=== PATIENT | female | born 1980 | race Caucasian/White ===

== ENCOUNTER 2023-06-21 18:00 | Emergency (ER) | payer MEDICAID, SELFPAY ==
[2023-06-21] VITALS (11 sets, daily range): BP systolic 174; BP diastolic 95; PULSE 71–91; RESP 14–28; TEMP 36.6; O2SAT 100; BMI 37.2
--- NOTE | 2023-06-21 18:14 | ECG_ITS ---
The [facility] Test Date: 2023-06-21 Pat Name: ALON BENITEZ Department: Room: - Gender: Female [employer]: : 1980 Requested By: MIGUEL JENA Order Number: [id number] Reading MD: WAYNE DENNY Measurements Intervals [place] Rate: 81 P: 60 DE: 172 QRS: 64 QRSD: 68 T: 50 QT: 368 QTc: 405 Interpretive Statements 1100 Sinus rhythm 3234 Anteroseptal myocardial infarction, age undetermined 9150 abnormal ECG No previous ECG available for comparison Electronically Signed On 06-22-2023 7:04:16 EST by WAYNE DENNY
--- NOTE | 2023-06-21 18:26 | ED.SOB1 ---
HPI - SOB/Dyspnea General Chief Complaint: Shortness of Breath/Dyspnea Stated Complaint: SHORTNESS OF BREATH Time Seen by Provider: 06/21/23 18:14 Source: patient Mode of arrival: walk-in History of Present Illness HPI Narrative: patient is a 42-year-old female who presents to the emergency department with concern of shortness of breath over the last two weeks. Patient states she believes that the symptoms are due to her anxiety but became concerned because they have not improved. She has had no fevers, cough or congestion. She denies chest pain or peripheral edema. She has no history of coronary artery disease or pulmonary abnormalities. She is regular smoker. She is not concerned for . She states she feels short of breath but also when she is talking she feels pressure in her neck and head that she states feels as though she can't get enough air . Related Data Home Medications Medication Instructions Recorded Confirmed omeprazole 20 mg capsule,delayed 20 mg PO DAILY 06/21/23 06/21/23 release Previous Rx's Medication Instructions Recorded hydroxyzine pamoate 25 mg capsule 25 mg PO Q6H PRN anxiety #20 caps 06/21/23 (Vistaril) Allergies Allergy/AdvReac Type Severity Reaction Status Date / Time cephalexin [From Keflex] Allergy Severe Swelling Verified 06/21/23 18:10 of Lip/Tongue/Throat Review of Systems ROS Constitutional Denies: fever or chills Ears, nose, mouth, and throat Denies: throat pain Cardiovascular Denies: chest pain or palpitations Respiratory Reports: shortness of breath; Denies: cough Gastrointestinal Denies: nausea or vomiting Musculoskeletal Denies: back pain, neck pain, extremity pain or extremity swelling Integumentary/Breast Denies: rash Neurological Denies: headache Allergic/Immunologic Denies: hives PFSH [facility] Social History Smoking status: Current every day smoker Exam Narrative Exam Narrative: Gen.: Awake, alert, in no distress Head: Normocephalic, atraumatic ENT: Moist mucous membranes Respiratory: No respiratory distress, lungs clear bilaterally Cardio: Regular rate and rhythm Extremities: Moves extremities equally, no pedal edema Psych: Normal mood and affect Neuro: No focal neuro deficit Skin: Warm, dry, intact Constitutional Vital Signs, click to edit/add: Last Vital Signs Temp 98 F 06/21/23 18:07 Pulse 82 06/21/23 19:30 Resp 14 06/21/23 19:30 BP 174/95 H 06/21/23 18:07 Pulse Ox 100 06/21/23 18:07 Course Vital Signs Vital signs: Vital Signs Temperature 98 F 06/21/23 18:07 Pulse Rate 91 H 06/21/23 18:07 Respiratory Rate 18 06/21/23 18:07 Blood Pressure 174/95 H 06/21/23 18:07 Pulse Oximetry 100 06/21/23 18:07 Temperature 98 F 06/21/23 18:07 Pulse Rate 82 06/21/23 19:30 Respiratory Rate 14 06/21/23 19:30 Blood Pressure 174/95 H 06/21/23 18:07 Pulse Oximetry 100 06/21/23 18:07 MDM - SOB/Dyspnea MDM Narrative Medical decision making narrative: lab studies found to show the patient has anemia but no evidence of cardiopulmonary abnormalities including troponin and d-dimer. The remainder of her labs are unremarkable and chest x-ray shows no evidence of acute cardiopulmonary changes. Patient was educated that her anemia may be possibly contributing to her shortness of breath and she should follow-up closely with her PCP, return to the Emergency Room if symptoms change or worsen she was offered hydroxyzine as needed for anxiety which may also be contributing to symptoms. Medical Records Attestation: I reviewed the patient's medical records. Lab Data Attestation: I reviewed the patient's lab results. Labs: Lab Results 06/21/23 Range/Units 18:27 WBC 5.4 (4.0-11.0) 10^3/uL RBC 4.26 (4.20-5.40) 10^6/uL Hgb 8.9 L (12.0-16.0) g/dL Hct 30.2 L (36.0-48.0) % MCV 70.9 L (81.0-99.0) fL MCH 20.9 L (26.7-34.0) pg MCHC 29.5 L (29.9-35.2) g/dL RDW 18.6 H (11.0-15.0) % Plt Count 345 (150-450) 10^3/uL MPV 10.4 (9.5-13.5) fL Neut % (Auto) 57.7 (43.0-75.0) % Lymph % (Auto) 32.5 (20.5-60.0) % [place] % (Auto) 6.6 (1.7-12.0) % Eos % (Auto) 1.7 (0.9-7.0) % Baso % (Auto) 1.3 (0.2-2.0) % Neut # (Auto) 3.1 (1.4-6.5) 10^3/uL Lymph # (Auto) 1.8 (1.2-3.8) 10^3/uL [place] # (Auto) 0.4 (0.3-0.8) 10^3/uL Eos # (Auto) 0.1 (0.0-0.7) 10^3/uL Baso # (Auto) 0.1 (0.0-0.1) 10^3/uL Abs Immat Gran (auto) 0.01 (0.00-0.03) 10^3/uL Imm/Tot Granulo (auto) 0.2 (0.0-0.5) % PT 9.9 (9.0-11.6) sec INR 0.93 APTT 28.5 (22.3-36.2) sec D-Dimer 0.30 (<=0.59) mg/L FEU VBG pH 7.430 (7.330-7.430) VBG pCO2 36.7 L (40.0-52.0) mmHg Sodium 136 (136-145) mmol/L Potassium 3.7 (3.5-5.1) mmol/L Chloride 101 (98-107) mmol/L Carbon Dioxide 23.8 (21.0-32.0) mmol/L Anion Gap 14.9 BUN 11.0 (7.0-18.0) mg/dL Creatinine 0.71 (0.55-1.02) mg/dL Est GFR ( Amer) >60 (>=60) Est GFR (Non-Af Amer) >60 (>=60) BUN/Creatinine Ratio 15.5 Glucose 87 (74-106) mg/dL Calcium 8.7 (8.5-10.1) mg/dL Total Bilirubin 0.2 (0.2-1.0) mg/dL AST 17 (15-37) U/L ALT 20 (14-59) U/L Alkaline Phosphatase 63 (46-116) U/L Troponin I High Sens 4.2 (4.0-51.3) pg/mL NT-Pro-B Natriuret Pep 57.0 (<=450.0) pg/mL Total Protein 7.9 (6.4-8.2) g/dL Albumin 3.8 (3.4-5.0) g/dL Globulin 4.1 g/dL Albumin/Globulin Ratio 0.9 Imaging Data Chest x-ray: Attestation: I have reviewed the pertinent imaging results. Radiologist's impression: Procedure: XR chest 1V EXAM: XR chest 1V at 1907 hours HISTORY: Shortness of breath COMPARISON: 09/30/2015 TECHNIQUE: AP upright portable chest x-ray FINDINGS: The heart is not enlarged and the vasculature is not distended. No acute infiltrate, effusion or pneumothorax is identified. The osseous structures are grossly intact. IMPRESSION: No acute infiltrate or evidence of cardiac decompensation. The overall appearance of the chest is essentially unchanged. Electronically authenticated by: JULIET CLEMENS Date: 06/21/2023 19:20 ECG Data Attestation: I personally reviewed and interpreted this ECG as follows: (normal sinus rhythm at a rate of eighty-one, no acute ST elevation or ectopy. EKG reviewed by attending physician) Discharge Plan Discharge Chief Complaint: Shortness of Breath/Dyspnea Clinical Impression: Shortness of breath, Anemia Patient Disposition: Home, Self-Care Time of Disposition Decision: 19:24 Condition: Good Prescriptions / Home Meds: New hydroxyzine pamoate [Vistaril] 25 mg capsule 25 mg PO Q6H PRN (Reason: anxiety) Qty: 20 0RF No Action omeprazole 20 mg capsule,delayed release(DR/EC) 20 mg PO DAILY Instructions: Anemia (ED), Shortness of Breath (ED) Stand Alone Forms: Portal Instructions Referrals: MIGUEL JEAN APRN [Primary Care Provider] - 1 week Discharge Date/Time: 06/21/23 19:34
[2023-06-21] MEDS: METHYLPREDNISOLONE SOD SUCC PF 125 MG/2 ML VIAL IVP (18:35)
[2023-06-21] MEDS: 0.9 % SODIUM CHLORIDE 1,000 ML 1000 ML IV (18:36)
[2023-06-21 18:37] LABS: PCO2 VBG 36.7 mmHg (40.0-52.0)
[2023-06-21 18:42] LABS: Basophils Absolute Auto 0.1 10^3/uL (0.0-0.1); Basophils Percent Auto 1.3 % (0.2-2.0); Eosinophils Absolute Auto 0.1 10^3/uL (0.0-0.7); Eosinophils Percent Auto 1.7 % (0.9-7.0); Hematocrit 30.2 % (36.0-48.0); Hemoglobin 8.9 g/dL (12.0-16.0); Immature Granulocytes Abs Auto 0.01 10^3/uL (0.00-0.03); Immature Granulocytes Pct Auto 0.2 % (0.0-0.5); Lymphocytes Absolute Auto 1.8 10^3/uL (1.2-3.8); Lymphocytes Percent Auto 32.5 % (20.5-60.0); Mean Corpuscular HGB Conc 29.5 g/dL (29.9-35.2); Mean Corpuscular Hemoglobin 20.9 pg (26.7-34.0); Mean Corpuscular Volume 70.9 fL (81.0-99.0); Mean Platelet Volume 10.4 fL (9.5-13.5); Monocytes Absolute Auto 0.4 10^3/uL (0.3-0.8); Monocytes Percent Auto 6.6 % (1.7-12.0); Neutrophils Absolute Auto 3.1 10^3/uL (1.4-6.5); Neutrophils Percent Auto 57.7 % (43.0-75.0); Platelet Count 345 10^3/uL (150-450); Red Blood Count 4.26 10^6/uL (4.20-5.40); Red Cell Distribution Width 18.6 % (11.0-15.0); White Blood Count 5.4 10^3/uL (4.0-11.0)
[2023-06-21 18:50] LABS: INR 0.93; Partial Thromboplastin Time 28.5 sec (22.3-36.2); Prothrombin Time 9.9 sec (9.0-11.6)
[2023-06-21 19:02] LABS: Alanine Aminotransferase 20 U/L (14-59); Albumin Globulin Ratio 0.9; Albumin Level 3.8 g/dL (3.4-5.0); Alkaline Phosphatase 63 U/L (46-116); Anion Gap 14.9; Aspartate Amino Transferase 17 U/L (15-37); BUN Creatinine Ratio 15.5; Bilirubin Total 0.2 mg/dL (0.2-1.0); Calcium 8.7 mg/dL (8.5-10.1); Carbon Dioxide 23.8 mmol/L (21.0-32.0); Chloride 101 mmol/L (98-107); Estimated GFR (African America >60 (>=60); Estimated GFR (Non-African Ame >60 (>=60); Globulin 4.1 g/dL; Glucose 87 mg/dL (74-106); Potassium 3.7 mmol/L (3.5-5.1); Sodium 136 mmol/L (136-145); Total Protein 7.9 g/dL (6.4-8.2); Troponin I High Sensitivity 4.2 pg/mL (4.0-51.3)
--- NOTE | 2023-06-21 19:03 | XR_ITS ---
The [address] [address] Patient Name: ALON BENITEZ MRN: [id number] date: 1980 Sex: F Assigned Patient Location: ER Current Patient Location: ER Accession/Order Number: [id number] Exam Date: 06/21/2023 19:10 Report Date: 06/21/2023 19:20 At the request of: BORA BARTHOLOMEW Procedure: XR chest 1V EXAM: XR chest 1V at 1907 hours HISTORY: Shortness of breath COMPARISON: 09/30/2015 TECHNIQUE: AP upright portable chest x-ray FINDINGS: The heart is not enlarged and the vasculature is not distended. No acute infiltrate, effusion or pneumothorax is identified. The osseous structures are grossly intact. XR/XR chest 1V IMPRESSION: No acute infiltrate or evidence of cardiac decompensation. The overall appearance of the chest is essentially unchanged. Electronically authenticated by: JULIET CLEMENS Date: 06/21/2023 19:20
== END 2023-06-21 19:34 | disposition home or self-care (01) ==
PROVIDERS: Physician Assistant; Emergency Provider Emergency Medicine; PCP Nurse Practitioner Primary Care
DX: R06.02 Shortness of breath (principal); D64.9 Anemia, unspecified; F17.210 Nicotine dependence, cigarettes, uncomplicated; F41.9 Anxiety disorder, unspecified
CPT/HCPCS: 36415; 71045; 80053; 82800; 83880; 84484; 85025; 85378; 85610; 85730; 93005; 96374; 99285; J2930

== ENCOUNTER 2023-08-21 | Outpatient (REF) | payer MEDICAID, SELFPAY ==
--- OUTSIDE RECORDS SUMMARY | 2023-08-31 08:14 | XMS_ITS | CCD ---
Author Name Unknown Address [address] [place] [address] Organization [facility] Care Team Providers Care Sap Technical Architect Name Role Phone CHRISTOPHER ARAGON Unavailable Unavailable PAVLOCK, MAX L Unavailable Unavailable HEDGES, CHRISTOPHER Cancino Unavailable Unavailable PAVLOCK, MAX L Unavailable Unavailable [...] Admitting Unavailable SHAMMO, MIGUEL Primary Care Unavailable YULIYAEBDR ABBY MEAD Consulting Unavailable SHAMMO, MIGUEL Attending Unavailable SHAMMO, MIGUEL Admitting Unavailable SHAMMO, MIGUEL Consulting Unavailable SHAMMO, MIGUEL Primary Care Unavailable SHAMMO, MIGUEL Consulting Unavailable SHAMMO, MIGUEL Attending Unavailable SHAMMO, MIGUEL Admitting Unavailable Pavlock, DO Max L Primary Care Provider Berna Hernandez Attending Provider [phone] MACRINA HERNANDEZY Attending Unavailable MARY, BERNA Attending Unavailable MARY, BERNA Attending Unavailable Pavlock, Max L Primary Care Unavailable Mary, Berna Attending Unavailable Mary, Berna Admitting Unavailable Allergies Allergy Classification Reported Allergen(s) Allergy Type Date of Onset Reaction(s) Facility (1 source) Cephalexin Drug Allergy tongue [facility] [employer] Other (1 source) Cephalexin Drug Allergy 2 [facility] Repository (1 source) Cephalexin Drug Allergy 8 [facility] Repository Medications Current Medications Medication Drug [...] in 3 days Apr, Not-Taking polymyxin b 76361 unt/ml / trimethoprim 1 mg/ml ophthalmic solution (1 source) Dihydrofolate Reductase Inhibitor Antibacterial, Polymyxin-class Antibacterial Start: 08-03-2018 take 1 drop(s) into the eye(s) four times daily Polymyxin B-Trimethoprim 81734-8.1 UNIT/ML 1 drop into left eye Ophthalmic [...] Test Name Value Interpretation Reference Range Facility [facility] 08-21-2023 L Specimen: [id number] Received: 08/22/231528 Status: CLINTON Escobedo Num: [id number] Spec Type: Surgical Subm Dr: Berna Hernandez Tissues: A Endometrium - Biopsy (EMBX) Procedures: HE/2, Gross/Micro L4 Age/ Patient Sex Location Account Attending Physician AnanyaAlon champagne Smita 42/F LABELL [id number] Berna Hernandez SPEC NUM: [id number] RECD: 08/22/23 STATUS: CLINTON ESCOBEDO NUM: [id number] PETE: 08/21/23- SUBM DR: Berna Hernandez ENTERED: 08/22/[address] [facility] [address]: [place],Lab SPEC TYPE: Surgical DEPT: OLVIN IZQUIERDO ORDERED: HE/2, Gross/Micro L4 ORDERED: HE/2, Gross/Micro L4 Pathological Diagnosis Endometrial biopsy: - Mucus with few small admixed strips of endocervical or lower uterine segment glandular elements of the probably inactive type, in addition to the occasional degenerated cellular debris, and the rare benign squamous epithelial cells without any hyperplasia, atypia, or dysplasia identified, otherwise is also slightly limited for overall assessment of the endometrial processes, at least partly due to only scant tissue portion obtained Clinical Information Menorrhagia with regular cycle Gross Description Received in formalin labeled with the patient's name, date of and EM BX (per requisition) is a 2.5 x 1.8 x 0.2 cm aggregate of boston soft tissue and mucoid material. Entirely submitted in one cassette labeled A1. CPT Codes 60037 Specimen: [id number] Received: 08/22/23 Status: CLINTON Gregg Num: [id number] Spec Type: Surgical Subm Dr: Berna Hernandez Tissues: A Endometrium - Biopsy (EMBX) Procedures: HE/2, Gross/Micro L4 Patient: Alon Gee Smita [id number] (Continued) Signed (signature on file) Jacob Alegria MD 08/24/23 1000 Normal [facility] FERRITINon 10-16-2022 Ferritin [Mass/Vol] 3.0 ng/mL Critically low 6.2-137.0 [facility] Comment on above: Performed By: #### F ETIBC, FERR #### [facility] [address] [address] [address] Reji Alegria IRON AND TIBCon 10-16-2022 % SATURATION 2.9 % Normal [facility] Comment on above: Performed By: #### F ETIBC, FERR #### [facility] [address] [address] [address] Reji Alegria Iron [Mass/Vol] 13.0 ug/dL Critically low 50.0-170.0 [facility] Comment on above: Performed By: #### F ETIBC, FERR #### [facility] [address] [address] [address] Reji Alegria TIBC DIRECT 442.0 ug/dL Normal 250.0-450.0 [facility] Comment on above: Performed By: #### F ETIBC, FERR #### [facility] [address] [place] [address] Dr. Reji Alegria HEPATITIS C AB CASCADE TO QU ANT PCR GENOon 08-29-2022 HCV AB <0.1 Normal 0.0-0.9 [facility] Comment on above: Performed By: #### H EPCASC #### [facility] [address] [place] [address] Dr. Reji Alegria Interpretation: Comment Normal [facility] Comment on above: Result Comment: Nega tive Not infected with HCV, unless recent infection is suspected or other evidence exists to indicate HCV infection. Performed By: #### H EPCASC #### [facility] [address] [place] [address] Dr. Reji Alegria CBC AUTO DIFFon 08-28-2022 BASO # 0.1 103/ul Normal 0.0-0.1 [facility] Comment on above: Performed By: #### C BC #### [facility] [address] [place] [address] Dr. Reji Alegria Basophils/100 WBC (Bld) 1.1 % Normal 0.2-2.0 [facility] Comment on above: Performed By: #### C BC #### [facility] [address] [place] [address] Dr. Reji Alegria EO # 0.1 103/ul Normal 0.0-0.7 [facility] Comment on above: Performed By: #### C BC #### [facility] [address] [place] [address] Dr. Reji Alegria Eosinophils/100 WBC (Bld) 1.6 % Normal 0.9-7.0 [facility] Comment on above: Performed By: #### C BC #### [facility] [address] [place] [address] Dr. Reji Alegria Erythrocyte distribution width (RBC) [Ratio] 15.0 % Normal 11.0-15.0 [facility] Comment on above: Performed By: #### C BC #### [facility] [address] [place] [address] Dr. Reji Alegria Hematocrit (Bld) [Volume fraction] 30.9 % Critically low 36.0-48.0 [facility] Comment on above: Performed By: #### C BC #### [facility] [address] [place] [address] Dr. Reji Alegria Hemoglobin (Bld) [Mass/Vol] 10.0 g/dL Critically low 12.0-16.0 [facility] Comment on above: Performed By: #### C BC #### [facility] [address] [place] [address] Dr. Reji Alegria IG # 0.02 10e3/ul Normal 0.00-0.03 [facility] Comment on above: Performed By: #### C BC #### [facility] [address] [place] [address] Dr. Reji Alegria IG % 0.3 % Normal 0.0-0.5 [facility] Comment on above: Performed By: #### C BC #### [facility] [address] [place] [address] Dr. Reji Alegria LYMPH # 2.2 103/ul Normal 1.2-3.8 [facility] Comment on above: Performed By: #### C BC #### [facility] [address] [place] [address] Dr. Reji Alegria Lymphocytes/100 WBC (Bld) 34.3 % Normal 20.5-60.0 [facility] Comment on above: Performed By: #### C BC #### [facility] [address] [place] [address] Dr. Reji Alegria MANUAL DIFF REQ NO Normal [facility] Comment on above: Performed By: #### C BC #### [facility] [address] [place] [address] Dr. Reji Alegria MCH (RBC) [Entitic mass] 22.5 pg Critically low 26.7-34.0 [facility] Comment on above: Performed By: #### C BC #### [facility] [address] [place] [address] Dr. Reji Alegria MCHC (RBC) [Mass/Vol] 32.4 g/dL Normal 29.9-35.2 [facility] Comment on above: Performed By: #### C BC #### [facility] [address] [place] [address] Dr. Reji Alegria MCV (RBC) [Entitic vol] 69.6 fL Critically low 81.0-99.0 [facility] Comment on above: Performed By: #### C BC #### [facility] [address] [address] [address] Reji Alegria MONO # 0.4 103/ul Normal 0.3-0.8 [facility] Comment on above: Performed By: #### C BC #### [facility] [address] [place] [address] Dr. Reji Alegria Monocytes/100 WBC (Bld) 6.2 % Normal 1.7-12.0 [facility] Comment on above: Performed By: #### C BC #### [facility] [address] [place] [address] Dr. Reji Alegria NEUT # 3.6 103/ul Normal 1.4-6.5 [facility] Comment on above: Performed By: #### C BC #### [facility] [address] [place] [address] Dr. Reji Alegria Neutrophils/100 WBC (Bld) 56.5 % Normal 43.0-75.0 [facility] Comment on above: Performed By: #### C BC #### [facility] [address] [place] [address] Dr. Reji Alegria Platelet mean volume (Bld) [Entitic vol] 9.8 fL Normal 9.5-13.5 [facility] Comment on above: Performed By: #### C BC #### [facility] [address] [place] [address] Dr. Reji Alegria PLT 371 103/ul Normal 150-450 [facility] Comment on above: Performed By: #### C BC #### [facility] [address] [place] [address] Dr. Reji Alegria RBC 4.44 106/ul Normal 4.20-5.40 [facility] Comment on above: Performed By: #### C BC #### [facility] [address] [place] [address] Dr. Reji Alegria WBC 6.3 103/ul Normal 4.0-11.0 [facility] Comment on above: Performed By: #### C BC #### [facility] [address] [place] [address] Dr. Reji Alegria GLYCOHEMOGLOBIN A1Con 2022 ADA RECOMMENDATION SEE BELOW Normal [facility] Comment on above: Result Comment: ADA RECOMMENDED LIMIT 4.0 - 6.0 ADA THERAPEUTIC TARGET < 7.0 ACTION SUGGESTED > 7.0 Performed By: #### A 1C #### [facility] [address] [place] [address] Dr. Reji Alegria Glucose [Mass/Vol] 117 mg/dL Normal [facility] Comment on above: Performed By: #### A 1C #### [facility] [address] [place] [address] Dr. Reji Alegria HbA1c (Bld) [Mass fraction] 5.7 % Normal 4.5-6.2 [facility] Comment on above: Performed By: #### A 1C #### [facility] [address] [place] [address] Dr. Reji Alegria LIPID PROFILEon 08-28-2022 CHOL-HDL RATIO NORM SEE BELOW Normal [facility] Comment on above: Result Comment: 3.3 - 4.4 LOW RISK 4.4 - 7.1 AVERAGE RISK 7.1 - 11.0 MODERATE RISK >11.0 HIGH RISK Performed By: #### C MP, LIPID, TSH #### [facility] [address] [place] [address] Dr. Reji Alegria Cholesterol [Mass/Vol] 146 mg/dL Normal <=200 [facility] Comment on above: Performed By: #### C MP, LIPID, TSH #### [facility] [address] [place] [address] Dr. Reji Alegria Cholesterol in HDL [Mass/Vol] 48 mg/dL Normal 40-60 [facility] Comment on above: Performed By: #### C MP, LIPID, TSH #### [facility] [address] [address] [address] Reji Alegria Cholesterol in LDL [Mass/Vol] 77.2 mg/dL Normal [facility] Comment on above: Performed By: #### C MP, LIPID, TSH #### [facility] [address] [address] [address] Reji Alegria Cholesterol.total/ Cholesterol in HDL [Mass ratio] 3.0 {ratio} Normal [facility] Comment on above: Performed By: #### C MP, LIPID, TSH #### [facility] [address] [address] [address] Reji Alegria HDL NORMAL > or = 60 mg/dl - LO W CARDIOVASCULAR RISK <40 mg/dl - HIGH CARDIOVASCULAR RISK Normal [facility] Comment on above: Performed By: #### C MP, LIPID, TSH #### [facility] [address] [address] [address] Reji Alegria LDL CALC NORMAL SEE BELOW Normal [facility] Comment on above: Result Comment: <100 mg/dl OPTIMAL 100 - 129 mg/dl NEAR OR ABOVE OPTIMAL 130 - 159 mg/dl BORDERLINE HIGH 160 - 189 mg/dl HIGH >190 mg/dl VERY HIGH Performed By: #### C MP, LIPID, TSH #### [facility] [address] [address] [address] Reji Alegria Triglyceride [Mass/Vol] 104 mg/dL Normal <=150 [facility] Comment on above: Performed By: #### C MP, LIPID, TSH #### [facility] [address] [address] [address] Reji Alegria VLDL CALC 20.8 mg/dL Normal [facility] Comment on above: Performed By: #### C MP, LIPID, TSH #### [facility] [address] [address] [address] Reji Alegria PROF 14(COMP METB)on 023 Albumin [Mass/Vol] 3.8 g/dL Normal 3.4-5.0 [facility] Comment on above: Performed By: #### C MP, LIPID, TSH #### [facility] [address] [address] [address] Reji Alegria Albumin/Globulin [Mass ratio] 1.0 {ratio} Normal [facility] Comment on above: Performed By: #### C MP, LIPID, TSH #### [facility] [address] [address] [address] Reji Alegria ALP [Catalytic activity/Vol] 68 U/L Normal 46-116 [facility] Comment on above: Performed By: #### C MP, LIPID, TSH #### [facility] [address] [address] [address] Reji Alegria ALT [Catalytic activity/Vol] 21 U/L Normal 14-59 [facility] Comment on above: Performed By: #### C MP, LIPID, TSH #### [facility] [address] [place] [address] Dr. Reji Alegria Anion gap [Moles/Vol] 12.3 mmol/L Normal [facility] Comment on above: Performed By: #### C MP, LIPID, TSH #### [facility] [address] [address] [address] Reji Alegria AST [Catalytic activity/Vol] 16 U/L Normal 15-37 [facility] Comment on above: Performed By: #### C MP, LIPID, TSH #### [facility] [address] [address] [address] Reji Alegria Bilirubin [Mass/Vol] 0.2 mg/dL Normal 0.2-1.0 [facility] Comment on above: Performed By: #### C MP, LIPID, TSH #### [facility] [address] [address] [address] Reji Alegria Calcium [Mass/Vol] 9.1 mg/dL Normal 8.5-10.1 [facility] Comment on above: Performed By: #### C MP, LIPID, TSH #### [facility] [address] [address] [address] Reji Alegria Chloride [Moles/Vol] 102 mmol/L Normal 98-107 [facility] Comment on above: Performed By: #### C MP, LIPID, TSH #### [facility] [address] [address] [address] Reji Alegria CO2 [Moles/Vol] 27.9 mmol/L Normal 21.0-32.0 [facility] Comment on above: Performed By: #### C MP, LIPID, TSH #### [facility] [address] [address] [address] Reji Alegria Creatinine [Mass/Vol] 0.52 mg/dL Critically low 0.55-1.02 [facility] Comment on above: Performed By: #### C MP, LIPID, TSH #### [facility] [address] [address] [address] Reji Alegria EGFR-AF COOK ISLANDER >60 Normal >=60 [facility] Comment on above: Performed By: #### C MP, LIPID, TSH #### [facility] [address] [address] [address] Reji Alegria EGFR-NON AF [place] ISLANDER >60 Normal >=60 [facility] Comment on above: Performed By: #### C MP, LIPID, TSH #### [facility] [address] [address] [address] Reji Alegria Globulin (S) [Mass/Vol] 3.7 g/dL Normal [facility] Comment on above: Performed By: #### C MP, LIPID, TSH #### [facility] [address] [address] [address] Reji Alegria Glucose [Mass/Vol] 90 mg/dL Normal 74-106 [facility] Comment on above: Performed By: #### C MP, LIPID, TSH #### [facility] [address] [address] [address] Reji Alegria Potassium [Moles/Vol] 4.2 mmol/L Normal 3.5-5.1 [facility] Comment on above: Performed By: #### C MP, LIPID, TSH #### [facility] [address] [address] [address] Reji Alegria Protein [Mass/Vol] 7.5 g/dL Normal 6.4-8.2 [facility] Comment on above: Performed By: #### C MP, LIPID, TSH #### [facility] [address] [address] [address] Reji Alegria Sodium [Moles/Vol] 138 mmol/L Normal 136-145 [facility] Comment on above: Performed By: #### C MP, LIPID, TSH #### [facility] [address] [address] [address] Reji Alegria Urea nitrogen [Mass/Vol] 10.0 mg/dL Normal 7.0-18.0 [facility] Comment on above: Performed By: #### C MP, LIPID, TSH #### [facility] [address] [place] [address] Dr. Reji Alegria Urea nitrogen/Creatinin e [Mass ratio] 19.2 mg/mg Normal [facility] Comment on above: Performed By: #### C MP, LIPID, TSH #### [facility] [address] [place] [address] Dr. Reji Alegria TSHon 08-28-2022 TSH 1.268 uIU/mL Normal 0.358-3.740 [facility] Comment on above: Performed By: #### C MP, LIPID, TSH #### [facility] [address] [place] [address] Dr. Reji Alegria XR LSPINE MIN 4 [...] by: ABBY LEWIS Date: 2022-06-14 15:56 Normal [facility] XR shoulder RT min 2V*on XR shoulder RT min 2V* [facility] GC[facility] Other XR shoulder RT min 2V* [facility] [place] [employer] Other XR shoulder RT min 2V* [address] [employer] Other XR shoulder RT min 2V* PRANAV Starks [address] [employer] Other XR shoulder RT min 2V* XRay Report [employer] Other XR shoulder RT min 2V* Signed [employer] Other XR shoulder RT min 2V* Patient: Alon Gee MR#: [id number] [employer] Other XR shoulder RT min 2V* 50 [employer] Other XR shoulder RT min 2V* : 1980 Acct:[id number] [employer] Other XR shoulder RT min 2V* Age/Sex: 40 / F ADM Date: 05/24/21 [employer] Other XR shoulder RT min 2V* Loc: XDUCLY Room: Type: [facility] [employer] Other XR shoulder RT min 2V* Attending Dr: Emilie Castillo ASSOCIATE PROFESSOR COMPUTER SCIENCESuleiman [employer] Other XR shoulder RT min 2V* Ordering Provider: EMILIE CASTILLO [employer] Other XR shoulder RT min 2V* Date of Service: 05/24/21 [employer] Other XR shoulder RT min 2V* XR/XR shoulder RT min 2V*: Acute pain of right shoulder [employer] Other XR shoulder RT min 2V* Copies to: EMILIE CASTILLO [facility] [employer] Other XR shoulder RT min 2V* CLINICAL HISTORY: Patient woke up with right shoulder pain 2 days ago, no known injury. Pain at the [employer] Other XR shoulder RT min 2V* upper portion of the shoulder. Limited range of motion. [employer] Other XR shoulder RT min 2V* [RIGHT] SHOULDER: [employer] Other XR shoulder RT min 2V* COMPARISON: None [employer] Other XR shoulder RT min 2V* FINDINGS: [AP, Grashey, transscapular] views of the right shoulder were obtained. There is no [employer] Other XR shoulder RT min 2V* evidence of fracture, dislocation or bony destruction. Moderate soft tissue calcification is noted [employer] Other XR shoulder RT min 2V* adjacent to the greater tuberosity of the humerus from calcific bursitis or tendinitis. Mild [employer] Other XR shoulder RT min 2V* degenerative arthritic changes are shown at the acromioclavicular joint. [employer] Other XR shoulder RT min 2V* XR/XR shoulder RT min 2V* [employer] Other XR shoulder RT min 2V* IMPRESSION: [employer] Other XR shoulder RT min 2V* NO FRACTURE OR SUBLUXATION. [employer] Other XR shoulder RT min 2V* CALCIFIC BURSITIS OR TENDINITIS ADJACENT TO THE GREATER TUBEROSITY OF THE HUMERUS. [employer] Other XR shoulder RT min 2V* MILD DEGENERATIVE ARTHRITIC CHANGES TO THE ACROMIOCLAVICULAR JOINT. [employer] Other XR shoulder RT min 2V* Impression dictated by: Mamadou Cobb M.D.05/24/2021 11:11 AM [employer] Other XR shoulder RT min 2V* Dictation Location: RADIO-PC-13 [employer] Other XR shoulder RT min 2V* Transcribed By: PWS 05/24/21 1111 [employer] Other XR shoulder RT min 2V* Dictated By: Mamadou Cobb MD 05/24/21 1108 [employer] Other XR shoulder RT min 2V* Signed By: [employer] Other XR shoulder RT min 2V* 05/24/21 1111 [employer] Other Surgical Pathologyon 017 Surgical Pathology (NOTE)[id number] Y LABORATORIESCONSULTING PATHOLOGISTS [facility] [id number] [place], [place] [id number] Fax: SURGICAL PATHOLOGY CONSULTATIONPatient Name: Nata GEE Rec: [id number] Number: [id number]: 06/01/2017Received: 06/04/2017Reported: 06/05/2017 12:38-- Diagnosis --SKIN, RIGHT [...] cyst wallor neoplasm in these sections. Normal [facility] US NON OB TRANSVAGINALon US NON OB [...] PMInterpreted by:EMANUEL Jonesigned by:Barbara Ledezma MD05/21/17Final result [facility] Cytologyon 05-11-2017 Cytology (NOTE)[id number] Y LABORATORIESCONSULTING PATHOLOGISTS [facility] [id number] [place], [place] [id number] Fax: GYNECOLOGIC CYTOLOGY REPORTPatient Name: DEBRA GEE#: [id number] #[id number]:1: Cervical material, (ThinPrep vial, Imaging-assisted review)Clinical SqrjreaN24.419 Routine casing crew pusher exam without abnormal findingsHigh Risk HPV DNA testing is requested if the diagnosis is ASC-USLMP: 05/03/17INTERPRETATIONCerv ical material, (ThinPrep vial, Imaging-assisted review):Specimen Adequacy: Satisfactory for evaluation. -Endocervical/transformat ion zone component is absent.Descriptive Diagnosis: Negative for intraepithelial lesion or malignancy. Register Of Deeds: ELÍAS Chavez(ASCP)Electronically Signed Outmk/05/17/2017 [facility] Vital Signs Date Time Vital Sign Value Performing Clinician Facility 05-24-2021 11:05-0400 Body height 162.56 cm Emilie Penningtonault Other [employer] Other 05-24-2021 11:05-0400 Body mass index (BMI) [Ratio] 37.38 kg/m2 Emilie Castillo Other [employer] Other 05-24-2021 11:05-0400 Body temperature 97.8 [degF] Emilie Castillo Other [employer] Other 05-24-2021 11:05-0400 Body weight 98.79 kg Emilie Castillo Other [employer] Other 05-24-2021 11:05-0400 Diastolic blood pressure 82 mm[Hg] Emilie Castillo Other [employer] Other 05-24-2021 11:05-0400 Respiratory rate 18 /min Emilie Castillo Other [employer] Other 05-24-2021 11:05-0400 SaO2% (BldA) [Mass fraction] 100 % Emilie Castillo Other [employer] Other 05-24-2021 11:05-0400 Systolic blood pressure 129 mm[Hg] Emilie Castillo Other [employer] Other Encounters Encounter Date Encounter Type Care Provider Facility Start: 08-23-2023 End: 08-23-2023 ambulatory BERNA MARY Not Available Start: 08-21-2023 End: 08-21-2023 ambulatory Max L Pavlock Facility:[facility] Start: 08-21-2023 End: 08-21-2023 Departed Referred DO Max Pavlock Work Phone: [facility] [place] [facility] Start: 08-21-2023 End: 08-21-2023 ambulatory DO Max L Pavlock Work Phone: [facility] Work Phone: Start: 07-31-2023 End: 07-31-2023 ambulatory BERNA HERNANDEZ Not Available Start: 11-14-2022 ambulatory MIGUEL SHAMMO Facility:H 1 Start: 10-16-2022 End: 10-17-2022 ambulatory MIGUEL SHAMMO Facility:[facility] Start: 08-30-2022 Encounter for genera l adult medical examination without abnormal findings MIGUEL SHAMMO [facility] Start: 08-28-2022 End: 08-29-2022 ambulatory MIGUEL SHAMMO Facility:[facility] Start: 08-28-2022 End: 08-29-2022 Encounter for general adult medical examination without abnormal findings MIGUEL SHAMMO Facility:[facility] Start: 06-27-2022 ambulatory MIGUEL SHAMMO Facility:[facility] 1 Start: 06-14-2022 End: 06-15-2022 ambulatory MIGUEL SHAMMO Facility:[facility] Start: 05-24-2021 Office outpatient vi sit 15 minutes Emilie Castillo [facility] [place] Start: 06-01-2017 End: 06-02-2017 Ambulatory [facility]hill[facility] Start: 05-21-2017 End: 05-22-2017 Ambulatory [facility]STOP[facility] Dhillon [facility] Start: 05-11-2017 End: 05-12-2017 Ambulatory [facility]STOP[facility] Dhillon [facility] Procedures Date Procedure Procedure Detail Performing Clinician Start: 05-21-2017 transvaginal CHRISTOPHER ARAGON Start: 05-11-2017 Cytopathology proced ure, preparation of smear, genital source CHRISTOPHER ARAGON Immunizations Immunization Date Immunization Notes Care Provider Fa cility 12-10-2018 Kenalog -40 mg Emilie carrasco Other [employer] Other Payers Date Payer Category Payer Medicaid [id number] 2022 Medicaid [id number] 2016 Unknown [id number] 1980 Unknown [id number] 2.16.84 [id number] 1980 Unknown [id number] 2.16.84 [id number] 1980 Unknown [id number] 2.16.84 [id number] 1980 Unknown [id number] 2.16.84 [id number] 1980 Unknown [id number] 2.16.84 0.1.534870.3.579.2.593 1980 Unknown [id number] 2.16.84 0.1.945523.3.579.2.1259 1980 Unknown [id number] 2.16.84 0.1.683451.3.579.2.1259 1980 Unknown [id number] 2.16.840 .1.155318.3.579.2.1259 1959 Self-pay 1959 Unknown [id number] Unknown [place] [id number] Unknown [id number] 2.16.8 [id number] Social History Date Type Detail Facility Unknown if ever smoked [employer] Other Sex Assigned At Sex Assigned At Bir th [employer] Other Start: 1980 Sex Assigned At Female F [facility] Clinical Note 06-14-2022 Note Date & Type [...] authenticated by: ABBY LEWIS Date: 2022-06-14 15:52 [facility] Evaluation note 05-24-2021 Note Date & Type [...] and tendontitis seen on xray as discussed. [facility] [employer] [facility] [employer] Other Evaluation note Note Date & Type Note Facility Evaluation note No assessment information availa [facility] Work Phone: History general Narrative - Reported Note Date & Type Note Facility History general Narrative - Reported Type Medical History Hypertension Medical History Depression Medical History Intercranial HTN Surgical History C section x 2 Hospitalization History see above surg hx [facility] [employer] [facility] [employer] Other Summary Purpose Family History No Family History Records FoundNo Family History Records FoundNo Family History Records FoundNo Family History Records Found Advance Directives No Advanced Directives Records Found Advance Directive Response Recorded Date/ Time Advance Directives No February 18 3:24pm Additional Source Comments INFORMATION SOURCE (unrecogn ized section and content) DATE CREATED AUTHOR 01/29/2018 [facility] DATE CREATED AUTHOR AUTHOR'S ORGANIZ ATION 12/07/2022 [facility] DATE CREATED AUTHOR AUTHOR'S ORGANIZ ATION 08/24/2023 [facility] EPIC DATE CREATED AUTHOR AUTHOR'S ORGANIZ ATION 08/25/2023 [facility] REASON FOR VISIT (unrecogniz ed section and [...] BE BASED ON THE PRIMARY CLINICAL RECORDS. [facility] provides no warranty or guarantee of the accuracy or completeness of information in this document.
== END 2023-08-21 00:01 | disposition home or self-care (01) ==
LOC: LAB
PROVIDERS: PCP Nurse Practitioner Primary Care; Visit Provider Obstetrics & Gynecology
DX: N92.0 Excessive and frequent menstruation with regular cycle (principal)
CPT/HCPCS: 88305

== ENCOUNTER 2023-08-23 19:57 | Outpatient (REF) | payer MEDICAID, SELFPAY ==
--- OUTSIDE RECORDS SUMMARY | 2023-08-23 20:01 | XMS_ITS | CCD ---
Author Name Unknown Address [address] [place] [address] Organization [facility] Care Team Providers Care Branch Maker Name Role Phone CHRISTOPHER ARAGON Unavailable Unavailable PAVLOCK, MAX L Unavailable Unavailable HEDGES, CHRISTOPHER W Unavailable Unavailable PAVLOCK, MAX L Unavailable Unavailable HEDGES, CHRISTOPHER W Unavailable Unavailable PAVLOCK, MAX L Unavailable Unavailable Emilie Castillo Unavailable SHAMMO, MIGUEL Consulting Unavailable SHAMMO, MIGUEL Primary Care Unavailable SHAMMO, MIGUEL Attending Unavailable SHAMMO, MIGUEL Admitting Unavailable SHAMMO, MIGUEL Primary Care Unavailable SHAMMO, MIGUEL Attending Unavailable SHAMMO, MIGUEL Admitting Unavailable SHAMMO, MIGUEL Primary Care Unavailable SHAMMO, MIGUEL Attending Unavailable SHAMMO, MIGUEL Admitting Unavailable SHAMMO, MIGUEL Primary Care Unavailable ZIEBERDR ABBY Consulting Unavailable SHAMMO, MIGUEL Attending Unavailable SHAMMO, IMGUEL Admitting Unavailable SHAMMO, MIGUEL Consulting Unavailable SHAMMO, MIGUEL Primary Care Unavailable SHAMMO, MIGUEL Consulting Unavailable SHAMMO, MIGUEL Attending Unavailable SHAMMO, MIGUEL Admitting Unavailable BERNA HERNANDEZ Attending Unavailable BERNA HERNANDEZ Attending Unavailable Pavwilliam, DO Max Yuliet Primary Care Provider Berna Hernandez Attending Provider Pavwilliam, Romulo Horvath Primary Care Unavailable Berna Hernandez Attending Unavailable Gerda Hernandezy Admitting Unavailable Allergies Allergy Classification Reported Allergen(s) Allergy Type Date of Onset Reaction(s) Facility (1 source) Cephalexin Drug Allergy tongue [facility] Other (1 source) Cephalexin Drug Allergy 2 [facility] Repository (1 source) Cephalexin Drug Allergy 8 [facility] Repository Medications Current Medications Medication Drug Class(es) Dates Sig (Normalized) Sig (Original) cyclobenzaprine hydrochloride 10 mg oral tablet (1 source) Muscle Relaxant Start: 1 take 1 tablet by mouth every eight hours Cyclobenzaprine HCl 10 MG 1 tablet as needed Orally Three times a day for 10 days May, Active methylPREDNISolone 4 mg oral tablet (1 source) Corticosteroid Start: 1 methylPREDNISolone 4 MG as directed Orally Once a day for 6 days May, Active Completed/Discontinued Medications Medication Drug Class(es) Dates Sig (Normalized) Sig (Original) fluconazole 150 mg oral tablet (1 source) Azole Antifungal Start: 04-24-2021 Diflucan 150 MG 1 tablet Orally once for 1 days Take 1 tab today p.o., repeat in 3 days Apr, Not-Taking polymyxin b 05957 unt/ml / trimethoprim 1 mg/ml ophthalmic solution (1 source) Dihydrofolate Reductase Inhibitor Antibacterial, Polymyxin-class Antibacterial Start: 08-03-2018 take 1 drop(s) into the eye(s) four times daily Polymyxin B-Trimethoprim 43942-8.1 UNIT/ML 1 drop into left eye Ophthalmic Four times a day for 7 days Jul, Not-Taking terbinafine (1 source) Allylamine Antifungal Start: 04-24-2021 Terbinafine HCl 1 % 1 application Externally Once a day for 14 days apply to rash Apr, Not-Taking Problems Active Problems Problem Classification Problem Date Documented Da te Episodic/Chronic Deficiency and other anemia (4 sources) Iron deficiency anemia, unspecified; Translations: [IRON DEFICIENCY ANEMIA UNSPECIFIED] Onset: 10-16-2022 Episodic Menstrual disorders (1 source) Excessive and frequent menstruation with irregular cycle; Translations: [Excessive and frequent menstruation with irregular cycle] Onset: 05-21-2017 Chronic Other nervous system disorders (1 source) Carpal tunnel syndrome of right wrist; Translations: [Carpal tunnel syndrome, right upper limb] Chronic Other nervous system disorders (1 source) Carpal tunnel syndrome of left wrist; Translations: [Carpal tunnel syndrome, left upper limb] Chronic Other nutritional; endocrine; and metabolic disorders (1 source) Morbid (severe) obesity due to excess calories; Translations: [MORBID SEVERE OBES D/T EXCESS JD] Onset: 08-30-2022 Chronic Other nutritional; endocrine; and metabolic disorders (1 source) Body mass index (BMI) 40.0-44.9, adult; Translations: [BODY MASS INDEX BMI 40.0-44.9 ADULT] Onset: 08-30-2022 Chronic Unclassified (1 source) n64.9 / n64.9() Onset: 06-01-2017 Unclassified (3 sources) LOW BACK PAIN, UNSPECIFIED; Translations: [LOW BACK PAIN, UNSPECIFIED] Onset: 06-19-2022 Past or Other Problems Problem Classification Problem Date Documented Date Episodic/Chronic Immunizations and screening for infectious disease (1 source) Encounter for screening for other viral diseases; Translations: [ENC SCREENING FOR OTH VIRAL DZ] Onset: 08-30-2022 Episodic Medical examination/evaluatio n (1 source) Encounter for gynecological examination (general) (routine) without abnormal findings; Translations: [Encounter for gynecological examination (general) (routine) without abnormal findings] Onset: 05-11-2017 Episodic Other non-traumatic joint disorders (1 source) Pain in right shoulder; Translations: [Acute pain of right shoulder M25.511] Onset: 05-24-2021 Resolved: 05-24-2021 Episodic Other non-traumatic joint disorders (1 source) Pain in left hip; Translations: [PAIN IN LEFT HIP] Onset: 06-19-2022 Episodic Other screening for suspected conditions (not mental disorders or infectious disease) (2 sources) Encounter for screening for cardiovascular disorders; Translations: [Encounter for screening for other suspected endocrine disorder] Onset: 08-30-2022 Episodic Unclassified (1 source) n64.9; Translations: [n64.9] Onset: 06-01-2017 Unclassified (1 source) LOW BACK PAIN, UNSPECIFIED; Translations: [LOW BACK PAIN, UNSPECIFIED] Onset: 06-14-2022 Results Test Name Value Interpretation Reference Range Facility FERRITINon 10-16-2022 Ferritin [Mass/Vol] 3.0 ng/mL Critically low 6.2-137.0 [facility] Comment on above: Performed By: #### F ETIBC, FERR #### [facility] [address] [place] [address] Dr. Reji Alegria IRON AND TIBCon 10-16-2022 % SATURATION 2.9 % Normal [facility] Comment on above: Performed By: #### F ETIBC, FERR #### [facility] [address] [place] [address] Dr. Reji Alegria Iron [Mass/Vol] 13.0 ug/dL Critically low 50.0-170.0 [facility] Comment on above: Performed By: #### F ETIBC, FERR #### [facility] [address] [place] [address] Dr. Reji Alegria TIBC DIRECT 442.0 ug/dL Normal 250.0-450.0 [facility] Comment on above: Performed By: #### F ETIBC, FERR #### [facility] [address] [place] [address] Dr. Reji Alegria HEPATITIS C AB CASCADE TO QU ANT PCR GENOon 08-29-2022 HCV AB <0.1 Normal 0.0-0.9 [facility] Comment on above: Performed By: #### H EPCASC #### [facility] [address] [place] [address] Dr. Reji Alegria Interpretation: Comment Normal [facility] Comment on above: Result Comment: Nega tive Not infected with HCV, unless recent infection is suspected or other evidence exists to indicate HCV infection. Performed By: #### H EPCASC #### [facility] [address] [place] [address] Dr. Reji Alegria CBC AUTO DIFFon 08-28-2022 BASO # 0.1 103/ul Normal 0.0-0.1 [facility] Comment on above: Performed By: #### C BC #### [facility] [address] [place] [address] Dr. Reji Alegria Basophils/100 WBC (Bld) 1.1 % Normal 0.2-2.0 [facility] Comment on above: Performed By: #### C BC #### [facility] [address] [place] [address] Dr. Reji Alegria EO # 0.1 103/ul Normal 0.0-0.7 [facility] Comment on above: Performed By: #### C BC #### [facility] [address] [place] [address] Dr. Reji Alegria Eosinophils/100 WBC (Bld) 1.6 % Normal 0.9-7.0 [facility] Comment on above: Performed By: #### C BC #### [facility] [address] [place] [address] Dr. Reij Alegria Erythrocyte distribution width (RBC) [Ratio] 15.0 % Normal 11.0-15.0 [facility] Comment on above: Performed By: #### C BC #### [facility] [address] [place] [address] Dr. Reji Alegria Hematocrit (Bld) [Volume fraction] 30.9 % Critically low 36.0-48.0 [facility] Comment on above: Performed By: #### C BC #### [facility] [address] [place] [address] Dr. Reji Alegria Hemoglobin (Bld) [Mass/Vol] 10.0 g/dL Critically low 12.0-16.0 [facility] Comment on above: Performed By: #### C BC #### [facility] [address] [place] [address] Dr. Reji Alegria IG # 0.02 10e3/ul Normal 0.00-0.03 [facility] Comment on above: Performed By: #### C BC #### [facility] [address] [place] [address] Dr. Reji Alegria IG % 0.3 % Normal 0.0-0.5 [facility] Comment on above: Performed By: #### C BC #### [facility] [address] [place] [address] Dr. Reji Alegria LYMPH # 2.2 103/ul Normal 1.2-3.8 [facility] Comment on above: Performed By: #### C BC #### [facility] [address] [place] [address] Dr. Reij Alegria Lymphocytes/100 WBC (Bld) 34.3 % Normal 20.5-60.0 [facility] Comment on above: Performed By: #### C BC #### [facility] [address] [address] [address] Reji Alegria MANUAL DIFF REQ NO Normal [facility] Comment on above: Performed By: #### C BC #### [facility] [address] [place] [address] Dr. Reji Alegria MCH (RBC) [Entitic mass] 22.5 pg Critically low 26.7-34.0 [facility] Comment on above: Performed By: #### C BC #### [facility] [address] [place] [address] Dr. Reji Alegria MCHC (RBC) [Mass/Vol] 32.4 g/dL Normal 29.9-35.2 [facility] Comment on above: Performed By: #### C BC #### [facility] [address] [place] [address] Dr. Reji Alegria MCV (RBC) [Entitic vol] 69.6 fL Critically low 81.0-99.0 [facility] Comment on above: Performed By: #### C BC #### [facility] [address] [place] [address] Dr. Reji Alegria MONO # 0.4 103/ul Normal 0.3-0.8 [facility] Comment on above: Performed By: #### C BC #### [facility] [address] [place] [address] Dr. Reji Alegria Monocytes/100 WBC (Bld) 6.2 % Normal 1.7-12.0 [facility] Comment on above: Performed By: #### C BC #### [facility] [address] [place] [address] Dr. Reji Alegria NEUT # 3.6 103/ul Normal 1.4-6.5 [facility] Comment on above: Performed By: #### C BC #### [facility] [address] [place] [address] Dr. Reji Alegria Neutrophils/100 WBC (Bld) 56.5 % Normal 43.0-75.0 [facility] Comment on above: Performed By: #### C BC #### [facility] [address] [address] [address] Reji Alegria Platelet mean volume (Bld) [Entitic vol] 9.8 fL Normal 9.5-13.5 [facility] Comment on above: Performed By: #### C BC #### [facility] [address] [address] [address] Reji Alegria PLT 371 103/ul Normal 150-450 [facility] Comment on above: Performed By: #### C BC #### [facility] [address] [address] [address] Reji Alegria RBC 4.44 106/ul Normal 4.20-5.40 [facility] Comment on above: Performed By: #### C BC #### [facility] [address] [place] [address] Dr. Reji Alegria WBC 6.3 103/ul Normal 4.0-11.0 [facility] Comment on above: Performed By: #### C BC #### [facility] [address] [address] [address] Reji Alegria GLYCOHEMOGLOBIN A1Con 2022 ADA RECOMMENDATION SEE BELOW Normal [facility] Comment on above: Result Comment: ADA RECOMMENDED LIMIT 4.0 - 6.0 ADA THERAPEUTIC TARGET < 7.0 ACTION SUGGESTED > 7.0 Performed By: #### A 1C #### [facility] [address] [place] [address] Dr. Reji Alegria Glucose [Mass/Vol] 117 mg/dL Normal [facility] Comment on above: Performed By: #### A 1C #### [facility] [address] [place] [address] Dr. Reji Alegria HbA1c (Bld) [Mass fraction] 5.7 % Normal 4.5-6.2 [facility] Comment on above: Performed By: #### A 1C #### [facility] [address] [place] [address] Dr. Reji Alegria LIPID PROFILEon 08-28-2022 CHOL-HDL RATIO NORM SEE BELOW Normal [facility] Comment on above: Result Comment: 3.3 - 4.4 LOW RISK 4.4 - 7.1 AVERAGE RISK 7.1 - 11.0 MODERATE RISK >11.0 HIGH RISK Performed By: #### C MP, LIPID, TSH #### [facility] [address] [address] [address] Reji Alegria Cholesterol [Mass/Vol] 146 mg/dL Normal <=200 [facility] Comment on above: Performed By: #### C MP, LIPID, TSH #### [facility] [address] [address] [address] Reji Alegria Cholesterol in HDL [Mass/Vol] 48 mg/dL Normal 40-60 [facility] Comment on above: Performed By: #### C MP, LIPID, TSH #### [facility] [address] [place] [address] Dr. Reji Alegria Cholesterol in LDL [Mass/Vol] 77.2 mg/dL Normal [facility] Comment on above: Performed By: #### C MP, LIPID, TSH #### [facility] [address] [place] [address] Dr. Reji Alegria Cholesterol.total/ Cholesterol in HDL [Mass ratio] 3.0 {ratio} Normal [facility] Comment on above: Performed By: #### C MP, LIPID, TSH #### [facility] [address] [place] [address] Dr. Reji Alegria HDL NORMAL > or = 60 mg/dl - LO W CARDIOVASCULAR RISK <40 mg/dl - HIGH CARDIOVASCULAR RISK Normal [facility] Comment on above: Performed By: #### C MP, LIPID, TSH #### [facility] [address] [place] [address] Dr. Reji Alegria LDL CALC NORMAL SEE BELOW Normal [facility] Comment on above: Result Comment: <100 mg/dl OPTIMAL 100 - 129 mg/dl NEAR OR ABOVE OPTIMAL 130 - 159 mg/dl BORDERLINE HIGH 160 - 189 mg/dl HIGH >190 mg/dl VERY HIGH Performed By: #### C MP, LIPID, TSH #### [facility] [address] [place] [address] Dr. Reji Alegria Triglyceride [Mass/Vol] 104 mg/dL Normal <=150 [facility] Comment on above: Performed By: #### C MP, LIPID, TSH #### [facility] [address] [address] [address] Reji Alegria VLDL CALC 20.8 mg/dL Normal [facility] Comment on above: Performed By: #### C MP, LIPID, TSH #### [facility] [address] [address] [address] Reji Alegria PROF 14(COMP METB)on 023 Albumin [Mass/Vol] 3.8 g/dL Normal 3.4-5.0 [facility] Comment on above: Performed By: #### C MP, LIPID, TSH #### [facility] [address] [address] [address] Reji Alegria Albumin/Globulin [Mass ratio] 1.0 {ratio} Normal [facility] Comment on above: Performed By: #### C MP, LIPID, TSH #### [facility] [address] [place] [address] Dr. Reji Alegria ALP [Catalytic activity/Vol] 68 U/L Normal 46-116 [facility] Comment on above: Performed By: #### C MP, LIPID, TSH #### [facility] [address] [place] [address] Dr. Reji Alegria ALT [Catalytic activity/Vol] 21 U/L Normal 14-59 [facility] Comment on above: Performed By: #### C MP, LIPID, TSH #### [facility] [address] [place] [address] Dr. Reji Alegria Anion gap [Moles/Vol] 12.3 mmol/L Normal [facility] Comment on above: Performed By: #### C MP, LIPID, TSH #### [facility] [address] [place] [address] Dr. Reji Alegria AST [Catalytic activity/Vol] 16 U/L Normal 15-37 [facility] Comment on above: Performed By: #### C MP, LIPID, TSH #### [facility] [address] [place] [address] Dr. Reji Alegria Bilirubin [Mass/Vol] 0.2 mg/dL Normal 0.2-1.0 [facility] Comment on above: Performed By: #### C MP, LIPID, TSH #### [facility] [address] [address] [address] Reji Alegria Calcium [Mass/Vol] 9.1 mg/dL Normal 8.5-10.1 [facility] Comment on above: Performed By: #### C MP, LIPID, TSH #### [facility] [address] [place] [address] Dr. Reji Alegria Chloride [Moles/Vol] 102 mmol/L Normal 98-107 [facility] Comment on above: Performed By: #### C MP, LIPID, TSH #### [facility] [address] [place] [address] Dr. Reji Alegria CO2 [Moles/Vol] 27.9 mmol/L Normal 21.0-32.0 [facility] Comment on above: Performed By: #### C MP, LIPID, TSH #### [facility] [address] [place] [address] Dr. Reji Alegria Creatinine [Mass/Vol] 0.52 mg/dL Critically low 0.55-1.02 [facility] Comment on above: Performed By: #### C MP, LIPID, TSH #### [facility] [address] [place] [address] Dr. Reji Alegria EGFR-AF AFGHAN >60 Normal >=60 [facility] Comment on above: Performed By: #### C MP, LIPID, TSH #### [facility] [address] [place] [address] Dr. Reji Alegria EGFR-NON AF AFGHAN >60 Normal >=60 [facility] Comment on above: Performed By: #### C MP, LIPID, TSH #### [facility] [address] [place] [address] Dr. Reji Alegria Globulin (S) [Mass/Vol] 3.7 g/dL Normal [facility] Comment on above: Performed By: #### C MP, LIPID, TSH #### [facility] [address] [place] [address] Dr. Reji Alegria Glucose [Mass/Vol] 90 mg/dL Normal 74-[address] [facility] Comment on above: Performed By: #### C MP, LIPID, TSH #### [facility] [address] [place] [address] Dr. Reji Alegria Potassium [Moles/Vol] 4.2 mmol/L Normal 3.5-5.1 [facility] Comment on above: Performed By: #### C MP, LIPID, TSH #### [facility] [address] [place] [address] Dr. Reji Alegria Protein [Mass/Vol] 7.5 g/dL Normal 6.4-8.[address] [facility] Comment on above: Performed By: #### C MP, LIPID, TSH #### [facility] [address] [place] [address] Dr. Reji Alegria Sodium [Moles/Vol] 138 mmol/L Normal 136-145 [facility] Comment on above: Performed By: #### C MP, LIPID, TSH #### [facility] [address] [place] [address] Dr. Reji Alegria Urea nitrogen [Mass/Vol] 10.0 mg/dL Normal 7.0-18.0 [facility] Comment on above: Performed By: #### C MP, LIPID, TSH #### [facility] [address] [place] [address] Dr. Reji Alegria Urea nitrogen/Creatinin e [Mass ratio] 19.2 mg/mg Normal [facility] Comment on above: Performed By: #### C MP, LIPID, TSH #### [facility] [address] [place] [address] Dr. Reji Alegria TSHon 08-28-2022 TSH 1.268 uIU/mL Normal 0.358-3.740 [facility] Comment on above: Performed By: #### C MP, LIPID, TSH #### [facility] [address] [place] [address] Dr. Reji Alegria XR LSPINE MIN 4 VIEWSon 11-0 XR LSPINE MIN 4 VIEWS EXAMINATION: XR LSPINE MIN 4 VIEWS HISTORY: Low back pain COMPARISON: XR L-spine 08/29/2017 FINDINGS: BONES: No significant spondylosis, scoliosis, fracture, or visible bony lesion. DISC SPACES: No significant disc height narrowing, subluxation, or endplate abnormality. PARASPINOUS: Negative. No paraspinous abnormality is seen. OTHER: Negative. IMPRESSION: 1. No acute bone abnormality or significant degenerative changes. Electronically authenticated by: ABBY LEWIS Date: 2022-06-14 15:56 Normal [facility] XR shoulder RT min 2V*on XR shoulder RT min 2V* [facility] Other XR shoulder RT min 2V* [facility] Other XR shoulder RT min 2V* [address] [place] [address] [facility] Other XR shoulder RT min 2V* [place] [address] [facility] Other XR shoulder RT min 2V* XRay Report [facility] Other XR shoulder RT min 2V* Signed [facility] Other XR shoulder RT min 2V* Patient: Alon Gee MR#: [id number] [facility] Other XR shoulder RT min 2V* 50 [facility] Other XR shoulder RT min 2V* : 1980 Acct:[id number] [facility] Other XR shoulder RT min 2V* Age/Sex: 40 / F ADM Date: 05/24/21 [facility] Other XR shoulder RT min 2V* Loc: [facility] Other XR shoulder RT min 2V* Attending Dr: Emilie RUEDA [facility] Other XR shoulder RT min 2V* Ordering Provider: EMILIE CASTILLO [facility] Other XR shoulder RT min 2V* Date of Service: 05/24/21 [facility] Other XR shoulder RT min 2V* XR/XR shoulder RT min 2V*: Acute pain of right shoulder [facility] Other XR shoulder RT min 2V* Copies to: EMILIE CASTILLO [facility] Other XR shoulder RT min 2V* CLINICAL HISTORY: Patient woke up with right shoulder pain 2 days ago, no known injury. Pain at the [facility] Other XR shoulder RT min 2V* upper portion of the shoulder. Limited range of motion. [facility] Other XR shoulder RT min 2V* [RIGHT] SHOULDER: [facility] Other XR shoulder RT min 2V* COMPARISON: None [facility] Other XR shoulder RT min 2V* FINDINGS: [AP, Grashey, transscapular] views of the right shoulder were obtained. There is no [facility] Other XR shoulder RT min 2V* evidence of fracture, dislocation or bony destruction. Moderate soft tissue calcification is noted [facility] Other XR shoulder RT min 2V* adjacent to the greater tuberosity of the humerus from calcific bursitis or tendinitis. Mild [facility] Other XR shoulder RT min 2V* degenerative arthritic changes are shown at the acromioclavicular joint. [facility] Other XR shoulder RT min 2V* XR/XR shoulder RT min 2V* [facility] Other XR shoulder RT min 2V* IMPRESSION: [facility] Other XR shoulder RT min 2V* NO FRACTURE OR SUBLUXATION. [facility] Other XR shoulder RT min 2V* CALCIFIC BURSITIS OR TENDINITIS ADJACENT TO THE GREATER TUBEROSITY OF THE HUMERUS. [facility] Other XR shoulder RT min 2V* MILD DEGENERATIVE ARTHRITIC CHANGES TO THE ACROMIOCLAVICULAR JOINT. [facility] Other XR shoulder RT min 2V* Impression dictated by: Mamadou Cobb M.D.05/24/2021 11:11 AM [facility] Other XR shoulder RT min 2V* Dictation Location: RADIO-PC-13 [facility] Other XR shoulder RT min 2V* Transcribed By: LISS 05/24/21 1111 [facility] Other XR shoulder RT min 2V* Dictated By: Mamadou Cobb MD 05/24/21 1108 [facility] Other XR shoulder RT min 2V* Signed By: [facility] Other XR shoulder RT min 2V* 05/24/21 1111 [facility] Other Surgical Pathologyon 017 Surgical Pathology (NOTE)[id number] Y LABORATORIESCONSULTING PATHOLOGISTS [facility] [id number] [place], [place] [id number] Fax: SURGICAL PATHOLOGY CONSULTATIONPatient Name: Nata GEE Rec: [id number] Number: [id number]: 06/01/2017Received: 06/04/2017Reported: 06/05/2017 12:38-- Diagnosis --SKIN, RIGHT BREAST, SHAVE BIOPSY: - SLIGHT EPIDERMAL ACANTHOSIS, COMPATIBLE WITH AN EARLYFLAT SEBORRHEIC KERATOSIS, IF THIS FITS THE CLINICAL PICTURE.Everett Lawson M.D.Electronically Signed Out06/05/2017Clinic al InformationPre-op Diagnosis: BREAST LESION Operative Findings: R BREAST (PER CONTAINER)Operation Performed: BIOPSY OF SKIN LESION Source of Specimen1: SKIN LESION RIGHT BREAST (PER CONTAINER)Gross Description ALON GEE, SKIN LESION R BREAST 0.3 x 0.2 x 0.1 cm [place] shave. Inked intact 1cs. tmMicroscopic DescriptionSkin to the superficial dermis shows orthokeratotic stratum corneumand slight epidermal acanthosis. The superficial dermis includedcontains a sparse perivascular lymphocytic infiltrate with someslightly increased dermal fibrosis. There is no evidence of cyst wallor neoplasm in these sections. Normal [facility] US NON OB TRANSVAGINALon US NON OB TRANSVAGINAL REPORT: Ultrasound pelvisTECHNIQUE: High-resolution sonographic evaluation of the female pelvis performed endovaginally. INDICATION: MenometrorrhagiaFINDINGS: Benign nabothian cysts. Normal anteverted uterus measuring 10.4 x 7.2 x 6.0 cm. Single 2.5 cm probable uterine fibroid. The endometrium measures 8 mm in double thickness which is normal for the patient's age. The right ovary measures 2.7 x 2.6 x 2.4 cm. The left ovary is not definitively seen. The right ovary contains a dominant follicle. No adnexal mass lesions or free pelvic fluid.1. Probable small uterine fibroid2. Left ovary is not definitively seenFinal report electronically signed by Barbara Ledezma on 05/21/2017 12:17 PMInterpreted by:EMANUEL Jonesigned by:Barbara Ledezma MD05/21/17Final result Normal [facility] Cytologyon 05-11-2017 Cytology (NOTE)[id number] Y LABORATORIESCONSULTING PATHOLOGISTS [facility] [id number] [place] [phone] Fax: GYNECOLOGIC CYTOLOGY REPORTPatient Name: DEBRA GEE#: [id number] #[id number]:1: Cervical material, (ThinPrep vial, Imaging-assisted review)Clinical ZrorwanY25.419 Routine offal baler exam without abnormal findingsHigh Risk HPV DNA testing is requested if the diagnosis is ASC-USLMP: 05/03/17INTERPRETATIONCerv ical material, (ThinPrep vial, Imaging-assisted review):Specimen Adequacy: Satisfactory for evaluation. -Endocervical/transformat ion zone component is absent.Descriptive Diagnosis: Negative for intraepithelial lesion or malignancy. Final Finisher: ELÍAS Chavez(ASCP)Electronically Signed Outmk/05/17/2017 [facility] Vital Signs Date Time Vital Sign Value Performing Clinician Facility 05-24-2021 11:05-0400 Body height 162.56 cm Emilie Castillo Other [facility] 05-24-2021 11:05-0400 Body mass index (BMI) [Ratio] 37.38 kg/m2 Emilie Castillo Other [facility] 05-24-2021 11:05-0400 Body temperature 97.8 [degF] Emilie Castillo Other [facility] Other 05-24-2021 11:05-0400 Body weight 98.79 kg Emilie Castillo Other [facility] Other 05-24-2021 11:05-0400 Diastolic blood pressure 82 mm[Hg] Emilie Castillo Other [facility] Other 05-24-2021 11:05-0400 Respiratory rate 18 /min Emilie Penningtonault Other [facility] Other 05-24-2021 11:05-0400 SaO2% (BldA) [Mass fraction] 100 % Emilie Penningtonault Other [facility] Other 05-24-2021 11:05-0400 Systolic blood pressure 129 mm[Hg] Emilie Penningtonault Other [facility] Other Encounters Encounter Date Encounter Type Care Provider Facility Start: 08-21-2023 End: 08-21-2023 ambulatory Max Yuliet Pavlock Facility:[facility] Start: 08-21-2023 End: 08-21-2023 Departed Referred DO Romulo Whaley Work Phone: [facility] Start: 08-21-2023 End: 08-21-2023 ambulatory BERNA PEACE Not Available Start: 07-31-2023 End: 07-31-2023 ambulatory BERNA PEACE Not Available Start: 11-14-2022 ambulatory MIGUEL SHAMMO Facility:[facility] Start: 10-16-2022 End: 10-17-2022 ambulatory MIGUEL SHAMMO Facility:[facility] Start: 08-30-2022 Encounter for genera l adult medical examination without abnormal findings MIGUEL SHAMMO [facility] Start: 08-28-2022 End: 08-29-2022 ambulatory MIGUEL SHAMMO Facility:[facility] Start: 08-28-2022 End: 08-29-2022 Encounter for general adult medical examination without abnormal findings MIGUEL SHAMMO Facility:[facility] Start: 06-27-2022 ambulatory MIGUEL SHAMMO Facility:[facility] Start: 06-14-2022 End: 06-15-2022 ambulatory MIGUEL SHAMMO Facility:[facility] Start: 05-24-2021 Office outpatient vi sit 15 minutes Emilie Castillo [facility] Start: 06-01-2017 End: 06-02-2017 Ambulatory CHRISTOPHER Barak [facility] Start: 05-21-2017 End: 05-22-2017 Ambulatory [facility]RISTOP[facility] Start: 05-11-2017 End: 05-12-2017 Ambulatory CHRISTOPHERJOHNY [facility] Procedures Date Procedure Procedure Detail Performing Clinician Start: 05-21-2017 Us transvaginal CHRISTOPHER ARAGON Start: 05-11-2017 Cytopathology proced ure, preparation of smear, genital source CHRISTOPHER ARAGON Immunizations Immunization Date Immunization Notes Care Provider Fa cility 12-10-2018 Kenalog -40 mg Emilie carrasco Other [facility] Other Payers Date Payer Category Payer Medicaid [id number] 2022 Medicaid [id number] 2016 Unknown [id number] 1980 Unknown [id number] 2.16.84 [id number] 1980 Unknown [id number] 2.16.84 [id number] 1980 Unknown [id number] 2.16.84 [id number] 1980 Unknown [id number] 2.16.84 [id number] 1980 Unknown [id number] 2.16.84 [id number] 1980 Unknown [id number] 2.16.84 [id number] 1980 Unknown [id number] 2.16.840 .[id number] 1959 Self-pay 1959 Unknown [id number] Unknown [place] [id number] Unknown [id number] 2.16.8 [id number] Social History Date Type Detail Facility Unknown if ever smoked [facility] Other Sex Assigned At Sex Assigned At Bir th [facility] Other Start: 1980 Sex Assigned At Female F [facility] Clinical Note 06-14-2022 Note Date & Type Note Facility 06-14-2022 Note PROCEDURE: XR HIP LT 2 3V WO PELVIS HISTORY: Pain of left hip joint for 4 months COMPARISON: None. FINDINGS: BONES:Slight narrowing of the superior joint space. No fracture, dislocation, bone lesion. SOFT TISSUES:No visible soft tissue swelling. EFFUSION:None visible. OTHER: Negative. IMPRESSION: 1. Mild narrowing of the superior aspect of the joint space suggesting cartilage thinning. 2. No acute bone abnormality. Electronically authenticated by: ABBY LEWIS Date: 2022-06-14 15:52 [facility] Evaluation note 05-24-2021 Note Date & Type Note Facility 05-24-2021 Evaluation note Encounter Date Diagnosis Assessment Notes May, Acute pain of right shoulder (ICD-10 - M25.511) Use RICE therapy as discussed: Rest, Ice Compression, Elevate. Apply ice to affected area 3-4 times daily (Do not place ice source directly on skin, must cover with towel-like material). Take medication as directed. Rest and elevate sore extremity as much as possible. Do not take OTC medication pain relievers if prescription of medication given in office today. Contact office of ortho is needed due to extent of arthritis and tendontitis seen on xray as discussed. [facility] Other Evaluation note Note Date & Type Note Facility Evaluation note No assessment information availa [facility] Work Phone: History general Narrative - Reported Note Date & Type Note Facility History general Narrative - Reported Type Medical History Hypertension Medical History Depression Medical History Intercranial HTN Surgical History C section x 2 Hospitalization History see above surg hx [facility] Other Summary Purpose Family History No Family History Records FoundNo Family History Records FoundNo Family History Records FoundNo Family History Records Found Advance Directives No Advanced Directives Records Found Advance Directive Response Recorded Date/ Time Advance Directives No February 18 3:24pm Additional Source Comments INFORMATION SOURCE (unrecogn ized section and content) DATE [facility]ATED [facility] DATE CREATED AUTHOR AUTHOR'S ORGANIZ ATION 12/07/2022 [facility] DATE CREATED AUTHOR AUTHOR'S ORGANIZ ATION 08/22/2023 [facility] EPIC DATE CREATED AUTHOR AUTHOR'S ORGANIZ ATION 08/23/2023 [facility] REASON FOR VISIT (unrecogniz ed section and content) RIGHT SHOULDER PAIN Care Teams (unrecognized sec tion and content) Team Status: Active Member Role Status Dates Romulo Whaley DO Primary Care Provider Active Team Status: Inactive Member Role Status Dates Romulo Whaley DO Primary Care Provider Active Start: August 21, 2023 End: August 21, 2023 Berna Hernandez Attending Provider Active Start: Lázaro lujan 2023 End: August 21, 2023 Goals (unrecognized section and content) Goals may be documented in a n alternate section FOR RECORDS PERTAINING TO PATIENTS WHO ARE OR HAVE BEEN ENROLLED IN A CHEMICAL DEPENDENCY/SUBSTANCEABUSE PROGRAM, SOME INFORMATION MAY BE OMITTED. This clinical summary was aggregated from multiple sources. Caution should be exercised in using it in the provision of clinical care. This summary normalizes information from multiple sources, and as a consequence, information in this document may materially change the coding, format and clinical context of patient data. In addition, data may be omitted in some cases. CLINICAL DECISIONS SHOULD BE BASED ON THE PRIMARY CLINICAL RECORDS. [facility] [employer] provides no warranty or guarantee of the accuracy or completeness of information in this document.
[2023-08-28 08:11] LABS: Age Gdln ACOG Testing Note (.); HPV Aptima Negative (Negative); IGP, Aptima HPV, rfx 16/18,45 Note (.)
== END 2023-08-23 19:58 | disposition home or self-care (01) ==
LOC: LAB 19:57
PROVIDERS: PCP Nurse Practitioner Primary Care; Visit Provider Obstetrics & Gynecology
DX: Z01.419 Encounter for gynecological examination (general) (routine) without abnormal findings (principal)
CPT/HCPCS: 87624; G0145

== ENCOUNTER 2023-09-04 11:03 | Outpatient (OUT) | payer MEDICAID, SELFPAY ==
--- OUTSIDE RECORDS SUMMARY | 2023-09-04 11:06 | XMS_ITS | CCD ---
Author Name Unknown Address [address] [place] [address] Organization [facility] Care Team Providers Care Saw Straightener Name Role Phone CHRISTOPHER ARAGON Unavailable Unavailable PAVLOCK, MAX L Unavailable Unavailable HEDGESCHRISTOPHER Unavailable Unavailable PAVLOCK, MAX L Unavailable Unavailable [...] Primary Care Provider Berna Hernandez Attending Provider MACRINA HERNANEDZY Attending Unavailable MARY, BERNA Attending Unavailable MARY, BERNA Attending Unavailable Pavlock, Max L Primary Care Unavailable Mary, Berna Attending Unavailable Mary, Berna Admitting Unavailable Allergies Allergy Classification Reported Allergen(s) Allergy Type Date of Onset Reaction(s) Facility (1 source) [facility] [employer] Other (1 source) Cephalexin Drug Allergy 2 [facility] Repository (1 source) Cephalexin Drug Allergy 8 [facility] Medications Current Medications Medication Drug Class(es) [...] in 3 days Apr, Not-Taking polymyxin b 06726 unt/ml / trimethoprim 1 mg/ml ophthalmic solution (1 source) Dihydrofolate Reductase Inhibitor Antibacterial, Polymyxin-class Antibacterial Start: 08-03-2018 take 1 drop(s) into the eye(s) four times daily Polymyxin B-Trimethoprim 03573-1.1 UNIT/ML 1 drop into left eye Ophthalmic [...] Test Name Value Interpretation Reference Range Facility [facility] 08-21-2023 L Specimen: [id number] Received: 08/22/231528 Status: [place] Escobedo Num: [id number] Spec Type: Surgical Subm Dr: Berna Hernandez Tissues: A Endometrium - Biopsy (EMBX) Procedures: HE/2, Gross/Micro L4 Age/ Patient Sex Location Account Attending Physician AnanyaAlon champagne Smita 42/F LABELL [id number] Berna Hernandez SPEC NUM: [id number] RECD: 08/22/23 STATUS: [place] ESCOBEDO NUM: [id number] PETE: 08/21/23- SUBM DR: Berna Hernandez ENTERED: 08/22/[address] [facility] [address]: Shelby,Lab SPEC TYPE: Surgical DEPT: OLVIN [...] in one cassette labeled A1. CPT Codes 85197 Specimen: [id number] Received: 08/22/23 Status: [place] Gregg Num: [id number] Spec Type: Surgical Subm Dr: Berna Hernandez Tissues: A Endometrium - Biopsy (EMBX) Procedures: HE/2, Gross/Micro L4 Patient: Alon Gee Smita [id number] (Continued) Signed (signature on file) Jacob Alegria MD 08/24/23 1000 Normal [facility] FERRITINon 10-16-2022 Ferritin [Mass/Vol] 3.0 ng/mL Critically low 6.2-137.0 [facility] Comment on above: Performed By: #### F ETIBC, FERR #### [facility] [address] [address] [address] Reji Alegria IRON AND TIBCon 10-16-2022 % SATURATION 2.9 % Normal [facility] Comment on above: Performed By: #### F ETIBC, FERR #### [facility] [address] [address] [address] Reji Alegria Iron [Mass/Vol] 13.0 ug/dL Critically low 50.0-170.0 [place] Comment on above: Performed By: #### F ETIBC, FERR #### [facility] [address] [address] [address] Reji Alegria TIBC DIRECT 442.0 ug/dL Normal 250.0-450.0 [facility] Comment on above: Performed By: #### F ETIBC, FERR #### [facility] [address] [place] [address] Dr. Reji Alegria HEPATITIS C AB CASCADE TO QU ANT PCR GENOon 08-29-2022 HCV AB <0.1 Normal 0.0-0.9 [facility] Comment on above: Performed By: #### H EPCASC #### [facility] [address] [place] [address] Dr. Reji Alegria Interpretation: Comment Normal [facility] Comment on above: Result Comment: Nega tive Not infected with HCV, unless recent infection is suspected or other evidence exists to indicate HCV infection. Performed By: #### H EPCASC #### [facility] [address] [place] [address] Dr. Reji Alegria CBC AUTO DIFFon 08-28-2022 BASO # 0.1 103/ul Normal 0.0-0.1 [facility] Comment on above: Performed By: #### C BC #### [facility] [address] [place] [address] Dr. Reji Alegria Basophils/100 WBC (Bld) 1.1 % Normal 0.2-2.0 [facility] Comment on above: Performed By: #### C BC #### [facility] [address] [place] [address] Dr. Reji Alegria EO # 0.1 103/ul Normal 0.0-0.7 [facility] Comment on above: Performed By: #### C BC #### [facility] [address] [place] [address] Dr. Reji Alegria Eosinophils/100 WBC (Bld) 1.6 % Normal 0.9-7.0 [facility] Comment on above: Performed By: #### C BC #### [facility] [address] [place] [address] Dr. Reji Alegria Erythrocyte distribution width (RBC) [Ratio] 15.0 % Normal 11.0-15.0 [facility] Comment on above: Performed By: #### C BC #### [facility] [address] [place] [address] Dr. Reji Alegria Hematocrit (Bld) [Volume fraction] 30.9 % Critically low 36.0-48.0 [facility] Comment on above: Performed By: #### C BC #### [facility] [address] [place] [address] Dr. Reji Alegria Hemoglobin (Bld) [Mass/Vol] 10.0 g/dL Critically low 12.0-16.0 [facility] Comment on above: Performed By: #### C BC #### [facility] [address] [place] [address] Dr. Reji Alegria IG # 0.02 10e3/ul Normal 0.00-0.03 [facility] Comment on above: Performed By: #### C BC #### [facility] [address] [place] [address] Dr. Reji Alegria IG % 0.3 % Normal 0.0-0.5 [facility] Comment on above: Performed By: #### C BC #### [facility] [address] [place] [address] Dr. Reji Alegria LYMPH # 2.2 103/ul Normal 1.2-3.8 [facility] Comment on above: Performed By: #### C BC #### [facility] [address] [place] [address] Dr. Reji Alegria Lymphocytes/100 WBC (Bld) 34.3 % Normal 20.5-60.0 [facility] Comment on above: Performed By: #### C BC #### [facility] [address] [place] [address] Dr. Reji Alegria MANUAL DIFF REQ NO Normal [facility] Comment on above: Performed By: #### C BC #### [facility] [address] [place] [address] Dr. Reji Alegria MCH (RBC) [Entitic mass] 22.5 pg Critically low 26.7-34.0 [facility] Comment on above: Performed By: #### C BC #### [facility] [address] [place] [address] Dr. Reji Alegria MCHC (RBC) [Mass/Vol] 32.4 g/dL Normal 29.9-35.2 [facility] Comment on above: Performed By: #### C BC #### [facility] [address] [place] [address] Dr. Reji Alegria MCV (RBC) [Entitic vol] 69.6 fL Critically low 81.0-99.0 [facility] Comment on above: Performed By: #### C BC #### [facility] [address] [address] [address] Reji Alegria MONO # 0.4 103/ul Normal 0.3-0.8 [facility] Comment on above: Performed By: #### C BC #### [facility] [address] [place] [address] Dr. Reji Alegria Monocytes/100 WBC (Bld) 6.2 % Normal 1.7-12.0 [facility] Comment on above: Performed By: #### C BC #### [facility] [address] [place] [address] Dr. Reji Alegria NEUT # 3.6 103/ul Normal 1.4-6.5 [facility] Comment on above: Performed By: #### C BC #### [facility] [address] [place] [address] Dr. Reji Alegria Neutrophils/100 WBC (Bld) 56.5 % Normal 43.0-75.0 [facility] Comment on above: Performed By: #### C BC #### [facility] [address] [place] [address] Dr. Reji Alegria Platelet mean volume (Bld) [Entitic vol] 9.8 fL Normal 9.5-13.5 [facility] Comment on above: Performed By: #### C BC #### [facility] [address] [place] [address] Dr. Reji Alegria PLT 371 103/ul Normal 150-450 [facility] Comment on above: Performed By: #### C BC #### [facility] [address] [place] [address] Dr. Reji Alegria RBC 4.44 106/ul Normal 4.20-5.40 [facility] Comment on above: Performed By: #### C BC #### [facility] [address] [place] [address] Dr. Reji Alegria WBC 6.3 103/ul Normal 4.0-11.0 [facility] Comment on above: Performed By: #### C BC #### [facility] [address] [place] [address] Dr. Reji Alegria GLYCOHEMOGLOBIN A1Con 2022 ADA RECOMMENDATION SEE BELOW Normal [facility] Comment on above: Result Comment: ADA RECOMMENDED LIMIT 4.0 - 6.0 ADA THERAPEUTIC TARGET < 7.0 ACTION SUGGESTED > 7.0 Performed By: #### A 1C #### [facility] [address] [place] [address] Dr. Reji Alegria Glucose [Mass/Vol] 117 mg/dL Normal [facility] Comment on above: Performed By: #### A 1C #### [facility] [address] [place] [address] Dr. Reji Alegria HbA1c (Bld) [Mass fraction] 5.7 % Normal 4.5-6.2 [facility] Comment on above: Performed By: #### A 1C #### [facility] [address] [place] [address] Dr. Reji Alegria LIPID PROFILEon 08-28-2022 CHOL-HDL RATIO NORM SEE BELOW Normal [facility] Comment on above: Result Comment: 3.3 - 4.4 LOW RISK 4.4 - 7.1 AVERAGE RISK 7.1 - 11.0 MODERATE RISK >11.0 HIGH RISK Performed By: #### C MP, LIPID, TSH #### [facility] [address] [place] [address] Dr. Reji Alegria Cholesterol [Mass/Vol] 146 mg/dL Normal <=200 [facility] Comment on above: Performed By: #### C MP, LIPID, TSH #### [facility] [address] [place] [address] Dr. Reji Alegria Cholesterol in HDL [Mass/Vol] 48 mg/dL Normal 40-60 [facility] Comment on above: Performed By: #### C MP, LIPID, TSH #### [facility] [address] [address] [address] Reji Alegria Cholesterol in LDL [Mass/Vol] 77.2 mg/dL Normal [facility] Comment on above: Performed By: #### C MP, LIPID, TSH #### [facility] [address] [address] [address] Reji Alegria Cholesterol.total/ Cholesterol in HDL [Mass ratio] 3.0 {ratio} Normal [facility] Comment on above: Performed By: #### C MP, LIPID, TSH #### [facility] [address] [address] [address] Reji Alegria HDL NORMAL > or = 60 mg/dl - LO W CARDIOVASCULAR RISK <40 mg/dl - HIGH CARDIOVASCULAR RISK Normal [facility] Comment on above: Performed By: #### C MP, LIPID, TSH #### [facility] [address] [address] [address] Reji Alegria LDL CALC NORMAL SEE BELOW Normal [facility] Comment on above: Result Comment: <100 mg/dl OPTIMAL 100 - 129 mg/dl NEAR OR ABOVE OPTIMAL 130 - 159 mg/dl BORDERLINE HIGH 160 - 189 mg/dl HIGH >190 mg/dl VERY HIGH Performed By: #### C MP, LIPID, TSH #### [facility] [address] [address] [address] Reji Alegria Triglyceride [Mass/Vol] 104 mg/dL Normal <=150 [facility] Comment on above: Performed By: #### C MP, LIPID, TSH #### [facility] [address] [address] [address] Reji Alegria VLDL CALC 20.8 mg/dL Normal [facility] Comment on above: Performed By: #### C MP, LIPID, TSH #### [facility] [address] [address] [address] Reji Alegria PROF 14(COMP METB)on 023 Albumin [Mass/Vol] 3.8 g/dL Normal 3.4-5.0 [facility] Comment on above: Performed By: #### C MP, LIPID, TSH #### [facility] [address] [address] [address] Reji Alegria Albumin/Globulin [Mass ratio] 1.0 {ratio} Normal [facility] Comment on above: Performed By: #### C MP, LIPID, TSH #### [facility] [address] [address] [address] Reji Alegria ALP [Catalytic activity/Vol] 68 U/L Normal 46-116 [facility] Comment on above: Performed By: #### C MP, LIPID, TSH #### [facility] [address] [address] [address] Reji Alegria ALT [Catalytic activity/Vol] 21 U/L Normal 14-59 [facility] Comment on above: Performed By: #### C MP, LIPID, TSH #### [facility] [address] [place] [address] Dr. Reji Alegria Anion gap [Moles/Vol] 12.3 mmol/L Normal [facility] Comment on above: Performed By: #### C MP, LIPID, TSH #### [facility] [address] [address] [address] Reji Alegria AST [Catalytic activity/Vol] 16 U/L Normal 15-37 [facility] Comment on above: Performed By: #### C MP, LIPID, TSH #### [facility] [address] [address] [address] Reji Alegria Bilirubin [Mass/Vol] 0.2 mg/dL Normal 0.2-1.0 [facility] Comment on above: Performed By: #### C MP, LIPID, TSH #### [facility] [address] [address] [address] Reji Alegria Calcium [Mass/Vol] 9.1 mg/dL Normal 8.5-10.1 [facility] Comment on above: Performed By: #### C MP, LIPID, TSH #### [facility] [address] [address] [address] Reji Alegria Chloride [Moles/Vol] 102 mmol/L Normal 98-107 [facility] Comment on above: Performed By: #### C MP, LIPID, TSH #### [facility] [address] [address] [address] Reji Alegria CO2 [Moles/Vol] 27.9 mmol/L Normal 21.0-32.0 [facility] Comment on above: Performed By: #### C MP, LIPID, TSH #### [facility] [address] [address] [address] Reji Alegria Creatinine [Mass/Vol] 0.52 mg/dL Critically low 0.55-1.02 [facility] Comment on above: Performed By: #### C MP, LIPID, TSH #### [facility] [address] [address] [address] Reji Alegria EGFR-AF [place] >60 Normal >=60 [facility] Comment on above: Performed By: #### C MP, LIPID, TSH #### [facility] [address] [address] [address] Reji Alegria EGFR-NON AF [place] >60 Normal >=60 [facility] Comment on above: Performed By: #### C MP, LIPID, TSH #### [facility] [address] [address] [address] Reji Alegria Globulin (S) [Mass/Vol] 3.7 g/dL Normal [facility] Comment on above: Performed By: #### C MP, LIPID, TSH #### [facility] [address] [address] [address] Reji Alegria Glucose [Mass/Vol] 90 mg/dL Normal 74-106 [facility] Comment on above: Performed By: #### C MP, LIPID, TSH #### [facility] [address] [address] [address] Reji Alegria Potassium [Moles/Vol] 4.2 mmol/L Normal 3.5-5.1 [facility] Comment on above: Performed By: #### C MP, LIPID, TSH #### [facility] [address] [address] [address] Reji Alegria Protein [Mass/Vol] 7.5 g/dL Normal 6.4-8.2 [facility] Comment on above: Performed By: #### C MP, LIPID, TSH #### [facility] [address] [address] [address] Reji Alegria Sodium [Moles/Vol] 138 mmol/L Normal 136-145 [facility] Comment on above: Performed By: #### C MP, LIPID, TSH #### [facility] [address] [address] [address] Reji Alegria Urea nitrogen [Mass/Vol] 10.0 mg/dL Normal 7.0-18.0 [facility] Comment on above: Performed By: #### C MP, LIPID, TSH #### [facility] [address] [place] [address] Dr. Reji Alegria Urea nitrogen/Creatinin e [Mass ratio] 19.2 mg/mg Normal [facility] Comment on above: Performed By: #### C MP, LIPID, TSH #### [facility] [address] [place] [address] Dr. Reji Alegria TSHon 08-28-2022 TSH 1.268 uIU/mL Normal 0.358-3.740 [facility] Comment on above: Performed By: #### C MP, LIPID, TSH #### [facility] [address] [place] [address] Dr. Reji Alegria XR LSPINE MIN 4 [...] ABBY LEWIS Date: 2022-06-14 15:56 Normal [facility] XR shoulder RT min 2V*on XR shoulder RT min 2V* [facility] [employer] Other XR shoulder RT min 2V* [facility] [place] [employer] Other XR shoulder RT min 2V* [address] [facility] [employer] Other XR shoulder RT min 2V* PRANAV Starks [address] [employer] Other XR shoulder RT min 2V* XRay Report [employer] Other XR shoulder RT min 2V* Signed [employer] Other XR shoulder RT min 2V* Patient: Alon Gee MR#: [id number] [employer] Other XR shoulder RT min 2V* 50 [employer] Other XR shoulder RT min 2V* : 1980 Acct:[id number] [employer] Other XR shoulder RT min 2V* Age/Sex: 40 / F ADM Date: 05/24/21 [employer] Other XR shoulder RT min 2V* Loc: XDUCLY Room: Type: [facility] [employer] Other XR shoulder RT min 2V* Attending Dr: Emilie Castillo [facility] [employer] Other XR shoulder RT min 2V* Ordering Provider: EMILIE CASTILLO [employer] Other XR shoulder RT min 2V* Date of Service: 05/24/21 [employer] Other XR shoulder RT min 2V* XR/XR shoulder RT min 2V*: Acute pain of right shoulder [employer] Other XR shoulder RT min 2V* Copies to: EMILIE CASTILLO [facility] [employer] Other XR shoulder RT min 2V* CLINICAL HISTORY: Patient woke up with right shoulder pain 2 days ago, no known injury. Pain at the [employer] Other XR shoulder RT min 2V* upper portion of the shoulder. Limited range of motion. [employer] Other XR shoulder RT min 2V* [RIGHT] SHOULDER: [employer] Other XR shoulder RT min 2V* COMPARISON: None [employer] Other XR shoulder RT min 2V* FINDINGS: [AP, Grashey, transscapular] views of the right shoulder were obtained. There is no [employer] Other XR shoulder RT min 2V* evidence of fracture, dislocation or bony destruction. Moderate soft tissue calcification is noted [employer] Other XR shoulder RT min 2V* adjacent to the greater tuberosity of the humerus from calcific bursitis or tendinitis. Mild [employer] Other XR shoulder RT min 2V* degenerative arthritic changes are shown at the acromioclavicular joint. [employer] Other XR shoulder RT min 2V* XR/XR shoulder RT min 2V* [employer] Other XR shoulder RT min 2V* IMPRESSION: [employer] Other XR shoulder RT min 2V* NO FRACTURE OR SUBLUXATION. [employer] Other XR shoulder RT min 2V* CALCIFIC BURSITIS OR TENDINITIS ADJACENT TO THE GREATER TUBEROSITY OF THE HUMERUS. [employer] Other XR shoulder RT min 2V* MILD DEGENERATIVE ARTHRITIC CHANGES TO THE ACROMIOCLAVICULAR JOINT. [employer] Other XR shoulder RT min 2V* Impression dictated by: Mamadou Cobb M.D.05/24/2021 11:11 AM [employer] Other XR shoulder RT min 2V* Dictation Location: RADIO-PC-13 [employer] Other XR shoulder RT min 2V* Transcribed By: PWS 05/24/21 1111 [employer] Other XR shoulder RT min 2V* Dictated By: Mamadou Cobb MD 05/24/21 1108 [employer] Other XR shoulder RT min 2V* Signed By: [employer] Other XR shoulder RT min 2V* 05/24/21 1111 [employer] Other Surgical Pathologyon 017 Surgical Pathology (NOTE)[id number] Y LABORATORIESCONSULTING PATHOLOGISTS [facility] [id number] [place], [place] [address] Fax: SURGICAL PATHOLOGY CONSULTATIONPatient Name: Nata GEE Rec: [id number] Number: [id number]: 06/01/2017Received: 06/04/2017Reported: 06/05/2017 12:38-- Diagnosis --SKIN, RIGHT [...] cyst wallor neoplasm in these sections. Normal [facility] US NON OB TRANSVAGINALon US NON [...] PMInterpreted by:EMANUEL Jonesigned by:Barbara Ledezma MD05/21/17Final result [facility] Cytologyon 05-11-2017 Cytology (NOTE)[id number] Y LABORATORIESCONSULTING PATHOLOGISTS [facility] [id number] [place], [place] [address] Fax: GYNECOLOGIC CYTOLOGY REPORTPatient Name: DEBRA GEE#: [id number] #[id number]: Cervical material, (ThinPrep vial, Imaging-assisted review)Clinical QtndpelA58.419 Routine physician gynecologist exam without abnormal findingsHigh Risk HPV DNA testing is requested if the diagnosis is ASC-USLMP: 05/03/17INTERPRETATIONCerv ical material, (ThinPrep vial, Imaging-assisted review):Specimen Adequacy: Satisfactory for evaluation. -Endocervical/transformat ion zone component is absent.Descriptive Diagnosis: Negative for intraepithelial lesion or malignancy. Firer [employer]ost Kiln: ELÍAS Chavez(ASCP)Electronically Signed Outmk/05/17/[address] [facility] Vital Signs Date Time Vital Sign Value Performing Clinician Facility 05-24-2021 11:05-0400 Body height 162.56 cm Emilie Penningtonault Other [employer] Other 05-24-2021 11:05-0400 Body mass index (BMI) [Ratio] 37.38 kg/m2 Emilie Castillo Other [employer] Other 05-24-2021 11:05-0400 Body temperature 97.8 [degF] Emilie Castillo Other [employer] Other 05-24-2021 11:05-0400 Body weight 98.79 kg Emilie Castillo Other [employer] Other 05-24-2021 11:05-0400 Diastolic blood pressure 82 mm[Hg] Emilie Castillo Other [employer] Other 05-24-2021 11:05-0400 Respiratory rate 18 /min Emilie Castillo Other [employer] Other 05-24-2021 11:05-0400 SaO2% (BldA) [Mass fraction] 100 % Emilie Castillo Other [employer] Other 05-24-2021 11:05-0400 Systolic blood pressure 129 mm[Hg] Emilie Castillo Other [employer] Other Encounters Encounter Date Encounter Type Care Provider Facility Start: 08-23-2023 End: 08-23-2023 ambulatory BERNA MARY Not Available Start: 08-21-2023 End: 08-21-2023 ambulatory Max L Pavlock Facility:[facility] Start: 08-21-2023 End: 08-21-2023 Departed Referred DO Max Pavlock Work Phone: [facility] Start: 08-21-2023 End: 08-21-2023 ambulatory DO Max L Pavlock Work Phone: [facility] Work Phone: Start: 07-31-2023 End: 07-31-2023 ambulatory BERNA HERNANDEZ Not Available Start: 11-14-2022 ambulatory MIGUEL SHAMMO Facility:[facility] Start: 10-16-2022 End: 10-17-2022 ambulatory MIGUEL SHAMMO Facility:[facility] Start: 08-30-2022 Encounter for genera l adult medical examination without abnormal findings MIGUEL SHAMMO [facility] Start: 08-28-2022 End: 08-29-2022 ambulatory MIGUEL SHAMMO Facility:[facility] Start: 08-28-2022 End: 08-29-2022 Encounter for general adult medical examination without abnormal findings MIGUEL SHAMMO Facility:[facility] Start: 06-27-2022 ambulatory MIGUEL SHAMMO Facility:[facility] Start: 06-14-2022 End: 06-15-2022 ambulatory MIGUEL SHAMMO Facility:[facility] Start: 05-24-2021 Office outpatient vi sit 15 minutes Emilie Castillo [facility] [place] Start: 06-01-2017 End: 06-02-2017 Ambulatory [facility]hill[facility] Start: 05-21-2017 End: 05-22-2017 Ambulatory [facility]RISTOPHER Dhillon [facility] Start: 05-11-2017 End: 05-12-2017 Ambulatory [facility]STOPHER [facility]hillon [facility] Procedures Date Procedure Procedure Detail Performing Clinician Start: 05-21-2017 transvaginal CHRISTOPHER ARAGON Start: 05-11-2017 Cytopathology proced ure, preparation of smear, genital source CHRISTOPHER ARAGON Immunizations Immunization Date Immunization Notes Care Provider Fa cility 12-10-2018 Kenalog -40 mg Emilie carrasco Other [employer] Other Payers Date Payer Category Payer Medicaid [id number] 2022 Medicaid [id number] 2016 Unknown [id number] 1980 Unknown [id number] [id number] [id number] 1980 Unknown [id number] 1980 Unknown [id number] 2.16.84 [id number] 1980 Unknown [id number] 2.16.84 [id number] 1980 Unknown [id number] 2.16.84 [id number] 1980 Unknown [id number] 2.16.84 0.1.122239.3.579.2.1259 1980 Unknown [id number] 2.16.84 0.1.896978.3.579.2.1259 1980 Unknown [id number] 2.16.840 .[id number] 1959 Self-pay 1959 Unknown [id number] Unknown [place] [id number] Unknown [id number] 2.16.8 [id number] Social History Date Type Detail Facility Unknown if ever smoked [facility] Other Sex Assigned At Sex Assigned At Bir th [facility] Other Start: 1980 Sex Assigned At Female [facility] Clinical Note 06-14-2022 Note Date [...] authenticated by: ABBY LEWIS Date: 2022-06-14 15:52 [facility] Evaluation note 05-24-2021 Note Date & [...] and tendontitis seen on xray as discussed. [facility] Other Evaluation note Note Date & Type Note Facility Evaluation note No assessment information availa [facility] Work Phone: History general Narrative - Reported Note Date & Type Note Facility History general Narrative - Reported Type Medical History Hypertension Medical History Depression Medical History Intercranial HTN Surgical History C section x 2 Hospitalization History see above surg hx [facility] Other Summary Purpose Family History No Family [...] DATE CREATED AUTHOR AUTHOR'S ORGANIZ ATION 08/24/2023 [facility] EPIC DATE CREATED AUTHOR AUTHOR'S ORGANIZ ATION 08/25/2023 [facility] REASON FOR VISIT (unrecogniz ed section [...] BE BASED ON THE PRIMARY CLINICAL RECORDS. [email or web address]. provides no warranty or guarantee of the accuracy or completeness of information in this document.
--- NOTE | 2023-09-04 11:07 | US_ITS ---
[address] [address] Patient Name: ALON BENITEZ MRN: [id number] date: 1980 Sex: F Assigned Patient Location: [facility] Current Patient Location: [facility] Accession/Order Number: [id number] Exam Date: 09/04/2023 11:08 Report Date: 09/04/2023 15:03 At the request of: BERNA HAND Procedure: US pelvis w/ transvaginal PROCEDURE: US pelvis w/ transvaginal, 09/04/2023 11:08 AM EST CLINICAL INDICATIONS: Pelvic pain, menorrhagia LMP 08/22/2023 2 para 2 COMPARISON: None TECHNIQUE: Transabdominal, transvaginal pelvic sonogram, grayscale, color and spectral assessment. FINDINGS: Uterus: 15.7 x 7.3 x 9.6 cm. There is thickening of the endometrial echo complex up to 1.7 cm. Heterogeneous uterine enlargement is identified. A 5.0 x 5.0 x 4.7 cm intramural/subserosal uterine fibroid favored dorsal right body. Nabothian paracervical cysts are noted. section scarring ventral lower uterine segment noted. Right ovary: 3.1 x 2.0 x 2.4 cm, volume 8 mL. Normal sonographic morphology. Left ovary: Surgically absent. No free fluid. US/US pelvis w/ transvaginal IMPRESSION: 1. Heterogeneous lobular enlargement of the uterus with 5.0 cm. intramural/subserosal uterine fibroid 2. section scarring ventral lower uterine segment. 3. Nabothian paracervical cyst. 4. Normal right ovarian sonographic morphology. 5. Surgical absence of the left ovary. Electronically authenticated by: MANUEL GARLAND Date: 09/04/2023 15:03
== END 2023-09-04 11:04 | disposition home or self-care (01) ==
LOC: NOMS 11:03
PROVIDERS: PCP Nurse Practitioner Primary Care; Visit Provider Obstetrics & Gynecology
DX: N92.0 Excessive and frequent menstruation with regular cycle (principal)
CPT/HCPCS: 76830; 76856

== ENCOUNTER 2023-09-05 10:51 | Outpatient (OUT) | payer MEDICAID, SELFPAY ==
--- NOTE | 2023-09-05 10:54 | MM_ITS ---
Patient Name: ALON BENITEZ MR#: [id number] : 1980 Exam Date: 09/05/2023 Ordering Doctor: DR Yrn Hernandez . RADIOLOGY REPORT PROCEDURE: MM TOMOSYNTHESIS SCREENING BI COMPARISON: MG MAMM PAULA DIAG W CAD, 09/16/2019. INDICATIONS: screening Calculator Name NCI Breast Cancer Risk Assessment Tool 5 Year Breast Cancer Risk Not Reported. Lifetime Breast Cancer Risk Not Reported. Personal Breast Cancer No Personal Ovarian Cancer No Treatments None Family Cancers None LOCATION: [facility] BREAST COMPOSITION: Scattered areas fibroglandular density. FINDINGS: DIAGNOSTIC CATEGORY 2--BENIGN FINDING. NO CHANGE FROM COMPARISON. Scattered benign-appearing calcifications are present. Scattered benign-appearing lymph nodes are present. RIGHT BREAST: No significant suspicious finding. Stable focal asymmetry upper outer quadrant, mid breast LEFT BREAST: No significant suspicious finding. Square marker indicates a dermal cyst, no mammographic abnormality RECOMMENDATIONS: ROUTINE MAMMOGRAM AND CLINICAL EVALUATION IN 12 MONTHS. PLEASE NOTE: A NORMAL MAMMOGRAM DOES NOT EXCLUDE THE POSSIBILITY OF BREAST CANCER. A CLINICALLY SUSPICIOUS PALPABLE LUMP SHOULD BE BIOPSIED. Dictated by: Steve Whelan MD on 09/05/2023 at 12:47 Approved by: Steve Whelan MD on 09/05/2023 at 12:49
--- OUTSIDE RECORDS SUMMARY | 2023-09-05 10:56 | XMS_ITS | CCD ---
Author Name Unknown Address [address] [place] [address] Organization [facility] Care Team Providers Care Master Planner Name Role Phone CHRISTOPHER ARAGON Unavailable Unavailable [...] Admitting Unavailable SHAMMO, MIGUEL Primary Care Unavailable ZIEBDR ABBY MEAD Consulting Unavailable SHAMMO, MIGUEL Attending Unavailable SHAMMO, MIGUEL Admitting Unavailable SHAMMO, MIGUEL Consulting Unavailable SHAMMO, MIGUEL Primary Care Unavailable SHAMMO, MIGUEL Consulting Unavailable SHAMMO, MIGUEL Attending Unavailable SHAMMO, MIGUEL Admitting Unavailable Pavlock, DO Max L Primary Care Provider Berna Hernandez Attending Provider MACRINA HERNANDEZY Attending Unavailable MARY, BERNA Attending Unavailable MARY, BERNA Attending Unavailable Pavlock, Max L Primary Care Unavailable Mary, Berna Attending Unavailable Mary, Berna Admitting Unavailable Allergies Allergy Classification Reported Allergen(s) Allergy Type Date of Onset Reaction(s) Facility (1 source) [facility]in Drug [facility] Other (1 source) Cephalexin Drug Allergy 2 [facility] Repository (1 source) Cephalexin Drug Allergy 8 [facility] Medications Current Medications Medication Drug Class(es) [...] in 3 days Apr, Not-Taking polymyxin b 99261 unt/ml / trimethoprim 1 mg/ml ophthalmic solution (1 source) Dihydrofolate Reductase Inhibitor Antibacterial, Polymyxin-class Antibacterial Start: 08-03-2018 take 1 drop(s) into the eye(s) four times daily Polymyxin B-Trimethoprim 13928-6.1 UNIT/ML 1 drop into left eye Ophthalmic [...] Test Name Value Interpretation Reference Range Facility [facility] 08-21-2023 L Specimen: [id number] Received: 08/22/231528 Status: [place] Escobedo Num: [id number] Spec Type: Surgical Subm Dr: Berna Hernandez Tissues: A Endometrium - Biopsy (EMBX) Procedures: HE/2, Gross/Micro L4 Age/ Patient Sex Location Account Attending Physician AnanyaAlon champagne Smita 42/F [place] [id number] Berna Hernandez SPEC NUM: [id number] RECD: 08/22/23 STATUS: [place] ESCOBEDO NUM: [id number] PETE: 08/21/23- SUBM DR: Berna Hernandez ENTERED: 08/22/[address] [facility] [address]: [place],Lab SPEC TYPE: Surgical DEPT: [...] in one cassette labeled A1. CPT Codes 36270 Specimen: [id number] Received: 08/22/23 Status: [place] Gregg Num: [id number] Spec Type: Surgical Subm Dr: Berna Hernandez Tissues: A Endometrium - Biopsy (EMBX) Procedures: HE/2, Gross/Micro L4 Patient: Alon Gee Smita [id number] (Continued) Signed (signature on file) Jacob Alegria MD 08/24/23 1000 Normal [facility] FERRITINon 10-16-2022 Ferritin [Mass/Vol] 3.0 ng/mL Critically low 6.2-137.0 [facility] Comment on above: Performed By: #### F ETIBC, FERR #### [facility] [address] [address] [address] Reji Alegria IRON AND TIBCon 10-16-2022 % SATURATION 2.9 % Normal [facility] Comment on above: Performed By: #### F ETIBC, FERR #### [facility] [address] [address] [address] Reji Alegria Iron [Mass/Vol] 13.0 ug/dL Critically low 50.0-170.0 [facility] Comment on above: Performed By: #### F ETIBC, FERR #### [facility] [address] [address] [address] Reji Alegria TIBC DIRECT 442.0 ug/dL Normal 250.0-450.0 [facility] Comment on above: Performed By: #### F ETIBC, FERR #### [facility] [address] [place] [address] Dr. Reji Alegria HEPATITIS C AB CASCADE TO QU ANT PCR GENOon 08-29-2022 HCV AB <0.1 Normal 0.0-0.9 [facility] Comment on above: Performed By: #### H EPCASC #### [facility] [address] [place] [address] Dr. Reji Alegria Interpretation: Comment Normal [facility] Comment on above: Result Comment: Nega tive Not infected with HCV, unless recent infection is suspected or other evidence exists to indicate HCV infection. Performed By: #### H EPCASC #### [facility] [address] [place] [address] Dr. Reji Alegria CBC AUTO DIFFon 08-28-2022 BASO # 0.1 103/ul Normal 0.0-0.1 [facility] Comment on above: Performed By: #### C BC #### [facility] [address] [place] [address] Dr. Reji Alegria Basophils/100 WBC (Bld) 1.1 % Normal 0.2-2.0 [facility] Comment on above: Performed By: #### C BC #### [facility] [address] [place] [address] Dr. Reji Alegria EO # 0.1 103/ul Normal 0.0-0.7 [facility] Comment on above: Performed By: #### C BC #### [facility] [address] [place] [address] Dr. Reji Alegria Eosinophils/100 WBC (Bld) 1.6 % Normal 0.9-7.0 [facility] Comment on above: Performed By: #### C BC #### [facility] [address] [place] [address] Dr. Reji Alegria Erythrocyte distribution width (RBC) [Ratio] 15.0 % Normal 11.0-15.0 [facility] Comment on above: Performed By: #### C BC #### [facility] [address] [place] [address] Dr. Reji Alegria Hematocrit (Bld) [Volume fraction] 30.9 % Critically low 36.0-48.0 [facility] Comment on above: Performed By: #### C BC #### [facility] [address] [place] [address] Dr. Reji Alegria Hemoglobin (Bld) [Mass/Vol] 10.0 g/dL Critically low 12.0-16.0 [facility] Comment on above: Performed By: #### C BC #### [facility] [address] [place] [address] Dr. Reji Alegria IG # 0.02 10e3/ul Normal 0.00-0.03 [facility] Comment on above: Performed By: #### C BC #### [facility] [address] [place] [address] Dr. Reji Alegria IG % 0.3 % Normal 0.0-0.5 [facility] Comment on above: Performed By: #### C BC #### [facility] [address] [place] [address] Dr. Reji Alegria LYMPH # 2.2 103/ul Normal 1.2-3.8 [facility] Comment on above: Performed By: #### C BC #### [facility] [address] [place] [address] Dr. Reji Alegria Lymphocytes/100 WBC (Bld) 34.3 % Normal 20.5-60.0 [facility] Comment on above: Performed By: #### C BC #### [facility] [address] [place] [address] Dr. Reji Alegria MANUAL DIFF REQ NO Normal [facility] Comment on above: Performed By: #### C BC #### [facility] [address] [place] [address] Dr. Reji Alegria MCH (RBC) [Entitic mass] 22.5 pg Critically low 26.7-34.0 [facility] Comment on above: Performed By: #### C BC #### [facility] [address] [place] [address] Dr. Reji Alegria MCHC (RBC) [Mass/Vol] 32.4 g/dL Normal 29.9-35.2 [facility] Comment on above: Performed By: #### C BC #### [facility] [address] [place] [address] Dr. Reji Alegria MCV (RBC) [Entitic vol] 69.6 fL Critically low 81.0-99.0 [facility] Comment on above: Performed By: #### C BC #### [facility] [address] [address] [address] Reji Alegria MONO # 0.4 103/ul Normal 0.3-0.8 [facility] Comment on above: Performed By: #### C BC #### [facility] [address] [place] [address] Dr. Reji Alegria Monocytes/100 WBC (Bld) 6.2 % Normal 1.7-12.0 [facility] Comment on above: Performed By: #### C BC #### [facility] [address] [place] [address] Dr. Reji Alegria NEUT # 3.6 103/ul Normal 1.4-6.5 [facility] Comment on above: Performed By: #### C BC #### [facility] [address] [place] [address] Dr. Reji Alegria Neutrophils/100 WBC (Bld) 56.5 % Normal 43.0-75.0 [facility] Comment on above: Performed By: #### C BC #### [facility] [address] [place] [address] Dr. Reji Alegria Platelet mean volume (Bld) [Entitic vol] 9.8 fL Normal 9.5-13.5 [facility] Comment on above: Performed By: #### C BC #### [facility] [address] [place] [address] Dr. Reji Alegria PLT 371 103/ul Normal 150-450 [facility] Comment on above: Performed By: #### C BC #### [facility] [address] [place] [address] Dr. Reji Alegria RBC 4.44 106/ul Normal 4.20-5.40 [facility] Comment on above: Performed By: #### C BC #### [facility] [address] [place] [address] Dr. Reji Alegria WBC 6.3 103/ul Normal 4.0-11.0 [facility] Comment on above: Performed By: #### C BC #### [facility] [address] [place] [address] Dr. Reji Alegria GLYCOHEMOGLOBIN A1Con 2022 ADA RECOMMENDATION SEE BELOW Normal [facility] Comment on above: Result Comment: ADA RECOMMENDED LIMIT 4.0 - 6.0 ADA THERAPEUTIC TARGET < 7.0 ACTION SUGGESTED > 7.0 Performed By: #### A 1C #### [facility] [address] [place] [address] Dr. Reji Alegria Glucose [Mass/Vol] 117 mg/dL Normal [facility] Comment on above: Performed By: #### A 1C #### [facility] [address] [place] [address] Dr. Reji Alegria HbA1c (Bld) [Mass fraction] 5.7 % Normal 4.5-6.2 [facility] Comment on above: Performed By: #### A 1C #### [facility] [address] [place] [address] Dr. Reji Alegria LIPID PROFILEon 08-28-2022 CHOL-HDL RATIO NORM SEE BELOW Normal [facility] Comment on above: Result Comment: 3.3 - 4.4 LOW RISK 4.4 - 7.1 AVERAGE RISK 7.1 - 11.0 MODERATE RISK >11.0 HIGH RISK Performed By: #### C MP, LIPID, TSH #### [facility] [address] [place] [address] Dr. Reji Alegria Cholesterol [Mass/Vol] 146 mg/dL Normal <=200 [facility] Comment on above: Performed By: #### C MP, LIPID, TSH #### [facility] [address] [place] [address] Dr. Reji Alegria Cholesterol in HDL [Mass/Vol] 48 mg/dL Normal 40-60 [facility] Comment on above: Performed By: #### C MP, LIPID, TSH #### [facility] [address] [address] [address] Reji Alegria Cholesterol in LDL [Mass/Vol] 77.2 mg/dL Normal [facility] Comment on above: Performed By: #### C MP, LIPID, TSH #### [facility] [address] [address] [address] Reji Alegria Cholesterol.total/ Cholesterol in HDL [Mass ratio] 3.0 {ratio} Normal [facility] Comment on above: Performed By: #### C MP, LIPID, TSH #### [facility] [address] [address] [address] Reji Alegria HDL NORMAL > or = 60 mg/dl - LO W CARDIOVASCULAR RISK <40 mg/dl - HIGH CARDIOVASCULAR RISK Normal [facility] Comment on above: Performed By: #### C MP, LIPID, TSH #### [facility] [address] [address] [address] Reji Alegria LDL CALC NORMAL SEE BELOW Normal [facility] Comment on above: Result Comment: <100 mg/dl OPTIMAL 100 - 129 mg/dl NEAR OR ABOVE OPTIMAL 130 - 159 mg/dl BORDERLINE HIGH 160 - 189 mg/dl HIGH >190 mg/dl VERY HIGH Performed By: #### C MP, LIPID, TSH #### [facility] [address] [address] [address] Reji Alegria Triglyceride [Mass/Vol] 104 mg/dL Normal <=150 [facility] Comment on above: Performed By: #### C MP, LIPID, TSH #### [facility] [address] [address] [address] Reji Alegria VLDL CALC 20.8 mg/dL Normal [facility] Comment on above: Performed By: #### C MP, LIPID, TSH #### [facility] [address] [address] [address] Reji Alegria PROF 14(COMP METB)on 023 Albumin [Mass/Vol] 3.8 g/dL Normal 3.4-5.0 [facility] Comment on above: Performed By: #### C MP, LIPID, TSH #### [facility] [address] [address] [address] Reji Alegria Albumin/Globulin [Mass ratio] 1.0 {ratio} Normal [facility] Comment on above: Performed By: #### C MP, LIPID, TSH #### [facility] [address] [address] [address] Reji Alegria ALP [Catalytic activity/Vol] 68 U/L Normal 46-116 [facility] Comment on above: Performed By: #### C MP, LIPID, TSH #### [facility] [address] [address] [address] Reji Alegria ALT [Catalytic activity/Vol] 21 U/L Normal 14-59 [facility] Comment on above: Performed By: #### C MP, LIPID, TSH #### [facility] [address] [place] [address] Dr. Reji Alegria Anion gap [Moles/Vol] 12.3 mmol/L Normal [facility] Comment on above: Performed By: #### C MP, LIPID, TSH #### [facility] [address] [address] [address] Reji Alegria AST [Catalytic activity/Vol] 16 U/L Normal 15-37 [facility] Comment on above: Performed By: #### C MP, LIPID, TSH #### [facility] [address] [address] [address] Reji Alegria Bilirubin [Mass/Vol] 0.2 mg/dL Normal 0.2-1.0 [facility] Comment on above: Performed By: #### C MP, LIPID, TSH #### [facility] [address] [address] [address] Reji Alegria Calcium [Mass/Vol] 9.1 mg/dL Normal 8.5-10.1 [facility] Comment on above: Performed By: #### C MP, LIPID, TSH #### [facility] [address] [address] [address] Reji Alegria Chloride [Moles/Vol] 102 mmol/L Normal 98-107 [facility] Comment on above: Performed By: #### C MP, LIPID, TSH #### [facility] [address] [address] [address] Reji Alegria CO2 [Moles/Vol] 27.9 mmol/L Normal 21.0-32.0 [facility] Comment on above: Performed By: #### C MP, LIPID, TSH #### [facility] [address] [address] [address] Reji Alegria Creatinine [Mass/Vol] 0.52 mg/dL Critically low 0.55-1.02 [facility] Comment on above: Performed By: #### C MP, LIPID, TSH #### [facility] [address] [address] [address] Reji Alegria EGFR-AF MEXICAN >60 Normal >=60 [facility] Comment on above: Performed By: #### C MP, LIPID, TSH #### [facility] [address] [address] [address] Reji Alegria EGFR-NON AF MEXICAN >60 Normal >=60 [facility] Comment on above: Performed By: #### C MP, LIPID, TSH #### [facility] [address] [address] [address] Reji Alegria Globulin (S) [Mass/Vol] 3.7 g/dL Normal [facility] Comment on above: Performed By: #### C MP, LIPID, TSH #### [facility] [address] [address] [address] Reji Alegria Glucose [Mass/Vol] 90 mg/dL Normal 74-106 [facility] Comment on above: Performed By: #### C MP, LIPID, TSH #### [facility] [address] [address] [address] Reji Alegria Potassium [Moles/Vol] 4.2 mmol/L Normal 3.5-5.1 [facility] Comment on above: Performed By: #### C MP, LIPID, TSH #### [facility] [address] [address] [address] Reji Alegria Protein [Mass/Vol] 7.5 g/dL Normal 6.4-8.2 [facility] Comment on above: Performed By: #### C MP, LIPID, TSH #### [facility] [address] [address] [address] Reji Alegria Sodium [Moles/Vol] 138 mmol/L Normal 136-145 [facility] Comment on above: Performed By: #### C MP, LIPID, TSH #### [facility] [address] [address] [address] Reji Alegria Urea nitrogen [Mass/Vol] 10.0 mg/dL Normal 7.0-18.0 [facility] Comment on above: Performed By: #### C MP, LIPID, TSH #### [facility] [address] [place] [address] Dr. Reji Alegria Urea nitrogen/Creatinin e [Mass ratio] 19.2 mg/mg Normal [facility] Comment on above: Performed By: #### C MP, LIPID, TSH #### [facility] [address] [place] [address] Dr. Reji Alegria TSHon 08-28-2022 TSH 1.268 uIU/mL Normal 0.358-3.740 [facility] Comment on above: Performed By: #### C MP, LIPID, TSH #### [facility] [address] [place] [address] Dr. Reji Alegria XR LSPINE MIN 4 [...] ABBY LEWIS Date: 2022-06-14 15:56 Normal [facility] XR shoulder RT min 2V*on XR shoulder RT min 2V* [facility] [employer] Other XR shoulder RT min 2V* [facility] [place] [facility] Other XR shoulder RT min 2V* [address] [facility] Other XR shoulder RT min 2V* PRANAV Starks [address] [facility] Other XR shoulder RT min 2V* XRay Report [facility] Other XR shoulder RT min 2V* Signed [facility] Other XR shoulder RT min 2V* Patient: Alon Gee MR#: [id number] [facility] Other XR shoulder RT min 2V* 50 [facility] Other XR shoulder RT min 2V* : 1980 Acct:[id number] [facility] Other XR shoulder RT min 2V* Age/Sex: 40 / F ADM Date: 05/24/21 [facility] Other XR shoulder RT min 2V* Loc: XDUCLY Room: Type: [facility] Other XR shoulder RT min 2V* Attending Dr: Emilie Castillo [employer] [facility] Other XR shoulder RT min 2V* Ordering Provider: EMILIE CASTILLO [facility] Other XR shoulder RT min 2V* Date of Service: 05/24/21 [facility] Other XR shoulder RT min 2V* XR/XR shoulder RT min 2V*: Acute pain of right shoulder [facility] Other XR shoulder RT min 2V* Copies to: EMILIE CASTILLO [facility] Other XR shoulder RT min 2V* CLINICAL HISTORY: Patient woke up with right shoulder pain 2 days ago, no known injury. Pain at the [facility] Other XR shoulder RT min 2V* upper portion of the shoulder. Limited range of motion. [facility] Other XR shoulder RT min 2V* [RIGHT] SHOULDER: [facility] Other XR shoulder RT min 2V* COMPARISON: None [facility] Other XR shoulder RT min 2V* FINDINGS: [AP, Grashey, transscapular] views of the right shoulder were obtained. There is no [facility] Other XR shoulder RT min 2V* evidence of fracture, dislocation or bony destruction. Moderate soft tissue calcification is noted [facility] Other XR shoulder RT min 2V* adjacent to the greater tuberosity of the humerus from calcific bursitis or tendinitis. Mild [facility] Other XR shoulder RT min 2V* degenerative arthritic changes are shown at the acromioclavicular joint. [facility] Other XR shoulder RT min 2V* XR/XR shoulder RT min 2V* [facility] Other XR shoulder RT min 2V* IMPRESSION: [facility] Other XR shoulder RT min 2V* NO FRACTURE OR SUBLUXATION. [facility] Other XR shoulder RT min 2V* CALCIFIC BURSITIS OR TENDINITIS ADJACENT TO THE GREATER TUBEROSITY OF THE HUMERUS. [facility] Other XR shoulder RT min 2V* MILD DEGENERATIVE ARTHRITIC CHANGES TO THE ACROMIOCLAVICULAR JOINT. [facility] Other XR shoulder RT min 2V* Impression dictated by: Mamadou Cobb M.D.05/24/2021 11:11 AM [facility] Other XR shoulder RT min 2V* Dictation Location: RADIO-PC-13 [facility] Other XR shoulder RT min 2V* Transcribed By: PWS 05/24/21 1111 [facility] Other XR shoulder RT min 2V* Dictated By: Mamadou Cobb MD 05/24/21 1108 [facility] Other XR shoulder RT min 2V* Signed By: [facility] Other XR shoulder RT min 2V* 05/24/21 1111 [facility] Other Surgical Pathologyon 017 Surgical Pathology (NOTE)[id number] Y LABORATORIESCONSULTING PATHOLOGISTS [place] [facility] [id number] [place], [place] [id number] Fax: SURGICAL PATHOLOGY CONSULTATIONPatient Name: Nata GEE Rec: [id number] Number: [id number]: 06/01/2017Received: 06/04/2017Reported: 06/05/2017 12:38-- Diagnosis --SKIN, RIGHT [...] cyst wallor neoplasm in these sections. Normal [facility] US NON OB TRANSVAGINALon US NON [...] PMInterpreted by:EMANUEL Jonesigned by:Barbara Ledezma MD05/21/17Final result [facility] Cytologyon 05-11-2017 Cytology (NOTE)[id number] Y LABORATORIESCONSULTING PATHOLOGISTS [place] [facility] [id number] [place], [place] [id number] Fax: GYNECOLOGIC CYTOLOGY REPORTPatient Name: DEBRA GEE#: [id number] #[id number]: Cervical material, (ThinPrep vial, Imaging-assisted review)Clinical [id number] Routine medical photographer exam without abnormal findingsHigh Risk HPV DNA testing is requested if the diagnosis is ASC-USLMP: 05/03/17INTERPRETATIONCerv ical material, (ThinPrep vial, Imaging-assisted review):Specimen Adequacy: Satisfactory for evaluation. -Endocervical/transformat ion zone component is absent.Descriptive Diagnosis: Negative for intraepithelial lesion or malignancy. Sr. Logistics Analyst: ELÍAS Chavez(ASCP)Electronically Signed Outmk/05/17/2017 [facility] Vital Signs Date Time Vital Sign Value Performing Clinician Facility 05-24-2021 11:05-0400 Body height 162.56 cm Emilie Penningtonault Other [facility] Other 05-24-2021 11:05-0400 Body mass index (BMI) [Ratio] 37.38 kg/m2 Emilie Castillo Other [facility] Other 05-24-2021 11:05-0400 Body temperature 97.8 [degF] Emilie Castillo Other [facility] Other 05-24-2021 11:05-0400 Body weight 98.79 kg Emilie Castillo Other [facility] Other 05-24-2021 11:05-0400 Diastolic blood pressure 82 mm[Hg] Emilie Castillo Other [facility] Other 05-24-2021 11:05-0400 Respiratory rate 18 /min Emilie Castillo Other [facility] Other 05-24-2021 11:05-0400 SaO2% (BldA) [Mass fraction] 100 % Emilie Castillo Other [facility] Other 05-24-2021 11:05-0400 Systolic blood pressure 129 mm[Hg] Emilie Castillo Other [facility] Other Encounters Encounter Date Encounter Type Care Provider Facility Start: 08-23-2023 End: 08-23-2023 ambulatory BERNA MARY Not Available Start: 08-21-2023 End: 08-21-2023 ambulatory Max L Pavlock Facility:[facility] Start: 08-21-2023 End: 08-21-2023 Departed Referred DO Max Pavlock Work Phone: [facility] Start: 08-21-2023 End: 08-21-2023 ambulatory DO Max L [place] Work Phone: [facility] Work Phone: Start: 07-31-2023 End: 07-31-2023 ambulatory BERNA HERNANDEZ Not Available Start: 11-14-2022 ambulatory MIGUEL SHAMMO Facility:H 1 Start: 10-16-2022 End: 10-17-2022 ambulatory MIGUEL SHAMMO Facility:[facility]1 Start: 08-30-2022 Encounter for genera l adult medical examination without abnormal findings MIGUEL SHAMMO [facility] Start: 08-28-2022 End: 08-29-2022 ambulatory MIGUEL SHAMMO Facility:[facility]1 Start: 08-28-2022 End: 08-29-2022 Encounter for general adult medical examination without abnormal findings MIGUEL SHAMMO Facility:[facility] Start: 06-27-2022 ambulatory MIGUEL SHAMMO Facility:H 1 Start: 06-14-2022 End: 06-15-2022 ambulatory MIGUEL SHAMMO Facility:[facility] Start: 05-24-2021 Office outpatient vi sit 15 minutes Emilie Castillo [facility] Start: 06-01-2017 End: 06-02-2017 Ambulatory [facility]hill[facility] Start: 05-21-2017 End: 05-22-2017 Ambulatory [facility]hill[facility] Start: 05-11-2017 End: 05-12-2017 Ambulatory [facility]STOP[facility] Dhillon [facility] Procedures Date Procedure Procedure Detail Performing Clinician Start: 05-21-2017 transvaginal CHRISTOPHER ARAGON Start: 05-11-2017 Cytopathology proced ure, preparation of smear, genital source CHRISTOPHER ARAGON Immunizations Immunization Date Immunization Notes Care Provider Fa cility 12-10-2018 Kenalog -40 mg Emilie carrasco Other [employer] Other Payers Date Payer Category Payer Medicaid [id number] 2022 Medicaid [id number] 2016 Unknown [id number] 1980 Unknown [id number] 2.16.84 [id number] 1980 Unknown [id number] 2.16.84 [id number] 1980 Unknown [id number] 2.16.84 0.1.115081.3.579.2.593 1980 Unknown [id number] 2.16.84 [id number] 1980 Unknown [id number] 2.16.84 [id number] 1980 Unknown [id number] 2.16.84 0.1.285563.3.579.2.1259 1980 Unknown [id number] 2.16.84 0.1.554774.3.579.2.1259 1980 Unknown [id number] 2.16.840 .1.637559.3.579.2.1259 1959 Self-pay 1959 Unknown [id number] Unknown [place] [id number] Unknown [id number] 2.16.8 [id number] Social History Date Type Detail Facility Unknown if ever smoked [employer] Other Sex Assigned At Sex Assigned At Bir th [employer] Other Start: 1980 Sex Assigned At Female F [facility] Clinical Note 06-14-2022 Note Date & [...] authenticated by: ABBY LEWIS Date: 2022-06-14 15:52 [facility] Evaluation note 05-24-2021 Note Date & Type [...] and tendontitis seen on xray as discussed. [facility] [employer] Other Evaluation note Note Date & Type Note Facility Evaluation note No assessment information availa [facility] Work Phone: History general Narrative - Reported Note Date & Type Note Facility History general Narrative - Reported Type Medical History Hypertension Medical History Depression Medical History Intercranial HTN Surgical History C section x 2 Hospitalization History see above surg hx [facility] [employer] Other Summary Purpose Family History No Family [...] DATE CREATED AUTHOR AUTHOR'S ORGANIZ ATION 08/24/2023 [facility] EPIC DATE CREATED AUTHOR AUTHOR'S ORGANIZ ATION 08/25/2023 [facility] REASON FOR VISIT (unrecogniz ed section [...] BE BASED ON THE PRIMARY CLINICAL RECORDS. [facility] provides no warranty or guarantee of the accuracy or completeness of information in this document.
[2023-09-05 12:28] LABS: Free T4 0.83 ng/dL (0.76-1.46)
[2023-09-05 12:37] LABS: HCG Quantitative <1 mIU/mL; Thyroid Stimulating Hormone 1.471 uIU/mL (0.358-3.740)
[2023-09-05 12:56] LABS: INR 0.94; Partial Thromboplastin Time 31.6 sec (22.3-36.2)
[2023-09-05 14:15] LABS: Basophils Absolute Auto 0.1 10^3/uL (0.0-0.1); Basophils Percent Auto 1.1 % (0.2-2.0); Eosinophils Absolute Auto 0.1 10^3/uL (0.0-0.7); Eosinophils Percent Auto 2.1 % (0.9-7.0); Hemoglobin 11.3 g/dL (12.0-16.0); Immature Granulocytes Abs Auto 0.01 10^3/uL (0.00-0.03); Immature Granulocytes Pct Auto 0.2 % (0.0-0.5); Lymphocytes Absolute Auto 2.3 10^3/uL (1.2-3.8); Lymphocytes Percent Auto 35.8 % (20.5-60.0); Mean Corpuscular HGB Conc 30.5 g/dL (29.9-35.2); Mean Corpuscular Hemoglobin 24.3 pg (26.7-34.0); Mean Corpuscular Volume 79.6 fL (81.0-99.0); Mean Platelet Volume 11.2 fL (9.5-13.5); Monocytes Absolute Auto 0.5 10^3/uL (0.3-0.8); Monocytes Percent Auto 8.1 % (1.7-12.0); Neutrophils Absolute Auto 3.3 10^3/uL (1.4-6.5); Neutrophils Percent Auto 52.7 % (43.0-75.0); Platelet Count 316 10^3/uL (150-450); Red Blood Count 4.65 10^6/uL (4.20-5.40); Red Cell Distribution Width 21.9 % (11.0-15.0); White Blood Count 6.3 10^3/uL (4.0-11.0)
== END 2023-09-05 10:52 | disposition home or self-care (01) ==
LOC: MAMMO 10:51
PROVIDERS: PCP Nurse Practitioner Primary Care; Visit Provider Obstetrics & Gynecology
DX: N92.0 Excessive and frequent menstruation with regular cycle (principal); Z12.31 Encounter for screening mammogram for malignant neoplasm of breast
CPT/HCPCS: 36415; 77063; 77067; 84439; 84443; 84702; 85025; 85610; 85730

== ENCOUNTER 2023-09-06 12:26 | Outpatient (OUT) | payer MEDICAID, SELFPAY ==
--- OUTSIDE RECORDS SUMMARY | 2023-09-06 12:48 | XMS_ITS | CCD ---
Author Name Unknown Address [address] [place] [address] Organization [facility] Care Team Providers Care Hi Ranger Operator Name Role Phone CHRISTOPHER ARAGON Unavailable Unavailable [...] Primary Care Provider Berna Hernandez Attending Provider MARYMACRINA RODRIGUEZY Attending Unavailable MARY, BERNA Attending Unavailable MARY, BERNA Attending Unavailable Pavlock, Max L Primary Care Unavailable Mary, Berna Attending Unavailable Mary, Berna Admitting Unavailable Allergies Allergy Classification Reported Allergen(s) Allergy Type Date of Onset Reaction(s) Facility (1 source) Cephalexin Drug Allergy tongue [facility] Other (1 source) Cephalexin Drug Allergy 2 [facility] Repository (1 source) Cephalexin Drug Allergy 8 [facility] Repository Medications Current Medications Medication [...] in 3 days Apr, Not-Taking polymyxin b 53269 unt/ml / trimethoprim 1 mg/ml ophthalmic solution (1 source) Dihydrofolate Reductase Inhibitor Antibacterial, Polymyxin-class Antibacterial Start: 08-03-2018 take 1 drop(s) into the eye(s) four times daily Polymyxin B-Trimethoprim 04455-0.1 UNIT/ML 1 drop into left eye Ophthalmic [...] Test Name Value Interpretation Reference Range Facility [facility] 08-21-2023 L Specimen: [id number] Received: 08/22/231528 Status: CLINTON Escobedo Num: [id number] Spec Type: Surgical Subm Dr: Berna Hernandez Tissues: A Endometrium - Biopsy (EMBX) Procedures: HE/2, Gross/Micro L4 Age/ Patient Sex Location Account Attending Physician MeaghanAlon champagne Smita 42/F LABELL [id number] Berna Hernandez SPEC NUM: [id number] RECD: 08/22/23 STATUS: [place] ESCOBEDO NUM: [id number] PETE: 08/21/23- SUBM DR: Berna Hernandez ENTERED: 08/22/23 [facility] DR: Shelby,Lab SPEC TYPE: Surgical DEPT: OLVIN [...] in one cassette labeled A1. CPT Codes 55789 Specimen: [id number] Received: 08/22/23 Status: CLINTON Gregg Num: [id number] Spec Type: Surgical Subm Dr: Berna Hernandez Tissues: A Endometrium - Biopsy (EMBX) Procedures: HE/2, Gross/Micro L4 Patient: Alon Gee Smita [id number] (Continued) Signed (signature on file) Jacob Alegria MD 08/24/23 1000 Normal [facility] FERRITINon 10-16-2022 Ferritin [Mass/Vol] 3.0 ng/mL Critically low 6.2-137.0 [facility] Comment on above: Performed By: #### F ETIBC, FERR #### [facility] [address] [address] [address] Reji Alegria IRON AND TIBCon 10-16-2022 % SATURATION 2.9 % Normal [facility] Comment on above: Performed By: #### F ETIBC, FERR #### [facility] [address] [address] [address] Reji Alegria Iron [Mass/Vol] 13.0 ug/dL Critically low 50.0-170.0 [facility] Comment on above: Performed By: #### F ETIBC, FERR #### [facility] [address] [address] [address] Reji Alegria TIBC DIRECT 442.0 ug/dL Normal 250.0-450.0 [facility] Comment on above: Performed By: #### F ETIBC, FERR #### [facility] [address] [place] [address] Dr. Reji Alegria HEPATITIS C AB CASCADE TO QU ANT PCR GENOon 08-29-2022 HCV AB <0.1 Normal 0.0-0.9 [facility] Comment on above: Performed By: #### H EPCASC #### [facility] [address] [place] [address] Dr. Reji Alegria Interpretation: Comment Normal [facility] Comment on above: Result Comment: Nega tive Not infected with HCV, unless recent infection is suspected or other evidence exists to indicate HCV infection. Performed By: #### H EPCASC #### [facility] [address] [place] [address] Dr. Reji Alegria CBC AUTO DIFFon 08-28-2022 BASO # 0.1 103/ul Normal 0.0-0.1 [facility] Comment on above: Performed By: #### C BC #### [facility] [address] [place] [address] Dr. Reji Alegria Basophils/100 WBC (Bld) 1.1 % Normal 0.2-2.0 [facility] Comment on above: Performed By: #### C BC #### [facility] [address] [place] [address] Dr. Reji Alegria EO # 0.1 103/ul Normal 0.0-0.7 [facility] Comment on above: Performed By: #### C BC #### [facility] [address] [place] [address] Dr. Reji Alegria Eosinophils/100 WBC (Bld) 1.6 % Normal 0.9-7.0 [facility] Comment on above: Performed By: #### C BC #### [facility] [address] [place] [address] Dr. Reji Alegria Erythrocyte distribution width (RBC) [Ratio] 15.0 % Normal 11.0-15.0 [facility] Comment on above: Performed By: #### C BC #### [facility] [address] [place] [address] Dr. Reji Alegria Hematocrit (Bld) [Volume fraction] 30.9 % Critically low 36.0-48.0 [facility] Comment on above: Performed By: #### C BC #### [facility] [address] [place] [address] Dr. Reji Alegria Hemoglobin (Bld) [Mass/Vol] 10.0 g/dL Critically low 12.0-16.0 [facility] Comment on above: Performed By: #### C BC #### [facility] [address] [place] [address] Dr. Reji Alegria IG # 0.02 10e3/ul Normal 0.00-0.03 [facility] Comment on above: Performed By: #### C BC #### [facility] [address] [place] [address] Dr. Reji Alegria IG % 0.3 % Normal 0.0-0.5 [facility] Comment on above: Performed By: #### C BC #### [facility] [address] [place] [address] Dr. Reji Alegria LYMPH # 2.2 103/ul Normal 1.2-3.8 [facility] Comment on above: Performed By: #### C BC #### [facility] [address] [place] [address] Dr. Reji Alegria Lymphocytes/100 WBC (Bld) 34.3 % Normal 20.5-60.0 [facility] Comment on above: Performed By: #### C BC #### [facility] [address] [place] [address] Dr. Reji Alegria MANUAL DIFF REQ NO Normal [facility] Comment on above: Performed By: #### C BC #### [facility] [address] [place] [address] Dr. Reji Alegria MCH (RBC) [Entitic mass] 22.5 pg Critically low 26.7-34.0 [facility] Comment on above: Performed By: #### C BC #### [facility] [address] [place] [address] Dr. Reji Alegria MCHC (RBC) [Mass/Vol] 32.4 g/dL Normal 29.9-35.2 [facility] Comment on above: Performed By: #### C BC #### [facility] [address] [place] [address] Dr. Reji Alegria MCV (RBC) [Entitic vol] 69.6 fL Critically low 81.0-99.0 [facility] Comment on above: Performed By: #### C BC #### [facility] [address] [address] [address] Reji Alegria MONO # 0.4 103/ul Normal 0.3-0.8 [facility] Comment on above: Performed By: #### C BC #### [facility] [address] [place] [address] Dr. Reji Alegria Monocytes/100 WBC (Bld) 6.2 % Normal 1.7-12.0 [facility] Comment on above: Performed By: #### C BC #### [facility] [address] [place] [address] Dr. Reji Alegria NEUT # 3.6 103/ul Normal 1.4-6.5 [facility] Comment on above: Performed By: #### C BC #### [facility] [address] [place] [address] Dr. Reji Alegria Neutrophils/100 WBC (Bld) 56.5 % Normal 43.0-75.0 [facility] Comment on above: Performed By: #### C BC #### [facility] [address] [place] [address] Dr. Reji Alegria Platelet mean volume (Bld) [Entitic vol] 9.8 fL Normal 9.5-13.5 [facility] Comment on above: Performed By: #### C BC #### [facility] [address] [place] [address] Dr. Reji Alegria PLT 371 103/ul Normal 150-450 [facility] Comment on above: Performed By: #### C BC #### [facility] [address] [place] [address] Dr. Reji Alegria RBC 4.44 106/ul Normal 4.20-5.40 [facility] Comment on above: Performed By: #### C BC #### [facility] [address] [place] [address] Dr. Reji Alegria WBC 6.3 103/ul Normal 4.0-11.0 [facility] Comment on above: Performed By: #### C BC #### [facility] [address] [place] [address] Dr. Reji Alegria GLYCOHEMOGLOBIN A1Con 2022 ADA RECOMMENDATION SEE BELOW Normal [facility] Comment on above: Result Comment: ADA RECOMMENDED LIMIT 4.0 - 6.0 ADA THERAPEUTIC TARGET < 7.0 ACTION SUGGESTED > 7.0 Performed By: #### A 1C #### [facility] [address] [place] [address] Dr. Reji Alegria Glucose [Mass/Vol] 117 mg/dL Normal [facility] Comment on above: Performed By: #### A 1C #### [facility] [address] [place] [address] Dr. Reji Alegria HbA1c (Bld) [Mass fraction] 5.7 % Normal 4.5-6.2 [facility] Comment on above: Performed By: #### A 1C #### [facility] [address] [place] [address] Dr. Reji Alegria LIPID PROFILEon 08-28-2022 CHOL-HDL RATIO NORM SEE BELOW Normal [facility] Comment on above: Result Comment: 3.3 - 4.4 LOW RISK 4.4 - 7.1 AVERAGE RISK 7.1 - 11.0 MODERATE RISK >11.0 HIGH RISK Performed By: #### C MP, LIPID, TSH #### [facility] [address] [place] [address] Dr. Reji Alegria Cholesterol [Mass/Vol] 146 mg/dL Normal <=200 [facility] Comment on above: Performed By: #### C MP, LIPID, TSH #### [facility] [address] [place] [address] Dr. Reji Alegria Cholesterol in HDL [Mass/Vol] 48 mg/dL Normal 40-60 [facility] Comment on above: Performed By: #### C MP, LIPID, TSH #### [facility] [address] [address] [address] Reji Alegria Cholesterol in LDL [Mass/Vol] 77.2 mg/dL Normal [facility] Comment on above: Performed By: #### C MP, LIPID, TSH #### [facility] [address] [address] [address] Reji Alegria Cholesterol.total/ Cholesterol in HDL [Mass ratio] 3.0 {ratio} Normal [facility] Comment on above: Performed By: #### C MP, LIPID, TSH #### [facility] [address] [address] [address] Reji Alegria HDL NORMAL > or = 60 mg/dl - LO W CARDIOVASCULAR RISK <40 mg/dl - HIGH CARDIOVASCULAR RISK Normal [facility] Comment on above: Performed By: #### C MP, LIPID, TSH #### [facility] [address] [address] [address] Reji Alegria LDL CALC NORMAL SEE BELOW Normal [facility] Comment on above: Result Comment: <100 mg/dl OPTIMAL 100 - 129 mg/dl NEAR OR ABOVE OPTIMAL 130 - 159 mg/dl BORDERLINE HIGH 160 - 189 mg/dl HIGH >190 mg/dl VERY HIGH Performed By: #### C MP, LIPID, TSH #### [facility] [address] [address] [address] Reji Alegria Triglyceride [Mass/Vol] 104 mg/dL Normal <=150 [facility] Comment on above: Performed By: #### C MP, LIPID, TSH #### [facility] [address] [address] [address] Reji Alegria VLDL CALC 20.8 mg/dL Normal [facility] Comment on above: Performed By: #### C MP, LIPID, TSH #### [facility] [address] [address] [address] Reji Alegria PROF 14(COMP METB)on 023 Albumin [Mass/Vol] 3.8 g/dL Normal 3.4-5.0 [facility] Comment on above: Performed By: #### C MP, LIPID, TSH #### [facility] [address] [address] [address] Reji Alegria Albumin/Globulin [Mass ratio] 1.0 {ratio} Normal [facility] Comment on above: Performed By: #### C MP, LIPID, TSH #### [facility] [address] [address] [address] Reji Alegria ALP [Catalytic activity/Vol] 68 U/L Normal 46-116 [facility] Comment on above: Performed By: #### C MP, LIPID, TSH #### [facility] [address] [address] [address] Reji Alegria ALT [Catalytic activity/Vol] 21 U/L Normal 14-59 [facility] Comment on above: Performed By: #### C MP, LIPID, TSH #### [facility] [address] [place] [address] Dr. Reji Alegria Anion gap [Moles/Vol] 12.3 mmol/L Normal [facility] Comment on above: Performed By: #### C MP, LIPID, TSH #### [facility] [address] [address] [address] Reji Alegria AST [Catalytic activity/Vol] 16 U/L Normal 15-37 [facility] Comment on above: Performed By: #### C MP, LIPID, TSH #### [facility] [address] [address] [address] Reji Alegria Bilirubin [Mass/Vol] 0.2 mg/dL Normal 0.2-1.0 [facility] Comment on above: Performed By: #### C MP, LIPID, TSH #### [facility] [address] [address] [address] Reji Alegria Calcium [Mass/Vol] 9.1 mg/dL Normal 8.5-10.1 [facility] Comment on above: Performed By: #### C MP, LIPID, TSH #### [facility] [address] [address] [address] Reji Alegria Chloride [Moles/Vol] 102 mmol/L Normal 98-107 [facility] Comment on above: Performed By: #### C MP, LIPID, TSH #### [facility] [address] [address] [address] Reji Alegria CO2 [Moles/Vol] 27.9 mmol/L Normal 21.0-32.0 [facility] Comment on above: Performed By: #### C MP, LIPID, TSH #### [facility] [address] [address] [address] Reji Alegria Creatinine [Mass/Vol] 0.52 mg/dL Critically low 0.55-1.02 [facility] Comment on above: Performed By: #### C MP, LIPID, TSH #### [facility] [address] [address] [address] Reji Alegria EGFR-AF NORWEGIAN >60 Normal >=60 [facility] Comment on above: Performed By: #### C MP, LIPID, TSH #### [facility] [address] [address] [address] Reji Alegria EGFR-NON AF NORWEGIAN >60 Normal >=60 [facility] Comment on above: Performed By: #### C MP, LIPID, TSH #### [facility] [address] [address] [address] Reji Alegria Globulin (S) [Mass/Vol] 3.7 g/dL Normal [facility] Comment on above: Performed By: #### C MP, LIPID, TSH #### [facility] [address] [address] [address] Reji Alegria Glucose [Mass/Vol] 90 mg/dL Normal 74-106 [facility] Comment on above: Performed By: #### C MP, LIPID, TSH #### [facility] [address] [address] [address] Reji Alegria Potassium [Moles/Vol] 4.2 mmol/L Normal 3.5-5.1 [facility] Comment on above: Performed By: #### C MP, LIPID, TSH #### [facility] [address] [address] [address] Reji Alegria Protein [Mass/Vol] 7.5 g/dL Normal 6.4-8.2 [facility] Comment on above: Performed By: #### C MP, LIPID, TSH #### [facility] [address] [address] [address] Reji Alegria Sodium [Moles/Vol] 138 mmol/L Normal 136-145 [facility] Comment on above: Performed By: #### C MP, LIPID, TSH #### [facility] [address] [address] [address] Reji Alegria Urea nitrogen [Mass/Vol] 10.0 mg/dL Normal 7.0-18.0 [facility] Comment on above: Performed By: #### C MP, LIPID, TSH #### [facility] [address] [place] [address] Dr. Reji Alegria Urea nitrogen/Creatinin e [Mass ratio] 19.2 mg/mg Normal [facility] Comment on above: Performed By: #### C MP, LIPID, TSH #### [facility] [address] [place] [address] Dr. Reji Alegria TSHon 08-28-2022 TSH 1.268 uIU/mL Normal 0.358-3.740 [facility] Comment on above: Performed By: #### C MP, LIPID, TSH #### [facility] [address] [place] [address] Dr. Reji Alegria XR LSPINE MIN 4 [...] Date: 2022-06-14 15:56 Normal [facility] XR shoulder RT min 2V*on XR shoulder RT min 2V* [facility] Other XR shoulder RT min 2V* [facility] [place] [facility] Other XR shoulder RT min 2V* [address] [facility] Other XR shoulder RT min 2V* PRANAV [place] [address] [facility] Other XR shoulder RT min 2V* XRay Report [facility] Other XR shoulder RT min 2V* Signed [facility] Other XR shoulder RT min 2V* Patient: Alon Gee MR#: [id number] [facility] Other XR shoulder RT min 2V* 50 [facility] Other XR shoulder RT min 2V* : 1980 Acct:[id number] [facility] Other XR shoulder RT min 2V* Age/Sex: 40 / F ADM Date: 05/24/21 [facility] Other XR shoulder RT min 2V* Loc: XDUCLY Room: Type: [facility] Other XR shoulder RT min 2V* Attending Dr: Emilie Castillo SECURITY SMESuleiman [facility] Other XR shoulder RT min 2V* Ordering Provider: EMILIE CASTILLO [facility] Other XR shoulder RT min 2V* Date of Service: 05/24/21 [facility] Other XR shoulder RT min 2V* XR/XR shoulder RT min 2V*: Acute pain of right shoulder [facility] Other XR shoulder RT min 2V* Copies to: MEILIE CASTILLO [facility] Other XR shoulder RT min 2V* CLINICAL HISTORY: Patient woke up with right shoulder pain 2 days ago, no known injury. Pain at the [facility] Other XR shoulder RT min 2V* upper portion of the shoulder. Limited range of motion. [facility] Other XR shoulder RT min 2V* [RIGHT] SHOULDER: [facility] Other XR shoulder RT min 2V* COMPARISON: None [facility] Other XR shoulder RT min 2V* FINDINGS: [AP, Grashey, transscapular] views of the right shoulder were obtained. There is no [facility] Other XR shoulder RT min 2V* evidence of fracture, dislocation or bony destruction. Moderate soft tissue calcification is noted [facility] Other XR shoulder RT min 2V* adjacent to the greater tuberosity of the humerus from calcific bursitis or tendinitis. Mild [facility] Other XR shoulder RT min 2V* degenerative arthritic changes are shown at the acromioclavicular joint. [facility] Other XR shoulder RT min 2V* XR/XR shoulder RT min 2V* [facility] Other XR shoulder RT min 2V* IMPRESSION: [facility] Other XR shoulder RT min 2V* NO FRACTURE OR SUBLUXATION. [facility] Other XR shoulder RT min 2V* CALCIFIC BURSITIS OR TENDINITIS ADJACENT TO THE GREATER TUBEROSITY OF THE HUMERUS. [facility] Other XR shoulder RT min 2V* MILD DEGENERATIVE ARTHRITIC CHANGES TO THE ACROMIOCLAVICULAR JOINT. [facility] Other XR shoulder RT min 2V* Impression dictated by: Mamadou Cobb M.D.05/24/2021 11:11 AM [facility] Other XR shoulder RT min 2V* Dictation Location: RADIO-PC-13 [facility] Other XR shoulder RT min 2V* Transcribed By: PWS 05/24/21 1111 [facility] Other XR shoulder RT min 2V* Dictated By: Mamadou Cobb MD 05/24/21 1108 [facility] Other XR shoulder RT min 2V* Signed By: [facility] Other XR shoulder RT min 2V* 05/24/21 1111 [facility] Other Surgical Pathologyon 017 Surgical Pathology (NOTE)[id number] [facility] LABORATORIESCONSULTING PATHOLOGISTS [facility] [id number] [place], [place] [address] Fax: SURGICAL PATHOLOGY CONSULTATIONPatient Name: Nata GEE Rec: [id number] Number: [id number]: 06/01/2017Received: 06/04/2017Reported: 06/05/2017 12:38-- Diagnosis --SKIN, RIGHT [...] cyst wallor neoplasm in these sections. Normal [facility] US NON OB TRANSVAGINALon US NON [...] PMInterpreted by:EMANUEL Jonesigned by:Barbara Ledezma MD05/21/17Final result [facility] Cytologyon 05-11-2017 Cytology (NOTE)[id number] Y LABORATORIESCONSULTING PATHOLOGISTS [facility] [id number] [place], [place] [address] Fax: GYNECOLOGIC CYTOLOGY REPORTPatient Name: DEBRA GEE#: [id number] #[id number]:1: Cervical material, (ThinPrep vial, Imaging-assisted review)Clinical [id number] Routine water meter reader exam without abnormal findingsHigh Risk HPV DNA testing is requested if the diagnosis is ASC-USLMP: 05/03/17INTERPRETATIONCerv ical material, (ThinPrep vial, Imaging-assisted review):Specimen Adequacy: Satisfactory for evaluation. -Endocervical/transformat ion zone component is absent.Descriptive Diagnosis: Negative for intraepithelial lesion or malignancy. Military Technology Manager: ELÍAS Chavez(ASCP)Electronically Signed Outmk/05/17/2017 [facility] Vital Signs Date Time Vital Sign Value Performing Clinician Facility 05-24-2021 11:05-0400 Body height 162.56 cm Emilie Penningtonault Other [facility] Other 05-24-2021 11:05-0400 Body mass index (BMI) [Ratio] 37.38 kg/m2 Emilie Castillo Other [facility] Other 05-24-2021 11:05-0400 Body temperature 97.8 [degF] Emilie Castillo Other [facility] Other 05-24-2021 11:05-0400 Body weight 98.79 kg Emilie Castillo Other [facility] Other 05-24-2021 11:05-0400 Diastolic blood pressure 82 mm[Hg] Emilie Castillo Other [facility] Other 05-24-2021 11:05-0400 Respiratory rate 18 /min Emilie Castillo Other [facility] Other 05-24-2021 11:05-0400 SaO2% (BldA) [Mass fraction] 100 % Emilie Castillo Other [facility] Other 05-24-2021 11:05-0400 Systolic blood pressure 129 mm[Hg] Emilie Castillo Other [facility] Other Encounters Encounter Date Encounter Type Care Provider Facility Start: 08-23-2023 End: 08-23-2023 ambulatory BERNA MARY Not Available Start: 08-21-2023 End: 08-21-2023 ambulatory Max L Pavlock Facility:[facility] Start: 08-21-2023 End: 08-21-2023 Departed Referred DO Max Pavlock Work Phone: [facility] Start: 08-21-2023 End: 08-21-2023 ambulatory DO Max L Pavlock Work Phone: [facility] Work Phone: Start: 07-31-2023 End: 07-31-2023 ambulatory BERNA HERNANDEZ Not Available Start: 11-14-2022 ambulatory MIGUEL SHAMMO Facility:[facility] Start: 10-16-2022 End: 10-17-2022 ambulatory MIGUEL SHAMMO Facility:[facility] Start: 08-30-2022 Encounter for genera l adult medical examination without abnormal findings MIGUEL SHAMMO [facility] Start: 08-28-2022 End: 08-29-2022 ambulatory MIGUEL SHAMMO Facility:[facility] Start: 08-28-2022 End: 08-29-2022 Encounter for general adult medical examination without abnormal findings MIGUEL SHAMMO Facility:[facility] Start: 06-27-2022 ambulatory MIGUEL SHAMMO Facility:[facility] Start: 06-14-2022 End: 06-15-2022 ambulatory MIGUEL SHAMMO Facility:[facility] Start: 05-24-2021 Office outpatient vi sit 15 minutes Emilie Castillo [facility] Start: 06-01-2017 End: 06-02-2017 Ambulatory [facility] Start: 05-21-2017 End: 05-22-2017 Ambulatory [facility]STOP[facility]hillon [facility] Start: 05-11-2017 End: 05-12-2017 Ambulatory [facility]hillon [facility] Procedures Date Procedure Procedure Detail Performing Clinician Start: 05-21-2017 transvaginal CHRISTOPHER ARAGON Start: 05-11-2017 Cytopathology proced ure, preparation of smear, genital source CHRISTOPHER ARAGON Immunizations Immunization Date Immunization Notes Care Provider Fa cility 12-10-2018 Kenalog -40 mg Emilie carrasco Other [facility] Other Payers Date Payer Category Payer Medicaid [id number] 2022 Medicaid [id number] 2016 Unknown [id number] 1980 Unknown [id number] 2.16.84 [id number] 1980 Unknown [id number] [id number] [id number] 1980 Unknown [id number] 2.16.84 [id number] 1980 Unknown [id number] 2.16.84 0.1.026935.3.579.2.593 1980 Unknown [id number] 2.16.84 0.1.593734.3.579.2.593 1980 Unknown [id number] 2.16.84 0.1.436239.3.579.2.1259 1980 Unknown [id number] 2.16.84 0.1.890803.3.579.2.1259 1980 Unknown [id number] 2.16.840 .1.414877.3.579.2.1259 1959 Self-pay 1959 Unknown [id number] Unknown [place] [id number] Unknown [id number] 2.16.8 [id number] Social History Date Type Detail Facility Unknown if ever smoked [facility] Other Sex Assigned At Sex Assigned At [facility] Other Start: 1980 Sex Assigned At Female F [facility] Clinical Note 06-14-2022 Note Date & [...] authenticated by: ABBY LEWIS Date: 2022-06-14 15:52 [facility] Evaluation note 05-24-2021 Note Date [...] and tendontitis seen on xray as discussed. [facility] Other Evaluation note Note Date & Type Note Facility Evaluation note No assessment information availa [facility] Work Phone: History general Narrative - Reported Note Date & Type Note Facility History general Narrative - Reported Type Medical History Hypertension Medical History Depression Medical History Intercranial HTN Surgical History C section x 2 Hospitalization History see above surg hx [facility] Other Summary Purpose Family History No Family [...] DATE CREATED AUTHOR AUTHOR'S ORGANIZ ATION 08/24/2023 [facility] EPIC DATE CREATED AUTHOR AUTHOR'S ORGANIZ ATION 08/25/2023 [facility] REASON FOR VISIT (unrecogniz ed section [...] BE BASED ON THE PRIMARY CLINICAL RECORDS. [facility] provides no warranty or guarantee of the accuracy or completeness of information in this document.
== END 2023-09-06 12:27 | disposition home or self-care (01) ==
PROVIDERS: PCP Nurse Practitioner Primary Care; Visit Provider Obstetrics & Gynecology
DX: Z01.818 Encounter for other preprocedural examination (principal); N92.0 Excessive and frequent menstruation with regular cycle; R10.2 Pelvic and perineal pain

== ENCOUNTER 2023-09-21 07:32 | Day surgery (SDC) | payer MEDICAID, SELFPAY ==
[2023-09-06 12:52] VITALS: BP 135/86; PULSE 89; RESP 20; TEMP 36.3; O2SAT 99; BMI 38.5
[2023-09-21] VITALS (8 sets, daily range): BP systolic 127–144; BP diastolic 84–99; PULSE 66–78; RESP 14–18; TEMP 36–36.2; O2SAT 93–99; BMI 38.8
--- OUTSIDE RECORDS SUMMARY | 2023-09-21 07:34 | XMS_ITS | CCD ---
Author Name Unknown Address [address] [place] [address] Organization [facility] Care Team Providers Care Rat Culturist Name Role Phone CHRISTOPHER ARAGON Unavailable Unavailable [...] Primary Care Provider Berna Hernandez Attending Provider [phone] MACRINA HERNANDEZY Attending Unavailable MARY, BERNA Attending Unavailable MARY, BERNA Attending Unavailable Pavlock, Max L Primary Care Unavailable Mary, Berna Attending Unavailable Mary, Berna Admitting Unavailable Allergies Allergy Classification Reported Allergen(s) Allergy Type Date of Onset Reaction(s) Facility (1 source) [facility] Other (1 source) Cephalexin Drug Allergy 2 [facility] (1 source) Cephalexin Drug Allergy 3 [facility] (1 source) Cephalosporins (Antibiotic) Drug allergy (disorder) 3 [facility] Medications Current Medications Medication Drug [...] in 3 days Apr, Not-Taking polymyxin b 21901 unt/ml / trimethoprim 1 mg/ml ophthalmic solution (1 source) Dihydrofolate Reductase Inhibitor Antibacterial, Polymyxin-class Antibacterial Start: 08-03-2018 take 1 drop(s) into the eye(s) four times daily Polymyxin B-Trimethoprim 13514-0.1 UNIT/ML 1 drop into left eye Ophthalmic [...] Test Name Value Interpretation Reference Range Facility [facility] 08-21-2023 L Specimen: [id number] Received: 08/22/239 Status: CLINTON Escobedo Num: [id number] Spec Type: Surgical Subm Dr: Berna Hernandez Tissues: A Endometrium - Biopsy (EMBX) Procedures: HE/2, Gross/Micro L4 Age/ Patient Sex Location Account Attending Physician Alon Gee 42/F LABELL [id number] Berna Hernandez SPEC NUM: [id number] RECD: 08/22/23 STATUS: CLINTON ESCOBEDO NUM: [id number] PETE: 08/21/23- SUBM DR: Berna Hernandez ENTERED: 08/22/23-1528 [facility] DR: [place],Lab SPEC TYPE: Surgical DEPT: OLVIN [...] in one cassette labeled A1. CPT Codes 35965 Specimen: [id number] Received: 08/22/23 Status: CLINTON Escobedo Num: [id number] Spec Type: Surgical Subm Dr: Berna Hernandez Tissues: A Endometrium - Biopsy (EMBX) Procedures: HE/2, Gross/Micro L4 Patient: Alon Gee [id number] (Continued) Signed (signature on file) Jacob Alegria MD 08/24/23 1000 Normal [facility] FERRITINon 10-16-2022 Ferritin [Mass/Vol] 3.0 ng/mL Critically low 6.2-137.0 [facility] Comment on above: Performed By: #### F ETIBC, FERR #### [facility] [address] [place] [address] Dr. Reji Alegria IRON AND TIBCon 10-16-2022 % SATURATION 2.9 % Normal [facility] Comment on above: Performed By: #### F ETIBC, FERR #### [facility] [address] [address] [address] Reji Alegria Iron [Mass/Vol] 13.0 ug/dL Critically low 50.0-170.0 [facility] Comment on above: Performed By: #### F ETIBC, FERR #### [facility] [address] [place] [address] Dr. Reji Alegria TIBC DIRECT 442.0 ug/dL Normal 250.0-450.0 [facility] Comment on above: Performed By: #### F ETIBC, FERR #### [facility] [address] [place] [address] Dr. Reji Alegria HEPATITIS C AB CASCADE TO QU ANT PCR GENOon 08-29-2022 HCV AB <0.1 Normal 0.0-0.9 [facility] Comment on above: Performed By: #### H EPCASC #### [facility] [address] [place] [address] Dr. Reij Alegria Interpretation: Comment Normal [facility] Comment on above: Result Comment: Nega tive Not infected with HCV, unless recent infection is suspected or other evidence exists to indicate HCV infection. Performed By: #### H EPCASC #### [facility] [address] [place] [address] Dr. Reji Alegria CBC AUTO DIFFon 08-28-2022 BASO # 0.1 103/ul Normal 0.0-0.1 [facility] Comment on above: Performed By: #### C BC #### [facility] [address] [place] [address] Dr. Reji Alegria Basophils/100 WBC (Bld) 1.1 % Normal 0.2-2.0 [facility] Comment on above: Performed By: #### C BC #### [facility] [address] [place] [address] Dr. Reji Alegria EO # 0.1 103/ul Normal 0.0-0.7 [facility] Comment on above: Performed By: #### C BC #### [facility] [address] [place] [address] Dr. Reji Alegria Eosinophils/100 WBC (Bld) 1.6 % Normal 0.9-7.0 [facility] Comment on above: Performed By: #### C BC #### [facility] [address] [place] [address] Dr. Reji Alegrai Erythrocyte distribution width (RBC) [Ratio] 15.0 % Normal 11.0-15.0 [facility] Comment on above: Performed By: #### C BC #### [facility] [address] [place] [address] Dr. Reji Alegria Hematocrit (Bld) [Volume fraction] 30.9 % Critically low 36.0-48.0 [facility] Comment on above: Performed By: #### C BC #### [facility] [address] [place] [address] Dr. Reji Alegria Hemoglobin (Bld) [Mass/Vol] 10.0 g/dL Critically low 12.0-16.0 [facility] Comment on above: Performed By: #### C BC #### [facility] [address] [place] [address] Dr. Reji Alegria IG # 0.02 10e3/ul Normal 0.00-0.03 [facility] Comment on above: Performed By: #### C BC #### [facility] [address] [place] [address] Dr. Reji Alegria IG % 0.3 % Normal 0.0-0.5 [facility] Comment on above: Performed By: #### C BC #### [facility] [address] [place] [address] Dr. Reji Alegria LYMPH # 2.2 103/ul Normal 1.2-3.8 [facility] Comment on above: Performed By: #### C BC #### [facility] [address] [place] [address] Dr. Reji Alegria Lymphocytes/100 WBC (Bld) 34.3 % Normal 20.5-60.0 [facility] Comment on above: Performed By: #### C BC #### [facility] [address] [place] [address] Dr. Reji Alegria MANUAL DIFF REQ NO Normal [facility] Comment on above: Performed By: #### C BC #### [facility] [address] [place] [address] Dr. Reji Alegria MCH (RBC) [Entitic mass] 22.5 pg Critically low 26.7-34.0 [facility] Comment on above: Performed By: #### C BC #### [facility] [address] [address] [address] Reji Alegria MCHC (RBC) [Mass/Vol] 32.4 g/dL Normal 29.9-35.2 [facility] Comment on above: Performed By: #### C BC #### [facility] [address] [address] [address] Reji Alegria MCV (RBC) [Entitic vol] 69.6 fL Critically low 81.0-99.0 [facility] Comment on above: Performed By: #### C BC #### [facility] [address] [place] [address] Dr. Reji Alegria MONO # 0.4 103/ul Normal 0.3-0.8 [facility] Comment on above: Performed By: #### C BC #### [facility] [address] [place] [address] Dr. Reji Alegria Monocytes/100 WBC (Bld) 6.2 % Normal 1.7-12.0 [facility] Comment on above: Performed By: #### C BC #### [facility] [address] [place] [address] Dr. Reji Alegria NEUT # 3.6 103/ul Normal 1.4-6.5 [facility] Comment on above: Performed By: #### C BC #### [facility] [address] [place] [address] Dr. Reji Alegria Neutrophils/100 WBC (Bld) 56.5 % Normal 43.0-75.0 [facility] Comment on above: Performed By: #### C BC #### [facility] [address] [place] [address] Dr. Reji Alegria Platelet mean volume (Bld) [Entitic vol] 9.8 fL Normal 9.5-13.5 [facility] Comment on above: Performed By: #### C BC #### [facility] [address] [place] [address] Dr. Reji Alegria PLT 371 103/ul Normal 150-450 [facility] Comment on above: Performed By: #### C BC #### [facility] [address] [place] [address] Dr. Reji Alegria RBC 4.44 106/ul Normal 4.20-5.40 [facility] Comment on above: Performed By: #### C BC #### [facility] [address] [place] [address] Dr. Reji Alegria WBC 6.3 103/ul Normal 4.0-11.0 [facility] Comment on above: Performed By: #### C BC #### [facility] [address] [place] [address] Dr. Reji Alegria GLYCOHEMOGLOBIN A1Con 2022 ADA RECOMMENDATION SEE BELOW Normal [facility] Comment on above: Result Comment: ADA RECOMMENDED LIMIT 4.0 - 6.0 ADA THERAPEUTIC TARGET < 7.0 ACTION SUGGESTED > 7.0 Performed By: #### A 1C #### [facility] [address] [place] [address] Dr. Reji Alegria Glucose [Mass/Vol] 117 mg/dL Normal [facility] Comment on above: Performed By: #### A 1C #### [facility] [address] [place] [address] Dr. Reji Alegria HbA1c (Bld) [Mass fraction] 5.7 % Normal 4.5-6.2 [facility] Comment on above: Performed By: #### A 1C #### [facility] [address] [place] [address] Dr. Reji Alegria LIPID PROFILEon 08-28-2022 CHOL-HDL RATIO NORM SEE BELOW Normal [facility] Comment on above: Result Comment: 3.3 - 4.4 LOW RISK 4.4 - 7.1 AVERAGE RISK 7.1 - 11.0 MODERATE RISK >11.0 HIGH RISK Performed By: #### C MP, LIPID, TSH #### [facility] [address] [place] [address] Dr. Reji Alegria Cholesterol [Mass/Vol] 146 mg/dL Normal <=200 [facility] Comment on above: Performed By: #### C MP, LIPID, TSH #### [facility] [address] [place] [address] Dr. Reji Alegria Cholesterol in HDL [Mass/Vol] 48 mg/dL Normal 40-60 [facility] Comment on above: Performed By: #### C MP, LIPID, TSH #### [facility] [address] [address] [address] Reji Alegria Cholesterol in LDL [Mass/Vol] 77.2 mg/dL Normal [facility] Comment on above: Performed By: #### C MP, LIPID, TSH #### [facility] [address] [address] [address] Reji Alegria Cholesterol.total/ Cholesterol in HDL [Mass ratio] 3.0 {ratio} Normal [facility] Comment on above: Performed By: #### C MP, LIPID, TSH #### [facility] [address] [address] [address] Reji Alegria HDL NORMAL > or = 60 mg/dl - LO W CARDIOVASCULAR RISK <40 mg/dl - HIGH CARDIOVASCULAR RISK Normal [facility] Comment on above: Performed By: #### C MP, LIPID, TSH #### [facility] [address] [place] [address] Dr. Reji Alegria LDL CALC NORMAL SEE BELOW Normal [facility] Comment on above: Result Comment: <100 mg/dl OPTIMAL 100 - 129 mg/dl NEAR OR ABOVE OPTIMAL 130 - 159 mg/dl BORDERLINE HIGH 160 - 189 mg/dl HIGH >190 mg/dl VERY HIGH Performed By: #### C MP, LIPID, TSH #### [facility] [address] [place] [address] Dr. Reji Alegria Triglyceride [Mass/Vol] 104 mg/dL Normal <=150 [facility] Comment on above: Performed By: #### C MP, LIPID, TSH #### [facility] [address] [address] [address] Reji Alegria VLDL CALC 20.8 mg/dL Normal [facility] Comment on above: Performed By: #### C MP, LIPID, TSH #### [facility] [address] [place] [address] Dr. Reji Alegria PROF 14(COMP METB)on 023 Albumin [Mass/Vol] 3.8 g/dL Normal 3.4-5.0 [facility] Comment on above: Performed By: #### C MP, LIPID, TSH #### [facility] [address] [address] [address] Reji Alegria Albumin/Globulin [Mass ratio] 1.0 {ratio} Normal [facility] Comment on above: Performed By: #### C MP, LIPID, TSH #### [facility] [address] [address] [address] Reji Alegria ALP [Catalytic activity/Vol] 68 U/L Normal 46-116 [facility] Comment on above: Performed By: #### C MP, LIPID, TSH #### [facility] [address] [address] [address] Reji Alegria ALT [Catalytic activity/Vol] 21 U/L Normal 14-59 [facility] Comment on above: Performed By: #### C MP, LIPID, TSH #### [facility] [address] [address] [address] Reij Alegria Anion gap [Moles/Vol] 12.3 mmol/L Normal [facility] Comment on above: Performed By: #### C MP, LIPID, TSH #### [facility] [address] [place] [address] Dr. Reji Alegria AST [Catalytic activity/Vol] 16 U/L Normal 15-37 [facility] Comment on above: Performed By: #### C MP, LIPID, TSH #### [facility] [address] [address] [address] Reji Alegria Bilirubin [Mass/Vol] 0.2 mg/dL Normal 0.2-1.0 [facility] Comment on above: Performed By: #### C MP, LIPID, TSH #### [facility] [address] [place] [address] Dr. Reji Alegria Calcium [Mass/Vol] 9.1 mg/dL Normal 8.5-10.1 [facility] Comment on above: Performed By: #### C MP, LIPID, TSH #### [facility] [address] [place] [address] Dr. Reji Alegria Chloride [Moles/Vol] 102 mmol/L Normal 98-107 [facility] Comment on above: Performed By: #### C MP, LIPID, TSH #### [facility] [address] [address] [address] Reji Alegria CO2 [Moles/Vol] 27.9 mmol/L Normal 21.0-32.0 [facility] Comment on above: Performed By: #### C MP, LIPID, TSH #### [facility] [address] [address] [address] Reji Alegria Creatinine [Mass/Vol] 0.52 mg/dL Critically low 0.55-1.02 [facility] Comment on above: Performed By: #### C MP, LIPID, TSH #### [facility] [address] [place] [address] Dr. Reji Alegria EGFR-AF URUGUAYAN >60 Normal >=60 [facility] Comment on above: Performed By: #### C MP, LIPID, TSH #### [facility] [address] [place] [address] Dr. Reji Alegria EGFR-NON AF URUGUAYAN >60 Normal >=60 [facility] Comment on above: Performed By: #### C MP, LIPID, TSH #### [facility] [address] [place] [address] Dr. Reji Alegria Globulin (S) [Mass/Vol] 3.7 g/dL Normal [facility] Comment on above: Performed By: #### C MP, LIPID, TSH #### [facility] [address] [address] [address] Reji Alegria Glucose [Mass/Vol] 90 mg/dL Normal 74-106 [facility] Comment on above: Performed By: #### C MP, LIPID, TSH #### [facility] [address] [place] [address] Dr. Reji Alegria Potassium [Moles/Vol] 4.2 mmol/L Normal 3.5-5.1 [facility] Comment on above: Performed By: #### C MP, LIPID, TSH #### [facility] [address] [place] [address] Dr. Reji Alegria Protein [Mass/Vol] 7.5 g/dL Normal 6.4-8.2 [facility] Comment on above: Performed By: #### C MP, LIPID, TSH #### [facility] [address] [address] [address] Reji Alegria Sodium [Moles/Vol] 138 mmol/L Normal 136-145 [facility] Comment on above: Performed By: #### C MP, LIPID, TSH #### [facility] [address] [address] [address] Reji Alegria Urea nitrogen [Mass/Vol] 10.0 mg/dL Normal 7.0-18.0 [facility] Comment on above: Performed By: #### C MP, LIPID, TSH #### [facility] [address] [place] [address] Dr. eRji Alegria Urea nitrogen/Creatinin e [Mass ratio] 19.2 mg/mg Normal [facility] Comment on above: Performed By: #### C MP, LIPID, TSH #### [facility] [address] [place] [address] Dr. Reji Alegria TSHon 08-28-2022 TSH 1.268 uIU/mL Normal 0.358-3.740 [facility] Comment on above: Performed By: #### C MP, LIPID, TSH #### [facility] [address] [place] [address] Dr. Reji Alegria XR LSPINE MIN 4 VIEWSon XR LSPINE MIN 4 VIEWS EXAMINATION: XR [...] ABBY LEWIS Date: 2022-06-14 15:56 Normal [facility] XR shoulder RT min 2V*on XR shoulder RT min 2V* [facility] Other XR shoulder RT min 2V* [facility] Other XR shoulder RT min 2V* [address] [facility] Other XR shoulder RT min 2V* PRANAV Starks [address] [facility] Other XR shoulder RT min 2V* XRay Report [facility] Other XR shoulder RT min 2V* Signed [facility] Other XR shoulder RT min 2V* Patient: Alon Gee MR#: [id number] [facility] Other XR shoulder RT min 2V* 50 [facility] Other XR shoulder RT min 2V* : 1980 Acct:[id number] [facility] Other XR shoulder RT min 2V* Age/Sex: 40 / F ADM Date: 05/24/21 [facility] Other XR shoulder RT min 2V* Loc: XDUCLY Room: Type: [facility] Other XR shoulder RT min 2V* Attending Dr: Emilie RUEDA [facility] Other XR shoulder RT min 2V* Ordering Provider: EMILIE CASTILLO [facility] Other XR shoulder RT min 2V* Date of Service: 05/24/21 [facility] Other XR shoulder RT min 2V* XR/XR shoulder RT min 2V*: Acute pain of right shoulder [facility] Other XR shoulder RT min 2V* Copies to: EMILIE CASTILLO [facility] Other XR shoulder RT min 2V* CLINICAL HISTORY: Patient woke up with right shoulder pain 2 days ago, no known injury. Pain at the [facility] Other XR shoulder RT min 2V* upper portion of the shoulder. Limited range of motion. [facility] Other XR shoulder RT min 2V* [RIGHT] SHOULDER: [facility] Other XR shoulder RT min 2V* COMPARISON: None [facility] Other XR shoulder RT min 2V* FINDINGS: [AP, Grashey, transscapular] views of the right shoulder were obtained. There is no [facility] Other XR shoulder RT min 2V* evidence of fracture, dislocation or bony destruction. Moderate soft tissue calcification is noted [facility] Other XR shoulder RT min 2V* adjacent to the greater tuberosity of the humerus from calcific bursitis or tendinitis. Mild [facility] Other XR shoulder RT min 2V* degenerative arthritic changes are shown at the acromioclavicular joint. [facility] Other XR shoulder RT min 2V* XR/XR shoulder RT min 2V* [facility] Other XR shoulder RT min 2V* IMPRESSION: [facility] Other XR shoulder RT min 2V* NO FRACTURE OR SUBLUXATION. [facility] Other XR shoulder RT min 2V* CALCIFIC BURSITIS OR TENDINITIS ADJACENT TO THE GREATER TUBEROSITY OF THE HUMERUS. [facility] Other XR shoulder RT min 2V* MILD DEGENERATIVE ARTHRITIC CHANGES TO THE ACROMIOCLAVICULAR JOINT. [facility] Other XR shoulder RT min 2V* Impression dictated by: Mamadou Cobb M.D.05/24/2021 11:11 AM [facility] Other XR shoulder RT min 2V* Dictation Location: RADIO-PC-13 [facility] Other XR shoulder RT min 2V* Transcribed By: LISS 05/24/21 1111 [facility] Other XR shoulder RT min 2V* Dictated By: Mamadou Cobb MD 05/24/21 1108 [facility] Other XR shoulder RT min 2V* Signed By: [facility] Other XR shoulder RT min 2V* 05/24/21 1111 [facility] Other Surgical Pathologyon 017 Surgical Pathology (NOTE)[id number] Y LABORATORIESCONSULTING PATHOLOGISTS [facility] EMER[facility]ENC[facility] DEPARTMENTANATOMIC [id number] [place], [place] [id number] Fax: SURGICAL PATHOLOGY CONSULTATIONPatient Name: Nata GEE Rec: [id number] Number: [id number]: 06/01/2017Received: 06/04/2017Reported: 06/05/2017 12:38-- Diagnosis --SKIN, RIGHT BREAST, SHAVE BIOPSY: - SLIGHT EPIDERMAL ACANTHOSIS, COMPATIBLE WITH AN EARLYFLAT SEBORRHEIC KERATOSIS, IF THIS FITS THE CLINICAL PICTURE.Everett Lawson M.D.Electronically Signed Out06/05/2017Clinic al InformationPre-op Diagnosis: BREAST LESION Operative Findings: R BREAST (PER CONTAINER)Operation Performed: BIOPSY OF SKIN LESION Source of Specimen1: SKIN LESION RIGHT BREAST (PER CONTAINER)Gross Description ALON GEE SKIN LESION R BREAST 0.3 x 0.2 x 0.1 cm [place] shave. Inked intact 1cs. tmMicroscopic DescriptionSkin to the superficial dermis shows orthokeratotic stratum corneumand slight epidermal acanthosis. The superficial dermis includedcontains a sparse perivascular lymphocytic infiltrate with someslightly increased dermal fibrosis. There is no evidence of cyst wallor neoplasm in these sections. Normal [facility] US NON OB TRANSVAGINALon US [...] PMInterpreted by:EMANUEL Jonesigned by:Barbara Ledezma MD05/21/17Final result [facility] Cytologyon 05-11-2017 Cytology (NOTE)[id number] Y LABORATORIESCONSULTING PATHOLOGISTS CORPORATIONANATOMIC [id number] [place], [place] [id number] Fax: GYNECOLOGIC CYTOLOGY REPORTPatient Name: DEBRA GEE#: [id number] #[id number]:1: Cervical material, (ThinPrep vial, Imaging-assisted review)Clinical [id number] Routine it support engineer exam without abnormal findingsHigh Risk HPV DNA testing is requested if the diagnosis is ASC-USLMP: 05/03/17INTERPRETATIONCerv ical material, (ThinPrep vial, Imaging-assisted review):Specimen Adequacy: Satisfactory for evaluation. -Endocervical/transformat ion zone component is absent.Descriptive Diagnosis: Negative for intraepithelial lesion or malignancy. Horse Stud Manager: ELÍAS Chavez(ASCP)Electronically Signed Outbibiana/05/17/2017 [facility] Vital Signs Date Time Vital Sign Value Performing Clinician Facility 05-24-2021 11:05-0400 Body height 162.56 cm Emilie Castillo Other [facility] Other 05-24-2021 11:05-0400 Body mass index (BMI) [Ratio] 37.38 kg/m2 Emilie Castillo Other [facility] Other 05-24-2021 11:05-0400 Body temperature 97.8 [degF] Emilie Castillo Other [facility] Other 05-24-2021 11:05-0400 Body weight 98.79 kg Emilie Castillo Other [facility] Other 05-24-2021 11:05-0400 Diastolic blood pressure 82 mm[Hg] Emilie Castillo Other [facility] Other 05-24-2021 11:05-0400 Respiratory rate 18 /min Emilie Castillo Other [facility] Other 05-24-2021 11:05-0400 SaO2% (BldA) [Mass fraction] 100 % Emilie Castillo Other [facility] Other 05-24-2021 11:05-0400 Systolic blood pressure 129 mm[Hg] Emilie Castillo Other [facility] Other Encounters Encounter Date Encounter Type Care Provider Facility Start: 08-23-2023 End: 08-23-2023 ambulatory BERNA MARY Not Available Start: 08-21-2023 End: 08-21-2023 ambulatory Max L Pavlock Facility:[facility] Start: 08-21-2023 End: 08-21-2023 Departed Referred DO Max Pavlock Work Phone: [facility] Path [facility] Start: 08-21-2023 End: 08-21-2023 ambulatory DO Max L Pavlock Work Phone: [facility] Work Phone: Start: 07-31-2023 End: 07-31-2023 ambulatory BERNA HERNANDEZ Not Available Start: 11-14-2022 ambulatory MIGUEL SHAMMO Facility:[facility] Start: 10-16-2022 End: 10-17-2022 ambulatory MIGUEL SHAMMO Facility:[facility] Start: 08-30-2022 Encounter for genera l adult medical examination without abnormal findings MIGUEL SHAMMO [facility] Start: 08-28-2022 End: 08-29-2022 ambulatory MIGUEL SHAMMO Facility:[facility] Start: 08-28-2022 End: 08-29-2022 Encounter for general adult medical examination without abnormal findings MIGUEL SHAMMO Facility:[facility] Start: 06-27-2022 ambulatory MIGUEL SHAMMO Facility:[facility] Start: 06-14-2022 End: 06-15-2022 ambulatory MIGUEL SHAMMO Facility:[facility] Start: 05-24-2021 Office outpatient vi sit 15 minutes Emilie Castillo [facility] [place] Start: 06-01-2017 End: 06-02-2017 Ambulatory [facility]STOP[facility]hill[facility] Start: 05-21-2017 End: 05-22-2017 Ambulatory [facility]RISTOPHER Dhillon [facility] Start: 05-11-2017 End: 05-12-2017 Ambulatory [facility]STOPHER Dhillon [facility] Procedures Date Procedure Procedure Detail Performing Clinician Start: 05-21-2017 Us transvaginal CHRISTOPHER ARAGON Start: 05-11-2017 Cytopathology proced ure, preparation of smear, genital source CHRISTOPHER ARAGON Immunizations Immunization Date Immunization Notes Care Provider Fa cility 12-10-2018 Kenalog -40 mg Emilie carrasco Other [facility] Other Payers Date Payer Category Payer Medicaid [id number] 2022 Medicaid [id number] 2016 Unknown [id number] 1980 Unknown [id number] 2.16.84 [id number] 1980 Unknown [id number] 2.16.84 [id number] 1980 Unknown [id number] 2.16.84 [id number] 1980 Unknown [id number] 2.16.84 [id number] 1980 Unknown [id number] 2.16.84 [id number] 1980 Unknown [id number] 2.16.84 0.1.925583.3.579.2.1259 1980 Unknown [id number] 2.16.84 0.1.041773.3.579.2.1259 1980 Unknown [id number] 2.16.840 .[id number] 1959 Self-pay 1959 Unknown [id number] Unknown [place] [id number] Unknown [id number] 2.16.8 [id number] Social History Date Type Detail Facility Unknown if ever smoked [facility] Other Sex Assigned At Sex Assigned At Bir th [facility] Other Start: 1980 Sex Assigned At Female F [facility] Clinical Note 06-14-2022 Note Date & Type [...] by: ABBY LEWIS Date: 2022-06-14 15:52 [facility] Evaluation note 05-24-2021 Note Date & [...] and tendontitis seen on xray as discussed. [facility] Other Evaluation note Note Date & Type Note Facility Evaluation note No assessment information availa [facility] Work Phone: History general Narrative - Reported Note Date & Type Note Facility History general Narrative - Reported Type Medical History Hypertension Medical History Depression Medical History Intercranial HTN Surgical History C section x 2 Hospitalization History see above surg hx [facility] Other Summary Purpose Family History No Family [...] DATE CREATED AUTHOR AUTHOR'S ORGANIZ ATION 08/24/2023 [facility] EPIC DATE CREATED AUTHOR AUTHOR'S ORGANIZ ATION 09/14/2023 [facility] REASON FOR VISIT (unrecogniz ed section [...] BE BASED ON THE PRIMARY CLINICAL RECORDS. [facility] [employer] [facility]. provides no warranty or guarantee of the accuracy or completeness of information in this document.
[2023-09-21 07:47] LABS: Basophils Absolute Auto 0.1 10^3/uL (0.0-0.1); Basophils Percent Auto 1.4 % (0.2-2.0); Eosinophils Absolute Auto 0.2 10^3/uL (0.0-0.7); Hematocrit 35.6 % (36.0-48.0); Hemoglobin 11.1 g/dL (12.0-16.0); Immature Granulocytes Abs Auto 0.01 10^3/uL (0.00-0.03); Immature Granulocytes Pct Auto 0.2 % (0.0-0.5); Lymphocytes Absolute Auto 1.7 10^3/uL (1.2-3.8); Lymphocytes Percent Auto 35.1 % (20.5-60.0); Mean Corpuscular HGB Conc 31.2 g/dL (29.9-35.2); Mean Corpuscular Hemoglobin 25.5 pg (26.7-34.0); Mean Corpuscular Volume 81.7 fL (81.0-99.0); Mean Platelet Volume 10.8 fL (9.5-13.5); Monocytes Absolute Auto 0.4 10^3/uL (0.3-0.8); Monocytes Percent Auto 8.3 % (1.7-12.0); Neutrophils Absolute Auto 2.6 10^3/uL (1.4-6.5); Platelet Count 262 10^3/uL (150-450); Red Blood Count 4.36 10^6/uL (4.20-5.40); Red Cell Distribution Width 20.3 % (11.0-15.0)
[2023-09-21] MEDS: LACTATED RINGER'S SOLUTION 1,000 ML 50 ML IV (08:04)
[2023-09-21 08:34] LABS: HCG Quantitative <1 mIU/mL
[2023-09-21] MEDS: LACTATED RINGER'S SOLUTION 1,000 ML 125 ML IV (10:48)
--- NOTE | 2023-09-21 11:16 | PM.ONB ---
Brief Operative Note Date of procedure: 09/21/23 Pre-op diagnosis: menorrhagia, dysmenorrhea, dyspareunia Post-op diagnosis: other (endometriosis rt ovary, multiple large uterine fibriods, significant endometriosis including adhesions of bowel to pelvic side wall) Procedure: NAME OF PROCEDURE: robotic assisted Laparoscopic bilateral salpingectomy, with Rody endometrial ablation with hysteroscopy finding, multiple large uterine fibroids, enlarged uterus, extensive endometriosis PROCEDURE: The patient was taken back to the OR where she was prepped and draped in the normal sterile fashion after being placed in the dorsal lithotomy position, after being placed under general anesthesia without difficulty. a weighted speculum was then placed into the vagina. Pap and endometrial bx were performed without difficultyThe anterior lip was grasped with a single tooth tenaculum. The patient was then sounded to approximatley 9cm. The patient was gently sounded using Hegar dilators and the hysteroscope was passed through the cervix into the uterus where both ostia were seen. No gross evidence of polyps, fibroids or malignancy. The cervical length was noted to be 4cm. The Rody ablation apparatus was set to approximately 5cm in length. This was placed in through the cervix and into the uterus. After the seal was tested, at that time the total ablation of 120 seconds was performed with the Rody without difficulty. All instruments were removed from the vagina. A wet sponge stick was placed into the patient's vagina. Attention was then turned to the patient's abdomen, where a scalpel was used to make a small infraumbilical incision. The S retractors were then used to dissect the underlying layers until the fascia could be seen. The fascia was then grasped with Shailesh clamps and tented up. A knife was then used to make a small incision to the fascia. The muscle was identified, at that time two sutures of #0 Vicryl on a GI needlewas then used and placed through the fascia. The peritoneum was then identified and entered bluntly. The 10-4 Nataliia was then placed into the patient's abdomen. This was confirmed with direct visualization of the bowel, using the laparoscope. The patient's abdomen was then insufflated using approximately 4 liters of CO2 gas. Survey of the patient's abdomen demonstrated normal appearing ovaries, uterus and tubes. A second and third lateral robotic ports, which was 8mm in size, was then placed laterally after incision was made in the skin under direct visualization. the robotic arms were engaged. The patient's tube on the patient's right side was identified. The tube was then tented up using a grasper. The ligasure was used to transect and coagulate the mesosalpingx from the fimbriated end to the insertion at the uterus, the tube was amputated and removed in its entirety.? Excellent hemostasis was noted. ?This was performed on the contralateral sideas well. The lateral ports were then moved under direct visualization with excellent hemostasis. The abdomen was deinsufflated. All instruments were removed from the patient's abdomen. The fascia was closed using the #0 Vicryl on GI needle. The skin was closed using 4-0 Vicryl subcuticularly. All instruments were removed from the patient's vagina as well. The patient was taken out of the dorsal lithotomy position and placed in the supine position and taken to recovery in stable condition. Sponge, lap and needle counts were correct x2. ??? Anesthesia: AMBAR Surgeon: Yrn Hernandez Chrome Plater Helper: Mariah Linda Estimated blood loss (mL): 5 Pathology: none sent Condition: stable Disposition: PACU Urinary Catheter Management Urinary Catheter Management Urethral: Cath placed during this visit: no
[2023-09-21] MEDS: HYDROCODONE/ACET 5-325 MG TABLET 1 TAB PO (12:46)
--- NOTE | 2023-09-21 12:53 | PC.NURSE ---
Medicated for pain as ordered
--- NOTE | 2023-09-21 13:06 | PC.NURSE ---
Up to bathroom and voids clear yellow without difficulty
== END 2023-09-21 13:07 | disposition home or self-care (01) ==
PROVIDERS: PCP Nurse Practitioner Primary Care; Visit Provider Obstetrics & Gynecology
PROC: (CPT 840; principal; 2023-09-21 08:55)
PROC: (CPT 840; 2023-09-21 08:55)
DX: Z30.2 Encounter for sterilization (principal); N92.0 Excessive and frequent menstruation with regular cycle; R10.2 Pelvic and perineal pain; N93.9 Abnormal uterine and vaginal bleeding, unspecified; N80.101 Endometriosis of right ovary, unspecified depth; N80.359 Endometriosis of pelvic sidewall, unspecified side, unspecified depth; D25.9 Leiomyoma of uterus, unspecified; F17.210 Nicotine dependence, cigarettes, uncomplicated
CPT/HCPCS: 58563; 58661; 36415; 84702; 85025; 88302; J1100; J1885; J2250; J2405; J2704; J2710; J3010

== ENCOUNTER 2023-11-17 09:56 | Outpatient (OUT) | payer MEDICAID, SELFPAY ==
--- NOTE | 2023-11-17 | US_ITS ---
The [address] [address] Patient Name: ALON BENITEZ MRN: [id number] date: 1980 Sex: F Assigned Patient Location: US Current Patient Location: US Accession/Order Number: [id number] Exam Date: 11/17/2023 10:00 Report Date: 11/17/2023 14:57 At the request of: MIGUEL JEAN Procedure: US chest EXAM: US chest HISTORY: . SOFT TISSUE MASS M79.89 COMPARISON: None. TECHNIQUE: Grayscale and color imaging was performed FINDINGS: Scanning of the soft tissues of the right flank region corresponding to the patient's area of concern demonstrates no discrete solid or cystic mass. No distortion of the soft tissues is noted. US/US chest IMPRESSION: No discrete mass noted ultrasonographically regional to the patient's area of concern in the right flank. If further imaging is clinically indicated MRI is suggested. Electronically authenticated by: CRYSTAL GARCIA Date: 11/17/2023 14:57
--- OUTSIDE RECORDS SUMMARY | 2023-11-17 09:58 | XMS_ITS | CCD ---
Author Organization [facility] Care Team Providers Care Pocket Machine Operator Name Role Phone HEDGES, CHRISTOPHER W Unavailable Unavailable PAVLOCK, MAX L Unavailable Unavailable HEDGES, CHRISTOPHER W Unavailable Unavailable PAVLOCK, MAX L Unavailable Unavailable HEDGES, CHRISTOPHER W Unavailable Unavailable PAVLOCK, MAX L Unavailable Unavailable Nanci, Emilie Unavailable SHAMMO, MIGUEL Consulting Unavailable SHAMMO, MIGUEL Primary Care Unavailable SHAMMO, MIGUEL Attending Unavailable SHAMMO, MIGUEL Admitting Unavailable SHAMMO, MIGUEL Primary Care Unavailable SHAMMO, MIGUEL Attending Unavailable SHAMMO, MIGUEL Admitting Unavailable SHAMMO, MIGUEL Primary Care Unavailable SHAMMO, MIGUEL Attending Unavailable SHAMMO, MIGUEL Admitting Unavailable SHAMMO, MIGUEL Primary Care Unavailable ZIEBER, DR ABBY Brown Consulting Unavailable SHAMMO, MIGUEL Attending Unavailable SHAMMO, MIGUEL Admitting Unavailable SHAMMO, MIGUEL Consulting Unavailable SHAMMO, MIGUEL Primary Care Unavailable SHAMMO, MIGUEL Consulting Unavailable SHAMMO, MIGUEL Attending Unavailable SHAMMO, MIGUEL Admitting Unavailable Pavlock, DO Max L Primary Care Provider [phone] Gerda Hernandezy Attending Provider Mary, Berna Admitting Unavailable Pavlock, Max L Primary Care Unavailable Mary, Berna Attending Unavailable Pavlock, Max L Primary Care Unavailable Mary, Berna Attending Unavailable Mary, Berna Admitting Unavailable MARY, BERNA Attending Unavailable MARY, BERNA Attending Unavailable MARY, BERNA Attending Unavailable KALI LAI Attending Unavailable Unavailable Primary Care Provider Unavailabl e Allergies Allergy Classification Reported Allergen(s) Allergy Type Date of Onset Reaction(s) Facility (2 sources) Cephalexin Drug Allergy 3 tongue swelled, Swelling of Lip/Tongue/Thr oat, tongue swelled [facility] (1 source) Cephalexin Drug Allergy 2 [facility] (2 sources) Cephalosporins (Antibiotic); Translations: [Cephalosporins] Allergy to substance 3 Comment:tongue swells in the [facility] (1 source) Cephalexin Drug Allergy 3 [facility] Medications Current Medications Medication Drug Class(es) [...] in 3 days Apr, Not-Taking polymyxin b 10158 unt/ml / trimethoprim 1 mg/ml ophthalmic solution (1 source) Dihydrofolate Reductase Inhibitor Antibacterial, Polymyxin-class Antibacterial Start: 08-03-2018 take 1 drop(s) into the eye(s) four times daily Polymyxin B-Trimethoprim 64814-4.1 UNIT/ML 1 drop into left eye Ophthalmic [...] Interpretation Reference Range Facility [facility] 09-21-2023 L Specimen: [id number] Received: 09/21/23 Status: SOUT Req Num: [id number] Spec Type: Surgical Subm Dr: Berna Hernandez Tissues: A Fallopian Tube - Sterilization (BILT FALL TUBES) Procedures: HE/4, Gross/Micro L2 Age/ Patient Sex Location Account Attending Physician AnanyabandarAlon Smita 43/F [facility] [id number] Berna Hernandez SPEC NUM: [id number] RECD: 09/21/23-1349 STATUS: SOUT REQ NUM: [id number] PETE: 09/21/23-[address]: Berna Hernandez ENTERED: 09/21/23-1350 [facility] DR: Joseph Ryan SPEC TYPE: Surgical DEPT: LOVIN IZQUIERDO ENTERED BY: [id number] RECV BY: [id number] ORDERED: HE/4, Gross/Micro L2 ORDERED: HE/4, Gross/Micro L2 Pathological Diagnosis Bilateral fallopian tubes, resection: No Significant Pathologic Abnormality. Clinical Information Multiple large uterine fibroids, extensive endometriosis Gross Description Received in formalin labeled with the patient's name, date of and bilateral fallopian tubes are 2 segments of fimbriated fallopian tube, with no laterality specified. The segments are 6.2 x 0.6 cm and 7 x 0.6 cm. Both segments demonstrate pink-boston glistening serosa with focal foamy adhesions. Sectioning demonstrates a central lumens bilaterally. The fimbria are soft and unremarkable. Online Content Developer sections are submitted in 4 cassettes as follows: A1-A2 - Cobb segment with fimbria entirely submitted A3-A4 - Longer segment with fimbria entirely submitted CPT Codes 12505 Specimen: [id number] Received: 09/21/23 Status: CLINTON Gregg Num: [id number] Spec Type: Surgical Subm Dr: Berna Hernandez Tissues: A Fallopian Tube - Sterilization (BILT FALL TUBES) Procedures: HE/4, Gross/Micro L2 Patient: Alon Gee [id number] (Continued) Signed (signature on file) Evelin Schulz MD 09/26/232156 [facility] Estiven 08-21-2023 L Specimen: [id number] Received: 08/22/23 Status: CLINTON Escobedo Num: [id number] Spec Type: Surgical Subm Dr: Berna Hernandez Tissues: A Endometrium - Biopsy (EMBX) Procedures: HE/2, Gross/Micro L4 Age/ Patient Sex Location Account Attending Physician Alon Gee 42/F [facility] [id number] Berna Hernandez SPEC NUM: [id number] RECD: 08/22/23 STATUS: CL[place] ESCOBEDO NUM: [id number] PETE: 08/21/23- SUBM DR: Berna Hernandez ENTERED: 08/22/23 [facility] DR: Shelby,Lab SPEC TYPE: Surgical [...] in one cassette labeled A1. CPT Codes 85833 Specimen: [id number] Received: 08/22/23 Status: CL[place] Escobedo Num: [id number] Spec Type: Surgical Subm Dr: Berna Hernandez Tissues: A Endometrium - Biopsy (EMBX) Procedures: HE/2, Gross/Micro L4 Patient: Alon Gee [id number] (Continued) Signed (signature on file) Diony-Jonas Alegria MD 08/24/23 1000 Normal [facility] FERRITINon 10-16-2022 Ferritin [Mass/Vol] 3.0 ng/mL Critically low 6.2-137.0 [facility] Comment on above: Performed By: #### F ETIBC, FERR #### [facility] [address] [place] [address] Dr. Reji Aelgria IRON AND TIBCon 10-16-2022 % SATURATION 2.9 % Normal [facility] Comment on above: Performed By: #### F ETIBC, FERR #### [facility] [address] [place] [address] Dr. Reji Alegria Iron [Mass/Vol] 13.0 ug/dL Critically low 50.0-170.0 [facility] Comment on above: Performed By: #### F ETIBC, FERR #### [facility] [address] [place] [address] Dr. Reji Alegria TIBC DIRECT 442.0 ug/dL Normal 250.0-450.0 [facility] Comment on above: Performed By: #### F ETIBC, FERR #### [facility] [address] [place] [address] Dr. Reji Alegria HEPATITIS C AB CASCADE TO QU ANT PCR GENOon 08-29-2022 HCV AB <0.1 Normal 0.0-0.9 [facility] Comment on above: Performed By: #### H EPCASC #### [facility] [address] [address] [address] Reji Alegria Interpretation: Comment Normal [facility] Comment on above: Result Comment: Negjames tive Not infected with HCV, unless recent infection is suspected or other evidence exists to indicate HCV infection. Performed By: #### H EPCASC #### [facility] [address] [address] [address] Reji Alegria CBC AUTO DIFFon 08-28-2022 BASO # 0.1 103/ul Normal 0.0-0.1 [facility] Comment on above: Performed By: #### C BC #### [facility] [address] [address] [address] Reji Alegria Basophils/100 WBC (Bld) 1.1 % Normal 0.2-2.0 [facility] Comment on above: Performed By: #### C BC #### [facility] [address] [place] [address] Dr. Reji Alegria EO # 0.1 103/ul Normal 0.0-0.7 [facility] Comment on above: Performed By: #### C BC #### [facility] [address] [address] [address] Reji Alegria Eosinophils/100 WBC (Bld) 1.6 % Normal 0.9-7.0 [facility] Comment on above: Performed By: #### C BC #### [facility] [address] [address] [address] Reji Alegria Erythrocyte distribution width (RBC) [Ratio] 15.0 % Normal 11.0-15.0 [facility] Comment on above: Performed By: #### C BC #### [facility] [address] [place] [address] Dr. Reji Alegria Hematocrit (Bld) [Volume fraction] 30.9 % Critically low 36.0-48.0 [facility] Comment on above: Performed By: #### C BC #### [facility] [address] [place] [address] Dr. Reji Alegria Hemoglobin (Bld) [Mass/Vol] 10.0 g/dL Critically low 12.0-16.0 [facility] Comment on above: Performed By: #### C BC #### [facility] [address] [place] [address] Dr. Reji Alegria IG # 0.02 10e3/ul Normal 0.00-0.03 [facility] Comment on above: Performed By: #### C BC #### [facility] [address] [place] [address] Dr. Reji Alegria IG % 0.3 % Normal 0.0-0.5 [facility] Comment on above: Performed By: #### C BC #### [facility] [address] [place] [address] Dr. Reji Alegria LYMPH # 2.2 103/ul Normal 1.2-3.8 [facility] Comment on above: Performed By: #### C BC #### [facility] [address] [place] [address] Dr. Reji Alegria Lymphocytes/100 WBC (Bld) 34.3 % Normal 20.5-60.0 [facility] Comment on above: Performed By: #### C BC #### [facility] [address] [place] [address] Dr. Reji Alegria MANUAL DIFF REQ NO Normal [facility] Comment on above: Performed By: #### C BC #### [facility] [address] [place] [address] Dr. Reji Alegria MCH (RBC) [Entitic mass] 22.5 pg Critically low 26.7-34.0 [facility] Comment on above: Performed By: #### C BC #### [facility] [address] [place] [address] Dr. Reji Alegria MCHC (RBC) [Mass/Vol] 32.4 g/dL Normal 29.9-35.2 [facility] Comment on above: Performed By: #### C BC #### [facility] [address] [place] [address] Dr. Reji Alegria MCV (RBC) [Entitic vol] 69.6 fL Critically low 81.0-99.0 [facility] Comment on above: Performed By: #### C BC #### [facility] [address] [place] [address] Dr. Reji Alegria MONO # 0.4 103/ul Normal 0.3-0.8 [facility] Comment on above: Performed By: #### C BC #### [facility] [address] [place] [address] Dr. Reji Alegria Monocytes/100 WBC (Bld) 6.2 % Normal 1.7-12.0 [facility] Comment on above: Performed By: #### C BC #### [facility] [address] [place] [address] Dr. Reji Alegria NEUT # 3.6 103/ul Normal 1.4-6.5 [facility] Comment on above: Performed By: #### C BC #### [facility] [address] [place] [address] Dr. Reji Alegria Neutrophils/100 WBC (Bld) 56.5 % Normal 43.0-75.0 [facility] Comment on above: Performed By: #### C BC #### [facility] [address] [place] [address] Dr. Reji Alegria Platelet mean volume (Bld) [Entitic vol] 9.8 fL Normal 9.5-13.5 [facility] Comment on above: Performed By: #### C BC #### [facility] [address] [place] [address] Dr. Reji Alegria PLT 371 103/ul Normal 150-450 [facility] Comment on above: Performed By: #### C BC #### [facility] [address] [place] [address] Dr. Reji Alegria RBC 4.44 106/ul Normal 4.20-5.40 [facility] Comment on above: Performed By: #### C BC #### [facility] [address] [place] [address] Dr. Reji Alegria WBC 6.3 103/ul Normal 4.0-11.0 [facility] Comment on above: Performed By: #### C BC #### [facility] [address] [place] [address] Dr. Reji Alegria GLYCOHEMOGLOBIN A1Con 2022 ADA RECOMMENDATION SEE BELOW Normal [facility] Comment on above: Result Comment: ADA RECOMMENDED LIMIT 4.0 - 6.0 ADA THERAPEUTIC TARGET < 7.0 ACTION SUGGESTED > 7.0 Performed By: #### A 1C #### [facility] [address] [place] [address] Dr. Reji Alegria Glucose [Mass/Vol] 117 mg/dL Normal [facility] Comment on above: Performed By: #### A 1C #### [facility] [address] [place] [address] Dr. Reji Alegria HbA1c (Bld) [Mass fraction] 5.7 % Normal 4.5-6.2 [facility] Comment on above: Performed By: #### A 1C #### [facility] [address] [place] [address] Dr. Reji Alegria LIPID PROFILEon 08-28-2022 CHOL-HDL RATIO NORM SEE BELOW Normal [facility] Comment on above: Result Comment: 3.3 - 4.4 LOW RISK 4.4 - 7.1 AVERAGE RISK 7.1 - 11.0 MODERATE RISK >11.0 HIGH RISK Performed By: #### C MP, LIPID, TSH #### [facility] [address] [place] [address] Dr. Reji Alegria Cholesterol [Mass/Vol] 146 mg/dL Normal <=200 [facility] Comment on above: Performed By: #### C MP, LIPID, TSH #### [facility] [address] [place] [address] Dr. Reji Alegria Cholesterol in HDL [Mass/Vol] 48 mg/dL Normal 40-60 [facility] Comment on above: Performed By: #### C MP, LIPID, TSH #### [facility] [address] [place] [address] Dr. Reji Alegria Cholesterol in LDL [Mass/Vol] 77.2 mg/dL Normal [facility] Comment on above: Performed By: #### C MP, LIPID, TSH #### [facility] [address] [place] [address] Dr. Reji Alegria Cholesterol.total/ Cholesterol in HDL [Mass ratio] 3.0 {ratio} Normal [facility] Comment on above: Performed By: #### C MP, LIPID, TSH #### [facility] [address] [address] [address] Reji Alegria HDL NORMAL > or = 60 mg/dl - LO W CARDIOVASCULAR RISK <40 mg/dl - HIGH CARDIOVASCULAR RISK Normal [facility] Comment on above: Performed By: #### C MP, LIPID, TSH #### [facility] [address] [address] [address] Reji Alegria LDL CALC NORMAL SEE BELOW Normal [facility] Comment on above: Result Comment: <100 mg/dl OPTIMAL 100 - 129 mg/dl NEAR OR ABOVE OPTIMAL 130 - 159 mg/dl BORDERLINE HIGH 160 - 189 mg/dl HIGH >190 mg/dl VERY HIGH Performed By: #### C MP, LIPID, TSH #### [facility] [address] [address] [address] Reji Alegria Triglyceride [Mass/Vol] 104 mg/dL Normal <=150 [facility] Comment on above: Performed By: #### C MP, LIPID, TSH #### [facility] [address] [address] [address] Reji Alegria VLDL CALC 20.8 mg/dL Normal [facility] Comment on above: Performed By: #### C MP, LIPID, TSH #### [facility] [address] [address] [address] Reji Alegria PROF 14(COMP METB)on 023 Albumin [Mass/Vol] 3.8 g/dL Normal 3.4-5.0 [facility] Comment on above: Performed By: #### C MP, LIPID, TSH #### [facility] [address] [address] [address] Reji Alegria Albumin/Globulin [Mass ratio] 1.0 {ratio} Normal [facility] Comment on above: Performed By: #### C MP, LIPID, TSH #### [facility] [address] [address] [address] Reji Alegria ALP [Catalytic activity/Vol] 68 U/L Normal 46-116 [facility] Comment on above: Performed By: #### C MP, LIPID, TSH #### [facility] [address] [place] [address] Dr. Reji Alegria ALT [Catalytic activity/Vol] 21 U/L Normal 14-59 [facility] Comment on above: Performed By: #### C MP, LIPID, TSH #### [facility] [address] [place] [address] Dr. Reji Alegria Anion gap [Moles/Vol] 12.3 mmol/L Normal [facility] Comment on above: Performed By: #### C MP, LIPID, TSH #### [facility] [address] [place] [address] Dr. Reji Alegria AST [Catalytic activity/Vol] 16 U/L Normal 15-37 [facility] Comment on above: Performed By: #### C MP, LIPID, TSH #### [facility] [address] [place] [address] Dr. Reji Alegria Bilirubin [Mass/Vol] 0.2 mg/dL Normal 0.2-1.0 [facility] Comment on above: Performed By: #### C MP, LIPID, TSH #### [facility] [address] [place] [address] Dr. Reji Alegria Calcium [Mass/Vol] 9.1 mg/dL Normal 8.5-10.1 [facility] Comment on above: Performed By: #### C MP, LIPID, TSH #### [facility] [address] [place] [address] Dr. Reji Alegria Chloride [Moles/Vol] 102 mmol/L Normal 98-107 [facility] Comment on above: Performed By: #### C MP, LIPID, TSH #### [facility] [address] [place] [address] Dr. Reji Alegria CO2 [Moles/Vol] 27.9 mmol/L Normal 21.0-32.0 [facility] Comment on above: Performed By: #### C MP, LIPID, TSH #### [facility] [address] [place] [address] Dr. Reji Alegria Creatinine [Mass/Vol] 0.52 mg/dL Critically low 0.55-1.02 [facility] Comment on above: Performed By: #### C MP, LIPID, TSH #### [facility] [address] [address] [address] Reji Alegria EGFR-AF BOLIVIAN >60 Normal >=60 [facility] Comment on above: Performed By: #### C MP, LIPID, TSH #### [facility] [address] [address] [address] Reji Alegria EGFR-NON AF BOLIVIAN >60 Normal >=60 [facility] Comment on above: Performed By: #### C MP, LIPID, TSH #### [facility] [address] [address] [address] Reji Alegria Globulin (S) [Mass/Vol] 3.7 g/dL Normal [facility] Comment on above: Performed By: #### C MP, LIPID, TSH #### [facility] [address] [address] [address] Reji Alegria Glucose [Mass/Vol] 90 mg/dL Normal 74-106 [facility] Comment on above: Performed By: #### C MP, LIPID, TSH #### [facility] [address] [address] [address] Reji Alegria Potassium [Moles/Vol] 4.2 mmol/L Normal 3.5-5.1 [facility] Comment on above: Performed By: #### C MP, LIPID, TSH #### [facility] [address] [place] [address] Dr. Reji Alegria Protein [Mass/Vol] 7.5 g/dL Normal 6.4-8.2 [facility] Comment on above: Performed By: #### C MP, LIPID, TSH #### [facility] [address] [address] [address] Reji Alegria Sodium [Moles/Vol] 138 mmol/L Normal 136-145 [facility] Comment on above: Performed By: #### C MP, LIPID, TSH #### [facility] [address] [address] [address] Reji Alegria Urea nitrogen [Mass/Vol] 10.0 mg/dL Normal 7.0-18.0 [facility] Comment on above: Performed By: #### C MP, LIPID, TSH #### [facility] [address] [address] [address] Reji Alegria Urea nitrogen/Creatinin e [Mass ratio] 19.2 mg/mg Normal [facility] Comment on above: Performed By: #### C MP, LIPID, TSH #### [facility] [address] [address] [address] Reji Alegria TSHon 08-28-2022 TSH 1.268 uIU/mL Normal 0.358-3.740 [facility] Comment on above: Performed By: #### C MP, LIPID, TSH #### [facility] [address] [address] [address] Reji Alegria XR LSPINE MIN 4 [...] ABBY LEWIS Date: 2022-06-14 15:56 Normal [facility] XR shoulder RT min 2V*on XR shoulder RT min 2V* [facility] [employer] Other XR shoulder RT min 2V* [facility] [employer] Other XR shoulder RT min 2V* [address] [place] [address] [employer] Other XR shoulder RT min 2V* [address] [employer] Other XR shoulder RT min 2V* XRay Report [facility] [employer] Other XR shoulder RT min 2V* Signed [email or web address] Other XR shoulder RT min 2V* Patient: Alon Gee MR#: [id number] [email or web address] Other XR shoulder RT min 2V* 50 [email or web address] Other XR shoulder RT min 2V* : 1980 Acct:[id number] [email or web address] Other XR shoulder RT min 2V* Age/Sex: 40 / F ADM Date: 05/24/21 [email or web address] Other XR shoulder RT min 2V* Loc: XDUCLY Room: Type: [facility] [email or web address] Other XR shoulder RT min 2V* Attending Dr: Emilie Castillo [email or web address] Other XR shoulder RT min 2V* Ordering Provider: EMILIE CASTILLO [email or web address] Other XR shoulder RT min 2V* Date of Service: 05/24/21 [email or web address] Other XR shoulder RT min 2V* XR/XR shoulder RT min 2V*: Acute pain of right shoulder [email or web address] Other XR shoulder RT min 2V* Copies to: EMILIE CASTILLO [facility] [email or web address] Other XR shoulder RT min 2V* CLINICAL HISTORY: Patient woke up with right shoulder pain 2 days ago, no known injury. Pain at the [email or web address] Other XR shoulder RT min 2V* upper portion of the shoulder. Limited range of motion. [email or web address] Other XR shoulder RT min 2V* [RIGHT] SHOULDER: [email or web address] Other XR shoulder RT min 2V* COMPARISON: None [email or web address] Other XR shoulder RT min 2V* FINDINGS: [AP, Grashey, transscapular] views of the right shoulder were obtained. There is no [email or web address] Other XR shoulder RT min 2V* evidence of fracture, dislocation or bony destruction. Moderate soft tissue calcification is noted [email or web address] Other XR shoulder RT min 2V* adjacent to the greater tuberosity of the humerus from calcific bursitis or tendinitis. Mild [email or web address] Other XR shoulder RT min 2V* degenerative arthritic changes are shown at the acromioclavicular joint. [email or web address] Other XR shoulder RT min 2V* XR/XR shoulder RT min 2V* [email or web address] Other XR shoulder RT min 2V* IMPRESSION: [email or web address] Other XR shoulder RT min 2V* NO FRACTURE OR SUBLUXATION. [email or web address] Other XR shoulder RT min 2V* CALCIFIC BURSITIS OR TENDINITIS ADJACENT TO THE GREATER TUBEROSITY OF THE HUMERUS. [email or web address] Other XR shoulder RT min 2V* MILD DEGENERATIVE ARTHRITIC CHANGES TO THE ACROMIOCLAVICULAR JOINT. [email or web address] Other XR shoulder RT min 2V* Impression dictated by: Mamadou Cobb M.D.05/24/2021 11:11 AM [email or web address] Other XR shoulder RT min 2V* Dictation Location: [facility]-- [email or web address] Other XR shoulder RT min 2V* Transcribed By: LISS 05/24/21 1111 [email or web address] Other XR shoulder RT min 2V* Dictated By: Mamadou Cobb MD 05/24/21 1108 [email or web address] Other XR shoulder RT min 2V* Signed By: [email or web address] Other XR shoulder RT min 2V* 05/24/21 1111 [email or web address] Other Surgical Pathologyon 017 Surgical Pathology (NOTE)[id number] LABORATORIESCONSULTING PATHOLOGISTS CORPORATIONANATOMIC [id number] [place] [address]. [place] [phone] Fax: SURGICAL PATHOLOGY CONSULTATIONPatient Name: Nata GEE Rec: [id number] Number: [id number]: 06/01/2017Received: 06/04/2017Reported: 06/05/2017 12:38-- Diagnosis --SKIN, RIGHT [...] cyst wallor neoplasm in these sections. Normal [facility] US NON OB TRANSVAGINALon US NON OB [...] PMInterpreted by:EMANUEL Jonesigned by:Barbara Ledezma MD05/21/17Final result [facility] Cytologyon 05-11-2017 Cytology (NOTE)[id number] [facility] LABORATORIESCONSULTING PATHOLOGISTS [facility]ENTER[facility]OM[facility] [id number] [place], [place] [phone] Fax: GYNECOLOGIC CYTOLOGY REPORTPatient Name: DEBRA GEE#: [id number] #[id number]:1: Cervical material, (ThinPrep vial, Imaging-assisted review)Clinical [id number] Routine academic affairs vice president exam without abnormal findingsHigh Risk HPV DNA testing is requested if the diagnosis is ASC-USLMP: 05/03/17INTERPRETATIONCerv ical material, (ThinPrep vial, Imaging-assisted review):Specimen Adequacy: Satisfactory for evaluation. -Endocervical/transformat ion zone component is absent.Descriptive Diagnosis: Negative for intraepithelial lesion or malignancy. Hvac Manager: ELÍAS Chavez(ASCP)Electronically Signed Outmk/05/17/2017 [facility] Vital Signs Date Time Vital Sign Value Performing Clinician Facility 05-24-2021 11:05-0400 Body height 162.56 cm Emilie Nanci Other [email or web address] Other 05-24-2021 11:05-0400 Body mass index (BMI) [Ratio] 37.38 kg/m2 Emilie Nanci Other [email or web address] Other 05-24-2021 11:05-0400 Body temperature 97.8 [degF] Emilie Castillo Other [email or web address] Other 05-24-2021 11:05-0400 Body weight 98.79 kg Emilie Castillo Other [email or web address] Other 05-24-2021 11:05-0400 Diastolic blood pressure 82 mm[Hg] Emliie Castillo Other [email or web address] Other 05-24-2021 11:05-0400 Respiratory rate 18 /min Emilie Castillo Other [email or web address] Other 05-24-2021 11:05-0400 SaO2% (BldA) [Mass fraction] 100 % Emilie Castillo Other [email or web address] Other 05-24-2021 11:05-0400 Systolic blood pressure 129 mm[Hg] Emilie Castillo Other [email or web address] Other Encounters Encounter Date Encounter Type Care Provider Facility Start: 10-24-2023 Telephone encounter Trisha Peacock RN [facility] Start: 10-23-2023 End: 10-23-2023 ambulatory KALI LAI Not Available Start: 09-21-2023 End: 09-21-2023 ambulatory Berna Mary Facility:[facility] Start: 09-21-2023 End: 09-21-2023 ambulatory DO Max L Pavlock Work Phone: [facility] Work Phone: Start: 09-21-2023 End: 09-21-2023 Departed Referred DO Max Pavlock Work Phone: [facility] Start: 08-23-2023 End: 08-23-2023 ambulatory BERNA MARY Not Available Start: 08-21-2023 End: 08-21-2023 ambulatory Max L Pavlock Facility:[facility] Start: 08-21-2023 End: 08-21-2023 Departed Referred DO Max Pavlock Work Phone: [facility] Start: 08-21-2023 End: 08-21-2023 ambulatory DO Romulo Whaley Work Phone: [facility] Work Phone: Start: 07-31-2023 End: 07-31-2023 ambulatory BERNA HERNANDEZ Not Available Start: 11-14-2022 ambulatory MIGUEL SHAMMO Facility:[facility] Start: 10-16-2022 End: 10-17-2022 ambulatory MIGUEL SHAMMO Facility:[facility] Start: 08-30-2022 Encounter for genera l adult medical examination [facility]: 08-28-2022 End: 08-29-2022 ambulatory MIGUEL SHAMMO Facility:[facility] Start: 08-28-2022 End: 08-29-2022 Encounter for general adult medical examination without abnormal findings MIGUEL SHAMMO Facility:[facility] Start: 06-27-2022 ambulatory MIGUEL SHAMMO Facility:[facility] Start: 06-14-2022 End: 06-15-2022 ambulatory MIGUEL SHAMMO Facility:[facility] Start: 05-24-2021 Office outpatient vi sit 15 minutes Emilie Castillo [facility] Start: 06-01-2017 End: 06-02-2017 Ambulatory CHRISTOPHER Dhillon [facility] Start: 05-21-2017 End: 05-22-2017 Ambulatory CHRISTOPHER Dhillon [facility] Start: 05-11-2017 End: 05-12-2017 Ambulatory CHRISTOPHER Dhillon [facility] Procedures Date Procedure Procedure Detail Performing Clinician Start: 05-21-2017 Us transvaginal CHRISTOPHER ARAGON Start: 05-11-2017 Cytopathology proced ure, preparation of smear, genital source CHRISTOPHER ARAGON Plan of Treatment Date Care Activity Detail Author Start: 04-06-2023 Influenza vaccination Influenza Vacc ine [facility] Start: 2001 Screening for malign ant neoplasm of cervix Pap Smear [facility] Start: 1999 DTaP,Tdap and Td Vaccines (1 - Tdap) DTaP,Tdap and Td Vaccines (1 - Tdap) [facility] Start: 1998 Adult BMI Screening Adult BMI Screen ing [facility] Start: 1992 Depression Screening Depression Scre ening [facility] Start: 1992 Tobacco Screening Tobacco Screening [facility] Immunizations Immunization Date Immunization Notes Care Provider Fa peyton 12-10-2018 Kenalog -40 mg Emilie carrasco Other [email or web address] Other Payers Date Payer Category Payer Medicaid [id number] 2022 Medicaid [id number] 2016 Unknown [id number] 1980 Unknown [id number] 2.16.84 [id number] 1980 Unknown [id number] 2.16.84 [id number] 1980 Unknown [id number] 2.16.84 [id number] 1980 Unknown [id number] 2.16.84 [id number] 1980 Unknown [id number] 2.16.84 [id number] 1980 Unknown [id number] 2.16.84 [id number] 1980 Unknown [id number] 2.16.84 [id number] 1980 Unknown [id number] 2.16.84 [id number] 1980 Unknown [id number] 2.16.840 .[id number] 1959 Self-pay 1959 Unknown [id number] Unknown [place] [id number] Unknown [id number] 2.16.8 [id number] Unknown [id number] 2.16.8 [id number] Social History Date Type Detail Facility Unknown if ever smoked [facility] Other Sex Assigned At [facility] Other Start: 1980 Sex Assigned At Female F [facility] Start: 08-03-2018 Tobacco smoking status [facility] Never smoked tobacco (finding) [facility] Tobacco smoking status [facility] Tobacco smoking consumption unknown [facility] Start: 1980 Sex Assigned At Not on file P [facility] Note 10-24-2023 Telephone Encounter - Trisha Peacock RN - 10/24/2023 2:07 PM EDT Note Date & Type Note Facility 10-24-2023 Miscellaneous Notes Formattin g of this note might be different from the original. SHADY left instructing pt to c/b for [employer] visit. documented in this encounter [facility] Telephone encounter Note 10-24-2023 Telephone Encounter - Trisha Peacock RN - 10/24/2023 2:07 PM EDT Note Date & Type Note Facility 10-24-2023 Telephone encount er Note SHADY left instructing pt to c/b for [employer]PER[employer] visit. [facility] [...] Date: 2022-06-14 15:52 [facility] Evaluation note [...] and tendontitis seen on xray as discussed. [email or web address] Other Evaluation note Note Date & Type Note Facility Evaluation note No assessment information availa [facility] Work Phone: History general Narrative - Reported Note Date & Type Note Facility History general Narrative - Reported Type Medical History Hypertension Medical History Depression Medical History Intercranial HTN Surgical History C section x 2 Hospitalization History see above surg hx [email or web address] Other Instructions Note Date & Type Note Facility Instructions Not on filedocumented in this en counter [facility] Summary Purpose Family History Relationship Condition Age at Onset Recorded Date/T nel father Diabetes mellitus Unknown Hypertension Unknown Advance Directives Advance Directive Response Recorded Date/ Time Advance Directives No February 18 3:24pm Additional Source Comments INFORMATION SOURCE (unrecogn ized section and content) DATE CREATED AUTHOR 01/29/2018 [facility] DATE CREATED AUTHOR AUTHOR'S ORGANIZ ATION 12/07/2022 [facility] DATE CREATED AUTHOR AUTHOR'S ORGANIZ ATION 10/04/[address] [facility] DATE CREATED AUTHOR AUTHOR'S ORGANIZ ATION 10/24/2023 [facility] EPIC REASON FOR VISIT (unrecogniz ed section and [...] Lázaro lujan 2023 End: August 21, 2023 Team Status: Inactive Member Role Status Dates Romulo Whaley DO Primary Care Provider Active Start: September 21, 2023 End: September 21, 2023 Berna Hernandez Attending Provider Active Start: Sunita yo 2023 End: September 21, 2023 Goals (unrecognized section and content) [...] BE BASED ON THE PRIMARY CLINICAL RECORDS. [facility]. provides no warranty or guarantee of the accuracy or completeness of information in this document.
== END 2023-11-17 09:57 | disposition home or self-care (01) ==
LOC: US 09:56
PROVIDERS: PCP Nurse Practitioner Primary Care; Visit Provider Nurse Practitioner Primary Care
DX: M79.89 Other specified soft tissue disorders (principal)
CPT/HCPCS: 76604

== ENCOUNTER 2023-11-27 07:32 | Outpatient (RCR) | payer MEDICAID, SELFPAY ==
[2023-11-06 15:52] LABS: Basophils Absolute Auto 0.1 10^3/uL (0.0-0.1); Eosinophils Absolute Auto 0.1 10^3/uL (0.0-0.7); Eosinophils Percent Auto 1.6 % (0.9-7.0); Hematocrit 37.8 % (36.0-48.0); Immature Granulocytes Abs Auto 0.01 10^3/uL (0.00-0.03); Immature Granulocytes Pct Auto 0.1 % (0.0-0.5); Lymphocytes Absolute Auto 2.2 10^3/uL (1.2-3.8); Lymphocytes Percent Auto 31.8 % (20.5-60.0); Mean Corpuscular HGB Conc 31.7 g/dL (29.9-35.2); Mean Corpuscular Hemoglobin 27.1 pg (26.7-34.0); Mean Corpuscular Volume 85.3 fL (81.0-99.0); Mean Platelet Volume 10.6 fL (9.5-13.5); Monocytes Absolute Auto 0.5 10^3/uL (0.3-0.8); Monocytes Percent Auto 6.5 % (1.7-12.0); Neutrophils Absolute Auto 4.1 10^3/uL (1.4-6.5); Platelet Count 295 10^3/uL (150-450); Red Blood Count 4.43 10^6/uL (4.20-5.40); Red Cell Distribution Width 15.8 % (11.0-15.0)
[2023-11-06 16:20] LABS: Percent Iron Saturation 7.2 %
[2023-11-21 10:25] VITALS: BP 145/86; PULSE 80; TEMP 36.5; O2SAT 95
--- NOTE | 2023-11-21 10:41 | PC.NURSE ---
1025: Pt. to [facility] amb. for iron infusion. Seated in recliner. Denies questions or c/o. VSS. IV inititated to right hand without difficulty. Pt. tolerated without c/o.
[2023-11-21] MEDS: FERUMOXYTOL 510 MG in 0.9 % SODIUM CHLORIDE 100 ML 234 MG IV (10:43)
--- NOTE | 2023-11-21 10:47 | PC.NURSE ---
1043: IV Hima initiated as ordered. Pt. declines snack. Drinking water.
--- NOTE | 2023-11-21 11:30 | PC.NURSE ---
1115: Feraheme infused without s&s of adverse reaction. IV d/c'd, pressure to site. Encouraged increasing fluid intake today. Pt. relays understanding. Pt. d/c'd amb. to home.
[2023-11-27 12:31] LABS: Percent Iron Saturation 26.1 %
[2023-11-27 12:33] LABS: Basophils Absolute Auto 0.1 10^3/uL (0.0-0.1); Basophils Percent Auto 1.2 % (0.2-2.0); Eosinophils Absolute Auto 0.2 10^3/uL (0.0-0.7); Eosinophils Percent Auto 2.7 % (0.9-7.0); Hematocrit 37.4 % (36.0-48.0); Hemoglobin 12.2 g/dL (12.0-16.0); Immature Granulocytes Abs Auto 0.01 10^3/uL (0.00-0.03); Immature Granulocytes Pct Auto 0.2 % (0.0-0.5); Lymphocytes Absolute Auto 1.8 10^3/uL (1.2-3.8); Lymphocytes Percent Auto 30.2 % (20.5-60.0); Mean Corpuscular HGB Conc 32.6 g/dL (29.9-35.2); Mean Corpuscular Hemoglobin 28.2 pg (26.7-34.0); Mean Corpuscular Volume 86.4 fL (81.0-99.0); Mean Platelet Volume 10.8 fL (9.5-13.5); Monocytes Absolute Auto 0.4 10^3/uL (0.3-0.8); Monocytes Percent Auto 7.4 % (1.7-12.0); Neutrophils Absolute Auto 3.4 10^3/uL (1.4-6.5); Neutrophils Percent Auto 58.3 % (43.0-75.0); Platelet Count 241 10^3/uL (150-450); Red Blood Count 4.33 10^6/uL (4.20-5.40); Red Cell Distribution Width 14.4 % (11.0-15.0); White Blood Count 5.8 10^3/uL (4.0-11.0)
== END 2023-12-04 23:59 | disposition home or self-care (01) ==
LOC: INF 07:32
PROVIDERS: PCP Nurse Practitioner Primary Care; Visit Provider Internal Medicine Hematology & Oncology
DX: D50.9 Iron deficiency anemia, unspecified (principal); D64.9 Anemia, unspecified; R71.8 Other abnormality of red blood cells; K90.9 Intestinal malabsorption, unspecified; G43.919 Migraine, unspecified, intractable, without status migrainosus
CPT/HCPCS: 36415; 82728; 83540; 83550; 85025; 96365; G0463; Q0138

== ENCOUNTER 2023-12-28 16:35 | Emergency (ER) | payer MEDICAID, SELFPAY ==
[2023-12-28 16:40] VITALS: BP 158/96; PULSE 85; TEMP 36.9; O2SAT 97
[2023-12-28 17:12] LABS: Hematocrit 37.9 % (36.0-48.0); Hemoglobin 12.9 g/dL (12.0-16.0); Mean Corpuscular Hemoglobin 29.4 pg (26.7-34.0); Mean Corpuscular Volume 86.3 fL (81.0-99.0); Mean Platelet Volume 10.3 fL (9.5-13.5); Platelet Count 282 10^3/uL (150-450); Red Blood Count 4.39 10^6/uL (4.20-5.40); Red Cell Distribution Width 13.8 % (11.0-15.0); White Blood Count 6.9 10^3/uL (4.0-11.0)
--- NOTE | 2023-12-28 17:21 | ECG_ITS ---
The [facility] Test Date: 2023-12-28 Pat Name: ALON BENITEZ Department: Room: - Gender: Female Group Underwriter: : 1980 Requested By: MIGUEL JEAN Order Number: [id number] Reading MD: WAYNE DENNY Measurements Intervals [place] Rate: 83 P: 32 NH: 158 QRS: -12 QRSD: 68 T: 28 QT: 348 QTc: 388 Interpretive Statements 1100 Sinus rhythm 3234 Anteroseptal myocardial infarction, age undetermined 9150 abnormal ECG Compared to ECG 06/21/2023 18:13:09 No significant changes Electronically Signed On 12-28-2023 17:56:51 EDT by WAYNE DENNY
--- NOTE | 2023-12-28 17:21 | XR_ITS ---
The [address] [address] Patient Name: ALON BENITEZ MRN: [id number] date: 1980 Sex: F Assigned Patient Location: ER Current Patient Location: ED.MAIN Accession/Order Number: [id number] Exam Date: 12/28/2023 17:35 Report Date: 12/28/2023 18:12 At the request of: KACEY DANIELS Procedure: XR chest 1V Exam: Radiographs: XR chest 1V Reason for exam: Dyspnea Comparison: Chest x-ray dated 06/21/2023 XR/XR chest 1V IMPRESSION: Unremarkable chest x-ray. Electronically authenticated by: YESSENIA HERNANDEZ Date: 12/28/2023 18:12
--- NOTE | 2023-12-28 17:22 | ED.GENADUL1 ---
HPI HPI - General Adult General Chief complaint: Arrhythmia/Palpitations Stated complaint: SOB, WEAKNESS Time Seen by Provider: 12/28/23 16:48 Source: patient Mode of arrival: walk-in Limitations: no limitations History of Present Illness HPI narrative: 43-year-old female presents to the emergency department for feeling short of breath. She has been feeling this way for few weeks. She has been under a great amount of stress recently. She has not had a fever or cough and has no chest or back pain. She quit smoking about a month ago. The symptom comes and goes. Related Data Home Medications ?Medication ?Instructions ?Recorded ?Confirmed omeprazole 20 mg capsule,delayed 20 mg PO DAILY 06/21/23 09/21/23 release ferrous sulfate 325 mg (65 mg 325 mg PO DAILY 09/06/23 09/21/23 iron) tablet Previous Rx's ?Medication ?Instructions ?Recorded hydrocodone 5 mg-acetaminophen 325 1 tab PO Q4H PRN pain 4 days #16 09/21/23 mg tablet tabs ibuprofen 800 mg tablet 800 mg PO Q8H PRN pain 14 days #40 09/21/23 tabs Allergies Allergy/AdvReac Type Severity Reaction Status Date / Time cephalexin [From Keflex] Allergy Severe Swelling Verified 09/06/23 12:39 of Lip/Tongue/Throat Opioid HPI Opioid Management Most Recent Opioid Data: Last Pain Scale 3 09/21/23 12:38 Review of Systems ROS Narrative A ten point review of systems is negative except as noted above. [facility] Medical History (Updated 12/28/23 @ 18:11 by Abad Ly MD) Pelvic pain ?R10.2 - Pelvic and perineal pain (ICD-10) Abnormal uterine bleeding ?N93.9 - Abnormal uterine and vaginal bleeding, unspecified (ICD-10) Menorrhagia ?N92.0 - Excessive and frequent menstruation with regular cycle (ICD-10) Anemia ?D64.9 - Anemia, unspecified (ICD-10) Panic attacks ?F41.0 - Panic disorder [episodic paroxysmal anxiety] (ICD-10) Depression ?F32.A - Depression, unspecified (ICD-10) Anxiety ?F41.9 - Anxiety disorder, unspecified (ICD-10) COVID-19 (07/31/23) ?U07.1 - COVID-19 (ICD-10) Asthma ?J45.909 - Unspecified asthma, uncomplicated (ICD-10) Sleep apnea ?G47.30 - Sleep apnea, unspecified (ICD-10) Migraine ?G43.909 - Migraine, unspecified, not intractable, without status migrainosus (ICD-10) Kidney stones ?N20.0 - Calculus of kidney (ICD-10) Peptic ulcer ?K27.9 - Peptic ulcer, site unspecified, unspecified as acute or chronic, without hemorrhage or perforation (ICD-10) GERD (gastroesophageal reflux disease) ?K21.9 - Gastro-esophageal reflux disease without esophagitis (ICD-10) Family History (Updated 09/06/23 @ 12:45 by Nelly Mariee NP) Other Family history of diabetes mellitus Family history of hypertension Social History (Updated 09/06/23 @ 12:41 by Nelly Mariee NP) Within the past year, how often did you have a drink containing alcohol: never Score interpretation: A score less than 3 is consistent with normal alcohol consumption. 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 General: The patient appears well and in no apparent distress. Patient is resting comfortably on cart. Skin: Warm, dry, no pallor noted. There is no rash noted. Head: Normocephalic, atraumatic Eye: Normal conjunctiva, no drainage Ears, Nose, Mouth, and Throat: oral mucosa is moist. Nares patent. Cardiovascular: Regular Rate and Rhythm, not tachycardic Respiratory: Patient is in no distress, no accessory muscle use, lungs are clear to auscultation, no wheezing, rales or rhonchi Back: non-tender GI: Soft and nontender Musculoskeletal: The patient has no evidence of calf tenderness, no pitting edema, symmetrical pulses noted bilaterally Neurological: A&O, normal speech Psychiatric: Cooperative Constitutional Vital Signs, click to edit/add: Last Vital Signs Temp 98.5 F 12/28/23 16:40 Pulse 85 12/28/23 16:40 Resp 17 12/28/23 16:40 BP 158/96 H 12/28/23 16:40 Pulse Ox 97 12/28/23 16:40 O2 Del Method Room Air 12/28/23 16:40 Course Vital Signs Vital signs: Vital Signs Temperature 98.5 F 12/28/23 16:40 Pulse Rate 85 12/28/23 16:40 Respiratory Rate 17 12/28/23 16:40 Blood Pressure 158/96 H 12/28/23 16:40 Pulse Oximetry 97 12/28/23 16:40 Oxygen Delivery Method Room Air 12/28/23 16:40 Temperature 98.5 F 12/28/23 16:40 Pulse Rate 85 12/28/23 16:40 Respiratory Rate 17 12/28/23 16:40 Blood Pressure 158/96 H 12/28/23 16:40 Pulse Oximetry 97 12/28/23 16:40 Oxygen Delivery Method Room Air 12/28/23 16:40 Medical Decision Making MDM Narrative Medical decision making narrative: Her workup here is negative. She has had no dysrhythmias here and she is able to be discharged home. The possibility that this is stress was discussed with the patient. She will follow-up with her doctor if symptoms persist. Differential Diagnosis Differential Diagnosis: Anxiety, cardiac dysrhythmia, electrolyte imbalance Lab Data Lab results reviewed: Yes I reviewed the patient's lab results Labs: Lab Results 12/28/23 Range/Units 17:04 WBC 6.9 (4.0-11.0) 10^3/uL RBC 4.39 (4.20-5.40) 10^6/uL Hgb 12.9 (12.0-16.0) g/dL Hct 37.9 (36.0-48.0) % MCV 86.3 (81.0-99.0) fL MCH 29.4 (26.7-34.0) pg MCHC 34.0 (29.9-35.2) g/dL RDW 13.8 (11.0-15.0) % Plt Count 282 (150-450) 10^3/uL MPV 10.3 (9.5-13.5) fL Seg Neuts % (Manual) 85.0 Lymphocytes % (Manual) 13.0 L (20.5-60.0) % Monocytes % (Manual) 2.0 (1.7-12.0) % Eosinophils % (Manual) 0.0 L (0.9-7.0) % Basophils % (Manual) 0.0 L (0.2-2.0) % Neutrophils # (Manual) 5.86 (1.4-6.5) 10^3/uL Lymphocytes # (Manual) 0.89 L (1.20-3.80) 10^3/uL Monocytes # (Manual) 0.13 L (0.30-0.80) 10^3/uL Eosinophils # (Manual) 0.00 (0.00-0.70) 10^3/uL Basophils # (Manual) 0.00 (0.00-0.10) 10^3/uL PT 10.6 (9.0-11.6) sec INR 1.00 D-Dimer 0.32 (<=0.59) mg/L FEU Sodium 137 (136-145) mmol/L Potassium 3.7 (3.5-5.1) mmol/L Chloride 102 (98-107) mmol/L Carbon Dioxide 24.6 (21.0-32.0) mmol/L Anion Gap 14.1 BUN 17.0 (7.0-18.0) mg/dL Creatinine 0.59 (0.55-1.02) mg/dL Est GFR ( Amer) >60 (>=60) Est GFR (Non-Af Amer) >60 (>=60) BUN/Creatinine Ratio 28.8 Glucose 97 (74-106) mg/dL Calcium 9.4 (8.5-10.1) mg/dL Total Bilirubin 0.7 (0.2-1.0) mg/dL AST 14 L (15-37) U/L ALT 20 (14-59) U/L Alkaline Phosphatase 68 (46-116) U/L Troponin I High Sens <4.0 L (4.0-51.3) pg/mL NT-Pro-B Natriuret Pep 60.0 (<=450.0) pg/mL Total Protein 8.0 (6.4-8.2) g/dL Albumin 4.0 (3.4-5.0) g/dL Globulin 4.0 g/dL Albumin/Globulin Ratio 1.0 TSH 1.046 (0.358-3.740) uIU/mL Serum HCG, Qual Negative (NEGATIVE) Imaging Data Chest x-ray: My impression: No acute findings Radiologist's impression: No acute findings ECG Data Attestation: I personally reviewed and interpreted this ECG as follows: (EKG on my interpretation shows sinus rhythm with a rate of 83 and no acute change.) Discharge Plan Discharge Stand Alone Forms: Portal Instructions Chief Complaint: Arrhythmia/Palpitations Clinical Impression: Palpitations Patient Disposition: Home, Self-Care Time of Disposition Decision: 18:10 Condition: Good Mode of Transportation: Private Vehicle Prescriptions / Home Meds: No Action ferrous sulfate 325 mg (65 mg iron) tablet 325 mg PO DAILY ibuprofen 800 mg tablet 800 mg PO Q8H PRN (Reason: pain) 14 Days Qty: 40 0RF hydrocodone-acetaminophen 5-325 mg tablet 1 tab PO Q4H PRN (Reason: pain) 4 Days Qty: 16 0RF omeprazole 20 mg capsule,delayed release(DR/EC) 20 mg PO DAILY Print Language: Luxembourgish Instructions: Heart Palpitations (ED) Referrals: Neo Bowden NP [Primary Care Provider] - 1 week
[2023-12-28 17:26] LABS: HCG Qualitative NEGATIVE (NEGATIVE)
[2023-12-28 17:35] LABS: Alanine Aminotransferase 20 U/L (14-59); Alkaline Phosphatase 68 U/L (46-116); Anion Gap 14.1; Aspartate Amino Transferase 14 U/L (15-37); BUN Creatinine Ratio 28.8; Bilirubin Total 0.7 mg/dL (0.2-1.0); Calcium 9.4 mg/dL (8.5-10.1); Carbon Dioxide 24.6 mmol/L (21.0-32.0); Chloride 102 mmol/L (98-107); Estimated GFR (African America >60 (>=60); Estimated GFR (Non-African Ame >60 (>=60); Glucose 97 mg/dL (74-106); Potassium 3.7 mmol/L (3.5-5.1); Sodium 137 mmol/L (136-145); Thyroid Stimulating Hormone 1.046 uIU/mL (0.358-3.740); Troponin I High Sensitivity <4.0 pg/mL (4.0-51.3)
[2023-12-28 17:37] LABS: D Dimer 0.32 mg/L FEU (<=0.59); Prothrombin Time 10.6 sec (9.0-11.6)
[2023-12-28 18:02] LABS: Lymphocytes Absolute Manual 0.89 10^3/uL (1.20-3.80); Monocytes Absolute Manual 0.13 10^3/uL (0.30-0.80); Segmented Neut Absolute Manual 5.86 10^3/uL (1.4-6.5)
[2023-12-28 18:14] VITALS: BP 159/98; PULSE 74; O2SAT 100
--- OUTSIDE RECORDS SUMMARY | 2023-12-28 18:16 | XMS_ITS ---
Patient Summarization (C-CDA 2.1 CCD) Created on: December 28, 2023 Alon Gee : 1980 Sex: Female Author Organization Sample organization Care Team Providers Care Guyline Operator Name Role Phone HEDGES, CHRISTOPHER W [...] Primary Care Provider Berna Hernandez Attending Provider [phone] Mary, Berna Admitting Unavailable Pavlock, Max L [...] swelled, Swelling of Lip/Tongue/Thr oat, tongue swelled [facility] (1 source) Cephalexin Drug Allergy 2 [facility] (2 sources) Cephalosporins (Antibiotic); Translations: [Cephalosporins] Allergy to substance 3 Comment:tongue swells in the [facility] (1 source) Cephalexin Drug Allergy 3 [facility] Encounters Encounter Date Encounter Type Care Provider Facility Start: 10-24-2023 Telephone encounter Trisha Peacock RN [facility] Start: 10-23-2023 End: 10-23-2023 ambulatory KALI MONTENEGROEY Not Available Start: 09-21-2023 End: 09-21-2023 ambulatory Berna Mary Facility:[facility] Start: 09-21-2023 End: 09-21-2023 ambulatory DO Max L Pavlock Work Phone: [facility] Work Phone: Start: 09-21-2023 End: 09-21-2023 Departed Referred DO Max Pavlock Work Phone: [facility] Start: 08-23-2023 End: 08-23-2023 ambulatory BERNA MARY Not Available Start: 08-21-2023 End: 08-21-2023 ambulatory Max L Pavlock Facility:[facility] Start: 08-21-2023 End: 08-21-2023 Departed Referred DO Max Pavlock Work Phone: [facility] Start: 08-21-2023 End: 08-21-2023 ambulatory DO Max L Pavlock Work Phone: [facility] Work Phone: Start: 07-31-2023 End: 07-31-2023 ambulatory BERNA MARY Not Available Start: 11-14-2022 ambulatory MIGUEL SHAMMO Facility:H 1 Start: 10-16-2022 End: 10-17-2022 ambulatory MIGUEL SHAMMO Facility:H1 Start: 08-30-2022 Encounter for genera l adult medical examination without abnormal findings MIGUEL SHAMMO [facility] Start: 08-28-2022 End: 08-29-2022 ambulatory MIGUEL SHAMMO Facility:[facility]1 Start: 08-28-2022 End: 08-29-2022 Encounter for general adult medical examination without abnormal findings [facility] Facility:H1 Start: 06-27-2022 ambulatory [facility] Facility:H 1 Start: 06-14-2022 End: 06-15-2022 ambulatory [facility] Facility:H1 Start: 05-24-2021 Office outpatient vi sit 15 minutes Em[facility]ie [facility] Start: 06-01-2017 End: 06-02-2017 Ambulatory [facility]hill[facility] Start: 05-21-2017 End: 05-22-2017 Ambulatory CHRISTOPHER Dhillon [facility] Start: 05-11-2017 End: 05-12-2017 Ambulatory [facility] Immunizations Immunization Date Immunization Notes Care Provider Fortino todd 12-10-2018 Kenalog -40 mg Emilie carrasco Other [employer] Other Medications Current Medications Medication Drug Class(es) Dates [...] in 3 days Apr, [place]-Taking polymyxin b 18279 unt/ml / trimethoprim 1 mg/ml ophthalmic solution (1 source) Dihydrofolate Reductase Inhibitor Antibacterial, Polymyxin-class Antibacterial Start: 08-03-2018 take 1 drop(s) into the eye(s) four times daily Polymyxin B-Trimethoprim 15027-8.1 UNIT/ML 1 drop into left eye Ophthalmic Four times a day for 7 days Jul, Not-Taking terbinafine (1 source) Allylamine Antifungal Start: 04-24-2021 Terbinafine HCl 1 % 1 application Externally Once a day for 14 days apply to rash Apr, Not-Taking Payers Date Payer Category Payer Medicaid [id number] 2022 Medicaid [id number] 2016 Unknown [id number] 1980 Unknown [id number] 2.16.84 [id number] 1980 Unknown [id number] 2.16.84 [id number] 1980 Unknown [id number] 2.16.84 [id number] 1980 Unknown [id number] 2.16.84 [id number] 1980 Unknown [id number] 2.16.84 [id number] 1980 Unknown [id number] 2.16.84 0.1.319622.3.579.2.1259 1980 Unknown [id number] 2.16.84 0.1.787901.3.579.2.1259 1980 Unknown [id number] 2.16.84 0.1.907418.3.579.2.1259 1980 Unknown [id number] 2.16.840 .[id number] 1959 Self-pay 1959 Unknown [id number] Unknown [place] [id number] Unknown [id number] 2.16.8 [id number] Unknown [id number] 2.16.8 [id number] Plan of Treatment Date Care Activity Detail Author Start: 04-06-2023 Influenza vaccination Influenza Vacc ine [facility] Start: 2001 Screening for malign ant neoplasm of cervix Pap Smear [facility] Start: 1999 DTaP,Tdap and Td Vaccines (1 - Tdap) DTaP,Tdap and Td Vaccines (1 - Tdap) [facility] Start: 1998 Adult BMI Screening Adult BMI Screen ing [facility] Start: 1992 Depression Screening Depression Scre ening [facility] Start: 1992 Tobacco Screening Tobacco Screening [facility] Problems Active Problems Problem Classification Problem Date [...] Translations: [LOW BACK PAIN, UNSPECIFIED] Onset: 06-14-2022 Procedures Date Procedure Procedure Detail Performing Clinician Start: 05-21-2017 Us transvaginal CHRISTOPHER ARAGON Start: 05-11-2017 Cytopathology proced ure, preparation of smear, genital source CHRISTOPHER ARAGON Results Test Name Value Interpretation Reference Range Facility [facility] 09-21-2023 L Specimen: [id number] Received: 09/21/23 Status: CLINT[place] Escobedo Num: [id number] Spec Type: Surgical Subm Dr: Berna Hernandez Tissues: A Fallopian Tube - Sterilization (BILT FALL TUBES) Procedures: HE/4, Gross/Micro L2 Age/ Patient Sex Location Account Attending Physician Alon Gee 43/F [facility] [id number] Berna Hernandez SPEC NUM: [id number] RECD: 09/21/23 STATUS: [place] ESCOBEDO NUM: [id number] PETE: 09/21/[address]: Berna Hernandez ENTERED: 09/21/[address] [facility] [address]: [facility],Lab SPEC TYPE: Surgical DEPT: OLVIN IZQUIERDO ENTERED BY: [id number] RECV BY: [id number] ORDERED: HE/4, Gross/Micro L2 ORDERED: HE/4, Gross/Micro [...] bilaterally. The fimbria are soft and unremarkable. Pump Machine Operator sections are submitted in 4 cassettes as follows: A1-A2 - Liberty segment with fimbria entirely submitted A3-A4 - Longer segment with fimbria entirely submitted CPT Codes 99169 Specimen: [id number] Received: 09/21/23 Status: [place] Escobedo Num: [id number] Spec Type: Surgical Subm Dr: Berna Hernandez Tissues: A Fallopian Tube - Sterilization (BILT FALL TUBES) Procedures: RICARDO, Jesse/Remy L2 Patient: Alon Gee [id number] (Continued) Signed (signature on file) Evelin Schulz MD 09/26/232156 [facility] 08-21-2023 L Specimen: [id number] Received: 08/22/23 Status: [place] Escobedo Num: [id number] Spec Type: Surgical Subm Dr: Berna Hernandez Tissues: A Endometrium - Biopsy (EMBX) Procedures: HE/2, Gross/Micro L4 Age/ Patient Sex Location Account Attending Physician Alon Gee 42/F [facility] [id number] Berna Hernandez SPEC NUM: [id number] RECD: 08/22/23 STATUS: [place] ESCOBEDO NUM: [id number] PETE: 08/21/23- DR: Berna Hernandez ENTERED: 08/22/[address] [facility] [address]: [place],Joseph SPEC TYPE: Surgical DEPT: OLVIN IZQUIERDO ORDERED: [...] in one cassette labeled A1. CPT Codes 71313 Specimen: [id number] Received: 08/22/23 Status: CL[place] Escobedo Num: [id number] Spec Type: Surgical Subm Dr: Berna Hernandez Tissues: A Endometrium - Biopsy (EMBX) Procedures: HE/Tian, Gross/Remy L4 Patient: Alon Gee [id number] (Continued) Signed (signature on file) Jacob Alegria MD 08/24/23 1000 [facility] FERRITINon 10-16-2022 Ferritin [Mass/Vol] 3.0 ng/mL Critically low 6.2-137.0 [facility] Comment on above: Performed By: #### F ETIBC, FERR #### [facility] [address] [place] [address] Dr. Reji Alegria IRON AND TIBCon 10-16-2022 % SATURATION 2.9 % Normal [facility] Comment on above: Performed By: #### F ETIBC, FERR #### [facility] [address] [place] [address] Dr. Reji Alegria Iron [Mass/Vol] 13.0 ug/dL Critically low 50.0-170.0 [facility] Comment on above: Performed By: #### F ETIBC, FERR #### [facility] [address] [place] [address] Dr. Reji Alegria TIBC DIRECT 442.0 ug/dL Normal 250.0-450.0 [facility] Comment on above: Performed By: #### F ETIBC, FERR #### [facility] [address] [place] [address] Dr. Reji Alegria HEPATITIS C AB CASCADE TO QU ANT PCR GENOon 08-29-2022 HCV AB <0.1 Normal 0.0-0.9 [facility] Comment on above: Performed By: #### H EPCASC #### [facility] [address] [place] [address] Dr. Reji Alegria Interpretation: Comment Normal [facility] Comment on above: Result Comment: Nega tive Not infected with HCV, unless recent infection is suspected or other evidence exists to indicate HCV infection. Performed By: #### H EPCASC #### [facility] [address] [place] [address] Dr. Reji Alegria CBC AUTO DIFFon 08-28-2022 BASO # 0.1 103/ul Normal 0.0-0.1 [facility] Comment on above: Performed By: #### C BC #### [facility] [address] [place] [address] Dr. Reji Alegria Basophils/100 WBC (Bld) 1.1 % Normal 0.2-2.0 [facility] Comment on above: Performed By: #### C BC #### [facility] [address] [place] [address] Dr. Reji Alegria EO # 0.1 103/ul Normal 0.0-0.7 [facility] Comment on above: Performed By: #### C BC #### [facility] [address] [place] [address] Dr. Reji Alegria Eosinophils/100 WBC (Bld) 1.6 % Normal 0.9-7.0 [facility] Comment on above: Performed By: #### C BC #### [facility] [address] [place] [address] Dr. Reji Alegria Erythrocyte distribution width (RBC) [Ratio] 15.0 % Normal 11.0-15.0 [facility] Comment on above: Performed By: #### C BC #### [facility] [address] [place] [address] Dr. Reji Alegria Hematocrit (Bld) [Volume fraction] 30.9 % Critically low 36.0-48.0 [facility] Comment on above: Performed By: #### C BC #### [facility] [address] [place] [address] Dr. Reji Alegria Hemoglobin (Bld) [Mass/Vol] 10.0 g/dL Critically low 12.0-16.0 [facility] Comment on above: Performed By: #### C BC #### [facility] [address] [place] [address] Dr. eRji Alegria IG # 0.02 10e3/ul Normal 0.00-0.03 [facility] Comment on above: Performed By: #### C BC #### [facility] [address] [place] [address] Dr. Reji Alegria IG % 0.3 % Normal 0.0-0.5 [facility] Comment on above: Performed By: #### C BC #### [facility] [address] [place] [address] Dr. Reji Alegria LYMPH # 2.2 103/ul Normal 1.2-3.8 [facility] Comment on above: Performed By: #### C BC #### [facility] [address] [place] [address] Dr. Reji Alegria Lymphocytes/100 WBC (Bld) 34.3 % Normal 20.5-60.0 [facility] Comment on above: Performed By: #### C BC #### [facility] [address] [place] [address] Dr. Reji Alegria MANUAL DIFF REQ NO Normal [facility] Comment on above: Performed By: #### C BC #### [facility] [address] [place] [address] Dr. Reji Alegria MCH (RBC) [Entitic mass] 22.5 pg Critically low 26.7-34.0 [facility] Comment on above: Performed By: #### C BC #### [facility] [address] [place] [address] Dr. Reji Alegria MCHC (RBC) [Mass/Vol] 32.4 g/dL Normal 29.9-35.2 [facility] Comment on above: Performed By: #### C BC #### [facility] [address] [place] [address] Dr. Reji Alegria MCV (RBC) [Entitic vol] 69.6 fL Critically low 81.0-99.0 [facility] Comment on above: Performed By: #### C BC #### [facility] [address] [place] [address] Dr. Reji Alegria MONO # 0.4 103/ul Normal 0.3-0.8 [facility] Comment on above: Performed By: #### C BC #### [facility] [address] [place] [address] Dr. Reji Alegria Monocytes/100 WBC (Bld) 6.2 % Normal 1.7-12.0 [facility] Comment on above: Performed By: #### C BC #### [facility] [address] [place] [address] Dr. Reji Alegria NEUT # 3.6 103/ul Normal 1.4-6.5 [facility] Comment on above: Performed By: #### C BC #### [facility] [address] [place] [address] Dr. Reji Alegria Neutrophils/100 WBC (Bld) 56.5 % Normal 43.0-75.0 [facility] Comment on above: Performed By: #### C BC #### [facility] [address] [place] [address] Dr. Reji Alegria Platelet mean volume (Bld) [Entitic vol] 9.8 fL Normal 9.5-13.5 [facility] Comment on above: Performed By: #### C BC #### [facility] [address] [place] [address] Dr. Reji Alegria PLT 371 103/ul Normal 150-450 [facility] Comment on above: Performed By: #### C BC #### [facility] [address] [place] [address] Dr. Reji Alegria RBC 4.44 106/ul Normal 4.20-5.40 [facility] Comment on above: Performed By: #### C BC #### [facility] [address] [place] [address] Dr. Reji Alegria WBC 6.3 103/ul Normal 4.0-11.0 [facility] Comment on above: Performed By: #### C BC #### [facility] [address] [place] [address] Dr. Reji Alegria GLYCOHEMOGLOBIN A1Con 2022 ADA RECOMMENDATION SEE BELOW Normal [facility] Comment on above: Result Comment: ADA RECOMMENDED LIMIT 4.0 - 6.0 ADA THERAPEUTIC TARGET < 7.0 ACTION SUGGESTED > 7.0 Performed By: #### A 1C #### [facility] [address] [place] [address] Dr. Reji Alegria Glucose [Mass/Vol] 117 mg/dL Normal [facility] Comment on above: Performed By: #### A 1C #### [facility] [address] [place] [address] Dr. Reji Alegria HbA1c (Bld) [Mass fraction] 5.7 % Normal 4.5-6.2 [facility] Comment on above: Performed By: #### A 1C #### [facility] [address] [place] [address] Dr. Reji Alegria LIPID PROFILEon 08-28-2022 CHOL-HDL RATIO NORM SEE BELOW Normal [facility] Comment on above: Result Comment: 3.3 - 4.4 LOW RISK 4.4 - 7.1 AVERAGE RISK 7.1 - 11.0 MODERATE RISK >11.0 HIGH RISK Performed By: #### C MP, LIPID, TSH #### [facility] [address] [address] [address] Reji Alegria Cholesterol [Mass/Vol] 146 mg/dL Normal <=200 [facility] Comment on above: Performed By: #### C MP, LIPID, TSH #### [facility] [address] [address] [address] Reji Alegria Cholesterol in HDL [Mass/Vol] 48 mg/dL Normal 40-60 [facility] Comment on above: Performed By: #### C MP, LIPID, TSH #### [facility] [address] [address] [address] Reji Alegria Cholesterol in LDL [Mass/Vol] 77.2 mg/dL Normal [facility] Comment on above: Performed By: #### C MP, LIPID, TSH #### [facility] [address] [address] [address] Reji Alegria Cholesterol.total/ Cholesterol in HDL [Mass ratio] 3.0 {ratio} Normal [facility] Comment on above: Performed By: #### C MP, LIPID, TSH #### [facility] [address] [address] [address] Reji Alegria HDL NORMAL > or = 60 mg/dl - LO W CARDIOVASCULAR RISK <40 mg/dl - HIGH CARDIOVASCULAR RISK Normal [facility] Comment on above: Performed By: #### C MP, LIPID, TSH #### [facility] [address] [address] [address] Reji Alegria LDL CALC NORMAL SEE BELOW Normal [facility] Comment on above: Result Comment: <100 mg/dl OPTIMAL 100 - 129 mg/dl NEAR OR ABOVE OPTIMAL 130 - 159 mg/dl BORDERLINE HIGH 160 - 189 mg/dl HIGH >190 mg/dl VERY HIGH Performed By: #### C MP, LIPID, TSH #### [facility] [address] [address] [address] Reji Alegria Triglyceride [Mass/Vol] 104 mg/dL Normal <=150 [facility] Comment on above: Performed By: #### C MP, LIPID, TSH #### [facility] [address] [address] [address] Reji Alegria VLDL CALC 20.8 mg/dL Normal [facility] Comment on above: Performed By: #### C MP, LIPID, TSH #### [facility] [address] [address] [address] Reji Alegria PROF 14(COMP METB)on 023 Albumin [Mass/Vol] 3.8 g/dL Normal 3.4-5.0 [facility] Comment on above: Performed By: #### C MP, LIPID, TSH #### [facility] [address] [place] [address] Dr. Reji Alegria Albumin/Globulin [Mass ratio] 1.0 {ratio} Normal [facility] Comment on above: Performed By: #### C MP, LIPID, TSH #### [facility] [address] [place] [address] Dr. Reji Alegria ALP [Catalytic activity/Vol] 68 U/L Normal 46-116 [facility] Comment on above: Performed By: #### C MP, LIPID, TSH #### [facility] [address] [place] [address] Dr. Reji Alegria ALT [Catalytic activity/Vol] 21 U/L Normal 14-59 [facility] Comment on above: Performed By: #### C MP, LIPID, TSH #### [facility] [address] [address] [address] Reji Alegria Anion gap [Moles/Vol] 12.3 mmol/L Normal [facility] Comment on above: Performed By: #### C MP, LIPID, TSH #### [facility] [address] [place] [address] Dr. Reji Alegria AST [Catalytic activity/Vol] 16 U/L Normal 15-37 [facility] Comment on above: Performed By: #### C MP, LIPID, TSH #### [facility] [address] [address] [address] Reji Alegria Bilirubin [Mass/Vol] 0.2 mg/dL Normal 0.2-1.0 [facility] Comment on above: Performed By: #### C MP, LIPID, TSH #### [facility] [address] [address] [address] Reji Alegria Calcium [Mass/Vol] 9.1 mg/dL Normal 8.5-10.1 [facility] Comment on above: Performed By: #### C MP, LIPID, TSH #### [facility] [address] [address] [address] Reji Alegria Chloride [Moles/Vol] 102 mmol/L Normal 98-107 [facility] Comment on above: Performed By: #### C MP, LIPID, TSH #### [facility] [address] [address] [address] Reji Alegria CO2 [Moles/Vol] 27.9 mmol/L Normal 21.0-32.0 [facility] Comment on above: Performed By: #### C MP, LIPID, TSH #### [facility] [address] [address] [address] Reji Alegria Creatinine [Mass/Vol] 0.52 mg/dL Critically low 0.55-1.02 [facility] Comment on above: Performed By: #### C MP, LIPID, TSH #### [facility] [address] [place] [address] Dr. Reji Alegria EGFR-AF MONGOLIAN >60 Normal >=60 [facility] Comment on above: Performed By: #### C MP, LIPID, TSH #### [facility] [address] [address] [address] Reji Alegria EGFR-NON AF MONGOLIAN >60 Normal >=60 [facility] Comment on above: Performed By: #### C MP, LIPID, TSH #### [facility] [address] [place] [address] Dr. Reji Alegria Globulin (S) [Mass/Vol] 3.7 g/dL Normal [facility] Comment on above: Performed By: #### C MP, LIPID, TSH #### [facility] [address] [place] [address] Dr. Reji Alegria Glucose [Mass/Vol] 90 mg/dL Normal 74-106 [facility] Comment on above: Performed By: #### C MP, LIPID, TSH #### [facility] [address] [place] [address] Dr. Reji Alegria Potassium [Moles/Vol] 4.2 mmol/L Normal 3.5-5.1 [facility] Comment on above: Performed By: #### C MP, LIPID, TSH #### [facility] [address] [place] [address] Dr. Reji Alegria Protein [Mass/Vol] 7.5 g/dL Normal 6.4-8.2 [facility] Comment on above: Performed By: #### C MP, LIPID, TSH #### [facility] [address] [place] [address] Dr. Reji Alegria Sodium [Moles/Vol] 138 mmol/L Normal 136-145 [facility] Comment on above: Performed By: #### C MP, LIPID, TSH #### [facility] [address] [place] [address] Dr. Reji Alegria Urea nitrogen [Mass/Vol] 10.0 mg/dL Normal 7.0-18.0 [facility] Comment on above: Performed By: #### C MP, LIPID, TSH #### [facility] [address] [place] [address] Dr. Reji Alegria Urea nitrogen/Creatinin e [Mass ratio] 19.2 mg/mg Normal [facility] Comment on above: Performed By: #### C MP, LIPID, TSH #### [facility] [address] [place] [address] Dr. Reji Alegria TSHon 08-28-2022 TSH 1.268 uIU/mL Normal 0.358-3.740 [facility] Comment on above: Performed By: #### C MP, LIPID, TSH #### [facility] [address] [place] [address] Dr. Reji Alegria XR LSPINE MIN 4 [...] by: ABBY LEWIS Date: 2022-06-14 15:56 Normal [facility] XR shoulder RT min 2V*on XR shoulder RT min 2V* [facility] [employer] Other XR shoulder RT min 2V* [facility] [place] [employer] Other XR shoulder RT min 2V* [address] [place] [address] [employer] Other XR shoulder RT min 2V* [place] [address] [employer] Other XR shoulder RT min 2V* XRay Report [employer] Other XR shoulder RT min 2V* Signed [employer] Other XR shoulder RT min 2V* Patient: Alon Gee MR#: [id number] [employer] Other XR shoulder RT min 2V* 50 [employer] Other XR shoulder RT min 2V* : 1980 Acct:[id number] [employer] Other XR shoulder RT min 2V* Age/Sex: 40 / F ADM Date: 05/24/21 [employer] Other XR shoulder RT min 2V* Loc: XDUCLY Room: Type: [facility] [employer] Other XR shoulder RT min 2V* Attending Dr: Emilie Castillo CULTURE MEDIA LABORATORY ASSISTANT-C [employer] Other XR shoulder RT min 2V* Ordering Provider: [facility]ILLO [facility] [employer] Other XR shoulder RT min 2V* Date of Service: 05/24/21 [employer] Other XR shoulder RT min 2V* XR/XR shoulder RT min 2V*: Acute pain of right shoulder [employer] Other XR shoulder RT min 2V* Copies to: EMILIE CASTILLO [employer] Other XR shoulder RT min 2V* CLINICAL HISTORY: Patient woke up with right shoulder pain 2 days ago, no known injury. Pain at the [employer] Other XR shoulder RT min 2V* upper portion of the shoulder. Limited range of motion. [employer] Other XR shoulder RT min 2V* [RIGHT] SHOULDER: [employer] Consulting Other XR shoulder RT min 2V* COMPARISON: None [employer] Other XR shoulder RT min 2V* FINDINGS: [AP, Grashey, transscapular] views of the right shoulder were obtained. There is no [employer] Other XR shoulder RT min 2V* evidence of fracture, dislocation or bony destruction. Moderate soft tissue calcification is noted [employer] Other XR shoulder RT min 2V* adjacent to the greater tuberosity of the humerus from calcific bursitis or tendinitis. Mild [employer] Other XR shoulder RT min 2V* degenerative arthritic changes are shown at the acromioclavicular joint. [employer] Other XR shoulder RT min 2V* XR/XR shoulder RT min 2V* [employer] Other XR shoulder RT min 2V* IMPRESSION: [employer] Other XR shoulder RT min 2V* NO FRACTURE OR SUBLUXATION. [employer] Other XR shoulder RT min 2V* CALCIFIC BURSITIS OR TENDINITIS ADJACENT TO THE GREATER TUBEROSITY OF THE HUMERUS. [employer] Other XR shoulder RT min 2V* MILD DEGENERATIVE ARTHRITIC CHANGES TO THE ACROMIOCLAVICULAR JOINT. [employer] Other XR shoulder RT min 2V* Impression dictated by: Mamadou Cobb M.D.05/24/2021 11:11 AM [employer] Other XR shoulder RT min 2V* Dictation Location: [place] [address] [employer] Other XR shoulder RT min 2V* Transcribed By: [facility] 05/24/21 1111 [employer] Other XR shoulder RT min 2V* Dictated By: Mamadou Cobb MD 05/24/21 1108 [employer] Other XR shoulder RT min 2V* Signed By: [employer] Other XR shoulder RT min 2V* 05/24/21 1111 [employer] Other Surgical Pathologyon 017 Surgical Pathology (NOTE)[id number] Y LABORATORIESCONSULTING PATHOLOGISTS [facility] EMERGENCY DEPARTMENTANATOMIC [id number] [place] [id number] Fax: SURGICAL PATHOLOGY CONSULTATIONPatient Name: Nata GEE Rec: [id number] Number: [id number]: 06/01/2017Received: 06/04/2017Reported: 06/05/2017 12:38-- Diagnosis --SKIN, RIGHT BREAST, SHAVE BIOPSY: - SLIGHT EPIDERMAL ACANTHOSIS, COMPATIBLE WITH AN EARLYFLAT SEBORRHEIC KERATOSIS, IF THIS FITS THE CLINICAL PICTURE.Everett E. Renny, M.D.Electronically Signed Outjet06/05/2017Clinic al InformationPre-op Diagnosis: BREAST LESION Operative Findings: R BREAST (PER CONTAINER)Operation Performed: BIOPSY OF SKIN LESION Source of Specimen1: SKIN LESION RIGHT BREAST (PER CONTAINER)Gross Description ALON GEE, SKIN LESION R BREAST 0.3 x 0.2 x 0.1 cm botson shave. Inked intact 1cs. tmMicroscopic DescriptionSkin to the superficial dermis shows orthokeratotic stratum corneumand slight epidermal acanthosis. The superficial dermis includedcontains a sparse perivascular lymphocytic infiltrate with someslightly increased dermal fibrosis. There is no evidence of cyst wallor neoplasm in these sections. Normal [facility] US NON OB TRANSVAGINALon US NON OB [...] by:EMANUEL Jonesigned by:Barbara Ledezma MD05/21/17Final result Normal [facility] Cytologyon 05-11-2017 Cytology (NOTE)[id number] Y LABORATORIESCONSULTING PATHOLOGISTS CORPORATIONANATOMIC [id number] [place] [address]. [place] [phone] Fax: GYNECOLOGIC CYTOLOGY REPORTPatient Name: DEBRA GEE#: [id number] #[id number]:1: Cervical material, (ThinPrep vial, Imaging-assisted review)Clinical CzaplwdV82.419 Routine clinical field specialist exam without abnormal findingsHigh Risk HPV DNA testing is requested if the diagnosis is ASC-USLMP: 05/03/17INTERPRETATIONCerv ical material, (ThinPrep vial, Imaging-assisted review):Specimen Adequacy: Satisfactory for evaluation. -Endocervical/transformat ion zone component is absent.Descriptive Diagnosis: Negative for intraepithelial lesion or malignancy. Monitoring Tech: ELÍAS Chavez(ASCP)Electronically Signed Out/05/17/2017 [facility] Social History Date Type Detail Facility Start: 08-03-2018 Tobacco smoking status NHIS Never smoked tobacco (finding) [facility] Start: 1980 Sex Assigned At Female [facility] Start: 1980 Sex Assigned At Not on file [facility] [employer] Unknown if ever smoked [employer] Other Sex Assigned At [employer] Other Tobacco smoking status [facility] Tobacco smoking consumption unknown [facility] Vital Signs Date Time Vital Sign Value Performing Clinician Facility 05-24-2021 11:05-0400 Body height 162.56 cm Emilie Penningtonault Other [employer] Other 05-24-2021 11:05-0400 Body mass index (BMI) [Ratio] 37.38 kg/m2 Emilie Nanci Other [employer] Other 05-24-2021 11:05-0400 Body temperature 97.8 [degF] Emilie Nanci Other [employer] Other 05-24-2021 11:05-0400 Body weight 98.79 kg Emilie Nanci Other [employer] Other 05-24-2021 11:05-0400 Diastolic blood pressure 82 mm[Hg] Emilie Nanci Other [employer] Other 05-24-2021 11:05-0400 Respiratory rate 18 /min Emilie Castillo Other [employer] Other 05-24-2021 11:05-0400 SaO2% (BldA) [Mass fraction] 100 % Emilie Castillo Other [employer] Other 05-24-2021 11:05-0400 Systolic blood pressure 129 mm[Hg] Emilie Castillo Other [employer] Other Note 10-24-2023 Telephone Encounter - Trisha Peacock RN - 10/24/2023 2:07 PM EDT Note Date & Type Note Facility 10-24-2023 Miscellaneous Notes Formattin g of this note might be different from the original. 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 [facility] 06-14-2022 Note Date [...] by: ABBY LEWIS Date: 2022-06-14 15:52 [facility] Evaluation note 05-24-2021 [...] and tendontitis seen on xray as discussed. [employer] Other Evaluation note Note Date & Type Note Facility Evaluation note No assessment information availa [facility] Work Phone: History general Narrative - Reported Note Date & Type Note Facility History general Narrative - Reported Type Medical History Hypertension Medical History Depression Medical History Intercranial HTN Surgical History C section x 2 Hospitalization History see above surg hx [employer] Other Instructions Note Date & Type Note [...] DATE CREATED AUTHOR AUTHOR'S ORGANIZ ATION 10/04/2023 [facility] DATE CREATED AUTHOR AUTHOR'S ORGANIZ ATION 10/24/2023 [facility] dical Specialists EPIC REASON FOR VISIT [...] Status: Inactive Member Role Status Dates Romulo Yuliet DO Judd Primary Care Provider Active Start: September 21, [...] BE BASED ON THE PRIMARY CLINICAL RECORDS. [employer] [facility]. provides no warranty or guarantee of the accuracy or completeness of information in this document.
== END 2023-12-28 18:18 | disposition home or self-care (01) ==
PROVIDERS: Physician Assistant; Emergency Provider Emergency Medicine; PCP Nurse Practitioner
DX: R00.2 Palpitations (principal)
CPT/HCPCS: 36415; 71045; 80053; 83880; 84443; 84484; 84703; 85007; 85027; 85378; 85610; 93005; 99285

== ENCOUNTER 2024-02-12 07:35 | Outpatient (RCR) | payer MEDICAID, SELFPAY ==
[2024-02-12 15:00] LABS: Basophils Absolute Auto 0.1 10^3/uL (0.0-0.1); Basophils Percent Auto 1.2 % (0.2-2.0); Eosinophils Absolute Auto 0.1 10^3/uL (0.0-0.7); Eosinophils Percent Auto 2.4 % (0.9-7.0); Hemoglobin 12.7 g/dL (12.0-16.0); Immature Granulocytes Abs Auto 0.01 10^3/uL (0.00-0.03); Immature Granulocytes Pct Auto 0.2 % (0.0-0.5); Lymphocytes Absolute Auto 1.7 10^3/uL (1.2-3.8); Lymphocytes Percent Auto 34.1 % (20.5-60.0); Mean Corpuscular HGB Conc 34.3 g/dL (29.9-35.2); Mean Corpuscular Hemoglobin 29.9 pg (26.7-34.0); Mean Corpuscular Volume 87.1 fL (81.0-99.0); Mean Platelet Volume 10.3 fL (9.5-13.5); Monocytes Absolute Auto 0.4 10^3/uL (0.3-0.8); Monocytes Percent Auto 8.1 % (1.7-12.0); Neutrophils Absolute Auto 2.7 10^3/uL (1.4-6.5); Platelet Count 263 10^3/uL (150-450); Red Blood Count 4.25 10^6/uL (4.20-5.40); Red Cell Distribution Width 12.5 % (11.0-15.0)
[2024-02-12 15:38] LABS: Percent Iron Saturation 27.3 %
== END 2024-02-14 15:39 | disposition home or self-care (01) ==
LOC: HEMC 07:35
PROVIDERS: PCP Nurse Practitioner; Visit Provider Internal Medicine Hematology & Oncology
DX: G43.919 Migraine, unspecified, intractable, without status migrainosus (principal); D50.9 Iron deficiency anemia, unspecified; D64.9 Anemia, unspecified; K90.9 Intestinal malabsorption, unspecified; Z87.891 Personal history of nicotine dependence; N92.0 Excessive and frequent menstruation with regular cycle; M79.10 Myalgia, unspecified site
CPT/HCPCS: 36415; 82728; 83540; 83550; 85025; G0463

== ENCOUNTER 2024-02-22 13:53 | Outpatient (OUT) | payer MEDICAID, SELFPAY ==
--- OUTSIDE RECORDS SUMMARY | 2024-02-22 14:15 | XMS_ITS | CCD ---
Author Organization [facility] Care Team Providers Care Unit Trust Manager Name Role Phone HEDGES, CHRISTOPHER W Unavailable [...] Pavlock, DO Max L Primary Care Provider [phone] Berna Hernandez Attending Provider Mary, Berna Admitting Unavailable Pavlock, [...] swelled, Swelling of Lip/Tongue/Thr oat, tongue swelled [facility] (1 source) Cephalexin Drug Allergy 2 [facility] (2 sources) Cephalosporins (Antibiotic); Translations: [Cephalosporins] Allergy to substance 3 Comment:tongue swells in the [facility] (1 source) Cephalexin Drug Allergy 3 [facility] Repository Medications Current Medications Medication [...] in 3 days Apr, Not-Taking polymyxin b 01138 unt/ml / trimethoprim 1 mg/ml ophthalmic solution (1 source) Dihydrofolate Reductase Inhibitor Antibacterial, Polymyxin-class Antibacterial Start: 08-03-2018 take 1 drop(s) into the eye(s) four times daily Polymyxin B-Trimethoprim 32164-8.1 UNIT/ML 1 drop into left eye Ophthalmic [...] Test Name Value Interpretation Reference Range Facility [facility] 09-21-2023 L Specimen: [id number] Received: 09/21/23 Status: CLINTON Escobedo Num: [id number] Spec Type: Surgical Subm Dr: Berna Hernandez Tissues: A Fallopian Tube - Sterilization (BILT FALL TUBES) Procedures: HE/4, Gross/Micro L2 Age/ Patient Sex Location Account Attending Physician Alon Gee 43/F LABELL [id number] Berna Hernandez SPEC NUM: [id number] RECD: 09/21/23 STATUS: CLINTON ESCOBEDO NUM: [id number] PETE: 09/21/[address]: Berna Hernandez ENTERED: 09/21/23-[address] [facility] DR: [place],Lab SPEC TYPE: Surgical DEPT: OLVIN IZQUIERDO ENTERED BY: [id number] RECV BY: [id number] ORDERED: HE/4, Gross/Micro L2 ORDERED: HE/4, Gross/Micro [...] bilaterally. The fimbria are soft and unremarkable. Mechanic General Operational Test sections are submitted in 4 cassettes as follows: A1-A2 - [place] segment with fimbria entirely submitted A3-A4 - Longer segment with fimbria entirely submitted CPT Codes 42251 Specimen: [id number] Received: 09/21/23 Status: CLINTON Escobedo Num: [id number] Spec Type: Surgical Subm Dr: Berna Hernandez Tissues: A Fallopian Tube - Sterilization (BILT FALL TUBES) Procedures: HE/4, Gross/Micro L2 Patient: Alon Gee [id number] (Continued) Signed (signature on file) Evelin Schulz MD 09/26/232156 [facility] 08-21-2023 L Specimen: [id number] Received: 08/22/23 Status: CLINTON Escobedo Num: [id number] Spec Type: Surgical Subm Dr: Berna Hernandez Tissues: A Endometrium - Biopsy (EMBX) Procedures: HE/2, Gross/Micro L4 Age/ Patient Sex Location Account Attending Physician Alon Gee 42/F [place] [id number] Berna Hernandez SPEC NUM: [id number] RECD: 08/22/23 STATUS: CL[place]ON ESCOBEDO NUM: [id number] PETE: 08/21/23- SUBM DR: Berna Hernandez ENTERED: 08/22/[address] [facility] DR: [place],Lab SPEC TYPE: Surgical DEPT: OLVIN IZQUIERDO ORDERED: [...] in one cassette labeled A1. CPT Codes 11357 Specimen: [id number] Received: 08/22/23 Status: CLINTON Escobedo Num: [id number] Spec Type: Surgical Subm Dr: Berna Hernandez Tissues: A Endometrium - Biopsy (EMBX) Procedures: HE/2, Gross/Micro L4 Patient: Alon Gee [id number] (Continued) Signed (signature on file) Jacob Alegria MD 08/24/23 1000 [facility] FERRITINon 10-16-2022 Ferritin [Mass/Vol] 3.0 ng/mL Critically low 6.2-137.0 [facility] Comment on above: Performed By: #### F ETIBC, FERR #### [facility] [address] [place] [address] Dr. Reji Alegria IRON AND TIBCon 10-16-2022 % SATURATION 2.9 % Normal [facility] Comment on above: Performed By: #### F ETIBC, FERR #### [facility] [address] [place] [address] Dr. Reji Alegria Iron [Mass/Vol] 13.0 ug/dL Critically low 50.0-170.0 [place] Comment on above: Performed By: #### F ETIBC, FERR #### [facility] [address] [place] [address] Dr. Reji Alegria TIBC DIRECT 442.0 ug/dL Normal 250.0-450.0 [facility] Comment on above: Performed By: #### F ETIBC, FERR #### [facility] [address] [place] [address] Dr. Reji Alegria HEPATITIS C AB CASCADE TO QU ANT PCR GENOon 08-29-2022 HCV AB <0.1 Normal 0.0-0.9 [facility] Comment on above: Performed By: #### H EPCASC #### [facility] [address] [address] [address] Reji Alegria Interpretation: Comment Normal [facility] Comment on above: Result Comment: Cesar ledbetter Not infected with HCV, unless recent infection is suspected or other evidence exists to indicate HCV infection. Performed By: #### H EPCASC #### [facility] [address] [address] [address] Reji Alegria CBC AUTO DIFFon 08-28-2022 BASO # 0.1 103/ul Normal 0.0-0.1 [facility] Comment on above: Performed By: #### C BC #### [facility] [address] [address] [address] Reji Alegria Basophils/100 WBC (Bld) 1.1 % Normal 0.2-2.0 [facility] Comment on above: Performed By: #### C BC #### [facility] [address] [place] [address] Dr. Reji Alegria EO # 0.1 103/ul Normal 0.0-0.7 [facility] Comment on above: Performed By: #### C BC #### [facility] [address] [place] [address] Dr. Reji Alegria Eosinophils/100 WBC (Bld) 1.6 % Normal 0.9-7.0 [facility] Comment on above: Performed By: #### C BC #### [facility] [address] [place] [address] Dr. Reji Alegria Erythrocyte distribution width (RBC) [Ratio] 15.0 % Normal 11.0-15.0 [facility] Comment on above: Performed By: #### C BC #### [facility] [address] [place] [address] Dr. Reji Alegria Hematocrit (Bld) [Volume fraction] 30.9 % Critically low 36.0-48.0 [facility] Comment on above: Performed By: #### C BC #### [facility] [address] [place] [address] Dr. Reji Alegria Hemoglobin (Bld) [Mass/Vol] 10.0 g/dL Critically low 12.0-16.0 [facility] Comment on above: Performed By: #### C BC #### [facility] [address] [address] [address] Reji Alegria IG # 0.02 10e3/ul Normal 0.00-0.03 [facility] Comment on above: Performed By: #### C BC #### [facility] [address] [place] [address] Dr. Reji Alegria IG % 0.3 % Normal 0.0-0.5 [facility] Comment on above: Performed By: #### C BC #### [facility] [address] [place] [address] Dr. Reji Alegria LYMPH # 2.2 103/ul Normal 1.2-3.8 [facility] Comment on above: Performed By: #### C BC #### [facility] [address] [place] [address] Dr. Reji Alegria Lymphocytes/100 WBC (Bld) 34.3 % Normal 20.5-60.0 [facility] Comment on above: Performed By: #### C BC #### [facility] [address] [place] [address] Dr. Reji Alegria MANUAL DIFF REQ NO Normal [facility] Comment on above: Performed By: #### C BC #### [facility] [address] [place] [address] Dr. Reji Alegria MCH (RBC) [Entitic mass] 22.5 pg Critically low 26.7-34.0 [facility] Comment on above: Performed By: #### C BC #### [facility] [address] [place] [address] Dr. Reji Alegria MCHC (RBC) [Mass/Vol] 32.4 g/dL Normal 29.9-35.2 [facility] Comment on above: Performed By: #### C BC #### [facility] [address] [place] [address] Dr. Reji Alegria MCV (RBC) [Entitic vol] 69.6 fL Critically low 81.0-99.0 [facility] Comment on above: Performed By: #### C BC #### [facility] [address] [place] [address] Dr. Reji Alegria MONO # 0.4 103/ul Normal 0.3-0.8 [facility] Comment on above: Performed By: #### C BC #### [facility] [address] [place] [address] Dr. Reji Alegria Monocytes/100 WBC (Bld) 6.2 % Normal 1.7-12.0 [facility] Comment on above: Performed By: #### C BC #### [facility] [address] [place] [address] Dr. Reji Alegria NEUT # 3.6 103/ul Normal 1.4-6.5 [facility] Comment on above: Performed By: #### C BC #### [facility] [address] [place] [address] Dr. Reji Alegria Neutrophils/100 WBC (Bld) 56.5 % Normal 43.0-75.0 [facility] Comment on above: Performed By: #### C BC #### [facility] [address] [place] [address] Dr. Reji Alegria Platelet mean volume (Bld) [Entitic vol] 9.8 fL Normal 9.5-13.5 [facility] Comment on above: Performed By: #### C BC #### [facility] [address] [place] [address] Dr. Reji Alegria PLT 371 103/ul Normal 150-450 [facility] Comment on above: Performed By: #### C BC #### [facility] [address] [place] [address] Dr. Reji Alegria RBC 4.44 106/ul Normal 4.20-5.40 [facility] Comment on above: Performed By: #### C BC #### [facility] [address] [place] [address] Dr. Reji Alegria WBC 6.3 103/ul Normal 4.0-11.0 [facility] Comment on above: Performed By: #### C BC #### [facility] [address] [place] [address] Dr. Reji Alegria GLYCOHEMOGLOBIN A1Con 2022 ADA RECOMMENDATION SEE BELOW Normal [facility] Comment on above: Result Comment: ADA RECOMMENDED LIMIT 4.0 - 6.0 ADA THERAPEUTIC TARGET < 7.0 ACTION SUGGESTED > 7.0 Performed By: #### A 1C #### [facility] [address] [place] [address] Dr. Reji Alegria Glucose [Mass/Vol] 117 mg/dL Normal [facility] Comment on above: Performed By: #### A 1C #### [facility] [address] [place] [address] Dr. Reji Alegria HbA1c (Bld) [Mass fraction] 5.7 % Normal 4.5-6.2 [facility] Comment on above: Performed By: #### A 1C #### [facility] [address] [place] [address] Dr. Reji Alegria LIPID PROFILEon 08-28-2022 CHOL-HDL RATIO NORM SEE BELOW Normal [facility] Comment on above: Result Comment: 3.3 - 4.4 LOW RISK 4.4 - 7.1 AVERAGE RISK 7.1 - 11.0 MODERATE RISK >11.0 HIGH RISK Performed By: #### C MP, LIPID, TSH #### [facility] [address] [place] [address] Dr. Reji Alegria Cholesterol [Mass/Vol] 146 mg/dL Normal <=200 [facility] Comment on above: Performed By: #### C MP, LIPID, TSH #### [facility] [address] [place] [address] Dr. Reji Alegria Cholesterol in HDL [Mass/Vol] 48 mg/dL Normal 40-60 [facility] Comment on above: Performed By: #### C MP, LIPID, TSH #### [facility] [address] [place] [address] Dr. Reji Alegria Cholesterol in LDL [Mass/Vol] 77.2 mg/dL Normal [facility] Comment on above: Performed By: #### C MP, LIPID, TSH #### [facility] [address] [place] [address] Dr. Reji Alegria Cholesterol.total/ Cholesterol in HDL [Mass ratio] 3.0 {ratio} Normal [facility] Comment on above: Performed By: #### C MP, LIPID, TSH #### [facility] [address] [address] [address] Reji Alegria HDL NORMAL > or = 60 mg/dl - LO W CARDIOVASCULAR RISK <40 mg/dl - HIGH CARDIOVASCULAR RISK Normal [facility] Comment on above: Performed By: #### C MP, LIPID, TSH #### [facility] [address] [address] [address] Reji Alegria LDL CALC NORMAL SEE BELOW Normal [facility] Comment on above: Result Comment: <100 mg/dl OPTIMAL 100 - 129 mg/dl NEAR OR ABOVE OPTIMAL 130 - 159 mg/dl BORDERLINE HIGH 160 - 189 mg/dl HIGH >190 mg/dl VERY HIGH Performed By: #### C MP, LIPID, TSH #### [facility] [address] [address] [address] Reji Alegria Triglyceride [Mass/Vol] 104 mg/dL Normal <=150 [facility] Comment on above: Performed By: #### C MP, LIPID, TSH #### [facility] [address] [place] [address] Dr. Reji Alegria VLDL CALC 20.8 mg/dL Normal [facility] Comment on above: Performed By: #### C MP, LIPID, TSH #### [facility] [address] [address] [address] Reji Alegria PROF 14(COMP METB)on 023 Albumin [Mass/Vol] 3.8 g/dL Normal 3.4-5.0 [facility] Comment on above: Performed By: #### C MP, LIPID, TSH #### [facility] [address] [place] [address] Dr. Reji Alegria Albumin/Globulin [Mass ratio] 1.0 {ratio} Normal [facility] Comment on above: Performed By: #### C MP, LIPID, TSH #### [facility] [address] [place] [address] Dr. Reji Alegria ALP [Catalytic activity/Vol] 68 U/L Normal 46-116 [facility] Comment on above: Performed By: #### C MP, LIPID, TSH #### [facility] [address] [place] [address] Dr. Reji Alegria ALT [Catalytic activity/Vol] 21 U/L Normal 14-59 [facility] Comment on above: Performed By: #### C MP, LIPID, TSH #### [facility] [address] [address] [address] Reji Alegria Anion gap [Moles/Vol] 12.3 mmol/L Normal [facility] Comment on above: Performed By: #### C MP, LIPID, TSH #### [facility] [address] [place] [address] Dr. Reji Alegria AST [Catalytic activity/Vol] 16 U/L Normal 15-37 [facility] Comment on above: Performed By: #### C MP, LIPID, TSH #### [facility] [address] [place] [address] Dr. Reji Alegria Bilirubin [Mass/Vol] 0.2 mg/dL Normal 0.2-1.0 [facility] Comment on above: Performed By: #### C MP, LIPID, TSH #### [facility] [address] [place] [address] Dr. Reji Alegria Calcium [Mass/Vol] 9.1 mg/dL Normal 8.5-10.1 [facility] Comment on above: Performed By: #### C MP, LIPID, TSH #### [facility] [address] [place] [address] Dr. Reji Alegria Chloride [Moles/Vol] 102 mmol/L Normal 98-107 [facility] Comment on above: Performed By: #### C MP, LIPID, TSH #### [facility] [address] [place] [address] Dr. Reji Alegria CO2 [Moles/Vol] 27.9 mmol/L Normal 21.0-32.0 [facility] Comment on above: Performed By: #### C MP, LIPID, TSH #### [facility] [address] [place], [place] [address] Dr. Reji Alegria Creatinine [Mass/Vol] 0.52 mg/dL Critically low 0.55-1.02 [facility] Comment on above: Performed By: #### C MP, LIPID, TSH #### [facility] [address] [address] [address] Reji Alegria EGFR-AF JAPANESE >60 Normal >=60 [facility] Comment on above: Performed By: #### C MP, LIPID, TSH #### [facility] [address] [address] [address] Reji Alegria EGFR-NON AF JAPANESE >60 Normal >=60 [facility] Comment on above: Performed By: #### C MP, LIPID, TSH #### [facility] [address] [address] [address] Reji Alegria Globulin (S) [Mass/Vol] 3.7 g/dL Normal [facility] Comment on above: Performed By: #### C MP, LIPID, TSH #### [facility] [address] [place] [address] Dr. Reji Alegria Glucose [Mass/Vol] 90 mg/dL Normal 74-106 [facility] [place] [facility] Comment on above: Performed By: #### C MP, LIPID, TSH #### [facility] [address] [place] [address] Dr. Reji Alegria Potassium [Moles/Vol] 4.2 mmol/L Normal 3.5-5.1 [facility] Comment on above: Performed By: #### C MP, LIPID, TSH #### [facility] [address] [place] [address] Dr. Reji Alegria Protein [Mass/Vol] 7.5 g/dL Normal 6.4-8.2 [facility] [place] [facility] Comment on above: Performed By: #### C MP, LIPID, TSH #### [facility] [address] [place] [address] Dr. Reji Alegria Sodium [Moles/Vol] 138 mmol/L Normal 136-145 [facility] [place] [facility] Comment on above: Performed By: #### C MP, LIPID, TSH #### [facility] [address] [place], [place] [address] Dr. Reji Alegria Urea nitrogen [Mass/Vol] 10.0 mg/dL Normal 7.0-18.0 [facility] Comment on above: Performed By: #### C MP, LIPID, TSH #### [facility] [address] [place], [place] [address] Dr. Reji Alegria Urea nitrogen/Creatinin e [Mass ratio] 19.2 mg/mg Normal [facility] Comment on above: Performed By: #### C MP, LIPID, TSH #### [facility] [address] [place], [place] [address] Dr. Reji Alegria TSHon 08-28-2022 TSH 1.268 uIU/mL Normal 0.358-3.740 [facility] Comment on above: Performed By: #### C MP, LIPID, TSH #### [facility] [address] [place], [place] [address] Dr. Reji Alegria XR LSPINE MIN 4 [...] significant degenerative changes. Electronically authenticated by: ABBY LEIWS Date: 2022-06-14 15:56 Normal [facility] XR shoulder RT min 2V*on XR shoulder RT min 2V* [facility] [email or web address] Other XR shoulder RT min 2V* [facility] [email or web address] Other XR shoulder RT min 2V* [address] [place] [address] [email or web address] Other XR shoulder RT min 2V* [place] [address] [facility] [email or web address] Other XR shoulder RT min 2V* XRay Report [employer] Other XR shoulder RT min 2V* Signed [employer] Other XR shoulder RT min 2V* Patient: Alon Gee MR#: [id number] [employer] Other XR shoulder RT min 2V* 50 [employer] Other XR shoulder RT min 2V* : 1980 Acct:[id number] [employer] Other XR shoulder RT min 2V* Age/Sex: 40 / F ADM Date: 05/24/21 [employer] Other XR shoulder RT min 2V* Loc: XDUCLY Room: Type: [facility] [employer] Other XR shoulder RT min 2V* [facility]ending [facility]illo [facility] [employer] Other XR shoulder RT min 2V* Ordering Provider: EMILIE CASTILLO [employer] Other XR shoulder RT min 2V* Date of Service: 05/24/21 [employer] Other XR shoulder RT min 2V* XR/XR shoulder RT min 2V*: Acute pain of right shoulder [employer] Other XR shoulder RT min 2V* Copies to: EMILIE CASTILLO [facility] [employer] Other XR shoulder RT min 2V* CLINICAL HISTORY: Patient woke up with right shoulder pain 2 days ago, no known injury. Pain at the [employer] Other XR shoulder RT min 2V* upper portion of the shoulder. Limited range of motion. [employer] Other XR shoulder RT min 2V* [RIGHT] SHOULDER: [employer] Other XR shoulder RT min 2V* COMPARISON: None [employer] Other XR shoulder RT min 2V* FINDINGS: [AP, Grashey, transscapular] views of the right shoulder were obtained. There is no [employer] Other XR shoulder RT min 2V* evidence of fracture, dislocation or bony destruction. Moderate soft tissue calcification is noted [employer] Other XR shoulder RT min 2V* adjacent to the greater tuberosity of the humerus from calcific bursitis or tendinitis. Mild [employer] Other XR shoulder RT min 2V* degenerative arthritic changes are shown at the acromioclavicular joint. [employer] Other XR shoulder RT min 2V* XR/XR shoulder RT min 2V* [employer] Other XR shoulder RT min 2V* IMPRESSION: [employer] Other XR shoulder RT min 2V* NO FRACTURE OR SUBLUXATION. [employer] Other XR shoulder RT min 2V* CALCIFIC BURSITIS OR TENDINITIS ADJACENT TO THE GREATER TUBEROSITY OF THE HUMERUS. [employer] Other XR shoulder RT min 2V* MILD DEGENERATIVE ARTHRITIC CHANGES TO THE ACROMIOCLAVICULAR JOINT. [employer] Other XR shoulder RT min 2V* Impression dictated by: Mamadou Cobb M.D.05/24/2021 11:11 AM [employer] Other XR shoulder RT min 2V* Dictation Location: [facility] [employer] Other XR shoulder RT min 2V* Transcribed By: LISS 05/24/21 1111 [employer] [facility] Other XR shoulder RT min 2V* Dictated By: Mamadou Cobb MD 05/24/21 1108 [employer] Other XR shoulder RT min 2V* Signed By: [employer] Other XR shoulder RT min 2V* 05/24/21 1111 [employer] [facility] Other Surgical Pathologyon 017 Surgical Pathology (NOTE)[id number] LABORATORIESCONSULTING PATHOLOGISTS CORPORATIONANATOMIC [id number] [place], [place] [id number] Fax: SURGICAL PATHOLOGY CONSULTATIONPatient Name: Nata GEE Rec: [id number] Number: [id number]: 06/01/2017Received: 06/04/2017Reported: 06/05/2017 12:38-- Diagnosis --SKIN, RIGHT [...] cyst wallor neoplasm in these sections. Normal [facility] US NON OB TRANSVAGINALon US NON [...] by:EMANUEL Jonesigned by:Barbara Ledezma MD05/21/17Final result Normal [facility] Cytologyon 05-11-2017 Cytology (NOTE)[id number] Y LABORATORIESCONSULTING PATHOLOGISTS CORPORATIONANATOMIC [id number] [place], [place] [id number] Fax: GYNECOLOGIC CYTOLOGY REPORTPatient Name: DEBRA GEE#: [id number] #[id number]: Cervical material, (ThinPrep vial, Imaging-assisted review)Clinical [id number] Routine plywood layup line core layer exam without abnormal findingsHigh Risk HPV DNA testing is requested if the diagnosis is ASC-USLMP: 05/03/17INTERPRETATIONCerv ical material, (ThinPrep vial, Imaging-assisted review):Specimen Adequacy: Satisfactory for evaluation. -Endocervical/transformat ion zone component is absent.Descriptive Diagnosis: Negative for intraepithelial lesion or malignancy. Medical Concierge: ELÍAS Chavez(ASCP)Electronically Signed Outmk/05/17/2017 [facility] Vital Signs Date Time Vital Sign Value Performing Clinician Facility 05-24-2021 11:05-0400 Body height 162.56 cm Emilie Castillo Other [employer] [facility] Other 05-24-2021 11:05-0400 Body mass index (BMI) [Ratio] 37.38 kg/m2 Emilie Castillo Other [facility] Other 05-24-2021 11:05-0400 Body temperature 97.8 [degF] Emilie Castillo Other [facility] Other 05-24-2021 11:05-0400 Body weight 98.79 kg Emilie Castillo Other [facility] Other 05-24-2021 11:05-0400 Diastolic blood pressure 82 mm[Hg] Emilie Castillo Other [facility] Other 05-24-2021 11:05-0400 Respiratory rate 18 /min Emilie Castillo Other [facility] Other 05-24-2021 11:05-0400 SaO2% (BldA) [Mass fraction] 100 % Emilie Castillo Other [facility] Other 05-24-2021 11:05-0400 Systolic blood pressure 129 mm[Hg] Emilie Castillo Other [facility] Other Encounters Encounter Date Encounter Type Care Provider Facility Start: 10-24-2023 Telephone encounter Trisha Peacock RN [facility] Start: 10-23-2023 End: 10-23-2023 ambulatory KALI LAI Not Available Start: 09-21-2023 End: 09-21-2023 ambulatory Berna Mary Facility:[facility] Start: 09-21-2023 End: 09-21-2023 ambulatory DO Max L Pavlock Work Phone: [facility] Work Phone: Start: 09-21-2023 End: 09-21-2023 Departed Referred DO Max Pavlock Work Phone: [facility] Start: 08-23-2023 End: 08-23-2023 ambulatory BERNA MARY Not Available Start: 08-21-2023 End: 08-21-2023 ambulatory Max L Pavlock Facility:[facility] Start: 08-21-2023 End: 08-21-2023 Departed Referred DO Romulo Whaley Work Phone: [facility] Start: 08-21-2023 End: 08-21-2023 ambulatory DO Romulo Whaley Work Phone: [facility] Work Phone: Start: 07-31-2023 End: 07-31-2023 ambulatory BERNA HERNANDEZ Not Available Start: 11-14-2022 ambulatory MIGUEL SHAMMO Facility:[facility] 1 Start: 10-16-2022 End: 10-17-2022 ambulatory MIGUEL SHAMMO Facility:[facility] Start: 08-30-2022 Encounter for genera l adult medical examination [facility]: 08-28-2022 End: 08-29-2022 ambulatory MIGUEL SHAMMO Facility:[facility] Start: 08-28-2022 End: 08-29-2022 Encounter for general adult medical examination without abnormal findings MIGUEL SHAMMO Facility:[facility] Start: 06-27-2022 ambulatory MIGUEL SHAMMO Facility:[facility] Start: 06-14-2022 End: 06-15-2022 ambulatory MIGUEL SHAMMO Facility:[facility] Start: 05-24-2021 Office outpatient vi sit 15 minutes Emilie Castillo [facility] [place] Start: 06-01-2017 End: 06-02-2017 [facility] Start: 05-21-2017 End: 05-22-2017 Ambulatory [facility] Start: 05-11-2017 End: 05-12-2017 Ambulatory [facility] Procedures Date Procedure Procedure Detail Performing Clinician Start: 05-21-2017 Us transvaginal CHRISTOPHER ARAGON Start: 05-11-2017 Cytopathology proced ure, preparation of smear, genital source CHRISTOPHER ARAGON Plan of Treatment Date Care Activity Detail Author Start: 04-06-2023 Influenza vaccination Influenza Vacc ine [facility] Start: 2001 Screening for malign ant neoplasm of cervix Pap Smear [facility] Start: 1999 DTaP,Tdap and Td Vaccines (1 - Tdap) DTaP,Tdap and Td Vaccines (1 - Tdap) [facility] Start: 1998 Adult BMI Screening Adult BMI Screen ing [facility] Start: 1992 Depression Screening Depression Scre ening [facility] Start: 1992 Tobacco Screening Tobacco Screening [facility] Immunizations Immunization Date Immunization Notes Care Provider Fa sarahty 12-10-2018 Kenalog -40 mg Emilie Pennington luna Other [employer] Other Payers Date Payer Category Payer Medicaid [id number] 2022 Medicaid [id number] 2016 Unknown [id number] 1980 Unknown [id number] 2.16.84 [id number] 1980 Unknown [id number] 2.16.84 0.1.451824.3.579.2.593 1980 Unknown [id number] 2.16.84 0.1.820212.3.579.2.593 1980 Unknown [id number] 2.16.84 0.1.970840.3.579.2.593 1980 Unknown [id number] 2.16.84 0.1.821182.3.579.2.593 1980 Unknown [id number] 2.16.84 0.1.794273.3.579.2.1259 1980 Unknown [id number] 2.16.84 0.1.484035.3.579.2.1259 1980 Unknown [id number] 2.16.84 0.1.098555.3.579.2.1259 1980 Unknown [id number] 2.16.840 .1.705157.3.579.2.1259 1959 Self-pay 1959 Unknown [id number] Unknown [place] [id number] Unknown [id number] 2.16.8 40.1.358019.3.579.2.531 Unknown [id number] 2.16.8 40.1.562863.3.579.2.531 Social History Date Type Detail Facility Unknown if ever smoked [facility] [employer] Other Sex Assigned At [facility] [employer] Other Start: 1980 Sex Assigned At Female F [facility] Start: 08-03-2018 Tobacco smoking status [facility] Never smoked tobacco (finding) [facility] Tobacco smoking status [facility] Tobacco smoking consumption unknown [facility] Start: 1980 Sex Assigned At Not on file P [facility] Note 10-24-2023 Telephone Encounter - Trisha Peacock RN - 10/24/2023 2:07 PM EDT Note Date & Type Note Facility 10-24-2023 Miscellaneous Notes Formattin g of this note might be different from the original. 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 [facility] Clinical Note 06-14-2022 Note Date [...] by: ABBY LEWIS Date: 2022-06-14 15:52 [facility] Evaluation note 05-24-2021 Note Date & [...] and tendontitis seen on xray as discussed. [employer] Other Evaluation note Note Date & Type Note Facility Evaluation note No assessment information availa [facility] Work Phone: History general Narrative - Reported Note Date & Type Note Facility History general Narrative - Reported Type Medical History Hypertension Medical History Depression Medical History Intercranial HTN Surgical History C section x 2 Hospitalization History see above surg hx [employer] Other Instructions Note Date & Type Note [...] section and content) DATE CREATED AUTHOR [facility] DATE CREATED AUTHOR AUTHOR'S ORGANIZ ATION 12/07/2022 [facility] DATE CREATED AUTHOR AUTHOR'S ORGANIZ ATION 10/04/2023 [facility] DATE CREATED AUTHOR AUTHOR'S ORGANIZ ATION 10/24/2023 [facility] EPIC REASON FOR VISIT [...] BE BASED ON THE PRIMARY CLINICAL RECORDS. [facility] [employer] [facility]. provides no warranty or guarantee of the accuracy or completeness of information in this document.
== END 2024-02-22 13:54 | disposition home or self-care (01) ==
LOC: CARD 13:54
PROVIDERS: PCP Nurse Practitioner; Visit Provider Nurse Practitioner
DX: R00.2 Palpitations (principal)
CPT/HCPCS: 93242

== ENCOUNTER 2024-02-27 12:58 | Outpatient (OUT) | payer MEDICAID, SELFPAY ==
[2024-02-27 13:13] LABS: Hemoglobin 13.1 g/dL (12.0-16.0)
== END 2024-02-27 12:59 | disposition home or self-care (01) ==
LOC: CARD 12:59
PROVIDERS: PCP Nurse Practitioner; Visit Provider Nurse Practitioner
DX: R00.2 Palpitations (principal); R06.02 Shortness of breath
CPT/HCPCS: 36415; 85018; 94010; 94726; 94729

== ENCOUNTER 2024-08-04 15:53 | Outpatient (OUT) | payer MEDICAID, SELFPAY ==
[2024-08-04 16:07] LABS: Basophils Absolute Auto 0.1 10^3/uL (0.0-0.1); Basophils Percent Auto 1.2 % (0.2-2.0); Eosinophils Absolute Auto 0.1 10^3/uL (0.0-0.7); Eosinophils Percent Auto 1.7 % (0.9-7.0); Hematocrit 37.3 % (36.0-48.0); Hemoglobin 12.5 g/dL (12.0-16.0); Immature Granulocytes Abs Auto 0.02 10^3/uL (0.00-0.03); Immature Granulocytes Pct Auto 0.3 % (0.0-0.5); Lymphocytes Absolute Auto 1.9 10^3/uL (1.2-3.8); Lymphocytes Percent Auto 31.6 % (20.5-60.0); Mean Corpuscular HGB Conc 33.5 g/dL (29.9-35.2); Mean Corpuscular Hemoglobin 28.3 pg (26.7-34.0); Mean Corpuscular Volume 84.6 fL (81.0-99.0); Mean Platelet Volume 10.3 fL (9.5-13.5); Monocytes Absolute Auto 0.4 10^3/uL (0.3-0.8); Monocytes Percent Auto 6.9 % (1.7-12.0); Neutrophils Absolute Auto 3.4 10^3/uL (1.4-6.5); Neutrophils Percent Auto 58.3 % (43.0-75.0); Platelet Count 284 10^3/uL (150-450); Red Blood Count 4.41 10^6/uL (4.20-5.40); Red Cell Distribution Width 12.3 % (11.0-15.0); White Blood Count 5.9 10^3/uL (4.0-11.0)
[2024-08-04 16:39] LABS: Percent Iron Saturation 9.5 %
[2024-08-06 04:06] LABS: Vitamin B12 441 pg/mL (232-1245)
== END 2024-08-04 15:54 | disposition home or self-care (01) ==
LOC: LAB 15:54
PROVIDERS: PCP Nurse Practitioner; Visit Provider Internal Medicine Hematology & Oncology
DX: G43.919 Migraine, unspecified, intractable, without status migrainosus (principal); D50.9 Iron deficiency anemia, unspecified; D64.9 Anemia, unspecified; K90.9 Intestinal malabsorption, unspecified
CPT/HCPCS: 36415; 82306; 82607; 82728; 83540; 83550; 85025

== ENCOUNTER 2024-08-05 07:33 | Outpatient (RCR) | payer MEDICAID, SELFPAY ==
--- OUTSIDE RECORDS SUMMARY | 2024-08-05 07:35 | XMS_ITS | CCD ---
Author Organization [facility] Care Team Providers Care Social Work Therapist Name Role Phone HEDGES, CHRISTOPHER W Unavailable [...] Pavlock, DO Max L Primary Care Provider [phone] Berna Hernandez Attending Provider Mary, Berna Admitting Unavailable Pavlock, Max L Primary Care Unavailable Mary, Berna Attending Unavailable Pavlock, Max L Primary Care Unavailable Mary, Berna Attending Unavailable Mary, Berna Admitting Unavailable MARY, BERNA Attending Unavailable MARY, BERNA Attending Unavailable MARY, BERNA Attending Unavailable JOELLEKALI Attending Unavailable Unavailable Primary Care Provider UnavailMAXIMO Ferreira Attending Unavailable Allergies Allergy Classification Reported Allergen(s) Allergy Type Date of Onset Reaction(s) Facility (3 sources) Cephalexin; Translations: [CEPHALEXIN] Drug Allergy 3 tongue swelled, Swelling of Lip/Tongue/Thr oat, tongue swelled [facility] (1 source) Cephalexin Drug Allergy 2 [facility] (2 sources) Cephalosporins (Antibiotic); Translations: [Cephalosporins] Allergy to substance 3 Comment:tongue swells in the middle [facility] (1 source) Cephalexin Drug Allergy 3 [facility] Medications Current Medications Medication Drug [...] in 3 days Apr, Not-Taking polymyxin b 66138 unt/ml / trimethoprim 1 mg/ml ophthalmic solution (1 source) Dihydrofolate Reductase Inhibitor Antibacterial, Polymyxin-class Antibacterial Start: 08-03-2018 take 1 drop(s) into the eye(s) four times daily Polymyxin B-Trimethoprim 07181-1.1 UNIT/ML 1 drop into left eye Ophthalmic Four times a day for 7 days Jul, Not-Taking terbinafine (1 source) Allylamine Antifungal Start: 04-24-2021 Terbinafine HCl 1 % 1 application Externally Once a day for 14 days apply to rash Apr, Not-Taking Problems Active Problems Problem Classification Problem Date Documented Da te Episodic/Chronic Cardiac dysrhythmias (2 sources) Palpitations; Translations: [Palpitations] Onset: 04-04-2024 Episodic Deficiency and other anemia (4 sources) Iron deficiency anemia, unspecified; Translations: [IRON DEFICIENCY ANEMIA UNSPECIFIED] Onset: 10-16-2022 Episodic Essential hypertension (2 sources) Essential (primary) hypertension; Translations: [Essential (primary) hypertension] Onset: 04-04-2024 Chronic Menstrual disorders (1 source) Excessive and frequent menstruation with irregular cycle; Translations: [Excessive and frequent menstruation with irregular cycle] Onset: 05-21-2017 Chronic Other lower respiratory disease (2 sources) Other forms of dyspnea; Translations: [Other forms of dyspnea] Onset: 04-04-2024 Episodic Other nervous system disorders (1 source) Carpal tunnel syndrome of right wrist; Translations: [Carpal tunnel syndrome, right upper limb] Chronic Other nervous system disorders (1 source) Carpal tunnel syndrome of left wrist; Translations: [Carpal tunnel syndrome, left upper limb] Chronic Other nutritional; endocrine; and metabolic disorders (3 sources) Morbid (severe) obesity due to excess calories; Translations: [MORBID SEVERE OBES D/T EXCESS JD] Onset: 08-30-2022 Chronic Other nutritional; endocrine; and metabolic disorders (3 sources) Body mass index (BMI) 40.0-44.9, adult; Translations: [BODY MASS INDEX BMI 40.0-44.9 ADULT] Onset: 08-30-2022 Chronic Residual codes; unclassified (2 sources) Sleep apnea, unspecified; Translations: [Sleep apnea, unspecified] Onset: 04-04-2024 Chronic Unclassified (1 source) n64.9 / n64.9() [...] Test Name Value Interpretation Reference Range Facility Office Visiton 04-04-2024 Follow-up visit [id number] Mahad Gee 1980 F Date Provider Department Center 04/04/2024 MAXIMO SWEET Family History Problem Relation Age of Onset No Known Problems Mother No Known Problems Father Heart attack Maternal Grandmother Family Status - Relation Status Age at Mother Father Maternal Grandmother Level of Service:97291 [place] OFFICE/OUTPATIENT NEW MODERATE MDM 45 MINUTES Reason for Visit and Comments: Palpitations [226254] New Patient [632] - Pt is here because of palpitations. Normal [facility] [place] 09-21-2023 L Specimen: [id number] Received: 09/21/23 Status: CLINTON Escobedo Num: [id number] Spec Type: Surgical Subm Dr: Berna Hernandez Tissues: A Fallopian Tube - Sterilization (BILT FALL TUBES) Procedures: HE/4, Gross/Micro L2 Age/ Patient Sex Location Account Attending Physician Alon Gee 43/F [facility] [id number] Berna Hernandez SPEC NUM: [id number] RECD: 09/21/23 STATUS: CLINTON ESCOBEDO NUM: [id number] PETE: 09/21/[address]: Berna Hernandez ENTERED: 09/21/[address]: Joseph Ryan SPEC TYPE: Surgical DEPT: OLVIN IZQUIERDO ENTERED BY: [id number] RECV BY: [id number] ORDERED: HE/4, Gross/Micro L2 ORDERED: HE/4, Gross/Micro [...] bilaterally. The fimbria are soft and unremarkable. 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[employer] Making sections are submitted in 4 cassettes as follows: A1-A2 - Wilmore segment with fimbria entirely submitted A3-A4 - Longer segment with fimbria entirely submitted CPT Codes 49362 Specimen: [id number] Received: 09/21/23 Status: CL[place] Escobedo Num: [id number] Spec Type: Surgical Subm Dr: Berna Hernandez Tissues: A Fallopian Tube - Sterilization (BILT FALL TUBES) Procedures: /Nasim, Gross/Micro L2 Patient: Alon Gee [id number] (Continued) Signed (signature on file) Evelin Schulz MD 09/26/23 215 [facility] [place] 08-21-2023 L Specimen: [id number] Received: 08/22/23 Status: CLINTON Escobedo Num: [id number] Spec Type: Surgical Subm Dr: Berna Hernandez Tissues: A Endometrium - Biopsy (EMBX) Procedures: HE/2, Gross/Micro L4 Age/ Patient Sex Location Account Attending Physician Alon Gee 42/F [facility] [id number] Berna Hernandez SPEC NUM: [id number] RECD: 08/22/23 STATUS: CL[place] ESCOBEDO NUM: [id number] PETE: 08/21/23- SUBM DR: Berna Hernandez ENTERED: 08/22/[address] [facility] [address]: [facility] SPEC TYPE: Surgical DEPT: OLVIN [...] in one cassette labeled A1. CPT Codes 21475 Specimen: [id number] Received: 08/22/23 Status: CLINTON Escobedo Num: [id number] Spec Type: Surgical Subm Dr: Berna Heranndez Tissues: A Endometrium - Biopsy (EMBX) Procedures: Jesse BABIN/Remy L4 Patient: Alon Gee [id number] (Continued) Signed (signature on file) Jacob Alegria MD 08/24/23 1000 [facility] FERRITINon 10-16-2022 Ferritin [Mass/Vol] 3.0 ng/mL Critically low 6.2-137.0 [facility] Comment on above: Performed By: #### F ETIBC, FERR #### [facility] [address] [place] [address] Dr. Reji Alegria IRON AND TIBCon 10-16-2022 % SATURATION 2.9 % Normal [facility] Comment on above: Performed By: #### F ETIBC, FERR #### [facility] [address] [place] [address] Dr. Reji Alegria Iron [Mass/Vol] 13.0 ug/dL Critically low 50.0-170.0 [facility] Comment on above: Performed By: #### F ETIBC, FERR #### [facility] [address] [place] [address] Dr. Reji Alegria TIBC DIRECT 442.0 ug/dL Normal 250.0-450.0 [facility] Comment on above: Performed By: #### F ETIBC, FERR #### [facility] [address] [place] [address] Dr. Reji Alegria HEPATITIS C AB CASCADE TO QU ANT PCR GENOon 08-29-2022 HCV AB <0.1 Normal 0.0-0.9 [facility] Comment on above: Performed By: #### H EPCASC #### [facility] [address] [place] [address] Dr. Reji Alegria Interpretation: Comment Normal [facility] Comment on above: Result Comment: Nega tive Not infected with HCV, unless recent infection is suspected or other evidence exists to indicate HCV infection. Performed By: #### H EPCASC #### [facility] [address] [place] [address] Dr. Reji Alegria CBC AUTO DIFFon 08-28-2022 BASO # 0.1 103/ul Normal 0.0-0.1 [facility] Comment on above: Performed By: #### C BC #### [facility] [address] [place] [address] Dr. Reji Alegria Basophils/100 WBC (Bld) 1.1 % Normal 0.2-2.0 [facility] Comment on above: Performed By: #### C BC #### [facility] [address] [place] [address] Dr. Reji Alegria EO # 0.1 103/ul Normal 0.0-0.7 [facility] Comment on above: Performed By: #### C BC #### [facility] [address] [place] [address] Dr. Reji Alegria Eosinophils/100 WBC (Bld) 1.6 % Normal 0.9-7.0 [facility] Comment on above: Performed By: #### C BC #### [facility] [address] [place] [address] Dr. Reji Alegria Erythrocyte distribution width (RBC) [Ratio] 15.0 % Normal 11.0-15.0 [facility] Comment on above: Performed By: #### C BC #### [facility] [address] [place] [address] Dr. Reji Alegria Hematocrit (Bld) [Volume fraction] 30.9 % Critically low 36.0-48.0 [facility] Comment on above: Performed By: #### C BC #### [facility] [address] [place] [address] Dr. Reji Alegria Hemoglobin (Bld) [Mass/Vol] 10.0 g/dL Critically low 12.0-16.0 [facility] Comment on above: Performed By: #### C BC #### [facility] [address] [place] [address] Dr. Reji Alegria IG # 0.02 10e3/ul Normal 0.00-0.03 [facility] Comment on above: Performed By: #### C BC #### [facility] [address] [place] [address] Dr. Reji Alegria IG % 0.3 % Normal 0.0-0.5 [facility] Comment on above: Performed By: #### C BC #### [facility] [address] [place] [address] Dr. Reji Alegria LYMPH # 2.2 103/ul Normal 1.2-3.8 [facility] Comment on above: Performed By: #### C BC #### [facility] [address] [address] [address] Reji Alegria Lymphocytes/100 WBC (Bld) 34.3 % Normal 20.5-60.0 [facility] Comment on above: Performed By: #### C BC #### [facility] [address] [address] [address] Reji Alegria MANUAL DIFF REQ NO Normal [facility] Comment on above: Performed By: #### C BC #### [facility] [address] [address] [address] Reji Alegria MCH (RBC) [Entitic mass] 22.5 pg Critically low 26.7-34.0 [facility] Comment on above: Performed By: #### C BC #### [facility] [address] [place] [address] Dr. Reji Alegria MCHC (RBC) [Mass/Vol] 32.4 g/dL Normal 29.9-35.2 [facility] Comment on above: Performed By: #### C BC #### [facility] [address] [place] [address] Dr. Reji Alegria MCV (RBC) [Entitic vol] 69.6 fL Critically low 81.0-99.0 [facility] Comment on above: Performed By: #### C BC #### [facility] [address] [place] [address] Dr. Reji Alegria MONO # 0.4 103/ul Normal 0.3-0.8 [facility] Comment on above: Performed By: #### C BC #### [facility] [address] [place] [address] Dr. Reji Alegria Monocytes/100 WBC (Bld) 6.2 % Normal 1.7-12.0 [facility] Comment on above: Performed By: #### C BC #### [facility] [address] [place] [address] Dr. Reji Alegria NEUT # 3.6 103/ul Normal 1.4-6.5 [facility] Comment on above: Performed By: #### C BC #### [facility] [address] [address] [address] Reji Alegria Neutrophils/100 WBC (Bld) 56.5 % Normal 43.0-75.0 [facility] Comment on above: Performed By: #### C BC #### [facility] [address] [place] [address] Dr. Reji Alegria Platelet mean volume (Bld) [Entitic vol] 9.8 fL Normal 9.5-13.5 [facility] Comment on above: Performed By: #### C BC #### [facility] [address] [place] [address] Dr. Reji Alegria PLT 371 103/ul Normal 150-450 [facility] Comment on above: Performed By: #### C BC #### [facility] [address] [place] [address] Dr. Reji Aelgria RBC 4.44 106/ul Normal 4.20-5.40 [facility] Comment on above: Performed By: #### C BC #### [facility] [address] [place] [address] Dr. Reji Alegria WBC 6.3 103/ul Normal 4.0-11.0 [facility] Comment on above: Performed By: #### C BC #### [facility] [address] [place] [address] Dr. Reji Alegria GLYCOHEMOGLOBIN A1Con 2022 ADA RECOMMENDATION SEE BELOW Normal [facility] Comment on above: Result Comment: ADA RECOMMENDED LIMIT 4.0 - 6.0 ADA THERAPEUTIC TARGET < 7.0 ACTION SUGGESTED > 7.0 Performed By: #### A 1C #### [facility] [address] [place] [address] Dr. Reji Alegria Glucose [Mass/Vol] 117 mg/dL Normal [facility] Comment on above: Performed By: #### A 1C #### [facility] [address] [place] [address] Dr. Reji Alegria HbA1c (Bld) [Mass fraction] 5.7 % Normal 4.5-6.2 [facility] Comment on above: Performed By: #### A 1C #### [facility] [address] [address] [address] Reji Alegria LIPID PROFILEon 08-28-2022 CHOL-HDL RATIO NORM SEE BELOW Normal [facility] Comment on above: Result Comment: 3.3 - 4.4 LOW RISK 4.4 - 7.1 AVERAGE RISK 7.1 - 11.0 MODERATE RISK >11.0 HIGH RISK Performed By: #### C MP, LIPID, TSH #### [facility] [address] [address] [address] Reji Alegria Cholesterol [Mass/Vol] 146 mg/dL Normal <=200 [facility] Comment on above: Performed By: #### C MP, LIPID, TSH #### [facility] [address] [address] [address] Reji Alegria Cholesterol in HDL [Mass/Vol] 48 mg/dL Normal 40-60 [facility] Comment on above: Performed By: #### C MP, LIPID, TSH #### [facility] [address] [place] [address] Dr. Reji Alegria Cholesterol in LDL [Mass/Vol] 77.2 mg/dL Normal [facility] Comment on above: Performed By: #### C MP, LIPID, TSH #### [facility] [address] [address] [address] Reji Alegria Cholesterol.total/ Cholesterol in HDL [Mass ratio] 3.0 {ratio} Normal [facility] Comment on above: Performed By: #### C MP, LIPID, TSH #### [facility] [address] [address] [address] Reji Alegria HDL NORMAL > or = 60 mg/dl - LO W CARDIOVASCULAR RISK <40 mg/dl - HIGH CARDIOVASCULAR RISK Normal [facility] Comment on above: Performed By: #### C MP, LIPID, TSH #### [facility] [address] [place] [address] Dr. Reji Alegria LDL CALC NORMAL SEE BELOW Normal [facility] Comment on above: Result Comment: <100 mg/dl OPTIMAL 100 - 129 mg/dl NEAR OR ABOVE OPTIMAL 130 - 159 mg/dl BORDERLINE HIGH 160 - 189 mg/dl HIGH >190 mg/dl VERY HIGH Performed By: #### C MP, LIPID, TSH #### [facility] [address] [address] [address] Reji Alegria Triglyceride [Mass/Vol] 104 mg/dL Normal <=150 [facility] Comment on above: Performed By: #### C MP, LIPID, TSH #### [facility] [address] [address] [address] Reji Alegria VLDL CALC 20.8 mg/dL Normal [facility] Comment on above: Performed By: #### C MP, LIPID, TSH #### [facility] [address] [address] [address] Reji Alegria PROF 14(COMP METB)on 023 Albumin [Mass/Vol] 3.8 g/dL Normal 3.4-5.0 [facility] Comment on above: Performed By: #### C MP, LIPID, TSH #### [facility] [address] [address] [address] Reji Alegria Albumin/Globulin [Mass ratio] 1.0 {ratio} Normal [facility] Comment on above: Performed By: #### C MP, LIPID, TSH #### [facility] [address] [address] [address] Reji Alegria ALP [Catalytic activity/Vol] 68 U/L Normal 46-116 [facility] Comment on above: Performed By: #### C MP, LIPID, TSH #### [facility] [address] [address] [address] Reji Alegria ALT [Catalytic activity/Vol] 21 U/L Normal 14-59 [facility] Comment on above: Performed By: #### C MP, LIPID, TSH #### [facility] [address] [address] [address] Reji Alegria Anion gap [Moles/Vol] 12.3 mmol/L Normal [facility] Comment on above: Performed By: #### C MP, LIPID, TSH #### [facility] [address] [address] [address] Reji Alegria AST [Catalytic activity/Vol] 16 U/L Normal 15-37 [facility] Comment on above: Performed By: #### C MP, LIPID, TSH #### [facility] [address] [address] [address] Reji Alegria Bilirubin [Mass/Vol] 0.2 mg/dL Normal 0.2-1.0 [facility] Comment on above: Performed By: #### C MP, LIPID, TSH #### [facility] [address] [place] [address] Dr. Reji Alegria Calcium [Mass/Vol] 9.1 mg/dL Normal 8.5-10.1 [facility] Comment on above: Performed By: #### C MP, LIPID, TSH #### [facility] [address] [place] [address] Dr. Reji Alegria Chloride [Moles/Vol] 102 mmol/L Normal 98-107 [facility] Comment on above: Performed By: #### C MP, LIPID, TSH #### [facility] [address] [place] [address] Dr. Reji Alegria CO2 [Moles/Vol] 27.9 mmol/L Normal 21.0-32.0 [facility] Comment on above: Performed By: #### C MP, LIPID, TSH #### [facility] [address] [place] [address] Dr. Reji Alegria Creatinine [Mass/Vol] 0.52 mg/dL Critically low 0.55-1.02 [facility] Comment on above: Performed By: #### C MP, LIPID, TSH #### [facility] [address] [place] [address] Dr. Reji Alegria EGFR-AF ENGLISH >60 Normal >=60 [facility] Comment on above: Performed By: #### C MP, LIPID, TSH #### [facility] [address] [place] [address] Dr. Reji Alegria EGFR-NON AF ENGLISH >60 Normal >=60 [facility] Comment on above: Performed By: #### C MP, LIPID, TSH #### [facility] [address] [place] [address] Dr. Reji Alegria Globulin (S) [Mass/Vol] 3.7 g/dL Normal [facility] Comment on above: Performed By: #### C MP, LIPID, TSH #### [facility] [address] [place] [address] Dr. Reji Alegria Glucose [Mass/Vol] 90 mg/dL Normal 74-106 [facility] Comment on above: Performed By: #### C MP, LIPID, TSH #### [facility] [address] [place] [address] Dr. Reji Alegria Potassium [Moles/Vol] 4.2 mmol/L Normal 3.5-5.1 [facility] Comment on above: Performed By: #### C MP, LIPID, TSH #### [facility] [address] [place] [address] Dr. Reji Alegria Protein [Mass/Vol] 7.5 g/dL Normal 6.4-8.2 [facility] Comment on above: Performed By: #### C MP, LIPID, TSH #### [facility] [address] [place] [address] Dr. Reji Alegria Sodium [Moles/Vol] 138 mmol/L Normal 136-145 [facility] Comment on above: Performed By: #### C MP, LIPID, TSH #### [facility] [address] [place] [address] Dr. Reji Alegria Urea nitrogen [Mass/Vol] 10.0 mg/dL Normal 7.0-18.0 [facility] Comment on above: Performed By: #### C MP, LIPID, TSH #### [facility] [address] [place] [address] Dr. Reji Alegria Urea nitrogen/Creatinin e [Mass ratio] 19.2 mg/mg Normal [facility] Comment on above: Performed By: #### C MP, LIPID, TSH #### [facility] [address] [place] [address] Dr. Reji Alegria TSHon 08-28-2022 TSH 1.268 uIU/mL Normal 0.358-3.740 [facility] Comment on above: Performed By: #### C MP, LIPID, TSH #### [facility] [id number] Reji Alegria XR LSPINE MIN 4 VIEWSon 110 XR LSPINE MIN 4 VIEWS EXAMINATION: XR [...] ABBY LEWIS Date: 2022-06-14 15:56 Normal [facility] XR shoulder RT min 2V*on XR shoulder RT min 2V* [facility] [employer] Other XR shoulder RT min 2V* [facility] [employer] Other XR shoulder RT min 2V* [address] [place] [address] [employer] Other XR shoulder RT min 2V* [place] [address] [employer] Other XR shoulder RT min 2V* XRay Report [employer] Other XR shoulder RT min 2V* Signed [employer] Other XR shoulder RT min 2V* Patient: Alon Gee MR#: [id number] [employer] Other XR shoulder RT min 2V* 50 [employer] Other XR shoulder RT min 2V* : 1980 Acct:[id number] [employer] Other XR shoulder RT min 2V* Age/Sex: 40 / F ADM Date: 05/24/21 [employer] Other XR shoulder RT min 2V* Loc: XDUCLY Room: Type: REG CLI [employer] Other XR shoulder RT min 2V* Attending Dr: Emilie RUEDA [employer] Other XR shoulder RT min 2V* Ordering Provider: EMILIE CASTILLO [employer] Other XR shoulder RT min 2V* Date of Service: 05/24/21 [employer] Other XR shoulder RT min 2V* XR/XR shoulder RT min 2V*: Acute pain of right shoulder [employer] Other XR shoulder RT min 2V* Copies to: [facility]O [facility] [employer] Other XR shoulder RT min 2V* CLINICAL HISTORY: Patient woke up with right shoulder pain 2 days ago, no known injury. Pain at the [employer] Other XR shoulder RT min 2V* upper portion of the shoulder. Limited range of motion. [employer] Other XR shoulder RT min 2V* [RIGHT] SHOULDER: [employer] Other XR shoulder RT min 2V* COMPARISON: None [employer] Other XR shoulder RT min 2V* FINDINGS: [AP, Grashey, transscapular] views of the right shoulder were obtained. There is no [employer] Other XR shoulder RT min 2V* evidence of fracture, dislocation or bony destruction. Moderate soft tissue calcification is noted [employer] Other XR shoulder RT min 2V* adjacent to the greater tuberosity of the humerus from calcific bursitis or tendinitis. Mild [employer] Other XR shoulder RT min 2V* degenerative arthritic changes are shown at the acromioclavicular joint. [employer] Other XR shoulder RT min 2V* XR/XR shoulder RT min 2V* [employer] Other XR shoulder RT min 2V* IMPRESSION: [employer] Other XR shoulder RT min 2V* NO FRACTURE OR SUBLUXATION. [employer] Other XR shoulder RT min 2V* CALCIFIC BURSITIS OR TENDINITIS ADJACENT TO THE GREATER TUBEROSITY OF THE HUMERUS. [employer] Other XR shoulder RT min 2V* MILD DEGENERATIVE ARTHRITIC CHANGES TO THE ACROMIOCLAVICULAR JOINT. [employer] Other XR shoulder RT min 2V* Impression dictated by: Mamadou Cobb M.D.05/24/2021 11:11 AM [employer] Other XR shoulder RT min 2V* Dictation Location: [place] [address] [employer] Other XR shoulder RT min 2V* Transcribed By: [facility] 05/24/21 1111 [employer] Other XR shoulder RT min 2V* Dictated By: Mamadou Cobb MD 05/24/21 1108 [employer] Other XR shoulder RT min 2V* Signed By: [employer] Other XR shoulder RT min 2V* 05/24/21 1111 [employer] Other Surgical Pathologyon 017 Surgical Pathology (NOTE)[id number] Y LABORATORIESCONSULTING PATHOLOGISTS CORPORATIONANATOMIC [id number] [place] [address] [phone] Fax: SURGICAL PATHOLOGY CONSULTATIONPatient Name: Nata GEE Rec: [id number] Number: [id number]: 06/01/2017Received: 06/04/2017Reported: 06/05/2017 12:38-- Diagnosis --SKIN, RIGHT BREAST, SHAVE BIOPSY: - SLIGHT EPIDERMAL ACANTHOSIS, COMPATIBLE WITH AN EARLYFLAT SEBORRHEIC KERATOSIS, IF THIS FITS THE CLINICAL PICTURE.Everett Lawson M.D.Electronically Signed Out06/05/2017Linn william InformationPre-op Diagnosis: BREAST LESION Operative Findings: R [...] cyst wallor neoplasm in these sections. Normal [facility] US NON OB TRANSVAGINALon US NON [...] Ledezma on 05/21/2017 12:17 PMInterpreted by:EMANUEL Jonesigned by:Barabra Ledezma MD05/21/17Final result Normal [facility] Cytologyon 05-11-2017 Cytology (NOTE)[id number] Y LABORATORIESCONSULTING PATHOLOGISTS CORPORATIONANATOMIC [id number] [place] [address]. [place], [place] [address] Fax: GYNECOLOGIC CYTOLOGY REPORTPatient Name: DEBRA GEE#: [id number] #[id number]:1: Cervical material, (ThinPrep vial, Imaging-assisted review)Clinical EhbilfuC61.419 Routine liability analyst exam without abnormal findingsHigh Risk HPV DNA testing is requested if the diagnosis is ASC-USLMP: 05/03/17INTERPRETATIONCerv ical material, (ThinPrep vial, Imaging-assisted review):Specimen Adequacy: Satisfactory for evaluation. -Endocervical/transformat ion zone component is absent.Descriptive Diagnosis: Negative for intraepithelial lesion or malignancy. Warehouse Worker: ELÍAS Chavez(ASCP)Electronically Signed Outmk/05/17/2017 [facility] Vital Signs Date Time Vital Sign Value Performing Clinician Facility 05-24-2021 11:05-0400 Body height 162.56 cm Emilie Penningtonault Other [facility] Other 05-24-2021 11:05-0400 Body mass index (BMI) [Ratio] 37.38 kg/m2 Emilie Nanci Other [facility] Other 05-24-2021 11:05-0400 Body temperature 97.8 [degF] Emilie Nanci Other [facility] Other 05-24-2021 11:05-0400 Body weight 98.79 kg Emilie Penningtonault Other [facility] Other 05-24-2021 11:05-0400 Diastolic blood pressure 82 mm[Hg] Emilie Nanci Other [facility] Other 05-24-2021 11:05-0400 Respiratory rate 18 /min Emilie Nanci Other [facility] Other 05-24-2021 11:05-0400 SaO2% (BldA) [Mass fraction] 100 % Emilie Nanci Other [facility] Other 05-24-2021 11:05-0400 Systolic blood pressure 129 mm[Hg] Emilie Castillo Other [facility] Other Encounters Encounter Date Encounter Type Care Provider Facility Start: 04-04-2024 End: 04-04-2024 ambulatory [facility] Start: 10-24-2023 Telephone encounter Trisha Peacock RN [facility] Start: 10-23-2023 End: 10-23-2023 ambulatory KALI JOELLE Not Available Start: 09-21-2023 End: 09-21-2023 ambulatory Berna Mary Facility:[facility] Start: 09-21-2023 End: 09-21-2023 ambulatory DO Max L Pavlock Work Phone: [facility] Work Phone: Start: 09-21-2023 End: 09-21-2023 Departed Referred DO Max Pavlock Work Phone: [facility] Start: 08-23-2023 End: 08-23-2023 ambulatory BERNA MARY Not Available Start: 08-21-2023 End: 08-21-2023 ambulatory Max L Pavlock Facility:[facility] Start: 08-21-2023 End: 08-21-2023 Departed Referred DO Max Pavlock Work Phone: [facility] Start: 08-21-2023 End: 08-21-2023 ambulatory DO Max L Pavlock Work Phone: [facility] Work Phone: Start: 07-31-2023 End: 07-31-2023 ambulatory BERNA MARY Not Available Start: 11-14-2022 ambulatory MIGUEL SHAMMO Facility:[facility] Start: 10-16-2022 End: 10-17-2022 ambulatory MIGUEL SHAMMO Facility:[facility] Start: 08-30-2022 Encounter for genera l adult medical examination without abnormal findings MIGUEL SHAMMO [facility] Start: 08-28-2022 End: 08-29-2022 ambulatory MIGUELIRSEAL WILDEMO Facility:[facility] Start: 08-28-2022 End: 08-29-2022 Encounter for general adult medical examination without abnormal findings MIGUELISREAL JEAN Facility:[facility] Start: 06-27-2022 ambulatory MIGUEL SHAMMO Facility:[facility] Start: 06-14-2022 End: 06-15-2022 ambulatory [facility] Facility:[facility] Start: 05-24-2021 Office outpatient vi sit 15 minutes Emilie Castillo [facility] Start: 06-01-2017 End: 06-02-2017 Ambulatory [facility] Start: 05-21-2017 End: 05-22-2017 Ambulatory [facility]STOP[facility]hill[facility] Start: 05-11-2017 End: 05-12-2017 [facility] Procedures Date Procedure Procedure Detail Performing Clinician Start: 05-21-2017 Us transvaginal CHRISTOPHER ARAGON Start: 05-11-2017 Cytopathology proced ure, preparation of smear, genital source CHRISTOPHER ARAGON Plan of Treatment Date Care Activity Detail Author Start: 04-06-2023 Influenza vaccination Influenza Vacc ine [facility] Start: 2001 Screening for malign ant neoplasm of cervix Pap Smear [facility] Start: 1999 DTaP,Tdap and Td Vaccines (1 - Tdap) DTaP,Tdap and Td Vaccines (1 - Tdap) [facility] Start: 1998 Adult BMI Screening Adult BMI Screen ing [facility] Start: 1992 Depression Screening Depression Scre ening [facility] Start: 1992 Tobacco Screening Tobacco Screening [facility] Immunizations Immunization Date Immunization Notes Care Provider Fa cility 12-10-2018 Kenalog -40 mg Emilie carrasco Other [facility] Other Payers Date Payer Category Payer Medicaid [id number] 2022 Medicaid [id number] 2016 Unknown [id number] 1980 Unknown [id number] 2.16.84 [id number] 1980 Unknown [id number] 2.16.84 0.1.678406.3.579.2.593 1980 Unknown [id number] 2.16.84 0.1.936114.3.579.2.593 1980 Unknown [id number] 2.16.84 0.1.201871.3.579.2.593 1980 Unknown [id number] 2.16.84 0.1.828155.3.579.2.593 1980 Unknown [id number] 2.16.84 0.1.449267.3.579.2.1259 1980 Unknown [id number] 2.16.84 0.1.122747.3.579.2.1259 1980 Unknown [id number] 2.16.84 0.1.449312.3.579.2.1259 1980 Unknown [id number] 2.16.840 .1.794936.3.579.2.1259 1959 Self-pay 1959 Unknown [id number] Unknown [facility] [id number] Unknown [id number] 2.16.8 [id number] Unknown [id number] 2.16.8 [id number] Social History Date Type Detail Facility Unknown if ever smoked [facility] Other Sex Assigned At [facility] Other Start: 1980 Sex Assigned At Female F [facility] Start: 08-03-2018 Tobacco smoking status VTIS Never smoked tobacco (finding) [facility] Tobacco smoking status VTIS Tobacco smoking consumption unknown [facility] Start: 1980 Sex Assigned At Not on file P [facility] Progress note 04-04-2024 Note Date & Type Note Facility 04-04-2024 Note Review of Systems Cardiovascular: Positive for palpitations. Respiratory: Positive for shortness of breath. Neurological: Positive for dizziness and light-headedness. [facility] Progress note 04-04-2024 Note Date & Type Note Facility 04-04-2024 Note [facility] Note Reason for cardiology consult: Palpitations Chief Complaint: Palpitations HPI: Alon Gee is a 43 y.o. female without prior cardiac history. She has history of hypertension, hyperlipidemia, or diabetes mellitus. She used to smoke 1 pack/day for about total 20 years on and off, she quit 5 months ago Patient states that she had palpitations for years however it has been worse lately occurring more often, she states that her episodes could be mild just fluttering however she has also bad ones she describes them as feeling as if her heart stops then flutters associated with lightheadedness and head pressure than it goes on its own, they occur at rest and with exertion, usually lasts less than 5 minutes, what she calls the bad episodes occur about 8 times a month. She states that while she was carrying the monitor she did not have any episodes except for very little flip-flopping here and there which she recorded. Other than that she denies any chest pain at rest or with exertion. She reports exertional dyspnea. She denies orthopnea or paroxysmal nocturnal dyspnea or syncope. She denies legs edema or discomfort on exertion. She told me that she used to have sleep apnea however after she lost weight and she became less than 200 pounds that resolved but she gained lately about 33 pounds and since then she has been more tired during the daytime. She states she drinks 2 cups of coffee a day and 1 can of diet soda. She drinks probably one of 16 ounce bottle of water a day. She denies any alcohol or drugs. Patient was in ED 12/28/2023 her blood pressure was 158/96 with heart rate of 85 and O2 saturation of 97%. She states that she checks her blood pressure at home and it was today 132/89 with heart rate of 74 Cardiology ROS: GENERAL: Denies fever, chills, night sweats, weight loss. HEENT: Denies changes in vision, photophobia, changes in hearing, epistaxis, oral bleeding. CARDIOVASCULAR: Denies chest pain, exertional dyspnea, orthopnea/PND, lower extremity edema, she reports palpitations sometimes associated with lightheadedness and head pressure as described above RESPIRATORY: Denies SOB, coughing, wheezing GI: Denies abdominal pain, nausea/vomiting, heartburn, melena/hematochezia. RENAL: Denies dysuria, hematuria, flank pain. MSK: Denies muscle weakness/pain, arthralgias/joint pain. NEUROLOGIC: Denies LOC, weakness, numbness, headaches. SKIN: Denies abnormal rashes or bleeding. PSYCH: Denies significant anxiety, depression, sleep disturbances. Past Medical History She has a past medical history of Anxiety and GERD (gastroesophageal reflux disease). She has no past medical history of Diabetes mellitus ([facility]), Hyperlipidemia, or Hypertension. Surgical History She has a past surgical history that includes section, classic. Social History She reports that she quit smoking about 4 months ago. Her smoking use included cigarettes. She has a 20.00 pack-year smoking history. She does not have any smokeless tobacco history on file. She reports that she does not drink alcohol and does not use drugs. Family History Family History Problem Relation Name Age of Onset No Known Problems Mother No Known Problems Father Heart attack Maternal Grandmother Allergies Keflex [cephalexin] Medications Current Outpatient Medications: busPIRone (Buspar) 10 mg tablet, Take by mouth three times daily., Disp: , Rfl: omeprazole (PriLOSEC) [address] capsule, Take 20 mg by mouth before breakfast. Do not crush or chew., Disp: , Rfl: sertraline (Zoloft) 50 mg tablet, Take 50 mg by mouth in the morning., Disp: , Rfl: metoprolol succinate XL (Toprol-XL) 25 mg 24 hr tablet, Take 1 tablet (25 mg) by mouth in the morning. Do not crush or chew., Disp: 30 tablet, Rfl: 11 Last Recorded Vitals Visit Vitals BP 132/89 (BP Location: Right arm, Patient Position: Sitting) Pulse 74 Ht 1.6 m (5' 3 ) Wt 106 kg (233 lb) SpO2 98% BMI 41.27 kg/m??? Smoking Status Former BSA 2.17 m??? Physical Examination: GENERAL: alert and oriented x3, well developed, in no acute distress. HEAD: atraumatic, normocephalic. EYES: LAURYN, EOMI. NECK: trachea midline, no JVD present, no carotid bruits present. CARDIAC: S1, S2 present. RRR. No murmur, rubs, or gallops. RESPIRATORY: CTAB, no increased effort of breathing, no rales, rhonchi, or wheezing. ABDOMEN: soft, nontender, nondistended. EXTREMITIES: no lower extremity edema, peripheral pulses are 2+ bilaterally. No rash/skin discoloration present. NEURO: strength/sensation equal and symmetric in bilateral upper and lower extremities. PSYCH: appropriate mood, affect, and judgement. Labs: Labs 12/29/2023 White blood count 6.9, hemoglobin 12.9, platelets 282 INR 1, D-dimer 0.32 Sodium 137, potassium 3.7, BUN 17, creatinine 0.59, GFR above 60, glucose 97, calcium 9.4 Total bilirubin 0.7, (more content not included)... [facility] Note 10-24-2023 Telephone Encounter - Trisha Peacock RN - 10/24/2023 2:07 PM EDT Note Date & Type Note Facility 10-24-2023 Miscellaneous Notes Formattin g of this note might be different from the original. SHADY left instructing pt to c/b for DIRECTOR INSTRUMENTATION visit. documented in this encounter [facility] Telephone encounter Note 10-24-2023 Telephone Encounter - Trisha Peacock RN - 10/24/2023 2:07 PM EDT Note Date & Type Note Facility 10-24-2023 Telephone encount er Note SHADY left instructing pt to c/b for DIRECTOR INSTRUMENTATION visit. [facility] Clinical Note 06-14-2022 Note Date & [...] by: ABBY LEWIS Date: 2022-06-14 15:52 [facility] Evaluation note 05-24-2021 Note Date & Type [...] and tendontitis seen on xray as discussed. [facility] Other Evaluation note Note Date & Type Note Facility Evaluation note No assessment information availa [facility] Work Phone: History general Narrative - Reported Note Date & Type Note Facility History general Narrative - Reported Type Medical History Hypertension Medical History Depression Medical History Intercranial HTN Surgical History C section x 2 Hospitalization History see above surg hx [facility] Other Instructions Note Date & Type Note Facility Instructions Not on filedocumented in this en counter [facility] Summary Purpose Family History No Family History Records Found Relationship Condition Age at Onset Recorded Date/T nel father Diabetes mellitus Unknown Hypertension Unknown Advance Directives No Advanced Directives Records Found Advance Directive Response Recorded Date/ Time Advance Directives No February 18 18 3:24pm Additional Source Comments INFORMATION SOURCE (unrecogn ized section and content) DATE CREATED AUTHOR 01/29/2018 [facility] DATE CREATED AUTHOR AUTHOR'S ORGANIZ ATION 12/07/2022 [facility] DATE CREATED AUTHOR AUTHOR'S ORGANIZ ATION 10/04/2023 [facility] DATE CREATED AUTHOR AUTHOR'S ORGANIZ ATION 10/24/2023 [facility] DATE CREATED AUTHOR AUTHOR'S ORGANIZ ATION 04/06/2024 [facility] REASON FOR VISIT (unrecogniz ed section and content) RIGHT SHOULDER PAIN Care Teams (unrecognized sec tion and content) Team Status: Active Member Role Status Dates Romulo Yuliet Whaley , Primary Care Provider Active Team Status: Inactive Member Role Status Dates Romulo Yuliet Whaley , Primary Care Provider Active Start: August 21, 2023 End: August 21, 2023 Berna Hernandez Attending Provider Active Start: [facility] 2023 End: August 21, 2023 Team Status: Inactive Member Role Status Dates Romulo Yuliet Whaley , Primary Care Provider Active Start: September 21, 2023 End: September 21, 2023 Berna Hernandez Attending Provider Active Start: [facility] 2023 End: September 21, 2023 Goals (unrecognized [...] BE BASED ON THE PRIMARY CLINICAL RECORDS. [employer] provides no warranty or guarantee of the accuracy or completeness of information in this document.
== END 2024-08-05 23:59 | disposition home or self-care (01) ==
LOC: HEMC 07:33
PROVIDERS: PCP Nurse Practitioner; Visit Provider Internal Medicine Hematology & Oncology
DX: D50.9 Iron deficiency anemia, unspecified (principal); G43.919 Migraine, unspecified, intractable, without status migrainosus; D64.9 Anemia, unspecified; K90.9 Intestinal malabsorption, unspecified; N92.0 Excessive and frequent menstruation with regular cycle; M79.10 Myalgia, unspecified site; M25.50 Pain in unspecified joint
CPT/HCPCS: G0463

== ENCOUNTER 2024-09-05 07:36 | Outpatient (RCR) | payer MEDICAID, SELFPAY ==
[2024-08-29 11:18] VITALS: BP 118/79; PULSE 78; TEMP 36.1; O2SAT 98
[2024-08-29] MEDS: FERUMOXYTOL 510 MG in 0.9 % SODIUM CHLORIDE 100 ML 234 MG IV (11:25)
--- NOTE | 2024-08-29 12:32 | PC.NURSE ---
Pt here for Feraheme infusion. Tolerated w/o incident. Pt d/c'd stable.
[2024-09-05 11:36] VITALS: BP 116/81; PULSE 70; TEMP 36.7; O2SAT 97
[2024-09-05] MEDS: FERUMOXYTOL 510 MG in 0.9 % SODIUM CHLORIDE 100 ML 234 MG IV (11:51)
== END 2024-09-05 23:59 | disposition home or self-care (01) ==
LOC: HEMC 07:36
PROVIDERS: PCP Nurse Practitioner; Visit Provider Internal Medicine Hematology & Oncology
DX: D50.9 Iron deficiency anemia, unspecified (principal); D64.9 Anemia, unspecified; G43.919 Migraine, unspecified, intractable, without status migrainosus; K90.9 Intestinal malabsorption, unspecified
CPT/HCPCS: 96365; Q0138

== ENCOUNTER 2024-10-15 10:56 | Outpatient (OUT) | payer MEDICAID, SELFPAY ==
--- OUTSIDE RECORDS SUMMARY | 2024-10-15 11:17 | XMS_ITS | CCD ---
Author Organization [facility] Care Team Providers Care Assistant Producer Name Role Phone HEDGES, CHRISTOPHER W Unavailable [...] Pavlock, DO Max L Primary Care Provider [phone] Berna Hernandez Attending Provider [phone] Mary, Berna Admitting Unavailable Pavlock, Max L Primary Care Unavailable Mary, Berna Attending Unavailable Pavlock, Max L Primary Care Unavailable Mary, Berna Attending Unavailable Mary, Berna Admitting Unavailable MARY, BERNA Attending Unavailable MARY, BERNA Attending Unavailable MARY, BERNA Attending Unavailable KALI LAI Attending Unavailable MAXIMO CARUSO Attending Unavailable Unavailable Primary Care Provider Unavailabl e Allergies Allergy Classification Reported Allergen(s) Allergy Type Date of Onset Reaction(s) Facility (3 sources) Cephalexin; Translations: [CEPHALEXIN] Drug Allergy 3 tongue swelled, Swelling of Lip/Tongue/Thr oat, tongue swelled [facility] (1 source) Cephalexin Drug Allergy 2 [facility] (2 sources) Cephalosporins (Antibiotic); Translations: [Cephalosporins] Allergy to substance 3 Comment:tongue swells in the middle [facility] (1 source) Cephalexin Drug Allergy 3 [facility] Rep[facility] Medications Current Medications Medication Drug Class(es) [...] in 3 days Apr, Not-Taking polymyxin b 66173 unt/ml / trimethoprim 1 mg/ml ophthalmic solution (1 source) Dihydrofolate Reductase Inhibitor Antibacterial, Polymyxin-class Antibacterial Start: 08-03-2018 take 1 drop(s) into the eye(s) four times daily Polymyxin B-Trimethoprim 98458-6.1 UNIT/ML 1 drop into left eye Ophthalmic [...] Range Facility Office Visiton 04-04-2024 Follow-up visit [id number] Mahad Gee 1980 F Date Provider Department Center 04/04/2024 MAXIMO SWEET Family History Problem Relation Age of Onset No Known Problems Mother No Known Problems Father Heart attack Maternal Grandmother Family Status - Relation Status Age at Mother Father Maternal Grandmother Level of Service:41347 MS OFFICE/OUTPATIENT NEW MODERATE MDM 45 MINUTES Reason for Visit and Comments: Palpitations [422591] New Patient [632] - Pt is here because of palpitations. Normal [facility] [place] 09-21-2023 L Specimen: [id number] Received: 09/21/23 Status: CL[place] Escobedo Num: [id number] Spec Type: Surgical Subm Dr: Berna Hernandez Tissues: A Fallopian Tube - Sterilization (BILT FALL TUBES) Procedures: HE/4, Gross/Micro L2 Age/ Patient Sex Location Account Attending Physician Alon Gee 43/F [place] [id number] Berna Hernandez SPEC NUM: [id number] RECD: 09/21/23 STATUS: [place] ESCOBEDO NUM: [id number] PETE: 09/21/[address]: Berna Hernandez ENTERED: 09/21/[address]: Joseph Ryan SPEC TYPE: Surgical DEPT: OLVIN IZQUIERDO ENTERED BY: [id number] RECV BY: [id number] ORDERED: HE/4, Gross/Micro L2 ORDERED: HE/4, Gross/Micro [...] bilaterally. The fimbria are soft and unremarkable. 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 sections are submitted in 4 cassettes as follows: A1-A2 - Marquette segment with fimbria entirely submitted A3-A4 - Longer segment with fimbria entirely submitted CPT Codes 85660 Specimen: [id number] Received: 09/21/23 Status: [place] Escobedo Num: [id number] Spec Type: Surgical Subm Dr: Berna Hernandez Tissues: A Fallopian Tube - Sterilization (BILT FALL TUBES) Procedures: /Nasim, Gross/Micro L2 Patient: Alon Gee [id number] (Continued) Signed (signature on file) Evelin Schulz MD 09/26/23 215 [facility] [place] 08-21-2023 L Specimen: [id number] Received: 08/22/23 Status: [place] Escobedo Num: [id number] Spec Type: Surgical Subm Dr: Berna Hernandez Tissues: A Endometrium - Biopsy (EMBX) Procedures: HE/2, Gross/Micro L4 Age/ Patient Sex Location Account Attending Physician Alon Gee 42/F [place] [id number] Berna Hernandez SPEC NUM: [id number] RECD: 08/22/23 STATUS: [place] ESCOBEDO NUM: [id number] PETE: 08/21/23- SUBM DR: Berna Hernandez ENTERED: 08/22/[address] [facility] [address]: Shelby,Lab SPEC TYPE: Surgical DEPT: [...] in one cassette labeled A1. CPT Codes 39124 Specimen: [id number] Received: 08/22/23 Status: [place] Escobedo Num: [id number] Spec Type: Surgical Subm Dr: Berna Hernandez Tissues: A Endometrium - Biopsy (EMBX) Procedures: Jesse BABIN/Remy L4 Patient: Alon Gee [id number] (Continued) Signed (signature on file) Jacob Alegria MD 08/24/23 1000 [facility] FERRITINon 10-16-2022 Ferritin [Mass/Vol] 3.0 ng/mL Critically low 6.2-137.0 [facility] Comment on above: Performed By: #### F ETIBC, FERR #### [facility] [address] [place] [address] Dr. Reji Alegria IRON AND TIBCon 10-16-2022 % SATURATION 2.9 % Normal [facility] Comment on above: Performed By: #### F ETIBC, FERR #### [facility] [address] [place] [address] Dr. Reji Alegria Iron [Mass/Vol] 13.0 ug/dL Critically low 50.0-170.0 [facility] Comment on above: Performed By: #### F ETIBC, FERR #### [facility] [address] [place] [address] Dr. Reji Alegria TIBC DIRECT 442.0 ug/dL Normal 250.0-450.0 [facility] Comment on above: Performed By: #### F ETIBC, FERR #### [facility] [address] [place] [address] Dr. Reji Alegria HEPATITIS C AB CASCADE TO QU ANT PCR GENOon 08-29-2022 HCV AB <0.1 Normal 0.0-0.9 [facility] Comment on above: Performed By: #### H EPCASC #### [facility] [address] [place] [address] Dr. Reji Alegria Interpretation: Comment Normal [facility] Comment on above: Result Comment: Nega tive Not infected with HCV, unless recent infection is suspected or other evidence exists to indicate HCV infection. Performed By: #### H EPCASC #### [facility] [address] [place] [address] Dr. Reji Alegria CBC AUTO DIFFon 08-28-2022 BASO # 0.1 103/ul Normal 0.0-0.1 [facility] Comment on above: Performed By: #### C BC #### [facility] [address] [place] [address] Dr. Reji Alegria Basophils/100 WBC (Bld) 1.1 % Normal 0.2-2.0 [facility] Comment on above: Performed By: #### C BC #### [facility] [address] [place] [address] Dr. Reji Alegria EO # 0.1 103/ul Normal 0.0-0.7 [facility] Comment on above: Performed By: #### C BC #### [facility] [address] [place] [address] Dr. Reji Alegria Eosinophils/100 WBC (Bld) 1.6 % Normal 0.9-7.0 [facility] Comment on above: Performed By: #### C BC #### [facility] [address] [place] [address] Dr. Reji Alegria Erythrocyte distribution width (RBC) [Ratio] 15.0 % Normal 11.0-15.0 [facility] Comment on above: Performed By: #### C BC #### [facility] [address] [place] [address] Dr. Reji Alegria Hematocrit (Bld) [Volume fraction] 30.9 % Critically low 36.0-48.0 [facility] Comment on above: Performed By: #### C BC #### [facility] [address] [place] [address] Dr. Reji Alegria Hemoglobin (Bld) [Mass/Vol] 10.0 g/dL Critically low 12.0-16.0 [facility] Comment on above: Performed By: #### C BC #### [facility] [address] [place] [address] Dr. Reji Alegria IG # 0.02 10e3/ul Normal 0.00-0.03 [facility] Comment on above: Performed By: #### C BC #### [facility] [address] [place] [address] Dr. Reji Alegria IG % 0.3 % Normal 0.0-0.5 [facility] Comment on above: Performed By: #### C BC #### [facility] [address] [place] [address] Dr. Reji Alegria LYMPH # 2.2 103/ul Normal 1.2-3.8 [facility] Comment on above: Performed By: #### C BC #### [facility] [address] [address] [address] Reji Alegria Lymphocytes/100 WBC (Bld) 34.3 % Normal 20.5-60.0 [facility] Comment on above: Performed By: #### C BC #### [facility] [address] [address] [address] Reji Alegria MANUAL DIFF REQ NO Normal [facility] Comment on above: Performed By: #### C BC #### [facility] [address] [address] [address] Reji Alegria MCH (RBC) [Entitic mass] 22.5 pg Critically low 26.7-34.0 [facility] Comment on above: Performed By: #### C BC #### [facility] [address] [place] [address] Dr. Reji Alegria MCHC (RBC) [Mass/Vol] 32.4 g/dL Normal 29.9-35.2 [facility] Comment on above: Performed By: #### C BC #### [facility] [address] [place] [address] Dr. Reji Alegria MCV (RBC) [Entitic vol] 69.6 fL Critically low 81.0-99.0 [facility] Comment on above: Performed By: #### C BC #### [facility] [address] [place] [address] Dr. Reji Alegria MONO # 0.4 103/ul Normal 0.3-0.8 [facility] Comment on above: Performed By: #### C BC #### [facility] [address] [place] [address] Dr. Reji Alegria Monocytes/100 WBC (Bld) 6.2 % Normal 1.7-12.0 [facility] Comment on above: Performed By: #### C BC #### [facility] [address] [place] [address] Dr. Reji Alegria NEUT # 3.6 103/ul Normal 1.4-6.5 [facility] Comment on above: Performed By: #### C BC #### [facility] [address] [address] [address] Reji Alegria Neutrophils/100 WBC (Bld) 56.5 % Normal 43.0-75.0 [facility] Comment on above: Performed By: #### C BC #### [facility] [address] [place] [address] Dr. Reji Alegria Platelet mean volume (Bld) [Entitic vol] 9.8 fL Normal 9.5-13.5 [facility] Comment on above: Performed By: #### C BC #### [facility] [address] [place] [address] Dr. Reji Alegria PLT 371 103/ul Normal 150-450 [facility] Comment on above: Performed By: #### C BC #### [facility] [address] [place] [address] Dr. Reji Alegria RBC 4.44 106/ul Normal 4.20-5.40 [facility] Comment on above: Performed By: #### C BC #### [facility] [address] [place] [address] Dr. Reji Alegria WBC 6.3 103/ul Normal 4.0-11.0 [facility] Comment on above: Performed By: #### C BC #### [facility] [address] [place] [address] Dr. Reji Alegria GLYCOHEMOGLOBIN A1Con 2022 ADA RECOMMENDATION SEE BELOW Normal [facility] Comment on above: Result Comment: ADA RECOMMENDED LIMIT 4.0 - 6.0 ADA THERAPEUTIC TARGET < 7.0 ACTION SUGGESTED > 7.0 Performed By: #### A 1C #### [facility] [address] [place] [address] Dr. Reji Alegria Glucose [Mass/Vol] 117 mg/dL Normal [facility] Comment on above: Performed By: #### A 1C #### [facility] [address] [place] [address] Dr. Reji Alegria HbA1c (Bld) [Mass fraction] 5.7 % Normal 4.5-6.2 [facility] Comment on above: Performed By: #### A 1C #### [facility] [address] [address] [address] Reji Alegria LIPID PROFILEon 08-28-2022 CHOL-HDL RATIO NORM SEE BELOW Normal [facility] Comment on above: Result Comment: 3.3 - 4.4 LOW RISK 4.4 - 7.1 AVERAGE RISK 7.1 - 11.0 MODERATE RISK >11.0 HIGH RISK Performed By: #### C MP, LIPID, TSH #### [facility] [address] [address] [address] Reji Alegria Cholesterol [Mass/Vol] 146 mg/dL Normal <=200 [facility] Comment on above: Performed By: #### C MP, LIPID, TSH #### [facility] [address] [address] [address] Reji Alegria Cholesterol in HDL [Mass/Vol] 48 mg/dL Normal 40-60 [facility] Comment on above: Performed By: #### C MP, LIPID, TSH #### [facility] [address] [place] [address] Dr. Reji Alegria Cholesterol in LDL [Mass/Vol] 77.2 mg/dL Normal [facility] Comment on above: Performed By: #### C MP, LIPID, TSH #### [facility] [address] [address] [address] Reji Alegria Cholesterol.total/ Cholesterol in HDL [Mass ratio] 3.0 {ratio} Normal [facility] Comment on above: Performed By: #### C MP, LIPID, TSH #### [facility] [address] [address] [address] Reji Alegria HDL NORMAL > or = 60 mg/dl - LO W CARDIOVASCULAR RISK <40 mg/dl - HIGH CARDIOVASCULAR RISK Normal [facility] Comment on above: Performed By: #### C MP, LIPID, TSH #### [facility] [address] [place] [address] Dr. Reji Alegria LDL CALC NORMAL SEE BELOW Normal [facility] Comment on above: Result Comment: <100 mg/dl OPTIMAL 100 - 129 mg/dl NEAR OR ABOVE OPTIMAL 130 - 159 mg/dl BORDERLINE HIGH 160 - 189 mg/dl HIGH >190 mg/dl VERY HIGH Performed By: #### C MP, LIPID, TSH #### [facility] [address] [address] [address] Reji Alegria Triglyceride [Mass/Vol] 104 mg/dL Normal <=150 [facility] Comment on above: Performed By: #### C MP, LIPID, TSH #### [facility] [address] [address] [address] Reji Alegria VLDL CALC 20.8 mg/dL Normal [facility] Comment on above: Performed By: #### C MP, LIPID, TSH #### [facility] [address] [address] [address] Reji Alegria PROF 14(COMP METB)on 023 Albumin [Mass/Vol] 3.8 g/dL Normal 3.4-5.0 [facility] Comment on above: Performed By: #### C MP, LIPID, TSH #### [facility] [address] [address] [address] Reji Alegria Albumin/Globulin [Mass ratio] 1.0 {ratio} Normal [facility] Comment on above: Performed By: #### C MP, LIPID, TSH #### [facility] [address] [address] [address] Reji Alegria ALP [Catalytic activity/Vol] 68 U/L Normal 46-116 [facility] Comment on above: Performed By: #### C MP, LIPID, TSH #### [facility] [address] [address] [address] Reji Alegria ALT [Catalytic activity/Vol] 21 U/L Normal 14-59 [facility] Comment on above: Performed By: #### C MP, LIPID, TSH #### [facility] [address] [address] [address] Reji Alegria Anion gap [Moles/Vol] 12.3 mmol/L Normal [facility] Comment on above: Performed By: #### C MP, LIPID, TSH #### [facility] [address] [address] [address] Reji Alegria AST [Catalytic activity/Vol] 16 U/L Normal 15-37 [facility] Comment on above: Performed By: #### C MP, LIPID, TSH #### [facility] [address] [address] [address] Reji Alegria Bilirubin [Mass/Vol] 0.2 mg/dL Normal 0.2-1.0 [facility] Comment on above: Performed By: #### C MP, LIPID, TSH #### [facility] [address] [place] [address] Dr. Reji Alegria Calcium [Mass/Vol] 9.1 mg/dL Normal 8.5-10.1 [facility] Comment on above: Performed By: #### C MP, LIPID, TSH #### [facility] [address] [place] [address] Dr. Reji Alegria Chloride [Moles/Vol] 102 mmol/L Normal 98-107 [facility] Comment on above: Performed By: #### C MP, LIPID, TSH #### [facility] [address] [place] [address] Dr. Reji Alegria CO2 [Moles/Vol] 27.9 mmol/L Normal 21.0-32.0 [facility] Comment on above: Performed By: #### C MP, LIPID, TSH #### [facility] [address] [place] [address] Dr. Reji Alegria Creatinine [Mass/Vol] 0.52 mg/dL Critically low 0.55-1.02 [facility] Comment on above: Performed By: #### C MP, LIPID, TSH #### [facility] [address] [place] [address] Dr. Reji Alegria EGFR-AF CYPRIOT >60 Normal >=60 [facility] Comment on above: Performed By: #### C MP, LIPID, TSH #### [facility] [address] [place] [address] Dr. Reji Alegria EGFR-NON AF CYPRIOT >60 Normal >=60 [facility] Comment on above: Performed By: #### C MP, LIPID, TSH #### [facility] [address] [place] [address] Dr. Reji Alegria Globulin (S) [Mass/Vol] 3.7 g/dL Normal [facility] Comment on above: Performed By: #### C MP, LIPID, TSH #### [facility] [address] [place] [address] Dr. Reji Alegria Glucose [Mass/Vol] 90 mg/dL Normal 74-106 [facility] Comment on above: Performed By: #### C MP, LIPID, TSH #### [facility] [address] [place] [address] Dr. Reji Alegria Potassium [Moles/Vol] 4.2 mmol/L Normal 3.5-5.1 [facility] Comment on above: Performed By: #### C MP, LIPID, TSH #### [facility] [address] [place] [address] Dr. Reji Alegria Protein [Mass/Vol] 7.5 g/dL Normal 6.4-8.2 [facility] Comment on above: Performed By: #### C MP, LIPID, TSH #### [facility] [address] [place] [address] Dr. Reji Alegria Sodium [Moles/Vol] 138 mmol/L Normal 136-145 [facility] Comment on above: Performed By: #### C MP, LIPID, TSH #### [facility] [address] [place] [address] Dr. Reji Alegria Urea nitrogen [Mass/Vol] 10.0 mg/dL Normal 7.0-18.0 [facility] Comment on above: Performed By: #### C MP, LIPID, TSH #### [facility] [address] [place] [address] Dr. Reji Alegria Urea nitrogen/Creatinin e [Mass ratio] 19.2 mg/mg Normal [facility] Comment on above: Performed By: #### C MP, LIPID, TSH #### [facility] [address] [place] [address] Dr. Reji Alegria TSHon 08-28-2022 TSH 1.268 uIU/mL Normal 0.358-3.740 [facility] Comment on above: Performed By: #### C MP, LIPID, TSH #### [facility] [id number] Reji Alegria XR LSPINE MIN 4 [...] ABBY LEWIS Date: 2022-06-14 15:56 Normal [facility] XR shoulder RT min 2V*on XR shoulder RT min 2V* [facility] Other XR shoulder RT min 2V* [facility] Other XR shoulder RT min 2V* [address] [place] [address] [facility] Other XR shoulder RT min 2V* [place] [address] [facility] Other XR shoulder RT min 2V* XRay Report [facility] Other XR shoulder RT min 2V* Signed [facility] Other XR shoulder RT min 2V* Patient: Alon Gee MR#: [id number] [facility] Other XR shoulder RT min 2V* 50 [facility] Other XR shoulder RT min 2V* : 1980 Acct:[id number] [facility] Other XR shoulder RT min 2V* Age/Sex: 40 / F ADM Date: 05/24/21 [facility] Other XR shoulder RT min 2V* Loc: XDUCLY Room: Type: REG CLI [facility] Other XR shoulder RT min 2V* Attending Dr: Emilie RUEDA [facility] Other XR shoulder RT min 2V* Ordering Provider: EMILIE CASTILLO [facility] Other XR shoulder RT min 2V* Date of Service: 05/24/21 [facility] Other XR shoulder RT min 2V* XR/XR shoulder RT min 2V*: Acute pain of right shoulder [facility] Other XR shoulder RT min 2V* Copies to: EMILIE CASTILLO [facility] Other XR shoulder RT min 2V* CLINICAL HISTORY: Patient woke up with right shoulder pain 2 days ago, no known injury. Pain at the [facility] Other XR shoulder RT min 2V* upper portion of the shoulder. Limited range of motion. [facility] Other XR shoulder RT min 2V* [RIGHT] SHOULDER: [facility] Other XR shoulder RT min 2V* COMPARISON: None [facility] Other XR shoulder RT min 2V* FINDINGS: [AP, Grashey, transscapular] views of the right shoulder were obtained. There is no [facility] Other XR shoulder RT min 2V* evidence of fracture, dislocation or bony destruction. Moderate soft tissue calcification is noted [facility] Other XR shoulder RT min 2V* adjacent to the greater tuberosity of the humerus from calcific bursitis or tendinitis. Mild [facility] Other XR shoulder RT min 2V* degenerative arthritic changes are shown at the acromioclavicular joint. [facility] Other XR shoulder RT min 2V* XR/XR shoulder RT min 2V* [facility] Other XR shoulder RT min 2V* IMPRESSION: [facility] Other XR shoulder RT min 2V* NO FRACTURE OR SUBLUXATION. [facility] Other XR shoulder RT min 2V* CALCIFIC BURSITIS OR TENDINITIS ADJACENT TO THE GREATER TUBEROSITY OF THE HUMERUS. [facility] Other XR shoulder RT min 2V* MILD DEGENERATIVE ARTHRITIC CHANGES TO THE ACROMIOCLAVICULAR JOINT. [facility] Other XR shoulder RT min 2V* Impression dictated by: Mamadou Cobb M.D.05/24/2021 11:11 AM [facility] Other XR shoulder RT min 2V* Dictation Location: [place] [address] [facility] Other XR shoulder RT min 2V* Transcribed By: [facility] 05/24/21 1111 [facility] Other XR shoulder RT min 2V* Dictated By: Mamadou Cobb MD 05/24/21 1108 [facility] Other XR shoulder RT min 2V* Signed By: [facility] Other XR shoulder RT min 2V* 05/24/21 1111 [facility] Other Surgical Pathologyon 017 Surgical Pathology (NOTE)[id number] LAB[facility]ATORIESCONSULTING PATHOLOGISTS CORPORATIONANATOMIC [id number] [place] [phone] Fax: SURGICAL PATHOLOGY CONSULTATIONPatient Name: Nata GEE Rec: [id number] Number: [id number]: 06/01/2017Received: 06/04/2017Reported: 06/05/2017 12:38-- Diagnosis --SKIN, RIGHT [...] cyst wallor neoplasm in these sections. Normal [facility] US NON OB TRANSVAGINALon US NON [...] by:EMANUEL Jonesigned by:Barbara Ledezma MD05/21/17Final result Normal [facility] Cytologyon 05-11-2017 Cytology (NOTE)[id number] Y LABORATORIESCONSULTING PATHOLOGISTS CORPORATIONANATOMIC [id number] [place] [address]. [place], [place] [address] Fax: GYNECOLOGIC CYTOLOGY REPORTPatient Name: DEBRA GEE#: [id number] #[id number]: Cervical material, (ThinPrep vial, Imaging-assisted review)Clinical AodxlyzM94.419 Routine car dispatcher exam without abnormal findingsHigh Risk HPV DNA testing is requested if the diagnosis is ASC-USLMP: 05/03/17INTERPRETATIONCerv ical material, (ThinPrep vial, Imaging-assisted review):Specimen Adequacy: Satisfactory for evaluation. -Endocervical/transformat ion zone component is absent.Descriptive Diagnosis: Negative for intraepithelial lesion or malignancy. Manager Transition: ELÍAS Chavez(ASCP)Electronically Signed Outmk/05/17/2017 [facility] Vital Signs Date Time Vital Sign Value Performing Clinician Facility 05-24-2021 11:05-0400 Body height 162.56 cm Emilie Penningtonault Other [facility] Other 05-24-2021 11:05-0400 Body mass index (BMI) [Ratio] 37.38 kg/m2 Emilie Nanci Other [facility] Other 05-24-2021 11:05-0400 Body temperature 97.8 [degF] Emilie Nanci Other [facility] Other 05-24-2021 11:05-0400 Body weight 98.79 kg Emilie Penningtonault Other [facility] Other 05-24-2021 11:05-0400 Diastolic blood pressure 82 mm[Hg] Emilie Nanci Other [facility] Other 05-24-2021 11:05-0400 Respiratory rate 18 /min Emilie Nanci Other [facility] Other 05-24-2021 11:05-0400 SaO2% (BldA) [Mass fraction] 100 % Emilie Nanci Other [facility] Other 05-24-2021 11:05-0400 Systolic blood pressure 129 mm[Hg] Emilie Castillo Other [facility] Other Encounters Encounter Date Encounter Type Care Provider Facility Start: 04-04-2024 End: 04-04-2024 ambulatory [facility] [facility] Start: 10-24-2023 Telephone encounter Trisha Peacock RN [facility] Start: 10-23-2023 End: 10-23-2023 ambulatory KALI JOELLE Not Available Start: 09-21-2023 End: 09-21-2023 ambulatory Berna Mary Facility:[facility] Start: 09-21-2023 End: 09-21-2023 ambulatory DO Max L Pavlock Work Phone: [facility] Work Phone: Start: 09-21-2023 End: 09-21-2023 Departed Referred DO Max Pavlock Work Phone: [facility] Start: 08-23-2023 End: 08-23-2023 ambulatory BERNA MARY Not Available Start: 08-21-2023 End: 08-21-2023 ambulatory Max L Pavlock Facility:[facility] Start: 08-21-2023 End: 08-21-2023 Departed Referred DO Max Pavlock Work Phone: [facility] Start: 08-21-2023 End: 08-21-2023 ambulatory DO Max L Pavlock Work Phone: [facility] Work Phone: Start: 07-31-2023 End: 07-31-2023 ambulatory BERNA MARY Not Available Start: 11-14-2022 ambulatory MIGUEL SHAMMO Facility:[facility] 1 Start: 10-16-2022 End: 10-17-2022 ambulatory MIGUEL SHAMMO Facility:[facility] Start: 08-30-2022 Encounter for genera l adult medical examination without abnormal findings MIGUEL SHAMMO [facility] Start: 08-28-2022 End: 08-29-2022 ambulatory MIGUELISREAL WILDEMO Facility:[facility] Start: 08-28-2022 End: 08-29-2022 Encounter for general adult medical examination without abnormal findings MIGUELISREAL JEAN Facility:[facility] Start: 06-27-2022 ambulatory MIGUEL SHAMMO Facility:[facility] Start: 06-14-2022 End: 06-15-2022 ambulatory [facility]EL [facility] Facility:[facility] Start: 05-24-2021 Office outpatient vi sit 15 minutes Emilie Castillo [facility] Start: 06-01-2017 End: 06-02-2017 Ambulatory [facility]hill[facility] Start: 05-21-2017 End: 05-22-2017 Ambulatory [facility]RISTOPHER [facility]hillon [facility] Start: 05-11-2017 End: 05-12-2017 Ambulatory [facility] Procedures Date Procedure Procedure Detail Performing Clinician Start: 05-21-2017 Us transvaginal CHRISTOPHER ARAGON Start: 05-11-2017 Cytopathology proced ure, preparation of smear, genital source CHRISTOPHER ARAGON Plan of Treatment Date Care Activity Detail Author Start: 04-06-2023 Influenza vaccination Influenza Vacc ine [facility] Start: 2001 Screening for malign ant neoplasm of cervix Pap Smear [facility] Start: 1999 DTaP,Tdap and Td Vaccines (1 - Tdap) DTaP,Tdap and Td Vaccines (1 - Tdap) [facility] Start: 1998 Adult BMI Screening Adult BMI Screen ing [facility] Start: 1992 Depression Screening Depression Scre ening [facility] Start: 1992 Tobacco Screening Tobacco Screening [facility] Immunizations Immunization Date Immunization Notes Care Provider Fa cility 12-10-2018 Kenalog -40 mg Emilie carrasco Other [employer] Other Payers Date Payer Category Payer Medicaid [id number] 2022 Medicaid [id number] 2016 Unknown [id number] 1980 Unknown [id number] 2.16.84 [id number] 1980 Unknown [id number] 2.16.84 [id number] 1980 Unknown [id number] 2.16.84 0.1.603234.3.579.2.593 1980 Unknown [id number] 2.16.84 0.1.032129.3.579.2.593 1980 Unknown [id number] 2.16.84 0.1.031165.3.579.2.593 1980 Unknown [id number] 2.16.84 0.1.069925.3.579.2.1259 1980 Unknown [id number] 2.16.84 0.1.307908.3.579.2.1259 1980 Unknown [id number] 2.16.84 0.1.542463.3.579.2.1259 1980 Unknown [id number] 2.16.840 .[id number] 1959 Self-pay 1959 Unknown [id number] Unknown [employer] [id number] Unknown [id number] 2.16.8 [id number] Unknown [id number] 2.16.8 [id number] Social History Date Type Detail Facility Unknown if ever smoked [facility] Other Sex Assigned At [facility] Other Start: 1980 Sex Assigned At Female F [facility] Start: 08-03-2018 Tobacco smoking status MOIS Never smoked tobacco (finding) [facility] Tobacco smoking status MOIS Tobacco smoking consumption unknown [facility] Start: 1980 Sex Assigned At Not on file P [facility] Progress note 04-04-2024 Note Date & Type Note Facility 04-04-2024 Note Review of Systems Cardiovascular: Positive for palpitations. Respiratory: Positive for shortness of breath. Neurological: Positive for dizziness and light-headedness. [facility] Progress note 04-04-2024 Note Date & Type Note Facility 04-04-2024 Note [facility] Note Reason for cardiology [...] no past medical history of Diabetes mellitus ([facility]), Hyperlipidemia, or Hypertension. Surgical History She has [...] Total bilirubin 0.7, (more content not included)... [facility] Note 10-24-2023 Telephone Encounter - Trisha Peacock RN - 10/24/2023 2:07 PM EDT Note Date & Type Note Facility 10-24-2023 Miscellaneous Notes Formattin g of this note might be different from the original. SHADY left instructing pt to c/b for [employer]ICER visit. documented in this encounter [facility] Telephone encounter Note 10-24-2023 Telephone Encounter - Trisha Peacock RN - 10/24/2023 2:07 PM EDT Note Date & Type Note Facility 10-24-2023 Telephone encount er Note SHADY left instructing pt to c/b for [employer] SERVICER visit. [facility] Clinical Note 06-14-2022 Note Date & [...] by: ABBY LEWIS Date: 2022-06-14 15:52 [facility] Evaluation note 05-24-2021 Note [...] and tendontitis seen on xray as discussed. [facility] Other Evaluation note Note Date & Type Note Facility Evaluation note No assessment information availa [facility] Work Phone: History general Narrative - Reported Note Date & Type Note Facility History general Narrative - Reported Type Medical History Hypertension Medical History Depression Medical History Intercranial HTN Surgical History C section x 2 Hospitalization History see above surg hx [employer] [facility] [employer] Other Instructions Note Date & Type Note [...] content) DATE CREATED AUTHOR 01/29/2018 Jacquie Ureña [facility] DATE CREATED AUTHOR AUTHOR'S ORGANIZ ATION 12/07/[address] [facility] DATE CREATED AUTHOR AUTHOR'S ORGANIZ ATION 10/04/2023 [facility] DATE CREATED AUTHOR AUTHOR'S ORGANIZ ATION 10/24/2023 [facility] DATE CREATED AUTHOR AUTHOR'S ORGANIZ ATION 04/06/2024 [facility] REASON FOR VISIT (unrecogniz ed section and content) RIGHT SHOULDER PAIN Care Teams (unrecognized sec tion and content) Team Status: Active Member Role Status Dates Romulo Horvath Judd , DO Primary Care Provider Active Team Status: Inactive Member Role Status Dates Romulo Horvath Judd , Primary Care Provider Active Start: August 21, 2023 End: August 21, 2023 Berna Hernandez Attending Provider Active Start: Lázaro lujan 2023 End: August 21, 2023 Team Status: Inactive Member Role Status Dates Romulo Horvath Judd , Primary Care Provider Active Start: September [...] BE BASED ON THE PRIMARY CLINICAL RECORDS. [employer] provides no warranty or guarantee of the accuracy or completeness of information in this document.
[2024-10-15 11:35] LABS: Basophils Absolute Auto 0.1 10^3/uL (0.0-0.1); Basophils Percent Auto 1.1 % (0.2-2.0); Eosinophils Absolute Auto 0.1 10^3/uL (0.0-0.7); Eosinophils Percent Auto 2.4 % (0.9-7.0); Hematocrit 38.5 % (36.0-48.0); Hemoglobin 12.9 g/dL (12.0-16.0); Immature Granulocytes Abs Auto 0.01 10^3/uL (0.00-0.03); Immature Granulocytes Pct Auto 0.2 % (0.0-0.5); Lymphocytes Absolute Auto 1.6 10^3/uL (1.2-3.8); Lymphocytes Percent Auto 30.1 % (20.5-60.0); Mean Corpuscular HGB Conc 33.5 g/dL (29.9-35.2); Mean Corpuscular Hemoglobin 29.4 pg (26.7-34.0); Mean Corpuscular Volume 87.7 fL (81.0-99.0); Mean Platelet Volume 10.4 fL (9.5-13.5); Monocytes Absolute Auto 0.4 10^3/uL (0.3-0.8); Monocytes Percent Auto 7.7 % (1.7-12.0); Neutrophils Absolute Auto 3.2 10^3/uL (1.4-6.5); Neutrophils Percent Auto 58.5 % (43.0-75.0); Platelet Count 281 10^3/uL (150-450); Red Blood Count 4.39 10^6/uL (4.20-5.40); Red Cell Distribution Width 13.8 % (11.0-15.0); White Blood Count 5.4 10^3/uL (4.0-11.0)
[2024-10-15 11:47] LABS: Anion Gap 11.1; BUN Creatinine Ratio 19.1; Calcium 9.2 mg/dL (8.5-10.1); Carbon Dioxide 28.1 mmol/L (21.0-32.0); Chloride 103 mmol/L (98-107); Estimated GFR (African America >60 (>=60 mL/min/1.73m^2); Estimated GFR (Non-African Ame >60 (>=60 mL/min/1.73m^2); Glucose 81 mg/dL (74-106); Potassium 4.2 mmol/L (3.5-5.1); Sodium 138 mmol/L (136-145)
[2024-10-15 11:49] LABS: Percent Iron Saturation 32.7 %
[2024-10-16 03:07] LABS: Vitamin B12 455 pg/mL (232-1245)
== END 2024-10-15 10:57 | disposition home or self-care (01) ==
LOC: LAB 10:58
PROVIDERS: PCP Nurse Practitioner; Visit Provider Internal Medicine Hematology & Oncology
DX: G43.919 Migraine, unspecified, intractable, without status migrainosus (principal); D50.9 Iron deficiency anemia, unspecified; D64.9 Anemia, unspecified; K90.9 Intestinal malabsorption, unspecified
CPT/HCPCS: 36415; 80048; 82306; 82607; 82728; 83540; 83550; 85025

== ENCOUNTER 2024-10-16 07:36 | Outpatient (RCR) | payer MEDICAID, SELFPAY ==
--- OUTSIDE RECORDS SUMMARY | 2024-10-16 07:39 | XMS_ITS | CCD ---
Author Organization [facility] Care Team Providers Care Banking Services Officer Name Role Phone HEDGES, CHRISTOPHER W Unavailable [...] Pavlock, DO Max L Primary Care Provider [phone] Berna Hernandez Attending Provider [phone] Mary, Berna Admitting Unavailable Pavlock, Max [...] swelled, Swelling of Lip/Tongue/Thr oat, tongue swelled [facility] (1 source) Cephalexin Drug Allergy 2 [facility] (2 sources) Cephalosporins (Antibiotic); Translations: [Cephalosporins] Allergy to substance 3 Comment:tongue swells in the middle [facility] (1 source) Cephalexin Drug Allergy [address] [facility] Medications Current Medications Medication Drug [...] in 3 days Apr, Not-Taking polymyxin b 84014 unt/ml / trimethoprim 1 mg/ml ophthalmic solution (1 source) Dihydrofolate Reductase Inhibitor Antibacterial, Polymyxin-class Antibacterial Start: 08-03-2018 take 1 drop(s) into the eye(s) four times daily Polymyxin B-Trimethoprim 64883-3.1 UNIT/ML 1 drop into left eye Ophthalmic [...] Range Facility Office Visiton 04-04-2024 Follow-up visit [id number] Mahad Gee 1980 F Date Provider Department Center 04/04/2024 MAXIMO SWEET Family History Problem Relation Age of Onset No Known Problems Mother No Known Problems Father Heart attack Maternal Grandmother Family Status - Relation Status Age at Mother Father Maternal Grandmother Level of Service:85513 ID OFFICE/OUTPATIENT NEW MODERATE MDM 45 MINUTES Reason for Visit and Comments: Palpitations [766953] New Patient [632] - Pt is here because of palpitations. Normal [facility] [place] 09-21-2023 L Specimen: [id number] Received: 09/21/23 Status: CLINTON Escobedo Num: [id number] Spec Type: Surgical Subm Dr: Berna Hernandez Tissues: A Fallopian Tube - Sterilization (BILT FALL TUBES) Procedures: HE/4, Gross/Micro L2 Age/ Patient Sex Location Account Attending Physician Alon Gee 43/F [facility] [id number] Berna Hernandez SPEC NUM: [id number] RECD: 09/21/23 STATUS: CLINTON ESCOBEDO NUM: [id number] PETE: 09/21/[address]: Berna Hernandez ENTERED: 09/21/[address]: Joseph Ryan SPEC TYPE: Surgical DEPT: OLVIN IZQUIERDO ENTERED BY: [id number] RECV BY: [id number] ORDERED: HE/4, Gross/Micro L2 ORDERED: HE/4, Gross/Micro [...] bilaterally. The fimbria are soft and unremarkable. Player Services Representative sections are submitted in 4 cassettes as follows: A1-A2 - Piseco segment with fimbria entirely submitted A3-A4 - Longer segment with fimbria entirely submitted CPT Codes 45012 Specimen: [id number] Received: 09/21/23 Status: CL[place] Escobedo Num: [id number] Spec Type: Surgical Subm Dr: Berna Hernandez Tissues: A Fallopian Tube - Sterilization (BILT FALL TUBES) Procedures: /Nasim, Gross/Micro L2 Patient: Alon Gee [id number] (Continued) Signed (signature on file) Evelin Schulz MD 09/26/23 215 [facility] [place] 08-21-2023 L Specimen: [id number] Received: 08/22/23 Status: CLINT[place] Escobedo Num: [id number] Spec Type: Surgical Subm Dr: Berna Hernandez Tissues: A Endometrium - Biopsy (EMBX) Procedures: HE/2, Gross/Micro L4 Age/ Patient Sex Location Account Attending Physician Alon Gee 42/F [facility] [id number] Berna Hernandez SPEC NUM: [id number] RECD: 08/22/23 STATUS: CL[place] ESCOBEDO NUM: [id number] PETE: 08/21/23- SUBM DR: Berna Hernandez ENTERED: 08/22/[address] [facility] [address]: [place],Lab SPEC TYPE: Surgical DEPT: [...] in one cassette labeled A1. CPT Codes 15818 Specimen: [id number] Received: 08/22/23 Status: CLINTON Escobedo Num: [id number] Spec Type: Surgical Subm Dr: Berna Hernandez Tissues: A Endometrium - Biopsy (EMBX) Procedures: Jesse BABIN/Remy L4 Patient: Alon Gee [id number] (Continued) Signed (signature on file) Jacob Alegria MD 08/24/23 1000 [facility] FERRITINon 10-16-2022 Ferritin [Mass/Vol] 3.0 ng/mL Critically low 6.2-137.0 [facility] Comment on above: Performed By: #### F ETIBC, FERR #### [facility] [address] [place] [address] Dr. Reji Alegria IRON AND TIBCon 10-16-2022 % SATURATION 2.9 % Normal [facility] Comment on above: Performed By: #### F ETIBC, FERR #### [facility] [address] [place] [address] Dr. Reji Alegria Iron [Mass/Vol] 13.0 ug/dL Critically low 50.0-170.0 [facility] Comment on above: Performed By: #### F ETIBC, FERR #### [facility] [address] [place] [address] Dr. Reji Alegria TIBC DIRECT 442.0 ug/dL Normal 250.0-450.0 [facility] Comment on above: Performed By: #### F ETIBC, FERR #### [facility] [address] [place] [address] Dr. Reji Alegria HEPATITIS C AB CASCADE TO QU ANT PCR GENOon 08-29-2022 HCV AB <0.1 Normal 0.0-0.9 [facility] Comment on above: Performed By: #### H EPCASC #### [facility] [address] [place] [address] Dr. Reji Alegria Interpretation: Comment Normal [facility] Comment on above: Result Comment: Nega tive Not infected with HCV, unless recent infection is suspected or other evidence exists to indicate HCV infection. Performed By: #### H EPCASC #### [facility] [address] [place] [address] Dr. Reji Alegria CBC AUTO DIFFon 08-28-2022 BASO # 0.1 103/ul Normal 0.0-0.1 [facility] Comment on above: Performed By: #### C BC #### [facility] [address] [place] [address] Dr. Reji Alegria Basophils/100 WBC (Bld) 1.1 % Normal 0.2-2.0 [facility] Comment on above: Performed By: #### C BC #### [facility] [address] [place] [address] Dr. Reji Alegria EO # 0.1 103/ul Normal 0.0-0.7 [facility] Comment on above: Performed By: #### C BC #### [facility] [address] [place] [address] Dr. Reji Alegria Eosinophils/100 WBC (Bld) 1.6 % Normal 0.9-7.0 [facility] Comment on above: Performed By: #### C BC #### [facility] [address] [place] [address] Dr. Reji Alegria Erythrocyte distribution width (RBC) [Ratio] 15.0 % Normal 11.0-15.0 [facility] Comment on above: Performed By: #### C BC #### [facility] [address] [place] [address] Dr. Reji Alegria Hematocrit (Bld) [Volume fraction] 30.9 % Critically low 36.0-48.0 [facility] Comment on above: Performed By: #### C BC #### [facility] [address] [place] [address] Dr. Reji Alegria Hemoglobin (Bld) [Mass/Vol] 10.0 g/dL Critically low 12.0-16.0 [facility] Comment on above: Performed By: #### C BC #### [facility] [address] [place] [address] Dr. Reji Alegria IG # 0.02 10e3/ul Normal 0.00-0.03 [facility] Comment on above: Performed By: #### C BC #### [facility] [address] [place] [address] Dr. Reji Alegria IG % 0.3 % Normal 0.0-0.5 [facility] Comment on above: Performed By: #### C BC #### [facility] [address] [place] [address] Dr. Reji Alegria LYMPH # 2.2 103/ul Normal 1.2-3.8 [facility] Comment on above: Performed By: #### C BC #### [facility] [address] [address] [address] Reji Alegria Lymphocytes/100 WBC (Bld) 34.3 % Normal 20.5-60.0 [facility] Comment on above: Performed By: #### C BC #### [facility] [address] [address] [address] Reji Alegria MANUAL DIFF REQ NO Normal [facility] Comment on above: Performed By: #### C BC #### [facility] [address] [address] [address] Reji Alegria MCH (RBC) [Entitic mass] 22.5 pg Critically low 26.7-34.0 [facility] Comment on above: Performed By: #### C BC #### [facility] [address] [place] [address] Dr. Reji Alegria MCHC (RBC) [Mass/Vol] 32.4 g/dL Normal 29.9-35.2 [facility] Comment on above: Performed By: #### C BC #### [facility] [address] [place] [address] Dr. Reji Alegria MCV (RBC) [Entitic vol] 69.6 fL Critically low 81.0-99.0 [facility] Comment on above: Performed By: #### C BC #### [facility] [address] [place] [address] Dr. Reji Alegria MONO # 0.4 103/ul Normal 0.3-0.8 [facility] Comment on above: Performed By: #### C BC #### [facility] [address] [place] [address] Dr. Reji Alegria Monocytes/100 WBC (Bld) 6.2 % Normal 1.7-12.0 [facility] Comment on above: Performed By: #### C BC #### [facility] [address] [place] [address] Dr. Reji Alegria NEUT # 3.6 103/ul Normal 1.4-6.5 [facility] Comment on above: Performed By: #### C BC #### [facility] [address] [address] [address] Reji Alegria Neutrophils/100 WBC (Bld) 56.5 % Normal 43.0-75.0 [facility] Comment on above: Performed By: #### C BC #### [facility] [address] [place] [address] Dr. Reji Alegria Platelet mean volume (Bld) [Entitic vol] 9.8 fL Normal 9.5-13.5 [facility] Comment on above: Performed By: #### C BC #### [facility] [address] [place] [address] Dr. Reji Alegria PLT 371 103/ul Normal 150-450 [facility] Comment on above: Performed By: #### C BC #### [facility] [address] [place] [address] Dr. Reji Alegria RBC 4.44 106/ul Normal 4.20-5.40 [facility] Comment on above: Performed By: #### C BC #### [facility] [address] [place] [address] Dr. Reji Alegria WBC 6.3 103/ul Normal 4.0-11.0 [facility] Comment on above: Performed By: #### C BC #### [facility] [address] [place] [address] Dr. Reji Alegria GLYCOHEMOGLOBIN A1Con 2022 ADA RECOMMENDATION SEE BELOW Normal [facility] Comment on above: Result Comment: ADA RECOMMENDED LIMIT 4.0 - 6.0 ADA THERAPEUTIC TARGET < 7.0 ACTION SUGGESTED > 7.0 Performed By: #### A 1C #### [facility] [address] [place] [address] Dr. Reji Alegria Glucose [Mass/Vol] 117 mg/dL Normal [facility] Comment on above: Performed By: #### A 1C #### [facility] [address] [place] [address] Dr. Reji Alegria HbA1c (Bld) [Mass fraction] 5.7 % Normal 4.5-6.2 [facility] Comment on above: Performed By: #### A 1C #### [facility] [address] [address] [address] Reji Alegria LIPID PROFILEon 08-28-2022 CHOL-HDL RATIO NORM SEE BELOW Normal [facility] Comment on above: Result Comment: 3.3 - 4.4 LOW RISK 4.4 - 7.1 AVERAGE RISK 7.1 - 11.0 MODERATE RISK >11.0 HIGH RISK Performed By: #### C MP, LIPID, TSH #### [facility] [address] [address] [address] eRji Alegria Cholesterol [Mass/Vol] 146 mg/dL Normal <=200 [facility] Comment on above: Performed By: #### C MP, LIPID, TSH #### [facility] [address] [address] [address] Reji Alegria Cholesterol in HDL [Mass/Vol] 48 mg/dL Normal 40-60 [facility] Comment on above: Performed By: #### C MP, LIPID, TSH #### [facility] [address] [place] [address] Dr. Reji Alegria Cholesterol in LDL [Mass/Vol] 77.2 mg/dL Normal [facility] Comment on above: Performed By: #### C MP, LIPID, TSH #### [facility] [address] [address] [address] Reji Alegria Cholesterol.total/ Cholesterol in HDL [Mass ratio] 3.0 {ratio} Normal [facility] Comment on above: Performed By: #### C MP, LIPID, TSH #### [facility] [address] [address] [address] Reji Alegria HDL NORMAL > or = 60 mg/dl - LO W CARDIOVASCULAR RISK <40 mg/dl - HIGH CARDIOVASCULAR RISK Normal [facility] Comment on above: Performed By: #### C MP, LIPID, TSH #### [facility] [address] [place] [address] Dr. Reji Alegria LDL CALC NORMAL SEE BELOW Normal [facility] Comment on above: Result Comment: <100 mg/dl OPTIMAL 100 - 129 mg/dl NEAR OR ABOVE OPTIMAL 130 - 159 mg/dl BORDERLINE HIGH 160 - 189 mg/dl HIGH >190 mg/dl VERY HIGH Performed By: #### C MP, LIPID, TSH #### [facility] [address] [address] [address] Reji Alegria Triglyceride [Mass/Vol] 104 mg/dL Normal <=150 [facility] Comment on above: Performed By: #### C MP, LIPID, TSH #### [facility] [address] [address] [address] Reji Alegria VLDL CALC 20.8 mg/dL Normal [facility] Comment on above: Performed By: #### C MP, LIPID, TSH #### [facility] [address] [address] [address] Reji Alegria PROF 14(COMP METB)on 023 Albumin [Mass/Vol] 3.8 g/dL Normal 3.4-5.[address] [facility] Comment on above: Performed By: #### C MP, LIPID, TSH #### [facility] [address] [address] [address] Reji Alegria Albumin/Globulin [Mass ratio] 1.0 {ratio} Normal [facility] Comment on above: Performed By: #### C MP, LIPID, TSH #### [facility] [address] [address] [address] Reji Alegria ALP [Catalytic activity/Vol] 68 U/L Normal 46-116 [facility] Comment on above: Performed By: #### C MP, LIPID, TSH #### [facility] [address] [address] [address] Reji Alegria ALT [Catalytic activity/Vol] 21 U/L Normal 14-59 [facility] Comment on above: Performed By: #### C MP, LIPID, TSH #### [facility] [address] [address] [address] Reji Alegria Anion gap [Moles/Vol] 12.3 mmol/L Normal [facility] Comment on above: Performed By: #### C MP, LIPID, TSH #### [facility] [address] [address] [address] Reji Alegria AST [Catalytic activity/Vol] 16 U/L Normal 15-37 [facility] Comment on above: Performed By: #### C MP, LIPID, TSH #### [facility] [address] [address] [address] Reji Alegria Bilirubin [Mass/Vol] 0.2 mg/dL Normal 0.2-1.0 [facility] Comment on above: Performed By: #### C MP, LIPID, TSH #### [facility] [address] [place] [address] Dr. Reji Alegria Calcium [Mass/Vol] 9.1 mg/dL Normal 8.5-10.[address] [facility] Comment on above: Performed By: #### C MP, LIPID, TSH #### [facility] [address] [place] [address] Dr. Reji Alegria Chloride [Moles/Vol] 102 mmol/L Normal 98-107 [facility] Comment on above: Performed By: #### C MP, LIPID, TSH #### [facility] [address] [place] [address] Dr. Reji Alegria CO2 [Moles/Vol] 27.9 mmol/L Normal 21.0-32.0 [facility] Comment on above: Performed By: #### C MP, LIPID, TSH #### [facility] [address] [place] [address] Dr. Reji Alegria Creatinine [Mass/Vol] 0.52 mg/dL Critically low 0.55-1.02 [facility] Comment on above: Performed By: #### C MP, LIPID, TSH #### [facility] [address] [place] [address] Dr. Reji Alegria EGFR-AF NIGERIEN >60 Normal >=60 [facility] Comment on above: Performed By: #### C MP, LIPID, TSH #### [facility] [address] [place] [address] Dr. Reji Alegria EGFR-NON AF NIGERIEN >60 Normal >=60 [facility] Comment on above: Performed By: #### C MP, LIPID, TSH #### [facility] [address] [place] [address] Dr. Reji Alegria Globulin (S) [Mass/Vol] 3.7 g/dL Normal [facility] Comment on above: Performed By: #### C MP, LIPID, TSH #### [facility] [address] [place] [address] Dr. Reji Alegria Glucose [Mass/Vol] 90 mg/dL Normal 74-[address] [facility] Comment on above: Performed By: #### C MP, LIPID, TSH #### [facility] [address] [place] [address] Dr. Reji Alegria Potassium [Moles/Vol] 4.2 mmol/L Normal 3.5-5.1 [facility] Comment on above: Performed By: #### C MP, LIPID, TSH #### [facility] [address] [place] [address] Dr. Reji Alegria Protein [Mass/Vol] 7.5 g/dL Normal 6.4-8.2 [facility] Comment on above: Performed By: #### C MP, LIPID, TSH #### [facility] [address] [place] [address] Dr. Reji Alegria Sodium [Moles/Vol] 138 mmol/L Normal 136-[address] [facility] Comment on above: Performed By: #### C MP, LIPID, TSH #### [facility] [address] [place] [address] Dr. Reji Alegria Urea nitrogen [Mass/Vol] 10.0 mg/dL Normal 7.0-18.0 [facility] Comment on above: Performed By: #### C MP, LIPID, TSH #### [facility] [address] [place] [address] Dr. Reji Alegria Urea nitrogen/Creatinin e [Mass ratio] 19.2 mg/mg Normal [facility] Comment on above: Performed By: #### C MP, LIPID, TSH #### [facility] [address] [place] [address] Dr. Reji Alegria TSHon 08-28-2022 TSH 1.268 uIU/mL Normal 0.358-3.740 [facility] Comment on above: Performed By: #### C MP, LIPID, TSH #### [facility] [address] [id number] Reji Alegria XR LSPINE MIN 4 [...] 2022-06-14 15:56 Normal [facility] XR shoulder RT min 2V*on XR shoulder RT min 2V* [facility] [employer] Other XR shoulder RT min 2V* [facility] [employer] Other XR shoulder RT min 2V* [address] [place] [address] [employer] Other XR shoulder RT min 2V* [place] [address] [employer] Other XR shoulder RT min 2V* XRay Report [employer] Other XR shoulder RT min 2V* Signed [employer] Other XR shoulder RT min 2V* Patient: Alon Gee MR#: [id number] [employer] Other XR shoulder RT min 2V* 50 [employer] Other XR shoulder RT min 2V* : 1980 Acct:[id number] [employer] Other XR shoulder RT min 2V* Age/Sex: 40 / F ADM Date: 05/24/21 [employer] Other XR shoulder RT min 2V* Loc: XDUCLY Room: Type: REG CLI [employer] Other XR shoulder RT min 2V* Attending Dr: Emilie RUEDA [employer] Other XR shoulder RT min 2V* Ordering Provider: EMILIE CASTILLO [employer] Other XR shoulder RT min 2V* Date of Service: 05/24/21 [employer] Other XR shoulder RT min 2V* XR/XR shoulder RT min 2V*: Acute pain of right shoulder [employer] Other XR shoulder RT min 2V* Copies to: EM[facility]IE CASTILLO [facility] [employer] Other XR shoulder RT min 2V* CLINICAL HISTORY: Patient woke up with right shoulder pain 2 days ago, no known injury. Pain at the [employer] Other XR shoulder RT min 2V* upper portion of the shoulder. Limited range of motion. [employer] Other XR shoulder RT min 2V* [RIGHT] SHOULDER: [employer] Other XR shoulder RT min 2V* COMPARISON: None [employer] Other XR shoulder RT min 2V* FINDINGS: [AP, Grashey, transscapular] views of the right shoulder were obtained. There is no [employer] Other XR shoulder RT min 2V* evidence of fracture, dislocation or bony destruction. Moderate soft tissue calcification is noted [employer] Other XR shoulder RT min 2V* adjacent to the greater tuberosity of the humerus from calcific bursitis or tendinitis. Mild [employer] Other XR shoulder RT min 2V* degenerative arthritic changes are shown at the acromioclavicular joint. [employer] Other XR shoulder RT min 2V* XR/XR shoulder RT min 2V* [employer] Other XR shoulder RT min 2V* IMPRESSION: [employer] Other XR shoulder RT min 2V* NO FRACTURE OR SUBLUXATION. [employer] Other XR shoulder RT min 2V* CALCIFIC BURSITIS OR TENDINITIS ADJACENT TO THE GREATER TUBEROSITY OF THE HUMERUS. [employer] Other XR shoulder RT min 2V* MILD DEGENERATIVE ARTHRITIC CHANGES TO THE ACROMIOCLAVICULAR JOINT. [employer] Other XR shoulder RT min 2V* Impression dictated by: Mamadou Cobb M.D.05/24/2021 11:11 AM [employer] Other XR shoulder RT min 2V* Dictation Location: [address] [address] [employer] Other XR shoulder RT min 2V* Transcribed By: [facility] 05/24/21 1111 [employer] Other XR shoulder RT min 2V* Dictated By: Mamadou Cobb MD 05/24/21 1108 [employer] Other XR shoulder RT min 2V* Signed By: [employer] Other XR shoulder RT min 2V* 05/24/21 1111 [employer] Other Surgical Pathologyon 017 Surgical Pathology (NOTE)[id number] Y LABORATORIESCONSULTING PATHOLOGISTS CORPORATIONANATOMIC [id number] [place] [phone] Fax: SURGICAL PATHOLOGY CONSULTATIONPatient Name: Nata GEE Rec: [id number] Number: [id number]: 06/01/2017Received: 06/04/2017Reported: 06/05/2017 12:38-- Diagnosis --SKIN, RIGHT [...] cyst wallor neoplasm in these sections. Normal [facility] US NON OB TRANSVAGINALon US [...] by:EMANUEL Jonesigned by:Barbara Ledezma MD05/21/17Final result Normal [facility] Cytologyon 05-11-2017 Cytology (NOTE)[id number] Y LABORATORIESCONSULTING PATHOLOGISTS CORPORATIONANATOMIC ECO[address] [place] [address]. [place], [place] [address] Fax: GYNECOLOGIC CYTOLOGY REPORTPatient Name: DEBRA GEE#: [id number] #[id number]:1: Cervical material, (ThinPrep vial, Imaging-assisted review)Clinical AzksjaiX78.419 Routine last putter away exam without abnormal findingsHigh Risk HPV DNA testing is requested if the diagnosis is ASC-USLMP: 05/03/17INTERPRETATIONCerv ical material, (ThinPrep vial, Imaging-assisted review):Specimen Adequacy: Satisfactory for evaluation. -Endocervical/transformat ion zone component is absent.Descriptive Diagnosis: Negative for intraepithelial lesion or malignancy. Technical Support Internship: ELÍAS Chavez(ASCP)Electronically Signed Outmk/05/17/2017 [facility] Vital Signs Date Time Vital Sign Value Performing Clinician Facility 05-24-2021 11:05-0400 Body height 162.56 cm Emilie Penningtonault Other [employer] Other 05-24-2021 11:05-0400 Body mass index (BMI) [Ratio] 37.38 kg/m2 Emilie Nanci Other [employer] Other 05-24-2021 11:05-0400 Body temperature 97.8 [degF] Emilie Nanci Other [employer] Other 05-24-2021 11:05-0400 Body weight 98.79 kg Emilie Penningtonault Other [employer] Other 05-24-2021 11:05-0400 Diastolic blood pressure 82 mm[Hg] Emilie Nanci Other [employer] Other 05-24-2021 11:05-0400 Respiratory rate 18 /min Emilie Nanci Other [employer] Other 05-24-2021 11:05-0400 SaO2% (BldA) [Mass fraction] 100 % Emilie Nanci Other [employer] Other 05-24-2021 11:05-0400 Systolic blood pressure 129 mm[Hg] Emilie Castillo Other [facility] [email or web address] Other Encounters Encounter Date Encounter Type Care Provider Facility Start: 04-04-2024 End: 04-04-[address] [facility] Start: 10-24-2023 Telephone encounter Trisha Peacock RN [facility] Start: 10-23-2023 End: 10-23-2023 ambulatory KALI JOELLE Not Available Start: 09-21-2023 End: 09-21-2023 ambulatory Berna Mary Facility:[facility] Start: 09-21-2023 End: 09-21-2023 ambulatory DO Max L Pavlock Work Phone: [facility] Work Phone: Start: 09-21-2023 End: 09-21-2023 Departed Referred DO Max Pavlock Work Phone: [facility] Start: 08-23-2023 End: 08-23-2023 ambulatory BERNA MARY Not Available Start: 08-21-2023 End: 08-21-2023 ambulatory Max L Pavlock Facility:[facility] Start: 08-21-2023 End: 08-21-2023 Departed Referred DO Max Pavlock Work Phone: [facility] Start: 08-21-2023 End: 08-21-2023 ambulatory DO Max L Pavlock Work Phone: [facility] Work Phone: Start: 07-31-2023 End: 07-31-2023 ambulatory BERNA MARY Not Available Start: 11-14-2022 ambulatory MIGUEL SHAMMO Facility:[facility] 1 Start: 10-16-2022 End: 10-17-2022 ambulatory MIGUEL SHAMMO Facility:[facility]1 Start: 08-30-2022 Encounter for genera l adult medical examination without abnormal findings MIGUEL SHAMMO [facility] Start: 08-28-2022 End: 08-29-2022 ambulatory MIGUELISREAL WILDEMO Facility:[facility]1 Start: 08-28-2022 End: 08-29-2022 Encounter for general adult medical examination without abnormal findings MIGUELISREAL JEAN Facility:[facility]1 Start: 06-27-2022 ambulatory MIGUEL SHAMMO Facility:[facility] 1 Start: 06-14-2022 End: 06-15-2022 ambulatory MIGUEL [facility] Facility:[facility]1 Start: 05-24-2021 Office outpatient vi sit 15 minutes Emilie Castillo [facility] Start: 06-01-2017 End: 06-02-2017 Ambulatory [facility]RISTOPHER Dhillon [facility] Start: 05-21-2017 End: 05-22-2017 Ambulatory CHRISTOPHER Dhillon [facility] Start: 05-11-2017 End: 05-12-2017 Ambulatory [facility] Procedures Date Procedure Procedure Detail Performing Clinician Start: 05-21-2017 Us transvaginal CHRISTOPHER ARAGON Start: 05-11-2017 Cytopathology proced ure, preparation of smear, genital source CHRISTOPHER ARAGON Plan of Treatment Date Care Activity Detail Author Start: 04-06-2023 Influenza vaccination Influenza Vacc ine [facility] Start: 2001 Screening for malign ant neoplasm of cervix Pap Smear [facility] Start: 1999 DTaP,Tdap and Td Vaccines (1 - Tdap) DTaP,Tdap and Td Vaccines (1 - Tdap) [facility] Start: 1998 Adult BMI Screening Adult BMI Screen ing [facility] Start: 1992 Depression Screening Depression Scre ening [facility] Start: 1992 Tobacco Screening Tobacco Screening [facility] Immunizations Immunization Date Immunization Notes Care Provider Fa cility 12-10-2018 Kenalog -40 mg Emilie carrasco Other [employer] Other Payers Date Payer Category Payer Medicaid [id number] 2022 Medicaid [id number] 2016 Unknown [id number] 1980 Unknown [id number] 2.16.84 [id number] 1980 Unknown [id number] 2.16.84 [id number] 1980 Unknown [id number] 2.16.84 [id number] 1980 Unknown [id number] 2.16.84 [id number] 1980 Unknown [id number] 2.16.84 [id number] 1980 Unknown [id number] 2.16.84 [id number] 1980 Unknown [id number] 2.16.84 0.1.031688.3.579.2.1259 1980 Unknown [id number] 2.16.84 [id number] 1980 Unknown [id number] 2.16.840 .[id number] 1959 Self-pay 1959 Unknown [id number] Unknown [place] [id number] Unknown [id number] 2.16.8 [id number] Unknown [id number] 2.16.8 [id number] Social History Date Type Detail Facility Unknown if ever smoked [employer] Other Sex Assigned At [employer] Other Start: 1980 Sex Assigned At Female F [facility] Start: 08-03-2018 Tobacco smoking status TXIS Never smoked tobacco (finding) [facility] Tobacco smoking status TXIS Tobacco smoking consumption unknown [facility] Start: 1980 Sex Assigned At Not on file P [facility] Progress note 04-04-2024 Note Date & Type Note Facility 04-04-2024 Note Review of Systems Cardiovascular: Positive for palpitations. Respiratory: Positive for shortness of breath. Neurological: Positive for dizziness and light-headedness. [facility] Progress note 04-04-2024 Note Date & Type Note Facility 04-04-2024 Note [facility] Note Reason for cardiology [...] no past medical history of Diabetes mellitus ([facility]), Hyperlipidemia, or Hypertension. Surgical History She has [...] Total bilirubin 0.7, (more content not included)... [facility] Note 10-24-2023 Telephone Encounter - Trisha Peacock RN - 10/24/2023 2:07 PM EDT Note Date & Type Note Facility 10-24-2023 Miscellaneous Notes Formattin g of this note might be different from the original. SHADY left instructing pt to c/b for LEATHER PARTS MATCHER visit. documented in this encounter [facility] Telephone encounter Note 10-24-2023 Telephone Encounter - Trisha Peacock RN - 10/24/2023 2:07 PM EDT Note Date & Type Note Facility 10-24-2023 Telephone encount er Note SHADY left instructing pt to c/b for LEATHER [employer]S M[employer]ER visit. [facility] Clinical Note 06-14-2022 Note Date & [...] Date: 2022-06-14 15:52 [facility] Evaluation note 05-24-2021 Note Date & [...] and tendontitis seen on xray as discussed. [employer] Other Evaluation note Note Date & Type Note Facility Evaluation note No assessment information availa [facility] Work Phone: History general Narrative - Reported Note Date & Type Note Facility History general Narrative - Reported Type Medical History Hypertension Medical History Depression Medical History Intercranial HTN Surgical History C section x 2 Hospitalization History see above surg hx [facility] [email or web address] Other Instructions Note Date & Type Note [...] content) DATE CREATED AUTHOR 01/29/2018 Jacquie Ureña [facility] DATE CREATED AUTHOR AUTHOR'S ORGANIZ ATION 12/07/2022 [facility] DATE CREATED AUTHOR AUTHOR'S ORGANIZ ATION 10/04/2023 [facility] DATE CREATED AUTHOR AUTHOR'S ORGANIZ ATION 10/24/2023 [facility] d[facility] Specialists [facility] DATE CREATED AUTHOR AUTHOR'S ORGANIZ ATION 04/06/2024 [facility] REASON FOR VISIT (unrecogniz ed [...] BE BASED ON THE PRIMARY CLINICAL RECORDS. [employer] provides no warranty or guarantee of the accuracy or completeness of information in this document.
== END 2024-10-17 08:01 | disposition home or self-care (01) ==
LOC: HEMC 07:36
PROVIDERS: PCP Nurse Practitioner; Visit Provider Internal Medicine Hematology & Oncology
DX: D50.9 Iron deficiency anemia, unspecified (principal); K90.9 Intestinal malabsorption, unspecified; D64.9 Anemia, unspecified; Z87.891 Personal history of nicotine dependence; N92.0 Excessive and frequent menstruation with regular cycle
CPT/HCPCS: G0463

== ENCOUNTER 2024-11-05 12:19 | Outpatient (OUT) | payer MEDICAID, SELFPAY | END 2024-11-05 12:20 | disposition home or self-care (01) | LOC: MRI 12:19 | DX: R19.00 Intra-abdominal and pelvic swelling, mass and lump, unspecified site (principal) | CPT/HCPCS: 74183; A9575 ==

== ENCOUNTER 2025-01-21 12:34 | Outpatient (REF) | payer MEDICAID, SELFPAY ==
[2025-01-23 11:09] LABS: Age Gdln ACOG Testing Note (.); HPV Aptima Negative (Negative); IGP, Aptima HPV, rfx 16/18,45 Note (.)
== END 2025-01-21 12:35 | disposition home or self-care (01) ==
LOC: LAB 12:34
PROVIDERS: Visit Provider Nurse Practitioner Family
DX: Z01.419 Encounter for gynecological examination (general) (routine) without abnormal findings (principal)
CPT/HCPCS: 87624; 88175

== ENCOUNTER 2025-01-22 11:56 | Outpatient (OUT) | payer MEDICAID, SELFPAY ==
--- OUTSIDE RECORDS SUMMARY | 2024-08-05 07:00 | XMS_ITS ---
Author Organization [facility] in [place] Address [address] [place] [address] Care Team Providers Care Cooking Teacher Name Role Phone Kal KNEYON, Neo Primary Care Provider Unavailab Berta Hernandez Unavailable [phone] REASON FOR VISIT MD Encounters Encounter Location Date Provider Diagnosis [facility] On[facility] [address] [place] [address] 08/05/2024 Berta Thacker Plan Of Treatment Next Appt Details Provider Name:Berta Kedar , 02/24/2025 01:30:00 PM, [address] [place], [address], Progress Notes * EMMANUEL Mali OrdoñezDOB: 1 (44 yo F)Acc No.[id number]:08/05/2024 UNLOCKED PROGRESS NOTE Progress Notes Patient: Kevin MOORE Mali Ordoñez Provider: Mauricio Thacker M.D. 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 * Medical History: Objective: * Vitals: Assessment: Plan: * Treatment: * * Electronic signature of Mustapha hTacker MD, [id number] on 01/22/2025 at 11:59 AM EDT Sign off status: Pending Visit Status: V OICEMSG (Voice) * Provider: Mauricio Thacker M.D. Date: 1 Generated for Judit tello/Chris/Smita on: 0 01/22/2025 11:59 AM EDT
--- OUTSIDE RECORDS SUMMARY | 2024-10-07 07:00 | XMS_ITS ---
Author Organization [facility] in [place] Address [address] [place] [address] Care Team Providers Care Police And Fire Dispatcher Name Role Phone Kal KENYON, Neo Primary Care Provider Unavailab Berta Hernandez Unavailable [phone] REASON FOR VISIT MD Encounters Encounter Location Date Provider Diagnosis [facility] Oncology [address] [place] [address] 10/07/2024 Berta Thacker Plan Of Treatment Next Appt Details Provider Name:Berta Kedar , 02/24/2025 01:30:00 PM, [address] [place], [address], Progress Notes * EMMANUEL Mali OrdoñezDOB: 1 (44 yo F)Acc No.[id number]:10/07/2024 UNLOCKED PROGRESS NOTE Progress Notes Patient: Kevin ROCKYulietMahi Mali Ordoñez Provider: Mauricio Thacker M.D. :1980 A ge:44 Y S ex:Female Date:10/07/2024 Address:[address] [place], [place] [address] Pcp:Neo Bowden NP Subjective: * 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 * Medical History: Objective: * Vitals: Assessment: Plan: * Treatment: * * Electronic signature of Mustapha Thacker MD, [id number] on 01/22/2025 at 12:00 PM EDT Sign off status: Pending Visit Status: C ANC (Cancelled) * Provider: Mauricio Thacker M.D. Date: 0 10/07/2024 Generated for Judit Lee/Smita on: 0 01/22/2025 12:00 PM EDT
--- OUTSIDE RECORDS SUMMARY | 2024-10-16 07:30 | XMS_ITS ---
Author Organization The [facility] in [place] Address [address] [place] [address] Care Team Providers Care Bird Tender Name Role Phone Kal KENYON, Neo Primary Care Provider Unavailab Berta Hernandez Unavailable [phone] REASON FOR VISIT MD Encounters Encounter Location Date Provider Diagnosis [facility] [address] [place] [address] 10/16/2024 Berta Thacker Plan Of Treatment Next Appt Details Provider Name:Berta Kedar , 02/24/2025 01:30:00 PM, [address] [place], [address], Progress Notes * EMMANUEL Mali OrdoñezDOB: 1 (44 yo F)Acc No.[id number]:10/16/2024 UNLOCKED PROGRESS NOTE Progress Notes Patient: Kevin ROCKYulietMahi Mali Ordoñez Provider: Mauricio Thacker M.D. :1980 A ge:44 Y S ex:Female Date:10/16/2024 Address:[address] [place], [place] [id number] Pcp:Neo Bowden NP Subjective: * 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 * Medical History: Objective: * Vitals: Assessment: Plan: * Treatment: * * Electronic signature of Mustapha Thacker MD, [id number] on 01/22/2025 at 12:00 PM EDT Sign off status: Pending Visit Status: A [facility] (Voice) * Provider: Mauricio Thacker M.D. Date: 0 10/16/2024 Generated for Judit tello/Chris/Smita on: 0 01/22/2025 12:00 PM EDT
--- OUTSIDE RECORDS SUMMARY | 2024-10-27 07:15 | XMS_ITS ---
Author Organization [facility] vices Address [address] [place], [place] [id number] Care Team Providers Care Guest Associate Name Role Phone Lesa Tipton Primary Care Provider [phone] Wang Douglas [phone] REASON FOR VISIT 3 month Anxiety Medications Medication SIG (Take, Route, Frequency, Duration) Notes Start Date End Date Status Ferrous Sulfate 325 (65 Fe) MG 1 tablet Orally once daily 01/29/2024 A ctive busPIRone HCl 10 MG TAKE 1 TABLET BY LOPEZ TH TWICE A DAY FOR 30 DAYS for 30 Active Omeprazole 20 MG 1 capsule 30 minutes before morning meal Orally Once a day Active Sertraline HCl 50 MG TAKE 1 TABLET BY MO UTH EVERY DAY for 90 days Active Social History Sex Assigned At : Social History Observation Description Sex Assigned At Female Encounters Encounter Location Date Provider Diagnosis Main [address] [place], [place] [id number] 10/27/2024 Wang Ly Plan Of Treatment No Information Progress Notes * Mali BENITEZDOB: 1 (44 yo F)Acc No.[id number]:10/27/2024 Medical Note Patient: Kevin MOORE Mali Ordoñez Provider: Smita Ly :1980 A ge:44 Y S ex:Female Date:10/27/2024 [facility] [facility] Pcp:Lesa Tipton Subjective: * 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 3 month Anxiety. * Medical History: * Medications: T aking Ferrous Sulfate 325 (65 Fe) MG Tablet 1 tablet Orally once daily , Taking Omeprazole 20 MG Capsule Delayed Release 1 capsule 30 minutes before morning meal Orally Once a day , Taking busPIRone HCl 10 MG Tablet TAKE 1 TABLET BY MOUTH TWICE A DAY FOR 30 DAYS , Taking Sertraline HCl 50 MG Tablet TAKE 1 TABLET BY MOUTH EVERY DAY Objective: * Vitals: Assessment: Plan: * Treatment: * Billing Information: * Visit Code: * Procedure Codes: * Electronic signature of Jimmy in DHAVAL yL on 01/22/2025 at 12:00 PM EDT Sign off status: Pending * Provider: Smita Ly Date: 10/27/2024 Generated for Judit tello/Chris/Smita on: 01/22/2025 12:00 PM EDT
--- OUTSIDE RECORDS SUMMARY | 2025-01-21 09:00 | XMS_ITS | Encounter Summary ---
Author Organization [facility] Address [address] [place] [address] Care Team Providers Care Semi Automatic Sewing Machine Operator Name Role Phone Unavailable Primary Care Provider Unavailabl e Reason for Visit * Reason Comments Well Women Visit Encounter Details Date Type Department Care Team (Late st Contact Info) Description 01/21/2025 9:00 AM EDT Office Visit [facility] [address] [place] [address] Josue Iyer, BUILDING CARPENTER [address] [place] [address] Pelvic pain in female (Primary Dx); Well woman exam with routine gynecological exam; Encounter for screening mammogram for malignant neoplasm of breast; Yeast detected; PCOS (polycystic ovarian syndrome) Social History Tobacco Use Types Packs/Day Years Used Date Smoking Tobacco: Every Day Cigarettes Comments:Thinking about quit ting Alcohol Use Standard Drinks/Week Comments Never 0 (1 standard drink = 0.6 oz pur e alcohol) Comments No Sex and Gender Information Value Date Recorded Sex Assigned at Female 07/31/2023 9:24 AM EST Legal Sex Female 11:21 PM EDT Gender Identity Female 07/31/2023 9:24 AM EST Sexual Orientation Not on file documented as of this encounter Last Filed Vital Signs Vital Sign Reading Time Taken Comments Blood Pressure 120/86 01/21/2025 9:09 AM EDT Pulse - - Temperature - - Respiratory Rate - - Oxygen Saturation - - Inhaled Oxygen Concentration - - Weight 112 kg (247 lb 8 oz) 01/21/2025 9:09 AM E DT Height - - Body Mass Index 43.84 07/31/2023 10:21 AM EST documented in this encounter Progress Notes * Josue Iyer NP - 01/21/2025 9:00 AM EDT Reason for Appointment: Patient ID: Mali Gee is a 44 y.o. female who presents for Well Women Visit Patient presents today for Annual Exam. MEDICATIONS Current Outpatient Medications Medication Instructions ferrous sulfate 325 mg, Oral, Daily with breakfast hydrOXYzine pamoate (Vistaril) 25 MG capsule TAKE 1 CAPSULE BY MOUTH EVERY 6 HOURS NEEDED FOR ANXIETY omeprazole (PriLOSEC) [address] capsule TAKE 1 CAPSULE BY MOUTH EVERY DAY 30 MINUTES BEFORE MORNING MEAL FOR 90 DAYS ALLERGIES Allergies Allergen Reactions Cephalexin Swelling Tongue swelling PROBLEMS Active Ambulatory Problems Diagnosis Date Noted Menorrhagia with regular cycle 08/17/2023 Pre-op evaluation 08/23/2023 Well woman exam with routine gynecological exam 08/23/2023 Abnormal uterine bleeding (AUB) 08/23/2023 Request for sterilization 08/23/2023 Pelvic pain in female 08/23/2023 Resolved Ambulatory Problems Diagnosis Date Noted No Resolved Ambulatory Problems No Additional Past Medical History HISTORY PAST MEDICAL HISTORY SOCIAL HISTORY History reviewed. No pertinent past medical history. Social History Tobacco Use Smoking status: Every Day Current packs/day: 1.00 Types: Cigarettes Smokeless tobacco: Not on file Tobacco comments: Thinking about quitting Substance Use Topics Alcohol use: Never Drug use: Not on file FAMILY HISTORY Family History Problem Relation Name Age of Onset Diabetes Father Hypertension Father SURGICAL HISTORY Past Surgical History: Procedure Laterality Date SECTION, LOW TRANSVERSE x2 - 2007, 2010 ENDOMETRIAL ABLATION 09/21/2023 SALPINGECTOMY Bilateral 09/21/2023 da brenda REVIEW OF SYSTEMS Review of Systems: Review of Systems Constitutional: Negative. HENT: Negative. Eyes: Negative. Respiratory: Negative. Cardiovascular: Negative. Gastrointestinal: Negative. Genitourinary: Negative. Musculoskeletal: Negative. Skin: Negative. Neurological: Negative. All other systems reviewed and are negative. Hematological: Negative. Endocrine: Negative. Allergic/Immunologic: Negative. OBJECTIVE Objective: Physical Exam Constitutional: Appearance: Normal appearance. Genitourinary: Right Adnexa: not tender and no mass present. Left Adnexa: not tender and no mass present. No cervical discharge. Breasts: Breasts are soft. Right: Normal. Left: Normal. HENT: Head: Normocephalic. Nose: Nose normal. Mouth/Throat: Mouth: Mucous membranes are moist. Cardiovascular: Rate and Rhythm: Normal rate. Pulmonary: Effort: Pulmonary effort is normal. Abdominal: General: Bowel sounds are normal. Palpations: Abdomen is soft. Musculoskeletal: General: Normal range of motion. Cervical back: Normal range of motion. Neurological: General: No focal deficit present. Mental Status: She is alert. Skin: General: Skin is warm and dry. Psychiatric: Mood and Affect: Mood normal. Vitals and nursing note reviewed. Exam conducted with a groover and turner present. Vitals: Estimated body mass index is 43.84 kg/m?? as calculated from the following: Height as of 07/31/23: 5' 3 . Weight as of this encounter: 247 lb 8 oz. BP: 120/86 No LMP recorded. ASSESSMENT & PLAN ICD-10-CM 1. Well woman exam with routine gynecological exam Z01.419 THIN PREP TIS PAP AND HR HPV DNA 2. Encounter for screening mammogram for malignant neoplasm of breast Z12.31 Bilateral screening mammogram Bilateral screening mammogram Annual: Patient presents today for an annual exam. Patient states she is doing well and has no complaints. Pap was obtained without difficulty and patient given mammogram order to have scheduled/obtained. Orders Placed This Encounter Procedures Bilateral screening mammogram Patient has history of ablation and continues to bleed. Patient contineus to have menorrhagia and pain. Options discussed. Patient with complaints of difficulty losing weight, pelvic pain, and AUB. Patient with noted acanthosis nigricans on examination. Will obtain PCOS labs today and begin Metformin 500mg daily. Follow up in 4 weeks. Follow Up: Patient is to return in one year for annual unless needed otherwise. Documented by DHAVAL Sarah on behalf of: Josue Iyer NP * Josue Iyer NP - 01/21/2025 9:00 AM EDT Reason for Appointment: Patient ID: Mali Gee is a 44 y.o. female who presents for Well Women Visit Patient presents today for Annual Exam. MEDICATIONS Current Outpatient Medications Medication Instructions ferrous sulfate 325 mg, Oral, Daily with breakfast hydrOXYzine pamoate (Vistaril) 25 MG capsule TAKE 1 CAPSULE BY MOUTH EVERY 6 HOURS NEEDED FOR ANXIETY metFORMIN XR (GLUCOPHAGE-XR) 500 mg, Oral, Daily with evening meal, Do not crush, chew, or split. omeprazole (PriLOSEC) [address] capsule TAKE 1 CAPSULE BY MOUTH EVERY DAY 30 MINUTES BEFORE MORNING MEAL FOR 90 DAYS terconazole (Terazol 7) 0.4 % vaginal cream 1 applicator, Vaginal, Nightly ALLERGIES Allergies Allergen Reactions Cephalexin Swelling Tongue swelling PROBLEMS Active Ambulatory Problems Diagnosis Date Noted Menorrhagia with regular cycle 08/17/2023 Pre-op evaluation 08/23/2023 Well woman exam with routine gynecological exam 08/23/2023 Abnormal uterine bleeding (AUB) 08/23/2023 Request for sterilization 08/23/2023 Pelvic pain in female 08/23/2023 Resolved Ambulatory Problems Diagnosis Date Noted No Resolved Ambulatory Problems No Additional Past Medical History HISTORY PAST MEDICAL HISTORY SOCIAL HISTORY History reviewed. No pertinent past medical history. Social History Tobacco Use Smoking status: Every Day Current packs/day: 1.00 Types: Cigarettes Smokeless tobacco: Not on file Tobacco comments: Thinking about quitting Substance Use Topics Alcohol use: Never Drug use: Not on file FAMILY HISTORY Family History Problem Relation Name Age of Onset Diabetes Father Hypertension Father SURGICAL HISTORY Past Surgical History: Procedure Laterality Date SECTION, LOW TRANSVERSE x2 - 2007, 2010 ENDOMETRIAL ABLATION 09/21/2023 SALPINGECTOMY Bilateral 09/21/2023 da brenda REVIEW OF SYSTEMS Review of Systems: Review of Systems Constitutional: Positive for unexpected weight change. HENT: Negative. Eyes: Negative. Respiratory: Negative. Cardiovascular: Negative. Gastrointestinal: Negative. Genitourinary: Positive for menstrual problem, pelvic pain and vaginal bleeding. Musculoskeletal: Negative. Skin: Negative. Neurological: Negative. All other systems reviewed and are negative. Hematological: Negative. Endocrine: Negative. Allergic/Immunologic: Negative. OBJECTIVE Objective: Physical Exam Constitutional: Appearance: Normal appearance. She is well-developed. Genitourinary: Vulva normal. Genitourinary Comments: Tenderness to right adnexa Breasts: Breasts are soft. Right: Normal. Left: Normal. Cardiovascular: Rate and Rhythm: Normal rate and regular rhythm. Pulmonary: Effort: Pulmonary effort is normal. Breath sounds: Normal breath sounds. Abdominal: General: Bowel sounds are normal. There is no distension. Palpations: Abdomen is soft. Tenderness: There is no abdominal tenderness. There is no guarding or rebound. Musculoskeletal: General: No swelling. Normal range of motion. Right lower leg: No edema. Left lower leg: No edema. Neurological: Mental Status: She is alert and oriented to person, place, and time. Skin: General: Skin is warm and dry. Comments: Multiple scars to bilateral axilla with history of hidradenitis suppurativa . Noted Acanthosis Nigricans. Psychiatric: Mood and Affect: Mood normal. Behavior: Behavior normal. Vitals and nursing note reviewed. Exam conducted with a groover and turner present. Vitals: Estimated body mass index is 43.84 kg/m?? as calculated from the following: Height as of 07/31/23: 5' 3 . Weight as of this encounter: 247 lb 8 oz. BP: 120/86 No LMP recorded. ASSESSMENT & PLAN ICD-10-CM 1. Pelvic pain in female R10.2 US Pelvis w/ TV CANCELED: US Pelvis w/ TV 2. Well woman exam with routine gynecological exam Z01.419 THIN PREP TIS PAP AND HR HPV DNA 3. Encounter for screening mammogram for malignant neoplasm of breast Z12.31 Bilateral screening mammogram Bilateral screening mammogram 4. Yeast detected B37.9 terconazole (Terazol 7) 0.4 % vaginal cream 5. PCOS (polycystic ovarian syndrome) E28.2 hCG, quantitative, TSH T4, free CBC and differential Follicle stimulating hormone Luteinizing hormone Hemoglobin A1c DHEA-sulfate DHEA metFORMIN XR (Glucophage-XR) 500 MG 24 hr tablet DHEA Patient has history of ablation and continues to bleed. Patient continues to have menorrhagia and pelvic pain. Options discussed. Patient with complaints of difficulty losing weight, pelvic pain, andAUB. Patient with noted acanthosis nigricans on examination. Will obtain PCOS labs today and begin Metformin 500mg daily. Follow up in 4 weeks. Will obtain transvaginal ultrasound for associated right sided pelvic pain on bi manual examination Follow Up: Patient is to return in one year for annual unless needed otherwise. Documented by Josue Iyer NP on behalf of: Josue Iyer NP Documented by Josue Iyer NP on behalf of: Josue Iyer NP documented in this encounter Miscellaneous Notes * Addendum Note - Josue Iyer NP - 01/21/2025 9:00 AM EDTAddended by: JOSUE IYER on: 01/21/2025 09:43 AM Modules accepted: Orders documented in this encounter Plan of Treatment Upcoming Encounters Date Type Department Care Team (Late st Contact Info) Description 01/28/2025 11:30 AM EDT Ancillary Procedure [facility] [address] [place] [phone] 02/18/2025 9:30 AM EDT Office Visit [facility] [address] [facility] [place] [address] Josue Iyer NP [address] [place] [phone] Scheduled Orders Name Type Priority Associated Diagnoses Orde r Schedule Bilateral screening mammogram Imaging Routine Encounter for screening mammogram for malignant neoplasm of breast Expected: 01/21/2025 (Approximate), Expires: 03/23/2026 THIN PREP TIS PAP AND HR HPV DNA Pathology and Cytology Routine Well woman exam with routine gynecological exam Ordered: 01/21/2025 hCG, quantitative, Lab Routine PCOS (polycystic ovarian syndrome) Ordered: 01/21/2025 TSH Lab Routine PCOS (polycystic ovarian syndrome) Ordered: 01/21/2025 T4, free Lab Routine PCOS (polycystic ovarian syndrome) Ordered: 01/21/2025 CBC and differential Lab Routine PCOS (polycystic ovarian syndrome) Ordered: 01/21/2025 Follicle stimulating hormone Lab Routine PCOS (polycystic ovarian syndrome) Ordered: 01/21/2025 Luteinizing hormone Lab Routine PCOS (polycystic ovarian syndrome) Ordered: 01/21/2025 Hemoglobin A1c Lab Routine PCOS (polycystic ovarian syndrome) Ordered: 01/21/2025 DHEA-sulfate Lab Routine PCOS (polycystic ovarian syndrome) Ordered: 01/21/2025 DHEA Lab Routine PCOS (polycystic ovarian syndrome) Expected: 01/21/2025 (Approximate), Expires: 01/21/2026 US Pelvis w/ TV Imaging Routine Pelvic pain in female Expected: 01/21/2025, Expires: 07/23/2025 documented as of this encounter Visit Diagnoses Diagnosis Pelvic pain in female- Primary Unspecified symptom associated with female genital organs Well woman exam with routine gynecological exam Routine gynecological examination Encounter for screening mammogram for malignant neoplasm of breast Yeast detected PCOS (polycystic ovarian syndrome) Polycystic ovaries documented in this encounter
--- OUTSIDE RECORDS SUMMARY | 2025-01-22 11:59 | XMS_ITS | Encounter Summary ---
Author Organization [facility] Address [address] [place] [address] Care Team Providers Care Fur Coat Sewer Name Role Phone Unavailable Primary Care Provider Unavailabl e Encounter Details Date Type Department Care Team (Late st Contact Info) Description 02/13/2024 Abstract [facility] [address] [place] [address] Yrn Hernandez, DO [facility] [address] [place], [facility] Social History Tobacco Use Types Packs/Day Years [...] on file documented as of this encounter Plan of Treatment Upcoming Encounters Date Type Department Care Team (Late st Contact Info) Description 01/28/2025 11:30 AM EDT Ancillary Procedure [facility] [address] [place] [address] 02/18/2025 9:30 AM EDT Office Visit [facility] [address] [place] [address] Skye Iyer, CLINICAL ORTHOPTIST [address] [place] [address] documented as of this encounter Visit Diagnoses Not on filedocumented in this encounter
--- OUTSIDE RECORDS SUMMARY | 2025-01-22 11:59 | XMS_ITS | Encounter Summary ---
Author Organization [facility] Address [address] [place] [address] Care Team Providers Care Coal Washer Name Role Phone Unavailable Primary Care Provider Unavailabl e Encounter Details Date Type Department Care Team (Late st Contact Info) Description 08/07/2024 Abstract [facility] [address] [place] [address] Yrn Hernandez, DO [facility] [place], [facility] Social History Tobacco Use Types Packs/Day [...] Procedure [facility] [address] [place] [address] 02/18/2025 9:30 AM EDT Office Visit [facility] [address] [place] [address] Skye Iyer, COLLECTION OFFICER [address] [place] [address] documented as of this encounter Visit Diagnoses Not on filedocumented in this encounter
--- OUTSIDE RECORDS SUMMARY | 2025-01-22 11:59 | XMS_ITS | Encounter Summary ---
Author Organization [facility] Address [address] [place] [address] Care Team Providers Care Child Care Center Administrator Name Role Phone Unavailable Primary Care Provider Unavailabl e Encounter Details Date Type Department Care Team (Late st Contact Info) Description 10/17/2024 Abstract [facility] [address] [place] [address] Yrn Hernandez, DO [facility] [address], [facility]11 Social History Tobacco Use Types Packs/Day Years [...] Procedure [facility] [address] [place] [address] 02/18/2025 9:30 AM EDT Office Visit [facility] [address] [place] [address] Skye Iyer, RECREATION DIRECTOR [address] [place] [address] documented as of this encounter Visit Diagnoses Not on filedocumented in this encounter
--- OUTSIDE RECORDS SUMMARY | 2025-01-22 12:00 | XMS_ITS | Clinical Summary ---
Author Organization [facility] Address [address] [place] [place] [address] Care Team Providers Care Char Dust Cleaner And Salvager Name Role Phone Unavailable Primary Care Provider Unavailabl e Allergies Active Allergy Reactions Criticality Noted Date Comments Cephalexin Swelling Medium 07/20/2023 Tongue swelling Medications ferrous sulfate 325 (65 Fe) MG tablet Take 325 mg by mouth in the morning. Take with meals. 3 Active omeprazole (PriLOSEC) [address] capsule TAKE 1 CAPSULE BY MOUTH EVERY DAY 30 MINUTES BEFORE MORNING MEAL FOR 90 DAYS 3 Active hydrOXYzine pamoate (Vistaril) 25 MG capsule TAKE 1 CAPSULE BY MOUTH EVERY 6 HOURS NEEDED FOR ANXIETY 3 Active terconazole (Terazol 7) 0.4 % vaginal creamIndication s:Yeast detected Insert 1 applicator into the vagina at bedtime for 7 days 45 g 5 01/29/20 25 Active metFORMIN XR (Glucophage-XR) 500 MG 24 hr tabletIndicatio ns:PCOS (polycystic ovarian syndrome) Take 1 tablet (500 mg) by mouth in the evening. Take with meals Do not crush, chew, or split. 30 tablet 3 5 02/21/20 25 Active Active Problems Problem Noted Date Diagnosed Date Pre-op evaluation 08/23/2023 Well woman exam with routine gynecological exam 08/23/2023 Abnormal uterine bleeding (AUB) 08/23/2023 Request for sterilization 08/23/2023 Pelvic pain in female 08/23/2023 Menorrhagia with regular cycle 08/17/2023 Encounters Date Type Department Care Team Description 01/21/2025 9:00 AM EDT Office Visit [facility] [address] [place] [address] Skye Iyer NP Pelvic pain in female (Primary Dx); Well woman exam with routine gynecological exam; Encounter for screening mammogram for malignant neoplasm of breast; Yeast detected; PCOS (polycystic ovarian syndrome) 01/21/2025 Bamboo flowsheet [facility] [address] [place] [address] Skye Iyer NP from Last 3 Months Family History Medical History Relation Name Comments Diabetes Father Hypertension Father Relation Name Status Comments Father Alive Mother Alive Social History Tobacco Use Types Packs/Day Years Used Date Smoking Tobacco: Every Day Cigarettes Tobacco Cessation:Ready to Q uit: Not Asked; Counseling Given: Not Answered Comments:Thinking about quitting Alcohol Use Standard Drinks/Week Comments Never 0 (1 standard drink = 0.6 oz pur e alcohol) Comments No Sex and Gender Information Value Date Recorded Sex Assigned at Female 07/31/2023 9:24 AM EST Legal Sex Female 11:21 PM EDT Gender Identity Female 07/31/2023 9:24 AM EST Sexual Orientation Not on file Last Filed Vital Signs Vital Sign Reading Time Taken Comments Blood Pressure 120/86 01/21/2025 9:09 AM EDT Pulse - - Temperature - - Respiratory Rate - - Oxygen Saturation - - Inhaled Oxygen Concentration - - Weight 112 kg (247 lb 8 oz) 01/21/2025 9:09 AM E DT Height 160 cm (5' 3 ) 07/31/2023 10:21 AM EST Body Mass Index 43.84 07/31/2023 10:21 AM EST Plan of Treatment Upcoming Encounters Date Type Department Care Team (Late st Contact Info) Description 01/28/2025 11:30 AM EDT Ancillary Procedure [facility] [address] [place] [address] 02/18/2025 9:30 AM EDT Office Visit [facility] [address] [place] [address] Skye Iyer NP [address] [place] [address] [place] [id number] Insurance [employer] [place]
--- OUTSIDE RECORDS SUMMARY | 2025-01-22 12:00 | XMS_ITS | Referral Summary ---
Author Organization [facility] Address [address] [place] [address] Care Team Providers Care Plastic Molder Name Role Phone Lesa Tipton MD Primary Care Provider [phone] Allergies Active Allergy Reactions Criticality Noted Date Comments Cephalexin Anaphylaxis High 04/04/2024 Medications sertraline (Zoloft) 50 mg tablet Take 50 mg by mouth in the morning. Active busPIRone (Buspar) 10 mg tablet Take by mouth three times daily. Active omeprazole (PriLOSEC) [address] capsule Take 20 mg by mouth before breakfast. Do not crush or chew. Active metoprolol succinate XL (Toprol-XL) 25 mg 24 hr tabletIndications :Palpitations,Ess ential hypertension Take 1 tablet (25 mg) by mouth in the morning. Do not crush or chew. 30 tablet 11 04/04/2024 04/04/20 25 Active Active Problems Problem Noted Date Diagnosed Date Palpitations 04/06/2024 GUSMAN (dyspnea on exertion) 04/06/2024 Class 3 severe obesity due t o excess calories without serious comorbidity with body mass index (BMI) of 40.0 to 44.9 in adult 04/06/2024 Sleep apnea 04/06/2024 Essential hypertension 04/06/2024 Tobacco abuse 04/06/2024 Abnormal uterine bleeding (AUB) 08/23/2023 Pelvic pain in female 08/23/2023 Pre-op evaluation 08/23/2023 Request for sterilization 08/23/2023 Well woman exam with routine gynecological exam 08/23/2023 Menorrhagia with regular cycle 08/17/2023 Social History Tobacco Use Types Packs/Day Years Used Date Smoking Tobacco: Former Cigarettes 1 20 0 12/04/2003 - 12/04/2023 Alcohol Use Standard Drinks/Week Comments Never 0 (1 standard drink = 0.6 oz pur e alcohol) Comments Unknown Sex and Gender Information Value Date Recorded Sex Assigned at Not on file Legal Sex Female 10:35 AM EDT Gender Identity Not on file Sexual Orientation Not on file Last Filed Vital Signs Vital Sign Reading Time Taken Comments Blood Pressure 132/89 04/04/2024 11:31 AM EDT Pulse 74 04/04/2024 11:31 AM EDT Temperature - - Respiratory Rate - - Oxygen Saturation 98% 04/04/2024 11:31 AM EDT Inhaled Oxygen Concentration - - Weight 106 kg (233 lb) 04/04/2024 11:31 AM EDT Height 160 cm (5' 3 ) 04/04/2024 11:31 AM EDT Body Mass Index 41.27 04/04/2024 11:31 AM EDT Plan of Treatment Not on file Insurance MEDICAID Care Teams Plastic Molder Relationship Specialty Start Date End Date Lesa Tipton MD [address] [place] [phone] PCP - General Nurse Practitioner 02/15/24
--- OUTSIDE RECORDS SUMMARY | 2025-01-22 12:00 | XMS_ITS | Clinical Summary ---
Author Organization [facility] Address [address] [place] [address] Care Team Providers Care Debarker Operator Name Role Phone Lesa Tipton MD Primary Care Provider [phone] Allergies Active Allergy Reactions Criticality Noted Date [...] exam 08/23/2023 Menorrhagia with regular cycle 08/17/2023 Family History Medical History Relation Name Comments No Known Problems Father Heart attack Maternal Grandmother No Known Problems Mother Relation Name Status Comments Father Maternal Grandmother Mother Social History Tobacco Use Types Packs/Day Years [...] 04/04/2024 11:31 AM EDT Plan of Treatment Health Maintenance Due Date Last Done Comments Depression Screening 1992 Varicella Vaccines (1 of 2 - 13+ 2-dose series) 1993 Hepatitis B Vaccines (1 of 3 - 19+ 3-dose series) 1999 Pap Smear 2001 Adult Tetanus 2002 Cervical Cancer Screening 2010 HPV/Cotest 2010 Mammogram 2020 COVID-19 Vaccine (3 - 2023-2 5 season) 2024 03/22/2021, 03/01/2021 Influenza Vaccine (Season Ended) 2025 Zoster Vaccines (1 of 2) 2030 HIB Vaccines Aged Out No longer eligi ble based on patient's age to complete this topic HPV Vaccines Aged Out No longer eligi ble based on patient's age to complete this topic IPV Vaccines Aged Out No longer eligi ble based on patient's age to complete this topic Meningococcal B Vaccine Aged Out No l onger eligible based on patient's age to complete this topic Meningococcal Vaccine Aged Out No bianca jonna eligible based on patient's age to complete this topic Pneumococcal Vaccine: Pediatrics (0 to 5 Years) and At-Risk Patients (6 to 64 Years) Aged Out No longer eligible b ased on patient's age to complete this topic Rotavirus Vaccines Aged Out No longer eligible based on patient's age to complete this topic [place] [address] [place] [address] MEDICAID Care Teams Debarker Operator Relationship Specialty Start Date End Date Lesa Tipton MD [address] [place] [phone] PCP - General Nurse Practitioner 02/15/24
--- OUTSIDE RECORDS SUMMARY | 2025-01-22 12:00 | XMS_ITS | Patient Health Record ---
Author Organization [facility] [place] Address [address] [place] [address] Care Team Providers Care News Anchor Name Role Phone Neo Bowden NP Primary Care Provider Unavailab Berta Hernandez Unavailable [phone] Garry Alatorre Unavailable [phone] Results Component Value Reference Range Notes CBC AUTO DIFF (Not yet revie wed by provider) Interpretation: Performing Lab: Notes/Report: [facility] , White Blood Count 5.0 4.0-11.0 10 3/uL Red Blood Count 4.25 4.20-5.40 10 6/uL Hemoglobin 12.7 12.0-16.0 g/dL Hematocrit 37.0 36.0-48.0 % Mean Corpuscular Volume 87.1 81.0-99.0 fL Mean Corpuscular Hemoglobin 29.9 26.7-34.0 pg Mean Corpuscular HGB Conc 34.3 29.9-35.2 g/dL Red Cell Distribution Width 12.5 11.0-15.0 % Platelet Count 263 150-450 10 3/uL Mean Platelet Volume 10.3 9.5-13.5 fL Neutrophils Percent Auto 54.0 43.0-75.0 % Lymphocytes Percent Auto 34.1 20.5-60.0 % Monocytes Percent Auto 8.1 1.7-12.0 % Eosinophils Percent Auto 2.4 0.9-7.0 % Basophils Percent Auto 1.2 0.2-2.0 % Immature Granulocytes Pct Auto 0.2 0.0-0.5 % Neutrophils Absolute Auto 2.7 1.4-6.5 10 3/uL Lymphocytes Absolute Auto 1.7 1.2-3.8 10 3/uL Monocytes Absolute Auto 0.4 0.3-0.8 10 3/uL Eosinophils Absolute Auto 0.1 0.0-0.7 10 3/uL Basophils Absolute Auto 0.1 0.0-0.1 10 3/uL Immature Granulocytes Abs Auto 0.01 0.00-0.03 10 3/uL Performing Lab: see note ML - [facility] LB FERRITIN (Not yet reviewed b y provider) Interpretation: Performing Lab: Notes/Report: [facility] , Ferritin 40.0 8.0-252.0 ng/mL Performing Lab: see note ML - [facility] LB IRON AND TIBC (Not yet revie wed by provider) Interpretation: Performing Lab: Notes/Report: [facility] , Iron 80.0 50.0-170.0 ug/dL Total Iron Binding Capacity 293.0 250.0-450.0 u g/dL Percent Iron Saturation 27.3 Performing Lab: see note ML - [facility] LB CBC AUTO DIFF (Not yet revie wed by provider) Interpretation: Performing Lab: Notes/Report: [facility] , White Blood Count 5.9 4.0-11.0 10 3/uL Red Blood Count 4.41 4.20-5.40 10 6/uL Hemoglobin 12.5 12.0-16.0 g/dL Hematocrit 37.3 36.0-48.0 % Mean Corpuscular Volume 84.6 81.0-99.0 fL Mean Corpuscular Hemoglobin 28.3 26.7-34.0 pg Mean Corpuscular HGB Conc 33.5 29.9-35.2 g/dL Red Cell Distribution Width 12.3 11.0-15.0 % Platelet Count 284 150-450 10 3/uL Mean Platelet Volume 10.3 9.5-13.5 fL Neutrophils Percent Auto 58.3 43.0-75.0 % Lymphocytes Percent Auto 31.6 20.5-60.0 % Monocytes Percent Auto 6.9 1.7-12.0 % Eosinophils Percent Auto 1.7 0.9-7.0 % Basophils Percent Auto 1.2 0.2-2.0 % Immature Granulocytes Pct Auto 0.3 0.0-0.5 % Neutrophils Absolute Auto 3.4 1.4-6.5 10 3/uL Lymphocytes Absolute Auto 1.9 1.2-3.8 10 3/uL Monocytes Absolute Auto 0.4 0.3-0.8 10 3/uL Eosinophils Absolute Auto 0.1 0.0-0.7 10 3/uL Basophils Absolute Auto 0.1 0.0-0.1 10 3/uL Immature Granulocytes Abs Auto 0.02 0.00-0.03 10 3/uL Performing Lab: see note ML - [facility] LB FERRITIN (Not yet reviewed b y provider) Interpretation: Performing Lab: Notes/Report: [facility] , Ferritin 8.0 8.0-252.0 ng/mL Performing Lab: see note - [facility] LB IRON AND TIBC (Not yet revie wed by provider) Interpretation: Performing Lab: Notes/Report: [facility] , Iron 37.0 50.0-170.0 ug/dL Total Iron Binding Capacity 388.0 250.0-450.0 u g/dL Percent Iron Saturation 9.5 Performing Lab: see note - [facility] LB VITAMIN D 25 [place] (Not yet rev iewed by provider) Interpretation: Performing Lab: Notes/Report: [facility] , Vitamin D 24.1 <20 ng/mL Vit D deficient 20-<30 ng/mL Vit D insufficient >100 ng/mL Potential Toxicity 30-100 ng/mL Vit D sufficient Performing Lab: see note - [facility] LB Vitamin B12 (Not yet reviewe d by provider) Interpretation: Performing Lab: Notes/Report: [facility] , Vitamin B12 503 126-2570 pg/mL [address] [place], [place] [id number] Performed at: [facility] Wind Turbine Technician: Homar Bo PhD, Phone: [phone] Performing Lab: see note - [facility] LB CBC AUTO DIFF (Not yet revie wed by provider) Interpretation: Performing Lab: Notes/Report: [facility] , White Blood Count 5.4 4.0-11.0 10 3/uL Red Blood Count 4.39 4.20-5.40 10 6/uL Hemoglobin 12.9 12.0-16.0 g/dL Hematocrit 38.5 36.0-48.0 % Mean Corpuscular Volume 87.7 81.0-99.0 fL Mean Corpuscular Hemoglobin 29.4 26.7-34.0 pg Mean Corpuscular HGB Conc 33.5 29.9-35.2 g/dL Red Cell Distribution Width 13.8 11.0-15.0 % Platelet Count 281 150-450 10 3/uL Mean Platelet Volume 10.4 9.5-13.5 fL Neutrophils Percent Auto 58.5 43.0-75.0 % Lymphocytes Percent Auto 30.1 20.5-60.0 % Monocytes Percent Auto 7.7 1.7-12.0 % Eosinophils Percent Auto 2.4 0.9-7.0 % Basophils Percent Auto 1.1 0.2-2.0 % Immature Granulocytes Pct Auto 0.2 0.0-0.5 % Neutrophils Absolute Auto 3.2 1.4-6.5 10 3/uL Lymphocytes Absolute Auto 1.6 1.2-3.8 10 3/uL Monocytes Absolute Auto 0.4 0.3-0.8 10 3/uL Eosinophils Absolute Auto 0.1 0.0-0.7 10 3/uL Basophils Absolute Auto 0.1 0.0-0.1 10 3/uL Immature Granulocytes Abs Auto 0.01 0.00-0.03 10 3/uL Performing Lab: see note ML - [facility] LB FERRITIN (Not yet reviewed b y provider) Interpretation: Performing Lab: Notes/Report: [facility] , Ferritin 163.0 8.0-252.0 ng/mL Performing Lab: see note ML - [facility] LB IRON AND TIBC (Not yet revie wed by provider) Interpretation: Performing Lab: Notes/Report: [facility] , Iron 90.0 50.0-170.0 ug/dL Total Iron Binding Capacity 275.0 250.0-450.0 u g/dL Percent Iron Saturation 32.7 Performing Lab: see note ML - [facility] LB PROF CHEM 8 (BAS METB) (Not yet reviewed by provider) Interpretation: Performing Lab: Notes/Report: [facility] , Sodium 138 136-145 mmol/L Potassium 4.2 3.5-5.1 mmol/L Chloride 103 98-107 mmol/L Carbon Dioxide 28.1 21.0-32.0 mmol/L Anion Gap 11.1 Glucose 81 74-106 mg/dL Blood Urea Nitrogen 13.0 7.0-18.0 mg/dL Creatinine 0.68 0.55-1.02 mg/dL Estimated GFR ( Elvi >60 >=60 mL/min/1.73m 2 Estimated GFR (Non- Benita >60 >=60 mL/min/1.73m 2 BUN Creatinine Ratio 19.1 Calcium 9.2 8.5-10.1 mg/dL Performing Lab: see note - [facility] LB VITAMIN D 25 [place] (Not yet rev iewed by provider) Interpretation: Performing Lab: Notes/Report: [facility] , Vitamin D 22.2 <20 ng/mL Vit D deficient 30-100 ng/mL Vit D sufficient >100 ng/mL Potential Toxicity 20-<30 ng/mL Vit D insufficient Performing Lab: see note - [facility] LB Vitamin B12 (Not yet reviewe d by provider) Interpretation: Performing Lab: Notes/Report: [facility] , Vitamin B12 335 765-8762 pg/mL Wind Turbine Technician: Homar Bo PhD, Phone: [phone] [address] [place], [place] [id number] Performed at: - [facility] [place] Performing Lab: see note LC - [facility] LB Reason For Referral No Information Encounters Encounter Location Date Provider Diagnosis Pulmonary [facility] [place] [address] [place] [address] 01/31/2024 [facility] [place] [address] [place] [address] 02/11/2024 [facility] [place] [address] [place] [address] 04/21/2024 [facility] Oncology [address] [place] [address] 10/16/2024 Berta Thacker [facility] Oncology [address] [place] [address] 08/05/2024 Berta Thacker [facility] Oncology [address] [place] [address] 02/12/2024 Berta Thacker Plan Of Treatment Pending Test Test Name Order Date CBC AUTO DIFF 11/27/2023 CBC AUTO DIFF 02/12/2024 CBC AUTO DIFF 08/04/2024 CBC AUTO DIFF 10/15/2024 FERRITIN 08/04/2024 FERRITIN 10/15/2024 FERRITIN 02/12/2024 FERRITIN 11/27/2023 IRON AND TIBC 02/12/2024 IRON AND TIBC 11/27/2023 IRON AND TIBC 08/04/2024 IRON AND TIBC 10/15/2024 PROF CHEM 8 (BAS METB) 10/15/2024 VITAMIN D 25 [place] 08/04/2024 VITAMIN D 25 [place] 10/15/2024 Vitamin B12 10/15/2024 Vitamin B12 08/04/2024 Next Appt Details Provider Name:Berta Thacker , 02/24/2025 01:30:00 PM, [address] [place], [address], Insurance Providers Payer Name Payer Address Payer Phone Subscriber Number Group Number Insured Name Patient Relationship to Insured Coverage Start Date Coverage End Date [employer] [place]ICA[place] [address] [address] [place] [address] [id number] [place] Gee Self - patient is the insured
--- OUTSIDE RECORDS SUMMARY | 2025-01-22 12:00 | XMS_ITS | Clinical Summary ---
Author Organization [facility] Address [address] [place] [address] Care Team Providers Care Sales Service Supervisor Name Role Phone Romulo Whaley DO Primary Care Provider Unavaila ble Allergies No known active allergies Medications VENTOLIN HFA 108 (90 Base) MCG/ACT inhaler INHALE 2 PUFFS BY MOUTH EVERY 4 HOURS NEEDED 0 03/08/2017 Active meloxicam (MOBIC) 15 MG tablet 05/22/2017 Active Active Problems No known active problems Family History Medical History Relation Name Comments Diabetes Father High Blood Pressure Father Migraines Mother Relation Name Status Comments Father Alive Maternal Grandfather Maternal Grandmother Mother Alive Paternal Grandfather Paternal Grandmother Social History Tobacco Use Types Packs/Day Years Used Date Smoking Tobacco: Never Smokeless Tobacco: Never Alcohol Use Standard Drinks/Week Comments No 0 (1 standard drink = 0.6 oz pur e alcohol) Comments No Sex and Gender Information Value Date Recorded Sex Assigned at Not on file Legal Sex Female 9:48 AM EST Gender Identity Not on file Sexual Orientation Not on file Last Filed Vital Signs Vital Sign Reading Time Taken Comments Blood Pressure 104/64 06/01/2017 9:52 AM EDT Pulse - - Temperature - - Respiratory Rate - - Oxygen Saturation - - Inhaled Oxygen Concentration - - Weight 119.2 kg (262 lb 12.8 oz) 06/01/2017 9:52 AM EDT Height 160 cm (5' 3 ) 06/01/2017 9:52 AM EDT Body Mass Index 46.55 06/01/2017 9:52 AM EDT Plan of Treatment Not on file Insurance [facility] Care Teams Sales Service Supervisor Relationship Specialty Start Date End Date Romulo Whaley DO [address] [place] [address] PCP - General Family Medicine 05/11/17
--- OUTSIDE RECORDS SUMMARY | 2025-01-22 12:00 | XMS_ITS | Clinical Summary ---
Author Organization [facility] Address [id number] [address] [place] [address] Care Team Providers Care Medical Practitioners Name Role Phone Unavailable Primary Care Provider Unavailabl e Social History Tobacco Use Types Packs/Day Years Used Date Smoking Tobacco: Never Assessed Comments Unknown Sex and Gender Information Value Date Recorded Sex Assigned at Not on file Legal Sex Female 9:01 AM EST Gender Identity Not on file Sexual Orientation Not on file Plan of Treatment Health Maintenance Due Date Last Done Comments Depression Screening 1992 Tobacco Screening 1992 Adult BMI Screening 1998 DTaP,Tdap and Td Vaccines (1 - Tdap) 1999 Pap Smear 2001 Influenza Vaccine 04/06/2025 Medical Devices Not on file Insurance [employer] MEDICAID
--- OUTSIDE RECORDS SUMMARY | 2025-01-22 12:00 | XMS_ITS | Encounter Summary ---
Author Organization [facility] Address [address] [place] [address] Care Team Providers Care Java Developer Consultant Name Role Phone Unavailable Primary Care Provider Unavailabl e Encounter Details Date Type Department Care Team (Late Contact Info) Description 01/21/2025 Bamboo flowsheet [facility] [address] [facility] [place] [address] Skye Iyer, TAWER [address] [facility] [place] [address] Social History Tobacco Use Types Packs/Day Years [...] Encounters Date Type Department Care Team (Late Contact Info) Description 01/28/2025 11:30 AM EDT Ancillary Procedure [facility] [address] [place] [address] 02/18/2025 9:30 AM EDT Office Visit [facility] [address] [facility] [place] [address] Skye Iyer, TAWER [address] [place] [address] documented as of this encounter Visit Diagnoses Not on filedocumented in this encounter
--- OUTSIDE RECORDS SUMMARY | 2025-01-22 12:00 | XMS_ITS | Encounter Summary ---
Author Organization [facility] Address [address] [place] [address] Care Team Providers Care Production Grip Name Role Phone Unavailable Primary Care Provider Unavailabl e Encounter Details Date Type Department Care Team (Late st Contact Info) Description 09/04/2023 Clinisync Result Encounter [facility] External Department Unsolicited Yrn Hernandez, DO [address], [facility] Social History Tobacco Use Types Packs/Day [...] Procedure [facility] [address] [place] [address] 02/18/2025 9:30 AM EDT Office Visit [facility] [address] [place] [address] Skye Iyer, CL[employer]ICAL TRANSCRIBER [address] [place] [address] documented as of this encounter Procedures Procedure Name Priority Date/Time Associated Diagnosis Comments US PELVIS W/ TRANSVAGINAL 09/04/2023 3:03 PM EST documented in this encounter Results * US PELVIS W/ TRANSVAGINAL (09/04/2023 3:03 PM EST) Anatomical Region Laterality Modality Other 09/04/2023 3:03 PM EST Narrative 09/04/2023 3:05 [place] [address] Ultrasound Report Signed Patient: ALON BENITEZ MR#: [id number] : 1980 Acct:[id number] Age/Sex: 42 / F ADM Date: 09/04/23 Loc: [facility] Attending Dr: Yrn Hernandez D.O. Ordering Physician: Yrn Hernandez D.O. Date of Service: 09/04/23 Procedure(s): US pelvis w/ transvaginal Accession Number(s): [id number] cc: Yrn Hernandez D.O.; MIGUEL JEAN M.D. [address] [address] Patient Name: ALON BENITEZ MRN: [id number] date: 1980 Sex: F Assigned Patient Location: [facility] Current Patient Location: [facility] Accession/Order Number: [id number] Exam Date: 09/04/2023 11:08 Report Date: 09/04/2023 15:03 At the request of: YRN HERNANDEZ Procedure: US pelvis w/ transvaginal PROCEDURE: US pelvis w/ transvaginal, 09/04/2023 11:08 AM EST CLINICAL INDICATIONS: Pelvic pain, menorrhagia LMP 08/22/2023 2 para 2 COMPARISON: None TECHNIQUE: Transabdominal, transvaginal pelvic sonogram, grayscale, color and spectral assessment. FINDINGS: Uterus: 15.7 x 7.3 x 9.6 cm. There is thickening of the endometrial echo complex up to 1.7 cm. Heterogeneous uterine enlargement is identified. A 5.0 x 5.0 x 4.7 cm intramural/subserosal uterine fibroid favored dorsal right body. Nabothian paracervical cysts are noted. section scarring ventral lower uterine segment noted. Right ovary: 3.1 x 2.0 x 2.4 cm, volume 8 mL. Normal sonographic morphology. Left ovary: Surgically absent. No free fluid. US/US pelvis w/ transvaginal IMPRESSION: 1. Heterogeneous lobular enlargement of the uterus with 5.0 cm. intramural/subserosal uterine fibroid 2. section scarring ventral lower uterine segment. 3. Nabothian paracervical cyst. 4. Normal right ovarian sonographic morphology. 5. Surgical absence of the left ovary. Electronically authenticated by: MANUEL GARLAND Date: 09/04/2023 15:03 Dictated By: Manuel Garland M.D. Signed By: 09/04/23 1505 DD/ 1503 TD/TT: Slope Runner: Procedure Note Radiology, Radiologist, MD - 09/04/2023 [place] [address] Ultrasound Report Signed Patient: ALON BENITEZ JMR#: [id number] : 1980Acct:[id number] Age/Sex: 42 / FADM Date: 09/04/23 Loc: [facility] Attending Dr: Yrn Hernandez D.O. Ordering Physician: Yrn Hernandez D.O. Date of Service: 09/04/23 Procedure(s): US pelvis w/ transvaginal Accession Number(s): [id number] cc: Yrn Hernandez D.O.; MIGUEL JEAN M.D. The [address] [address] Patient Name: ALON BENITEZ MRN: [id number] date: 1980 Sex: F Assigned Patient Location: [facility] Current Patient Location: [facility] Accession/Order Number: [id number] Exam Date: 09/04/2023 11:08 Report Date: 09/04/2023 15:03 At the request of: YRN HERNANDEZ Procedure: US pelvis w/ transvaginal PROCEDURE: US pelvis w/ transvaginal, 09/04/2023 11:08 AM EST CLINICAL INDICATIONS: Pelvic pain, menorrhagia LMP 08/22/2023 2 para 2 COMPARISON: None TECHNIQUE: Transabdominal, transvaginal pelvic sonogram, grayscale, colorand spectral assessment. FINDINGS: Uterus: 15.7 x 7.3 x 9.6 cm. There is thickening of the endometrial echo complex up to 1.7 cm. Heterogeneous uterine enlargement is identified. A5.0 x 5.0 x 4.7 cm intramural/subserosal uterine fibroid favored dorsal rightbody. Nabothian paracervical cysts are noted. section scarring ventral lower uterine segment noted. Right ovary: 3.1 x 2.0 x 2.4 cm, volume 8 mL. Normal sonographicmorphology. Left ovary: Surgically absent. No free fluid. US/US pelvis w/ transvaginal IMPRESSION: 1. Heterogeneous lobular enlargement of the uterus with 5.0 cm. intramural/subserosal uterine fibroid 2. section scarring ventral lower uterine segment. 3. Nabothian paracervical cyst. 4. Normal right ovarian sonographic morphology. 5. Surgical absence of the left ovary. Electronically authenticated by: MANUEL GARLAND Date: 09/04/2023 15:03 Dictated By: Manuel Garland M.D. Signed By:09/04/23 1505 DD/ 1503 TD/TT: Slope Runner: us Yrn Hernandez DO [facility] Final Result documented in this encounter Visit Diagnoses Not on filedocumented in this encounter
--- OUTSIDE RECORDS SUMMARY | 2025-01-22 12:01 | XMS_ITS | CCD ---
Author Organization [facility] Care Team Providers Care Obstetrician Gynecologist Name Role Phone HEDGES, CHRISTOPHER W Unavailable [...] Pavlock, DO Max L Primary Care Provider [phone] Berna Hernandez Attending Provider [phone] Mary, Berna Admitting Unavailable Pavlock, Max L Primary Care Unavailable Mary, Berna Attending Unavailable Pavlock, Max L Primary Care Unavailable Mary, Berna Attending Unavailable Mary, Berna Admitting Unavailable MARY, BERNA Attending Unavailable MARY, BERNA Attending Unavailable MARY, BERNA Attending Unavailable KALI LAI Attending Unavailable MAXIMO CARUSO Attending Unavailable Unavailable Primary Care Provider Unavailabl e Unavailable Primary Care Provider Unavailabl e Allergies Allergy Classification Reported Allergen(s) Allergy Type Date of Onset Reaction(s) Facility (6 sources) Cephalexin; Translations: [CEPHALEXIN] Drug Allergy 3 Unknown, Swelling [facility] (1 source) Cephalexin Drug Allergy 2 [facility] (2 sources) Cephalosporins (Antibiotic); Translations: [Cephalosporins] Allergy to substance 3 Comment:tongue swells in the [facility] (1 source) Cephalexin Drug Allergy 3 [facility] Repository Medications Current Medications Medication Drug Class(es) Dates Sig (Normalized) Sig (Original) cyclobenzaprine hydrochloride 10 mg oral tablet (1 source) Muscle Relaxant Start: 1 take 1 tablet by mouth every eight hours Cyclobenzaprine HCl 10 MG 1 tablet as needed Orally Three times a day for 10 days May, Active ferrous sulfate 325 mg oral tablet (3 sources) Start: 3 take 1 tablet by mouth at mealtime ferrous sulfate 325 (65 Fe) MG tablet Take 325 mg by mouth in the morning. Take with meals. 11/11/2022 Active hydrOXYzine pamoate 25 mg oral capsule (3 sources) Antihistamine Start: 3 take 1 capsule by mouth every six hours as needed for anxiety hydrOXYzine pamoate (Vistaril) 25 MG capsule TAKE 1 CAPSULE BY MOUTH EVERY 6 HOURS NEEDED FOR ANXIETY 06/21/2023 Active methylPREDNISolone 4 mg oral tablet (1 source) Corticosteroid Start: 1 methylPREDNISolone 4 MG as directed Orally Once a day for 6 days May, Active omeprazole 20 mg delayed release oral capsule (3 sources) Proton Pump Inhibitor Start: 3 omeprazole (PriLOSEC) [address] capsule TAKE 1 CAPSULE BY MOUTH EVERY DAY 30 MINUTES BEFORE MORNING MEAL FOR 90 DAYS 06/12/2023 Active terconazole 4 mg/ml vaginal cream (2 sources) Azole Antifungal Start: 5 End: 5 terconazole (Terazol 7) 0.4 % vaginal cream Indications: Yeast detected Insert 1 applicator into the vagina at bedtime for 7 days 45 g 01/21/2025 01/28/2025 Active Completed/Discontinued Medications Medication Drug Class(es) Dates Sig (Normalized) Sig (Original) fluconazole 150 mg oral tablet (1 source) Azole Antifungal Start: 04-24-2021 Diflucan 150 MG 1 tablet Orally once for 1 days Take 1 tab today p.o., repeat in 3 days Apr, Not-Taking polymyxin b 00787 unt/ml / trimethoprim 1 mg/ml ophthalmic solution (1 source) Dihydrofolate Reductase Inhibitor Antibacterial, Polymyxin-class Antibacterial Start: 08-03-2018 take 1 drop(s) into the eye(s) four times daily Polymyxin B-Trimethoprim 87556-8.1 UNIT/ML 1 drop into left eye Ophthalmic Four times a day for 7 days Jul, Not-Taking terbinafine (1 source) Allylamine Antifungal Start: 04-24-2021 Terbinafine HCl 1 % 1 application Externally Once a day for 14 days apply to rash Apr, Not-Taking Problems Active Problems Problem Classification Problem Date Documented Date Episodic/Chronic Abdominal pain (5 sources) Pain in female pelvis; Translations: [Pelvic and perineal pain] Onset: 08-23-2023 08-23-2023 Episodic Cardiac dysrhythmias (2 sources) Palpitations; Translations: [Palpitations] Onset: 04-04-2024 Episodic Deficiency and other anemia (4 sources) Iron deficiency anemia, unspecified; Translations: [IRON DEFICIENCY ANEMIA UNSPECIFIED] Onset: 10-16-2022 Episodic Essential hypertension (2 sources) Essential (primary) hypertension; Translations: [Essential (primary) hypertension] Onset: 04-04-2024 Chronic Menstrual disorders (4 sources) Excessive and frequent menstruation with irregular cycle; Translations: [Menorrhagia] Onset: 05-21-2017 08-17-2023 Chronic Mycoses (2 sources) Yeast detected; Translations: [Candidiasis, unspecified] 01-21-2025 Episodic Other female genital disorders (3 sources) Abnormal uterine bleeding; Translations: [Abnormal uterine and vaginal bleeding, unspecified] Onset: 08-23-2023 08-23-2023 Chronic Other lower respiratory disease (2 sources) [...] INDEX BMI 40.0-44.9 ADULT] Onset: 08-30-2022 Chronic Other screening for suspected conditions (not mental disorders or infectious disease) (4 sources) Encounter for screening for cardiovascular disorders; Translations: [Encounter for screening for other suspected endocrine disorder] Onset: 08-30-2022 01-21-2025 Episodic Residual codes; unclassified (2 sources) Sleep apnea, unspecified; Translations: [Sleep apnea, unspecified] Onset: 04-04-2024 Chronic Unclassified (1 source) n64.9 / n64.9() Onset: 06-01-2017 Unclassified (3 sources) LOW BACK PAIN, UNSPECIFIED; Translations: [LOW BACK PAIN, UNSPECIFIED] Onset: 06-19-2022 Past or Other Problems Problem Classification Problem Date Documented Date Episodic/Chronic Contraceptive and procreative management (3 sources) Sterilization requested; Translations: [Encounter for sterilization] Onset: 08-23-2023 08-23-2023 Episodic Immunizations and screening for infectious disease (1 [...] [PAIN IN LEFT HIP] Onset: 06-19-2022 Episodic Unclassified (1 source) n64.9; Translations: [n64.9] Onset: 06-01-2017 Unclassified (1 source) LOW BACK PAIN, UNSPECIFIED; Translations: [LOW BACK PAIN, UNSPECIFIED] Onset: 06-14-2022 Results Test Name Value Interpretation Reference Range Facility Office Visiton 04-04-2024 Follow-up visit [id number] AnanyaMahad portillo nathan Ordoñez 1980 F Date Provider Department Center 04/04/2024 [id number] OCHOA [facility] Family History Problem Relation Age of Onset No Known Problems Mother No Known Problems Father Heart attack Maternal Grandmother Family Status - Relation Status Age at Mother Father Maternal Grandmother Level of Service:90737 [place] OFFICE/OUTPATIENT NEW MODERATE MDM 45 MINUTES Reason for Visit and Comments: Palpitations [652187] New Patient [632] - Pt is here because of palpitations. Normal [facility] [place] 09-21-2023 L Specimen: [id number] Received: 09/21/23 Status: CLINTON Escobedo Num: [id number] Spec Type: Surgical Subm Dr: Berna Hernandez Tissues: A Fallopian Tube - Sterilization (BILT FALL TUBES) Procedures: HE/4, Gross/Micro L2 Age/ Patient Sex Location Account Attending Physician Alon Gee 43/F [facility] [id number] Berna Hernandez SPEC NUM: [id number] RECD: 09/21/23 STATUS: CL[place]ON ESCOBEDO NUM: [id number] PETE: 09/21/[address]: Berna Hernandez ENTERED: 09/21/23-[address]: [facility] SPEC TYPE: Surgical DEPT: OLVIN IZQUIERDO ENTERED BY: [id number] RECV BY: [id number] ORDERED: HE/4, Gross/Micro L2 ORDERED: HE/4, Gross/Micro [...] bilaterally. The fimbria are soft and unremarkable. Gauge Maker sections are submitted in 4 cassettes as follows: A1-A2 - [place] segment with fimbria entirely submitted A3-A4 - Longer segment with fimbria entirely submitted CPT Codes 62239 Specimen: [id number] Received: 09/21/23 Status: CL[place] Escobedo Num: [id number] Spec Type: Surgical Subm Dr: Berna Hernandez Tissues: A Fallopian Tube - Sterilization (BILT FALL TUBES) Procedures: EDINSON/Jesse Rouse/Remy L2 Patient: Alon Gee [id number] (Continued) Signed (signature on file) Evelin Schulz MD 09/26/23 [facility] [place] 08-21-2023 L Specimen: [id number] Received: 08/22/23 Status: CLINTON Escobedo Num: [id number] Spec Type: Surgical Subm Dr: Berna Hernandez Tissues: A Endometrium - Biopsy (EMBX) Procedures: HE/2, Gross/Micro L4 Age/ Patient Sex Location Account Attending Physician Alon Gee 42/F [facility] [id number] Berna Hernandze SPEC NUM: [id number] RECD: 08/22/23 STATUS: CL[place]ON ESCOBEDO NUM: [id number] PETE: 08/21/23- SUBM DR: Berna Hernandez ENTERED: 08/22/[address] [facility] [address]: [facility] SPEC TYPE: Surgical DEPT: OLVIN [...] in one cassette labeled A1. CPT Codes 20036 Specimen: [id number] Received: 08/22/23 Status: CL[place] Escobedo Num: [id number] Spec Type: Surgical Subm Dr: Berna Hernandez Tissues: A Endometrium - Biopsy (EMBX) Procedures: HE/2, Gross/Micro L4 Patient: Alon Gee [id number] (Continued) Signed (signature on file) Jacob Alegria MD 08/24/23 1000 [facility] FERRITINon 10-16-2022 Ferritin [Mass/Vol] 3.0 ng/mL Critically low 6.2-137.0 [facility] Comment on above: Performed By: #### F ETIBC, FERR #### [facility] [address] [address] [address] Reji Alegria IRON AND TIBCon 10-16-2022 % SATURATION 2.9 % Normal [facility] Comment on above: Performed By: #### F ETIKIMBERLY, FERR #### [facility] [address] [address] [address] Reji Alegria Iron [Mass/Vol] 13.0 ug/dL Critically low 50.0-170.0 [facility] Comment on above: Performed By: #### F ETIBC, FERR #### [facility] [address] [place] [address] Dr. Reji Alegria TIBC DIRECT 442.0 ug/dL Normal 250.0-450.0 [facility] Comment on above: Performed By: #### F ETIBC, FERR #### [facility] [address] [place] [address] Dr. Reji Alegria HEPATITIS C AB CASCADE TO QU ANT PCR GENOon 08-29-2022 HCV AB <0.1 Normal 0.0-0.9 [facility] Comment on above: Performed By: #### H EPCASC #### [facility] [address] [place] [address] Dr. Reji Alegria Interpretation: Comment Normal [facility] Comment on above: Result Comment: Nega tive Not infected with HCV, unless recent infection is suspected or other evidence exists to indicate HCV infection. Performed By: #### H EPCASC #### [facility] [address] [place] [address] Dr. Reji Alegria CBC AUTO DIFFon 08-28-2022 BASO # 0.1 103/ul Normal 0.0-0.1 [facility] Comment on above: Performed By: #### C BC #### [facility] [address] [place] [address] Dr. Reji Alegria Basophils/100 WBC (Bld) 1.1 % Normal 0.2-2.0 [facility] Comment on above: Performed By: #### C BC #### [facility] [address] [place] [address] Dr. Reji Alegria EO # 0.1 103/ul Normal 0.0-0.7 [facility] Comment on above: Performed By: #### C BC #### [facility] [address] [place] [address] Dr. Reji Alegria Eosinophils/100 WBC (Bld) 1.6 % Normal 0.9-7.0 [facility] Comment on above: Performed By: #### C BC #### [facility] [address] [place] [address] Dr. Reji Alegria Erythrocyte distribution width (RBC) [Ratio] 15.0 % Normal 11.0-15.0 [facility] Comment on above: Performed By: #### C BC #### [facility] [address] [place] [address] Dr. Reji Alegria Hematocrit (Bld) [Volume fraction] 30.9 % Critically low 36.0-48.0 [facility] Comment on above: Performed By: #### C BC #### [facility] [address] [place] [address] Dr. Reji Alegria Hemoglobin (Bld) [Mass/Vol] 10.0 g/dL Critically low 12.0-16.0 [facility] Comment on above: Performed By: #### C BC #### [facility] [address] [place] [address] Dr. Reji Alegria IG # 0.02 10e3/ul Normal 0.00-0.03 [facility] Comment on above: Performed By: #### C BC #### [facility] [address] [place] [address] Dr. Reji Alegria IG % 0.3 % Normal 0.0-0.5 [facility] Comment on above: Performed By: #### C BC #### [facility] [address] [place] [address] Dr. Reji Alegria LYMPH # 2.2 103/ul Normal 1.2-3.8 [facility] Comment on above: Performed By: #### C BC #### [facility] [address] [place] [address] Dr. Reji Alegria Lymphocytes/100 WBC (Bld) 34.3 % Normal 20.5-60.0 [facility] Comment on above: Performed By: #### C BC #### [facility] [address] [place] [address] Dr. Reji Alegria MANUAL DIFF REQ NO Normal [facility] Comment on above: Performed By: #### C BC #### [facility] [address] [place] [address] Dr. Reji Alegria MCH (RBC) [Entitic mass] 22.5 pg Critically low 26.7-34.0 [facility] Comment on above: Performed By: #### C BC #### [facility] [address] [place] [address] Dr. Reji Alegria MCHC (RBC) [Mass/Vol] 32.4 g/dL Normal 29.9-35.2 [facility] Comment on above: Performed By: #### C BC #### [facility] [address] [place] [address] Dr. Reji Alegria MCV (RBC) [Entitic vol] 69.6 fL Critically low 81.0-99.0 [facility] Comment on above: Performed By: #### C BC #### [facility] [address] [place] [address] Dr. Reji Alegria MONO # 0.4 103/ul Normal 0.3-0.8 [facility] Comment on above: Performed By: #### C BC #### [facility] [address] [place] [address] Dr. Reji Alegria Monocytes/100 WBC (Bld) 6.2 % Normal 1.7-12.0 [facility] Comment on above: Performed By: #### C BC #### [facility] [address] [place] [address] Dr. Reji Alegria NEUT # 3.6 103/ul Normal 1.4-6.5 [facility] Comment on above: Performed By: #### C BC #### [facility] [address] [place] [address] Dr. Reji Alegria Neutrophils/100 WBC (Bld) 56.5 % Normal 43.0-75.0 [facility] Comment on above: Performed By: #### C BC #### [facility] [address] [place] [address] Dr. Reji Alegria Platelet mean volume (Bld) [Entitic vol] 9.8 fL Normal 9.5-13.5 [facility] Comment on above: Performed By: #### C BC #### [facility] [address] [address] [address] Reji Alegria PLT 371 103/ul Normal 150-450 [facility] Comment on above: Performed By: #### C BC #### [facility] [address] [address] [address] Reji Alegria RBC 4.44 106/ul Normal 4.20-5.40 [facility] Comment on above: Performed By: #### C BC #### [facility] [address] [place] [address] Dr. Reji Alegria WBC 6.3 103/ul Normal 4.0-11.0 [facility] Comment on above: Performed By: #### C BC #### [facility] [address] [place] [address] Dr. Reji Alegria GLYCOHEMOGLOBIN A1Con 2022 ADA RECOMMENDATION SEE BELOW Normal [facility] Comment on above: Result Comment: ADA RECOMMENDED LIMIT 4.0 - 6.0 ADA THERAPEUTIC TARGET < 7.0 ACTION SUGGESTED > 7.0 Performed By: #### A 1C #### [facility] [address] [place] [address] Dr. Reji Alegria Glucose [Mass/Vol] 117 mg/dL Normal [facility] Comment on above: Performed By: #### A 1C #### [facility] [address] [place] [address] Dr. Reji Alegria HbA1c (Bld) [Mass fraction] 5.7 % Normal 4.5-6.2 [facility] Comment on above: Performed By: #### A 1C #### [facility] [address] [place] [address] Dr. Reji Alegria LIPID PROFILEon 08-28-2022 CHOL-HDL RATIO NORM SEE BELOW Normal [facility] Comment on above: Result Comment: 3.3 - 4.4 LOW RISK 4.4 - 7.1 AVERAGE RISK 7.1 - 11.0 MODERATE RISK >11.0 HIGH RISK Performed By: #### C MP, LIPID, TSH #### [facility] [address] [place] [address] Dr. Reji Alegria Cholesterol [Mass/Vol] 146 mg/dL Normal <=200 [facility] Comment on above: Performed By: #### C MP, LIPID, TSH #### [facility] [address] [address] [address] Reji Alegria Cholesterol in HDL [Mass/Vol] 48 mg/dL Normal 40-60 [facility] Comment on above: Performed By: #### C MP, LIPID, TSH #### [facility] [address] [address] [address] Reji Alegria Cholesterol in LDL [Mass/Vol] 77.2 mg/dL Normal [facility] Comment on above: Performed By: #### C MP, LIPID, TSH #### [facility] [address] [address] [address] Reji Alegria Cholesterol.total/ Cholesterol in HDL [Mass ratio] 3.0 {ratio} Normal [facility] Comment on above: Performed By: #### C MP, LIPID, TSH #### [facility] [address] [address] [address] Reji Alegria HDL NORMAL > or = 60 mg/dl - LO W CARDIOVASCULAR RISK <40 mg/dl - HIGH CARDIOVASCULAR RISK Normal [facility] Comment on above: Performed By: #### C MP, LIPID, TSH #### [facility] [address] [address] [address] Reji Alegria LDL CALC NORMAL SEE BELOW Normal [facility] Comment on above: Result Comment: <100 mg/dl OPTIMAL 100 - 129 mg/dl NEAR OR ABOVE OPTIMAL 130 - 159 mg/dl BORDERLINE HIGH 160 - 189 mg/dl HIGH >190 mg/dl VERY HIGH Performed By: #### C MP, LIPID, TSH #### [facility] [address] [address] [address] Reji Alegria Triglyceride [Mass/Vol] 104 mg/dL Normal <=150 [facility] Comment on above: Performed By: #### C MP, LIPID, TSH #### [facility] [address] [address] [address] Reji Alegria VLDL CALC 20.8 mg/dL Normal [facility] Comment on above: Performed By: #### C MP, LIPID, TSH #### [facility] [address] [address] [address] Reji Alegria PROF 14(COMP METB)on 023 Albumin [Mass/Vol] 3.8 g/dL Normal 3.4-5.0 [facility] Comment on above: Performed By: #### C MP, LIPID, TSH #### [facility] [address] [address] [address] Reji Alegria Albumin/Globulin [Mass ratio] 1.0 {ratio} Normal [facility] Comment on above: Performed By: #### C MP, LIPID, TSH #### [facility] [address] [place] [address] Dr. Reji Alegria ALP [Catalytic activity/Vol] 68 U/L Normal 46-116 [facility] Comment on above: Performed By: #### C MP, LIPID, TSH #### [facility] [address] [address] [address] Reji Alegria ALT [Catalytic activity/Vol] 21 U/L Normal 14-59 [facility] Comment on above: Performed By: #### C MP, LIPID, TSH #### [facility] [address] [place] [address] Dr. Reji Alegria Anion gap [Moles/Vol] 12.3 mmol/L Normal [facility] Comment on above: Performed By: #### C MP, LIPID, TSH #### [facility] [address] [address] [address] Reji Alegria AST [Catalytic activity/Vol] 16 U/L Normal 15-37 [facility] Comment on above: Performed By: #### C MP, LIPID, TSH #### [facility] [address] [place] [address] Dr. Reji Alegria Bilirubin [Mass/Vol] 0.2 mg/dL Normal 0.2-1.0 [facility] Comment on above: Performed By: #### C MP, LIPID, TSH #### [facility] [address] [place] [address] Dr. Reji Alegria Calcium [Mass/Vol] 9.1 mg/dL Normal 8.5-10.1 [facility] Comment on above: Performed By: #### C MP, LIPID, TSH #### [facility] [address] [address] [address] Reji Alegria Chloride [Moles/Vol] 102 mmol/L Normal 98-107 [facility] Comment on above: Performed By: #### C MP, LIPID, TSH #### [facility] [address] [address] [address] Reji Alegria CO2 [Moles/Vol] 27.9 mmol/L Normal 21.0-32.0 [facility] Comment on above: Performed By: #### C MP, LIPID, TSH #### [facility] [address] [place] [address] Dr. Reji Alegria Creatinine [Mass/Vol] 0.52 mg/dL Critically low 0.55-1.02 [facility] Comment on above: Performed By: #### C MP, LIPID, TSH #### [facility] [address] [place] [address] Dr. Reji Alegria EGFR-AF MAURITANIAN >60 Normal >=60 [facility] Comment on above: Performed By: #### C MP, LIPID, TSH #### [facility] [address] [place] [address] Dr. Reji Alegria EGFR-NON AF MAURITANIAN >60 Normal >=60 [facility] Comment on above: Performed By: #### C MP, LIPID, TSH #### [facility] [address] [place] [address] Dr. Reji Alegria Globulin (S) [Mass/Vol] 3.7 g/dL Normal [facility] Comment on above: Performed By: #### C MP, LIPID, TSH #### [facility] [address] [place] [address] Dr. Reji Alegria Glucose [Mass/Vol] 90 mg/dL Normal 74-106 [facility] Comment on above: Performed By: #### C MP, LIPID, TSH #### [facility] [address] [place] [address] Dr. Reji Alegria Potassium [Moles/Vol] 4.2 mmol/L Normal 3.5-5.1 [facility] Comment on above: Performed By: #### C MP, LIPID, TSH #### [facility] [address] [address] [address] Reji Alegria Protein [Mass/Vol] 7.5 g/dL Normal 6.4-8.2 [facility] Comment on above: Performed By: #### C MP, LIPID, TSH #### [facility] [address] [address] [address] Reji Alegria Sodium [Moles/Vol] 138 mmol/L Normal 136-145 [facility] Comment on above: Performed By: #### C MP, LIPID, TSH #### [facility] [address] [place] [address] Dr. Reji Alegria Urea nitrogen [Mass/Vol] 10.0 mg/dL Normal 7.0-18.0 [facility] Comment on above: Performed By: #### C MP, LIPID, TSH #### [facility] [address] [place] [address] Dr. Reji Alegria Urea nitrogen/Creatinin e [Mass ratio] 19.2 mg/mg Normal [facility] Comment on above: Performed By: #### C MP, LIPID, TSH #### [facility] [address] [place] [address] Dr. Reji Alegria TSHon 08-28-2022 TSH 1.268 uIU/mL Normal 0.358-3.740 [facility] Comment on above: Performed By: #### C MP, LIPID, TSH #### [facility] [address] [place] [address] Dr. Reji Alegria XR LSPINE MIN 4 [...] by: ABBY LEWIS Date: 2022-06-14 15:56 Normal [facility] XR shoulder RT min 2V*on XR shoulder RT min 2V* [facility] Pro Breath MD Other XR shoulder RT min 2V* [facility] [employer] Other XR shoulder RT min 2V* [address] [place] [address] Pro Breath MD Other XR shoulder RT min 2V* [place] [address] Pro Breath MD Other XR shoulder RT min 2V* XRay Report Pro Breath MD Other XR shoulder RT min 2V* Signed Pro Breath MD Other XR shoulder RT min 2V* Patient: Alon Gee MR#: [id number] Pro Breath MD Other XR shoulder RT min 2V* 50 Pro Breath MD Other XR shoulder RT min 2V* : 1980 Acct:[id number] Pro Breath MD Other XR shoulder RT min 2V* Age/Sex: 40 / F ADM Date: 05/24/21 Pro Breath MD Other XR shoulder RT min 2V* Loc: XDUCLY Room: Type: [facility] Pro Breath MD Other XR shoulder RT min 2V* Attending Dr: Emilie RUEDA Pro Breath MD Other XR shoulder RT min 2V* Ordering Provider: EMILIE CASTILLO Pro Breath MD Other XR shoulder RT min 2V* Date of Service: 05/24/21 Pro Breath MD Other XR shoulder RT min 2V* XR/XR shoulder RT min 2V*: Acute pain of right shoulder Pro Breath MD Other XR shoulder RT min 2V* Copies to: EMILIE CASTILLO-Suleiman Pro Breath MD Other XR shoulder RT min 2V* CLINICAL HISTORY: Patient woke up with right shoulder pain 2 days ago, no known injury. Pain at the Pro Breath MD Other XR shoulder RT min 2V* upper portion of the shoulder. Limited range of motion. Pro Breath MD Other XR shoulder RT min 2V* [RIGHT] SHOULDER: Pro Breath MD Other XR shoulder RT min 2V* COMPARISON: None Pro Breath MD Other XR shoulder RT min 2V* FINDINGS: [AP, Grashey, transscapular] views of the right shoulder were obtained. There is no Pro Breath MD Other XR shoulder RT min 2V* evidence of fracture, dislocation or bony destruction. Moderate soft tissue calcification is noted Pro Breath MD Other XR shoulder RT min 2V* adjacent to the greater tuberosity of the humerus from calcific bursitis or tendinitis. Mild Pro Breath MD Other XR shoulder RT min 2V* degenerative arthritic changes are shown at the acromioclavicular joint. Pro Breath MD Other XR shoulder RT min 2V* XR/XR shoulder RT min 2V* Pro Breath MD Other XR shoulder RT min 2V* IMPRESSION: Pro Breath MD Other XR shoulder RT min 2V* NO FRACTURE OR SUBLUXATION. Pro Breath MD Other XR shoulder RT min 2V* CALCIFIC BURSITIS OR TENDINITIS ADJACENT TO THE GREATER TUBEROSITY OF THE HUMERUS. Pro Breath MD Other XR shoulder RT min 2V* MILD DEGENERATIVE ARTHRITIC CHANGES TO THE ACROMIOCLAVICULAR JOINT. Pro Breath MD Other XR shoulder RT min 2V* Impression dictated by: Mamadou Cobb M.D.05/24/2021 11:11 AM Pro Breath MD Other XR shoulder RT min 2V* Dictation Location: RADIO-PC-13 Pro Breath MD Other XR shoulder RT min 2V* Transcribed By: PWS 05/24/21 1111 Pro Breath MD Other XR shoulder RT min 2V* Dictated By: Mamadou Cobb MD 05/24/21 1108 Pro Breath MD Other XR shoulder RT min 2V* Signed By: Pro Breath MD Other XR shoulder RT min 2V* 05/24/21 1111 Pro Breath MD Other Surgical Pathologyon 017 Surgical Pathology (NOTE)[id number] Y LABORATORIESCONSULTING PATHOLOGISTS NEMOURS FOUNDATIONANATOMIC [id number] [place], [place] [id number] Fax: SURGICAL PATHOLOGY CONSULTATIONPatient Name: Nata GEE Rec: [id number] Number: [id number]: 06/01/2017Received: 06/04/2017Reported: 06/05/2017 12:38-- Diagnosis --SKIN, RIGHT [...] cyst wallor neoplasm in these sections. Normal [facility] US NON OB TRANSVAGINALon US NON OB [...] by:EMANUEL Jonesigned by:Barbara Ledezma MD05/21/17Final result Normal [facility] Cytologyon 05-11-2017 Cytology (NOTE)[id number] Y LABORATORIESCONSULTING PATHOLOGISTS CORPORATIONANATOMIC [id number] [place], [place] [address] Fax: GYNECOLOGIC CYTOLOGY REPORTPatient Name: DEBRA GEE#: [id number] #[id number]: Cervical material, (ThinPrep vial, Imaging-assisted review)Clinical LssmavgI15.419 Routine golf club facer exam without abnormal findingsHigh Risk HPV DNA testing is requested if the diagnosis is ASC-USLMP: 05/03/17INTERPRETATIONCerv ical material, (ThinPrep vial, Imaging-assisted review):Specimen Adequacy: Satisfactory for evaluation. -Endocervical/transformat ion zone component is absent.Descriptive Diagnosis: Negative for intraepithelial lesion or malignancy. Blending Tank Tender: ELÍAS Chavez(ASCP)Electronically Signed Outmk/05/17/2017 [facility] Vital Signs Date Time Vital Sign Value Performing Clinician Facility 01-21-2025 09:09-0400 Body mass index (BMI) [Ratio] 43.84 kg/m2 Skye Iyer OVEN HEATER Work Phone: [facility] 01-21-2025 09:09-0400 Body weight 112.27 kg Skye Iyer OVEN HEATER Work Phone: [facility] 01-21-2025 09:09-0400 Diastolic blood pressure 86 mm[Hg] Skye Eberly OVEN HEATER Work Phone: [facility] 01-21-2025 09:09-0400 Systolic blood pressure 120 mm[Hg] Skye Shireen OVEN HEATER Work Phone: [facility] 05-24-2021 11:05-0400 Body height 162.56 cm Emilie Nanci Other Pro Breath MD Other 05-24-2021 11:05-0400 Body mass index (BMI) [Ratio] 37.38 kg/m2 Emilie Nanci Other Pro Breath MD Other 05-24-2021 11:05-0400 Body temperature 97.8 [degF] Emilie Nanci Other Pro Breath MD Other 05-24-2021 11:05-0400 Body weight 98.79 kg Emilie Nanci Other Pro Breath MD Other 05-24-2021 11:05-0400 Diastolic blood pressure 82 mm[Hg] Emilie Nanci Other Pro Breath MD Other 05-24-2021 11:05-0400 Respiratory rate 18 /min Emilie Castillo Other Pro Breath MD Other 05-24-2021 11:05-0400 SaO2% (BldA) [Mass fraction] 100 % Emilie Castillo Other Pro Breath MD Other 05-24-2021 11:05-0400 Systolic blood pressure 129 mm[Hg] Emilie Castillo Other Pro Breath MD Other Encounters Encounter Date Encounter Type Care Provider Facility Start: 01-21-2025 End: 01-21-2025 Bamboo flowsheet Skye Iyer OVEN HEATER Work Phone: [facility] Start: 01-21-2025 End: 01-21-2025 Bamboo flowsheet Skye Iyer OVEN HEATER Work Phone: [facility] Start: 01-21-2025 End: 01-21-2025 Patient encounter procedure Skye Iyer OVEN HEATER Work Phone: [facility] Start: 01-21-2025 End: 01-21-2025 Periodic preventive med est patient 40-64yrs Skye Iyer OVEN HEATER Work Phone: [facility] Comment on above: Pelvic pain in femal e (Primary Dx); Well woman exam with routine gynecological exam; Encounter for screening mammogram for malignant neoplasm of breast; Yeast detected Start: 04-04-2024 End: 04-04-2024 ambulatory [facility] Start: 10-24-2023 Telephone encounter Trisha Peacock RN [facility] Start: 10-23-2023 End: 10-23-2023 ambulatory KALI LAI Not Available Start: 09-21-2023 End: 09-21-2023 ambulatory Berna Hernandez Facility:[facility] Start: 09-21-2023 End: 09-21-2023 ambulatory DO Max L Pavlock Work Phone: [facility] Work Phone: Start: 09-21-2023 End: 09-21-2023 Departed Referred DO Max Pavlock Work Phone: [facility] Start: 08-23-2023 Patient encounter procedure Skye Iyer OVEN HEATER Work Phone: [facility] Start: 08-23-2023 Preprocedural examin ation done Skyejohnathon Iyer OVEN HEATER Work Phone: [facility] Start: 08-23-2023 End: 08-23-2023 ambulatory BERNA MARY Not Available Start: 08-21-2023 End: 08-21-2023 ambulatory Max L Pavlock Facility:[facility] Start: 08-21-2023 End: 08-21-2023 Departed Referred DO Max Pavlock Work Phone: [facility] Start: 08-21-2023 End: 08-21-2023 ambulatory DO Max L Pavlock Work Phone: [facility] Work Phone: Start: 07-31-2023 End: 07-31-2023 ambulatory BERNA MARY Not Available Start: 11-14-2022 ambulatory MIGUEL SHAMMO Facility:[facility] Start: 10-16-2022 End: 10-17-2022 ambulatory MIGUEL SHAMMO Facility:[facility] Start: 08-30-2022 Encounter for genera l adult medical examination without abnormal findings MIGUEL SHAMMO [facility] Start: 08-28-2022 End: 08-29-2022 ambulatory MIGUEL SHAMMO Facility:[facility] Start: 08-28-2022 End: 08-29-2022 Encounter for general adult medical examination without abnormal findings MIGUEL SHAMMO Facility:[facility] Start: 06-27-2022 ambulatory MIGUEL SHAMMO Facility:[facility] Start: 06-14-2022 End: 06-15-2022 ambulatory MIGUEL SHAMMO Facility:[facility] Start: 05-24-2021 Office outpatient vi sit 15 minutes Em[facility]ie [facility] Start: 06-01-2017 End: 06-02-2017 Ambulatory [facility] Start: 05-21-2017 End: 05-22-2017 [facility]ulatory [facility] Start: 05-11-2017 End: 05-12-2017 Ambulatory [facility] Procedures Date Procedure Procedure Detail Performing Clinician Start: 05-21-2017 Us transvaginal CHRISTOPHER ARAGON Start: 05-11-2017 Cytopathology proced ure, preparation of smear, genital source CHRISTOPHER ARAGON Plan of Treatment Date Care Activity Detail Author Start: 01-21-2025 End: 03-23-2026 MG Breast - bilateral Screening Bilateral screening mammogram Imaging Routine Encounter for screening mammogram for malignant neoplasm of breast Expected: 01/21/2025 (Approximate), Expires: 03/23/2026 [facility] Work Phone: Comment on above: Expected: 01/21/2025 (Approximate), Expires: 03/23/2026 Start: 01-21-2025 End: 07-23-2025 US Pelvis US Pelvis w/ TV Imaging Routine Pelvic pain in female Expected: 01/21/2025, Expires: 07/23/2025 [facility] Work Phone: Comment on above: Expected: 01/21/2025 , Expires: 07/23/2025 Start: 01-21-2025 End: 01-21-2025 Patient encounter procedure 01/21/2025 9:00 AM EDT Office Visit [facility] [address] [place] [address] Skye Iyer, OVEN HEATER [address] [place] [address] Arrived [facility] Comment on above: Arrived Start: 04-06-2023 Influenza vaccination Influenza Vacc ine [facility] Start: 2001 Screening for malignant neoplasm of cervix Pap Smear [facility] Start: 1999 DTaP,Tdap and Td Vaccines (1 - Tdap) DTaP,Tdap and Td Vaccines (1 - Tdap) [facility] Start: 1998 Adult BMI Screening Adult BMI Screen ing [facility] Start: 1992 Depression Screening Depression Scre ening [facility] Start: 1992 Tobacco Screening Tobacco Screening [facility] THIN PREP TIS PAP AN D HR HPV DNA THIN PREP TIS PAP AND HR HPV DNA Pathology and Cytology Routine Well woman exam with routine gynecological exam Ordered: 01/21/2025 [facility] Comment on above: Ordered: 01/21/2025 Immunizations Immunization Date Immunization Notes Care Provider Fa sarahty 12-10-2018 Kenalog -40 mg Emilie Aditi carrasco Other Pro Breath MD Other Payers Date Payer Category Payer Medicaid [id number] 2022 Medicaid [facility] [id number] 2022 Medicaid [id number] 2016 Unknown [id number] 1980 Unknown [id number] 1980 Unknown [id number] 1980 Unknown [id number] [id number] 1980 Unknown [id number] [id number] 1980 Unknown [id number] [id number] 1980 Unknown [id number] [id number] 1980 Unknown [id number] [id number] 1980 Unknown [id number] [id number] 1980 Unknown [id number] [id number] 1959 Self-pay 1959 Unknown [id number] Unknown [place] [id number] Unknown [id number] [id number] Unknown [id number] Social History Date Type Detail Facility Unknown if ever smoked Pro Breath MD Other Start: 10-23-2023 End: 01-21-2025 Sex Assigned At [employer] Other Start: 1980 Sex Assigned At Female F [facility] Start: 08-03-2018 Tobacco smoking status [facility] Never smoked tobacco (finding) [facility] Tobacco smoking status [facility] Tobacco smoking consumption unknown [facility] Start: 1980 Sex Assigned At Not on file P [facility] Start: 07-12-2023 Tobacco smoking status [facility] Smokes tobacco daily [facility] History of tobacco use Cigarette Smoker [facility] Start: 10-23-2023 End: 01-21-2025 Alcoholic beverage intake Lifetime non-drinker (finding) [facility] Start: 10-23-2023 End: 01-21-2025 History of Social function [facility] Start: 07-12-2023 Tobacco Comment Thinking about quitt ing [facility] Start: 07-31-2023 Gender identity Identifies as female gender (finding) [facility] Clinical Notes 05-24-2021 to 01-21-2025 DHAVAL Sarah - 01/21/2025 9:00 AM EDTTelephone Encounter - Trisha Peacock RN - 10/24/2023 2:07 PM EDTTelephone Encounter - Trisha Peacock, RN - 10/24/2023 2:07 PM EDT Note Date & Type Note Facility 01-21-2025 History of Presen t illness Narrative Reason for Appointment: Patient ID: Alon Gee is a 44 y.o. female who [...] 2010 ENDOMETRIAL ABLATION 09/21/2023 SALPINGECTOMY Bilateral 09/21/2023 jamie brenda REVIEW OF SYSTEMS Review of Systems: [...] nursing note reviewed. Exam conducted with a cleat thrower present. Vitals: Estimated body mass index is 43.84 kg/m as calculated from the following: Height as [...] to have menorrhagia and pain. Options discussed. Follow Up: Patient is to return in one year for annual unless needed otherwise. Documented by DHAVAL Sarah on behalf of: Skye Iyer NP documented in this encounter [facility] 04-04-2024 Note Review of Systems Cardiovascular: Positive for palpitations. Respiratory: Positive for shortness of breath. Neurological: Positive for dizziness and light-headedness. [facility] 04-04-2024 Note [facility] Note Reason for cardiology [...] no past medical history of Diabetes mellitus ([facility]), Hyperlipidemia, or Hypertension. Surgical History She [...] no acute distress. HEAD: atraumatic, normocephalic. EYES: LAUYRN, EOMI. NECK: trachea midline, no JVD present, [...] Total bilirubin 0.7, (more content not included)... [facility] 10-24-2023 Miscellaneous Notes SHADY left instructing pt to c/b for OVEN HEATER visit. documented in this encounter [facility] 10-24-2023 Telephone encounter Note SHADY left instructing pt to c/b for OVEN HEATER visit. [facility] 06-14-2022 Note PROCEDURE: XR HIP LT 2 [...] authenticated by: ABBY LEWIS Date: 2022-06-14 15:52 [facility] 05-24-2021 Evaluation note Encounter Date Diagnosis Assessment [...] and tendontitis seen on xray as discussed. Pro Breath MD Other Evaluation noteNo assessment information available [facility] Work Phone: Evaluation note* Diagnosis Pelvic pain in female- Primary Unspecified symptom associated with female genital organs Well woman exam with routine gynecological exam Routine gynecological examination Encounter for screening mammogram for malignant neoplasm of breast Yeast detected documented [facility] this encounter [facility] N[facility]ative - Reported* Type Description Date Medical History Hypertension Medical History Depression Medical History Intercranial HTN Surgical History C section x 2 Hospitalization History see above surg hx Pro Breath MD Other InstructionsNot on filedocumented in this encounter [facility] Summary Purpose Family History Relationship Condition Age at Onset Recorded Date/T nel father Diabetes mellitus Unknown Hypertension Unknown Advance Directives Advance Directive Response Recorded Date/ Time Advance Directives No February 18 3:24pm Additional Source Comments INFORMATION SOURCE (unrecogn ized section and content) DATE CREATED AUTHOR 01/29/2018 [facility] DATE CREATED AUTHOR AUTHOR'S ORGANIZ ATION 12/07/2022 [facility] DATE CREATED AUTHOR AUTHOR'S ORGANIZ ATION 10/04/2023 [facility] DATE CREATED AUTHOR AUTHOR'S ORGANIZ ATION 10/24/2023 [facility] DATE CREATED AUTHOR AUTHOR'S ORGANIZ ATION 04/06/2024 [facility] REASON FOR VISIT (unrecogniz ed section and content) Reason Comments Well Women Visit Care Teams (unrecognized sec tion and content) [...] BE BASED ON THE PRIMARY CLINICAL RECORDS. [facility] [employer] [facility]. provides no warranty or guarantee of the accuracy or completeness of information in this document.
[2025-01-22 12:25] LABS: Basophils Percent Auto 0.8 % (0.2-2.0); Eosinophils Absolute Auto 0.1 10^3/uL (0.0-0.7); Eosinophils Percent Auto 1.4 % (0.9-7.0); Hematocrit 36.4 % (36.0-48.0); Hemoglobin 12.5 g/dL (12.0-16.0); Immature Granulocytes Abs Auto 0.01 10^3/uL (0.00-0.03); Immature Granulocytes Pct Auto 0.2 % (0.0-0.5); Lymphocytes Absolute Auto 1.7 10^3/uL (1.2-3.8); Lymphocytes Percent Auto 34.6 % (20.5-60.0); Mean Corpuscular HGB Conc 34.3 g/dL (29.9-35.2); Mean Corpuscular Volume 87.3 fL (81.0-99.0); Mean Platelet Volume 10.4 fL (9.5-13.5); Monocytes Absolute Auto 0.4 10^3/uL (0.3-0.8); Monocytes Percent Auto 7.2 % (1.7-12.0); Neutrophils Absolute Auto 2.7 10^3/uL (1.4-6.5); Neutrophils Percent Auto 55.8 % (43.0-75.0); Platelet Count 282 10^3/uL (150-450); Red Blood Count 4.17 10^6/uL (4.20-5.40); White Blood Count 4.9 10^3/uL (4.0-11.0)
[2025-01-22 12:32] LABS: Estimated Average Glucose 111 mg/dL; Glycohemoglobin A1C 5.5 % (4.5-6.2)
[2025-01-22 12:47] LABS: HCG Quantitative <1 mIU/mL; Thyroid Stimulating Hormone 1.063 uIU/mL (0.358-3.740)
[2025-01-22 13:03] LABS: Free T4 0.92 ng/dL (0.76-1.46)
[2025-01-23 04:07] LABS: FSH 8.2 mIU/mL (.); Luteinizing Hormone(LH) 6.5 mIU/mL (.)
== END 2025-01-22 11:57 | disposition home or self-care (01) ==
LOC: LAB 11:58
PROVIDERS: Visit Provider Nurse Practitioner Family
DX: E28.2 Polycystic ovarian syndrome (principal)
CPT/HCPCS: 36415; 82627; 83001; 83002; 83036; 84439; 84443; 84702; 85025

== ENCOUNTER 2025-02-23 15:21 | Outpatient (OUT) | payer MEDICAID, SELFPAY ==
--- OUTSIDE RECORDS SUMMARY | 2024-10-07 07:00 | XMS_ITS ---
Author Organization [facility] in [place] Address [address] [place] [address] Care Team Providers Care Net Mvc Developer Name Role Phone Kal SOLE PAINTER, Neo Primary Care Provider Unavailab Berta Hernandez Unavailable [phone] REASON FOR VISIT MD Encounters Encounter Location Date Provider Diagnosis [facility] On[facility] [address] [place] [address] 10/07/2024 Berta Thacker Plan Of Treatment No Information Progress Notes * Mali BENITEZDOB: 1 (44 yo F)Acc No.[id number]:10/07/2024 UNLOCKED PROGRESS NOTE Progress Notes Patient: Mali DIOR Provider: Mauricio Thacker M.D. :1980 A ge:44 Y S ex:Female Date:10/07/2024 Address:[address] [place], [place] [id number] Pcp:Neo Bowden NP Subjective: * 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 * Medical History: Objective: * Vitals: Assessment: Plan: * Treatment: * * Electronic signature of Mustapha Thacker MD, [id number] on 02/24/2025 at 03:14 PM EDT Sign off status: Pending Visit Status: C ANC (Cancelled) * Provider: Mauricio Thacker M.D. Date: 0 10/07/2024 Generated for Printi ng/Faxing/eTransmitting on: 0 02/24/2025 03:14 PM EDT
--- OUTSIDE RECORDS SUMMARY | 2024-10-27 07:15 | XMS_ITS ---
Author Organization [facility] vices Address [address] [place], [place] [id number] Care Team Providers Care Cap Blocker Name Role Phone Lesa Tipton Primary Care Provider [phone] Wang Douglas [phone] REASON FOR VISIT 3 month Anxiety Medications [...] Date Provider Diagnosis Main [address] [place], [place] [id number] 10/27/2024 Wang Ly Plan Of Treatment No Information Progress Notes * Mali BENITEZDOB: 1 (44 yo F)Acc No.[id number]:10/27/2024 Medical Note Patient: Kevin MOORE Mali Ordoñez Provider: Smita Ly :1980 A ge:44 Y S ex:Female Date:10/27/2024 [facility] [id number] Pcp:Lesa Tipton Subjective: * Chief Complaints: * [...] * Electronic signature of Jimmy in DHAVAL Ly on 02/24/2025 at 03:14 PM EDT Sign off status: Pending * Provider: Smita Ly Date: 10/27/2024 Generated for Judit Lee/Smita on: 02/24/2025 03:14 PM EDT
--- OUTSIDE RECORDS SUMMARY | 2025-02-19 10:30 | XMS_ITS | Encounter Summary ---
Author Organization [facility] Address [address] [place] [address] Care Team Providers Care Gis Web Developer Name Role Phone Unavailable Primary Care Provider Unavailabl e Reason for Visit * Reason Comments F/U Labs and U/S Encounter Details Date Type Department Care Team (Late st Contact Info) Description 02/19/2025 10:30 AM EDT Office Visit [facility] [address] [phone] Loyda Billings PA [address] [address] Pelvic pain in female (Primary Dx) Social History Tobacco Use Types Packs/Day Years [...] Sign Reading Time Taken Comments Blood Pressure 136/90 02/19/2025 10:47 AM EDT Pulse - - Temperature - - Respiratory Rate - - Oxygen Saturation - - Inhaled Oxygen Concentration - - Weight 112 kg (246 lb 12 oz) 02/19/2025 10:47 AM EDT Height - - Body Mass Index 43.71 07/31/2023 10:21 AM EST documented in this encounter Progress Notes * DHAVAL Sarah - 02/19/2025 10:30 AM EDT Reason for Appointment: Patient ID: Mali Gee is a 44 y.o. female who presents for F/U Labs and U/S Patient presents today for Follow up appointment to discuss results. MEDICATIONS Current Outpatient Medications Medication Instructions ferrous [...] History HISTORY PAST MEDICAL HISTORY SOCIAL HISTORY No past medical history on file. Social History Tobacco Use Smoking status: Every [...] ENDOMETRIAL ABLATION 09/21/2023 SALPINGECTOMY Bilateral 09/21/2023 jamie gutierrez REVIEW OF SYSTEMS Review of Systems: Review of Systems Constitutional: Negative. HENT: Negative. Eyes: Negative. Respiratory: Negative. Cardiovascular: Negative. Gastrointestinal: Negative. Genitourinary: Negative. Musculoskeletal: Negative. Skin: Negative. Neurological: Negative. All other systems reviewed and are negative. Hematological: Negative. Endocrine: Negative. Allergic/Immunologic: Negative. OBJECTIVE Objective: Physical Exam Constitutional: Appearance: Normal appearance. She is normal weight. HENT: Head: Normocephalic. Cardiovascular: Rate and Rhythm: Normal rate. Pulses: Normal pulses. Pulmonary: Effort: Pulmonary effort is normal. Breath sounds: Normal breath sounds. Abdominal: Palpations: Abdomen is soft. Musculoskeletal: General: Normal range of motion. Neurological: General: No focal deficit present. Mental Status: She is alert and oriented to person, place, and time. Psychiatric: Mood and Affect: Mood normal. Behavior: Behavior normal. Thought Content: Thought content normal. Judgment: Judgment normal. Vitals and nursing note reviewed. Vitals: Estimated body mass index is 43.71 kg/m?? as calculated from the following: Height as of 07/31/23: 5' 3 . Weight as of this encounter: 246 lb 12 oz. BP: 136/90 No LMP recorded. ASSESSMENT & PLAN ICD-10-CM 1. Pelvic pain in female R10.2 Patient presents for follow up discussion of lab results and US. Patient states she had ablation 09/29. She continues to have heavy period and cramping. She has a handipcapped child at home and unableto have any surgery at this time. She discussed possibly next year.we will follow up with her for annual in the future. She will need to be referred to [facility] due to complexity of hyst. Documented by DHAVAL Sarah on behalf of: DHAVAL Sarah documented in this encounter Plan of Treatment Upcoming Encounters Date Type Department Care Team (Late st Contact Info) Description 01/26/2026 11:00 AM EDT Procedure Visit [facility] [address] [phone] Loyda Billings PA [address] [address] documented as of this encounter Visit Diagnoses Diagnosis Pelvic pain in female- Primary Unspecified symptom associated with female genital organs documented in this encounter
[2025-02-23 15:35] LABS: Hematocrit 36.7 % (36.0-48.0); Hemoglobin 12.6 g/dL (12.0-16.0); Immature Granulocytes Abs Auto 0.01 10^3/uL (0.00-0.03); Immature Granulocytes Pct Auto 0.2 % (0.0-0.5); Lymphocytes Absolute Auto 1.6 10^3/uL (1.2-3.8); Mean Corpuscular HGB Conc 34.3 g/dL (29.9-35.2); Mean Corpuscular Hemoglobin 30.0 pg (26.7-34.0); Mean Corpuscular Volume 87.4 fL (81.0-99.0); Platelet Count 245 10^3/uL (150-450); Red Blood Count 4.20 10^6/uL (4.20-5.40); White Blood Count 5.7 10^3/uL (4.0-11.0)
[2025-02-23 16:08] LABS: Anion Gap 13.3; Blood Urea Nitrogen 14.0 mg/dL (7.0-18.0); Calcium 8.8 mg/dL (8.5-10.1); Carbon Dioxide 24.6 mmol/L (21.0-32.0); Chloride 106 mmol/L (98-107); Estimated GFR (African America >60 (>=60 mL/min/1.73m^2); Estimated GFR (Non-African Ame >60 (>=60 mL/min/1.73m^2); Glucose 112 mg/dL (74-106); Potassium 3.9 mmol/L (3.5-5.1); Sodium 140 mmol/L (136-145)
[2025-02-23 16:13] LABS: Iron 44.0 ug/dL (50.0-170.0); Percent Iron Saturation 14.0 %; Total Iron Binding Capacity 314.0 ug/dL (250.0-450.0)
--- OUTSIDE RECORDS SUMMARY | 2025-02-24 15:13 | XMS_ITS | Encounter Summary ---
Author Organization [facility] Address [address] [place] [address] Care Team Providers Care Edging Supervisor Name Role Phone Unavailable Primary Care Provider Unavailabl e Encounter Details Date Type Department Care Team (Late st Contact Info) Description 10/17/2024 Abstract [facility] [address] [place] [address] Yrn Hernandez DO [address] [place], [facility] Social History Tobacco Use Types Packs/Day Years [...] EDT Procedure Visit [facility] [address] [place] [address] Loyda Billings PA [address] [place], [facility] documented as of this encounter Visit Diagnoses Not on filedocumented in this encounter
--- OUTSIDE RECORDS SUMMARY | 2025-02-24 15:13 | XMS_ITS | Encounter Summary ---
Author Organization [facility] Address [address] [place] [address] Care Team Providers Care Instructor Tap Dancing Name Role Phone Unavailable Primary Care Provider Unavailabl e Encounter Details Date Type Department Care Team (Late Contact Info) Description 02/19/2025 Bamboo flowsheet [facility] [address] [facility] [place] [address] Loyda Billings, PA [address] [place] [address] Dr [place], [facility]11 Social History Tobacco [...] EDT Procedure Visit [facility] [address] [facility] [place] [address] Loyda Billings, PA [address] [place] [address] Dr [place], [facility]11 documented as of this encounter Visit Diagnoses Not on filedocumented in this encounter
--- OUTSIDE RECORDS SUMMARY | 2025-02-24 15:13 | XMS_ITS | Encounter Summary ---
Author Organization [facility] Address [address] [place] [address] Care Team Providers Care Technical Support Specialist Name Role Phone Unavailable Primary Care Provider Unavailabl e Encounter Details Date Type Department Care Team (Late st Contact Info) Description 02/13/2024 Abstract [facility] OB [address] [facility] [place] [address] Yrn Hernandez DO [address] [facility] [address] Linda Ryan, [facility]11 Social History Tobacco Use Types Packs/Day Years [...] EDT Procedure Visit N[facility] BCP OB [address] [facility] [place] [address] Loyda Billings PA [address] [facility] [address] [place], [facility]11 documented as of this encounter Visit Diagnoses Not on filedocumented in this encounter
--- OUTSIDE RECORDS SUMMARY | 2025-02-24 15:13 | XMS_ITS | Encounter Summary ---
Author Organization [facility] Address [address] [place] [address] Care Team Providers Care Antenna Machine Operator Name Role Phone Unavailable Primary Care Provider Unavailabl e Encounter Details Date Type Department Care Team (Late st Contact Info) Description 08/07/2024 Abstract [facility] BCP OB [address] [facility] [place] [address] Yrn Hernandez DO [address] [facility] [address] Linda Ryan, [facility]11 Social History Tobacco Use Types Packs/Day [...] EDT Procedure Visit [facility] BCP OB [address] [facility] [place] [address] Loyda Billings PA [address] [facility] [address] [place], [facility]11 documented as of this encounter Visit Diagnoses Not on filedocumented in this encounter
--- OUTSIDE RECORDS SUMMARY | 2025-02-24 15:13 | XMS_ITS | Encounter Summary ---
Author Organization [facility] Address [address] [place] [address] Care Team Providers Care Skull Splitter Name Role Phone Unavailable Primary Care Provider Unavailabl e Encounter Details Date Type Department Care Team (Latest Contact Info) Description 02/19/2025 Travel Social History Tobacco Use Types Packs/Day Years [...] EDT Procedure Visit [facility] OB [address] [place] [address] Loyda Billings PA [address] [facility] [address] [place], [place] [address] documented as of this encounter Visit Diagnoses Not on filedocumented in this encounter
--- OUTSIDE RECORDS SUMMARY | 2025-02-24 15:14 | XMS_ITS | Patient Health Record ---
Author Organization [facility] Address [address] [place] [address] Care Team Providers Care Tobacco Primer Machine Operator Name Role Phone Neo Bowden NP Primary Care Provider Unavailab Berta Hernandez Unavailable [phone] Garry Alatorre Unavailable [phone] Results Component Value Reference Range Notes CBC AUTO DIFF (Not yet revie wed by provider) Interpretation: Performing Lab: Notes/Report: [facility] , White Blood Count 5.9 4.0-11.0 [...] 0.00-0.03 10 3/uL Performing Lab: see note - [facility] LB Vitamin B12 (Not yet reviewe d by provider) Interpretation: Performing Lab: Notes/Report: [facility] , Vitamin B12 786 355-0445 pg/mL Performed at: [facility] [place] [id number] Manager Publishing: Homar Bo PhD, Phone: [phone] Performing Lab: see note - [facility] LB FERRITIN (Not yet reviewed b y provider) Interpretation: Performing Lab: Notes/Report: [facility] , Ferritin 163.0 8.0-252.0 ng/mL Performing Lab: see note - [facility] LB IRON AND TIBC (Not yet revie wed by provider) Interpretation: Performing Lab: Notes/Report: [facility] [place] , Iron 90.0 50.0-170.0 ug/dL Total Iron Binding Capacity 275.0 250.0-450.0 u g/dL Percent Iron Saturation 32.7 Performing Lab: see note [facility] LB PROF CHEM 8 (BAS METB) (Not yet reviewed by provider) Interpretation: Performing Lab: Notes/Report: [facility] , Sodium 138 136-145 mmol/L Potassium 4.2 3.5-5.1 mmol/L Chloride 103 98-107 mmol/L Carbon Dioxide 28.1 21.0-32.0 mmol/L Anion Gap 11.1 Glucose 81 74-106 mg/dL Blood Urea Nitrogen 13.0 7.0-18.0 mg/dL Creatinine 0.68 0.55-1.02 mg/dL Estimated GFR ( Elvi >60 >=60 mL/min/1.73m 2 Estimated GFR (Non- Benita >60 >=60 mL/min/1.73m 2 BUN Creatinine Ratio 19.1 Calcium 9.2 8.5-10.1 mg/dL Performing Lab: see note ML - [facility] LB VITAMIN D 25 [place] (Not yet rev iewed by provider) Interpretation: Performing Lab: Notes/Report: [facility] [place] , Vitamin D 22.2 <20 ng/mL Vit D deficient 20-<30 ng/mL Vit D insufficient 30-100 ng/mL Vit D sufficient >100 ng/mL Potential Toxicity Performing Lab: see note ML - [facility] LB CBC AUTO DIFF (Not yet revie wed by provider) Interpretation: Performing Lab: Notes/Report: [facility] , White Blood Count 5.7 4.0-11.0 10 3/uL Red Blood Count 4.20 4.20-5.40 10 6/uL Hemoglobin 12.6 12.0-16.0 g/dL Hematocrit 36.7 36.0-48.0 % Mean Corpuscular Volume 87.4 81.0-99.0 fL Mean Corpuscular Hemoglobin 30.0 26.7-34.0 pg Mean Corpuscular HGB Conc 34.3 29.9-35.2 g/dL Red Cell Distribution Width 12.2 11.0-15.0 % Platelet Count 245 150-450 10 3/uL Mean Platelet Volume 10.6 9.5-13.5 fL Neutrophils Percent Auto 61.6 43.0-75.0 % Lymphocytes Percent Auto 28.6 20.5-60.0 % Monocytes Percent Auto 7.1 1.7-12.0 % Eosinophils Percent Auto 1.4 0.9-7.0 % Basophils Percent Auto 1.1 0.2-2.0 % Immature Granulocytes Pct Auto 0.2 0.0-0.5 % Neutrophils Absolute Auto 3.5 1.4-6.5 10 3/uL Lymphocytes Absolute Auto 1.6 1.2-3.8 10 3/uL Monocytes Absolute Auto 0.4 0.3-0.8 10 3/uL Eosinophils Absolute Auto 0.1 0.0-0.7 10 3/uL Basophils Absolute Auto 0.1 0.0-0.1 10 3/uL Immature Granulocytes Abs Auto 0.01 0.00-0.03 10 3/uL Performing Lab: see note ML - [facility] LB IRON AND TIBC (Not yet revie wed by provider) Interpretation: Performing Lab: Notes/Report: [facility] [place] , Iron 44.0 50.0-170.0 ug/dL Total Iron Binding Capacity 314.0 250.0-450.0 u g/dL Percent Iron Saturation 14.0 Performing Lab: see note ML - [facility] LB PROF CHEM 8 (SABRINA SANCHEZ) (Not yet reviewed by provider) Interpretation: Performing Lab: Notes/Report: [facility] [place] , Sodium 140 136-145 mmol/L Potassium 3.9 3.5-5.1 mmol/L Chloride 106 98-107 mmol/L Carbon Dioxide 24.6 21.0-32.0 mmol/L Anion Gap 13.3 Glucose 112 74-106 mg/dL Blood Urea Nitrogen 14.0 7.0-18.0 mg/dL Creatinine 0.52 0.55-1.02 mg/dL Estimated GFR ( Elvi >60 >=60 mL/min/1.73m 2 Estimated GFR (Non- Benita >60 >=60 mL/min/1.73m 2 BUN Creatinine Ratio 26.9 Calcium 8.8 8.5-10.1 mg/dL Performing Lab: see note ML - [facility] LB VITAMIN D 25 [place] (Not yet rev iewed by provider) Interpretation: Performing Lab: Notes/Report: [facility] [place] , Vitamin D 29.3 <20 ng/mL Vit D deficient 20-<30 ng/mL Vit D insufficient 30-100 ng/mL Vit D sufficient >100 ng/mL Potential Toxicity Performing Lab: see note ML - [facility] LB VITAMIN D 25 [place] (Not yet rev iewed by provider) Interpretation: Performing Lab: Notes/Report: [facility] [place] , Vitamin D 24.1 <20 ng/mL Vit D deficient 20-<30 ng/mL Vit D insufficient 30-100 ng/mL Vit D sufficient >100 ng/mL Potential Toxicity Performing Lab: see note ML - [facility] LB IRON AND TIBC (Not yet revie wed by provider) Interpretation: Performing Lab: Notes/Report: [facility] [place] , Iron 37.0 50.0-170.0 ug/dL Total Iron Binding Capacity 388.0 250.0-450.0 u g/dL Percent Iron Saturation 9.5 Performing Lab: see note ML - [facility] LB FERRITIN (Not yet reviewed b y provider) Interpretation: Performing Lab: Notes/Report: [facility] , Ferritin 8.0 8.0-252.0 ng/mL Performing Lab: see note ML - [facility] LB CBC AUTO DIFF (Not yet revie wed by provider) Interpretation: Performing Lab: Notes/Report: [facility] , White Blood Count 5.4 4.0-11.0 10 [...] Performing Lab: see note ML - [facility] LB Vitamin B12 (Not yet reviewe d by provider) Interpretation: Performing Lab: Notes/Report: [facility] , Vitamin B12 348 753-2762 pg/mL Performed at: - [facility] [address] [id number] Manager Publishing: Homar Bo PhD, Phone: [phone] Performing Lab: see note LC - [facility] LB Reason For Referral No Information Encounters Encounter Location Date Provider Diagnosis [facility] Oncology [address] [place] [place] [address] [facility] [address] [place] [address] 10/16[facility]20[facility] [address] [place] [address] 02/24/2025 [facility]a [facility] [place] [address] [place] [address] 04/21/2024 Garry Celi Plan Of Treatment Pending Test Test Name Order Date CBC AUTO DIFF 11/27/2023 CBC AUTO DIFF 02/12/2024 CBC AUTO DIFF 08/04/2024 CBC AUTO DIFF 10/15/2024 CBC AUTO DIFF 02/23/2025 FERRITIN 10/15/2024 FERRITIN 08/04/2024 FERRITIN 02/12/2024 FERRITIN 11/27/2023 IRON AND TIBC 02/12/2024 IRON AND TIBC 11/27/2023 IRON AND TIBC 08/04/2024 IRON AND TIBC 02/23/2025 IRON AND TIBC 10/15/2024 PROF CHEM 8 (BAS METB) 10/15/2024 PROF CHEM 8 (BAS METB) 02/23/2025 VITAMIN D 25 [place] 10/15/2024 VITAMIN D 25 [place] 08/04/2024 VITAMIN D 25 [place] 02/23/2025 Vitamin B12 08/04/2024 Vitamin B12 10/15/2024 Insurance Providers Payer Name Payer Address Payer Phone Subscriber Number Group Number Insured Name Patient Relationship to Insured Coverage Start Date Coverage End Date [employer] [place] [employer] [address] [address] [place] [address] [id number] [place] Gee Self - patient is the insured
--- OUTSIDE RECORDS SUMMARY | 2025-02-24 15:14 | XMS_ITS | Clinical Summary ---
[id number] [place] [address] Care Team Providers Care Gis Programmer Name Role Phone Unavailable Primary Care Provider [...]
--- OUTSIDE RECORDS SUMMARY | 2025-02-24 15:14 | XMS_ITS | Clinical Summary ---
Author Organization [facility] Address [address], [address] [place] [address] Care Team Providers Care Yarn Spinner Name Role Phone Romulo Whaley DO Primary [...] Plan of Treatment Not on file Insurance [employer] Care Teams Yarn Spinner Relationship Specialty Start Date End Date Romulo Whaley DO [address] [place] [address] PCP - General Family Medicine 05/11/17
--- OUTSIDE RECORDS SUMMARY | 2025-02-24 15:14 | XMS_ITS | Clinical Summary ---
Author Organization [facility] Address [address] [place] [address] Care Team Providers Care Auto Tune Up Mechanic Name Role Phone Lesa Tipton MD Primary Care Provider [phone] Allergies Active Allergy Reactions Criticality Noted Date [...] 5 season) 2024 03/22/2021, 03/01/2021 Influenza Vaccine (#1) 2025 Zoster Vaccines (1 of 2) 2030 [...] patient's age to complete this topic [place] [place] [address] MEDICAID Care Teams Auto Tune Up Mechanic Relationship Specialty Start Date End Date Lesa Tipton MD [address] [place] [phone] PCP - General Nurse Practitioner 02/15/24
--- OUTSIDE RECORDS SUMMARY | 2025-02-24 15:14 | XMS_ITS | Encounter Summary ---
Author Organization [facility] Address [address] [place] [address] Care Team Providers Care Used Building Materials Yard Worker Name Role Phone Unavailable Primary Care Provider Unavailabl e Encounter Details Date Type Department Care Team (Late st Contact Info) Description 01/29/2025 Orders Only [facility] OB [address] [facility] [place] [address] Gisela Schmitt LPN [address] [facility] [address] [facility]11 Social History Tobacco Use Types Packs/Day [...] EDT Procedure Visit [facility] BCP OB [address] [facility] [address] Loyda Billings PA [address] [facility] [address] [place], [place] [id number] documented as of this encounter Procedures Procedure Name Priority Date/Time Associated Diagnosis Comments PAP SMEAR Routine 01/21/2025 12:00 AM EDT documented in this encounter Results * Pap Smear (01/21/2025 12:00 AM EDT) Swab Cervical swab / Unknown us Mary Nurse [facility] Ob LAB CYTOLOGY ORDERABLES Final Result EXTERNAL LAB documented in this encounter Visit Diagnoses Not on filedocumented in this encounter
--- OUTSIDE RECORDS SUMMARY | 2025-02-24 15:14 | XMS_ITS | Encounter Summary ---
Author Organization [facility] Address [address] [place] [address] Care Team Providers Care Building Services Supervisor Name Role Phone Unavailable Primary Care Provider Unavailabl e Encounter Details Date Type Department Care Team (Late st Contact Info) Description 09/04/2023 Clinisync Result Encounter [facility] External Department Unsolicited Yrn Hernandez DO [address] [place] Padmini Ryan, [facility]11 Social History Tobacco Use Types Packs/Day Years [...] EDT Procedure Visit [facility] BCP OB [address] [facility] [place] [address] Loyda Billings PA [address] [place] [address] documented as of this encounter Procedures Procedure Name Priority Date/Time Associated Diagnosis Comments US PELVIS W/ TRANSVAGINAL 09/04/2023 3:03 PM EST documented in this encounter Results * US PELVIS W/ TRANSVAGINAL (09/04/2023 3:03 PM EST) Anatomical Region Laterality Modality Other 09/04/2023 3:03 PM EST Narrative 09/04/2023 3:05 [place] [address] Ultrasound Report Signed Patient: ALON BENITEZ MR#: [id number] : 1980 Acct:[id number] Age/Sex: 42 / F ADM Date: 09/04/23 Loc: [facility] Attending Dr: Yrn Hernandez D.O. Ordering Physician: Yrn Hernandez D.O. Date of Service: 09/04/23 Procedure(s): US pelvis w/ transvaginal Accession Number(s): [id number] cc: Yrn Hernandez D.O.; MIGUEL JEAN M.D. [place] [id number] Patient Name: ALON BENITEZ MRN: [id number] date: 1980 Sex: F Assigned Patient Location: [facility] Current Patient Location: [facility] Accession/Order Number: [id number] Exam Date: 09/04/2023 11:08 Report Date: 09/04/2023 [...] Signed By: 09/04/23 1505 DD/ 1503 TD/TT: Branch Service Specialist: Procedure Note Radiology, Radiologist, MD - 09/04/2023 [place] [address] Ultrasound Report Signed Patient: ALON BENITEZ R#: [id number] : 1980Acct:[id number] Age/Sex: 42 / FADM Date: 09/04/23 Loc: [facility] Attending Dr: Yrn Hernandez D.O. Ordering Physician: Yrn Hernandez D.O. Date of Service: 09/04/23 Procedure(s): US pelvis w/ transvaginal Accession Number(s): [id number] cc: Yrn Hernandez D.O.; MIGUEL JEAN M.D. [place] [id number] Patient Name: ALON BENITEZ MRN: [id number] date: 1980 Sex: F Assigned Patient Location: [facility] Current Patient Location: [facility] Accession/Order Number: [id number] Exam Date: 09/04/2023 11:08 Report Date: 09/04/2023 [...] M.D. Signed By:09/04/23 1505 DD/ 1503 TD/TT: Branch Service Specialist: us Yrn Hernandez DO [facility] Final Result documented in this encounter Visit Diagnoses Not on filedocumented in this encounter
--- OUTSIDE RECORDS SUMMARY | 2025-02-24 15:14 | XMS_ITS | Clinical Summary ---
Author Organization [facility] Address [address] [place] [address] Care Team Providers Care Pantry Goods Worker Name Role Phone Unavailable Primary Care [...] 6 HOURS NEEDED FOR ANXIETY 3 Active metFORMIN XR (Glucophage-XR) 500 MG 24 hr tabletIndicatio ns:PCOS (polycystic ovarian syndrome) Take 1 tablet (500 mg) by mouth in the evening. Take with meals Do not crush, chew, or split. 30 tablet 3 5 Active terconazole (Terazol 7) 0.4 % vaginal creamIndication s:Yeast detected Insert 1 applicator into the vagina at bedtime for 7 days 45 g 5 01/29/20 25 Active Problems Problem Noted Date Diagnosed Date Pre-op evaluation 08/23/2023 Well woman exam with routine gynecological exam 08/23/2023 Abnormal uterine bleeding (AUB) 08/23/2023 Request for sterilization 08/23/2023 Pelvic pain in female 08/23/2023 Menorrhagia with regular cycle 08/17/2023 Encounters Date Type Department Care Team Description 02/19/2025 10:30 AM EDT Office Visit [facility] [address] [place] [address] Loyda Billings PA Pelvic pain in female (Primary Dx) 02/19/2025 Bamboo flowsheet [facility] [address] [place] [address] Loyda Billings PA 02/19/2025 Travel 01/29/2025 Orders Only [facility] [address] [place] [address] Gisela Schmitt LPN 01/28/2025 11:30 AM EDT Ancillary Procedure [facility] [address] [place] [address] Pelvic pain in female 01/22/2025 Clinisync Result Encounter [facility] External Department Unsolicited Skye Iyer NP 01/21/2025 9:00 AM EDT Office Visit [facility] [address] [place] [phone] Skye Iyer NP Pelvic pain in female (Primary Dx); Well woman exam with routine gynecological exam; Encounter for screening mammogram for malignant neoplasm of breast; Yeast detected; PCOS (polycystic ovarian syndrome) 01/21/2025 Clinisync Result Encounter [facility] External Department Unsolicited Skye Iyer NP 01/21/2025 Bamboo flowsheet [facility] [address] [place] [phone] Skye Iyer NP from Last 3 Months [...] 12 oz) 02/19/2025 10:47 AM EDT Height 160 cm (5' 3 ) 07/31/2023 10:21 AM EST Body Mass Index 43.71 07/31/2023 10:21 AM EST Plan of Treatment Upcoming Encounters Date Type Department Care Team (Late st Contact Info) Description 01/26/2026 11:00 AM EDT Procedure Visit [facility] [address] [phone] Loyda Billings PA [address] [facility] [place] [address] Procedures Procedure Name Priority Date/Time Associated Diagnosis Comments US PELVIC COMPLETE W/ TV Routine 01/28/2025 12:05 PM EDT Pelvic pain in female ALL FOLLICLE STIMULATING HORMONE Routine 01/22/2025 12:08 PM EDT ALL LUTEINIZING HORMONE Routine 01/22/2025 12:08 PM EDT ALL DHEA SULFATE Routine 01/22/2025 12:0 8 PM EDT ALL THYROXINE (T4) FREE Routine 01/22/2025 12:08 PM EDT TBH PREG QUANT HCG Routine 01/22/2025 12 :08 PM EDT ALL THYROID STIM HORMONE Routine 01/22/2025 12:08 PM EDT MLR HEMOGLOBIN A1C Routine 01/22/2025 12 :08 PM EDT ALL CBC WITH AUTO DIFF Routine 01/22/2025 12:08 PM EDT IGP,APTIMA HPV,AGE GDLN Routine 01/21/2025 8:57 AM EDT PAP SMEAR Routine 01/21/2025 12:00 AM EDT from Last 3 Months Results * US Pelvis w/ TV (01/28/2025 12:05 PM EDT) Anatomical Region Laterality Modality Pelvis Ultrasound 02/01/2025 10:0 3 PM EDT Narrative 02/01/2025 10:03 PM EDT EXAM: US PELVIC COMPLETE W/ TV HISTORY: Pelvic pain x 6 months, endometriosis, fibroids. COMPARISON: None available. TECHNIQUE: Two-dimensional transabdominal grayscale ultrasound imaging of the pelvis was performed. Transvaginal was performed. FINDINGS: UTERUS 4.7 x 5.0 x 8.0 cm The uterus is retroverted in position and demonstrates a mildly heterogeneous echotexture. There is a 4.6 cm fibroid within the fundus. Multiple nabothian cysts are visualized within the cervix. ENDOMETRIUM 0.6 cm The endometrium demonstrates a normal, homogeneous echotexture. The bilateral ovaries are not visualized due to overlying bowel gas. No fluid is present within the cul-de-sac. IMPRESSION: 1. Mildly heterogeneous uterus with a fibroid. 2. Bilateral ovaries not visualized due to overlying bowel gas. Interpreted by: Electronically signed by NIKKY CAMPOS II, MD, PHD at 01-Feb-2025 10:02:06 PM [facility] Procedure Note Nikky Campos MD - 02/01/2025 EXAM: US PELVIC COMPLETE W/ TV HISTORY: Pelvic pain x 6 months, endometriosis, fibroids. COMPARISON: None available. TECHNIQUE: Two-dimensional transabdominal grayscale ultrasound imaging ofthe pelvis was performed. Transvaginal was performed. FINDINGS: UTERUS 4.7 x 5.0 x 8.0 cm The uterus is retroverted in position and demonstrates a mildlyheterogeneous echotexture. There is a 4.6 cm fibroid within the fundus.Multiple nabothian cysts are visualized within the cervix. ENDOMETRIUM 0.6 cm The endometrium demonstrates a normal, homogeneous echotexture. The bilateral ovaries are not visualized due to overlying bowel gas. No fluid is present within the cul-de-sac. IMPRESSION: 1. Mildly heterogeneous uterus with a fibroid. 2. Bilateral ovaries not visualized due to overlying bowel gas. Interpreted by: Electronically signed by NIKKY CAMPOS II, MD, PHD 10:02:06 PM [facility] Skye Iyer NP IMG US PROCEDURES Final Resul t * TBH PREG QUANT HCG (01/22/2025 12:08 PM EDT) Pathologist [facility] HCG QUANTITATIVE <1 mIU/mL TB Comment: 5-50 0.2-1 WEEK 50-500 1-2 WEEKS 100-5,000 2-3 WEEKS 500-10,000 3-4 WEEKS 1,000-50,000 4-5 WEEKS 10,000-100,000 5-6 WEEKS 15,000-200,000 6-8 WEEKS 10,000-100,000 2-3 MONTHS 01/22/2025 12:0 8 PM EDT 01/22/2025 12:15 PM EDT Narrative CLINISYNC - 01/22/2025 12:47 PM EDT Skye Iyer NP CLINISYIN Final Result Performing Organization Address [facility] Co de Phone Number [facility] * MLR HEMOGLOBIN A1C (01/22/2025 12:08 PM EDT) [facility] GLYCOHEMOGLOBIN A1C 5.5 4.5 - 6.2 % [facility] Comment: ADA RECOMMENDED LIMIT 4.0 - 6.0 ADA THERAPEUTIC TARGET < 7.0 ACTION SUGGESTED > 7.0 ESTIMATED AVERAGE GLUCOSE 111 mg/dL TB 01/22/2025 12:0 8 PM EDT 01/22/2025 12:15 PM EDT Narrative CLINISYNC - 01/22/2025 12:36 PM EDT Skye Iyer NP CLINISYIN Final Result [facility] * ALL THYROXINE (T4) FREE (01/22/2025 12:08 PM EDT) FREE T4 0.92 0.76 - 1.46 ng/dL TBH 01/22/2025 12:0 8 PM EDT 01/22/2025 12:15 PM EDT Narrative CLINISYNC - 01/22/2025 1:07 PM EDT Skye Iyer NP CLINISYNC Final Result Performing Organization Address [facility] Phone Number [facility] * ALL THYROID STIM HORMONE (01/22/2025 12:08 PM EDT) THYROID STIMULATING HORMONE 1.063 0.358 - 3.740 uIU/mL TBH 01/22/2025 12:0 8 PM EDT 01/22/2025 12:15 PM EDT Narrative CLINISYNC - 01/22/2025 12:47 PM EDT us Skye Iyer NP CLINISYADOLPH Final Result Performing Organization Address [facility] Phone Number [facility] * ALL LUTEINIZING HORMONE (01/22/2025 12:08 PM EDT) LUTEINIZING HORMONE(LH) 6.5 . mIU/mL TBH Comment: Adult Female Range Follicular phase 2.4 - 12.6 Ovulation phase 14.0 - 95.6 Luteal phase 1.0 - 11.4 Postmenopausal 7.7 - 58.5 01/22/2025 12:0 8 PM EDT 01/22/2025 12:15 PM EDT Narrative CLINISYNC - 01/23/2025 4:07 AM EDT us Skye Iyer NP CLINISYNC Final Result Performing Organization Address [facility] de Phone Number [facility] * ALL FOLLICLE STIMULATING HORMONE (01/22/2025 12:08 PM EDT) FSH 8.2 . mIU/mL TBH Comment: Adult Female Range Follicular phase 3.5 - 12.5 Ovulation phase 4.7 - 21.5 Luteal phase 1.7 - 7.7 Postmenopausal 25.8 - 134.8 Performed at: [address] [id number] Lift Operator: Homar Bo PhD, Phone: [phone] 01/22/2025 12:0 8 PM EDT 01/22/2025 12:15 PM EDT Narrative CLINISYNC - 01/23/2025 4:07 AM EDT Skye Iyer NP CLINISYNC Final Result CLINISYIN [facility] * (ABNORMAL) ALL DHEA SULFATE (01/22/2025 12:08 PM EDT) DHEA-SULFATE 27.0(A) 57.3 - 279.2 ug/dL TBH 01/22/2025 12:0 8 PM EDT 01/22/2025 12:15 PM EDT Narrative CLINISYNC - 01/23/2025 4:07 AM EDT Skye Iyer NP CLINISYNC Final Result Performing Organization Address City/[facility]/ZIP Co de Phone Number CLINISYNC [facility] * (ABNORMAL) ALL CBC WITH AUTO DIFF (01/22/2025 12:08 PM EDT) TBH WBC 4.9 4.0 - 11.0 10 3/uL TBH TBH RBC 4.17(L) 4.20 - 5.40 10 6/uL TBH TBH HGB 12.5 12.0 - 16.0 g/dL TBH TBH HCT 36.4 36.0 - 48.0 % TBH TBH MCV 87.3 81.0 - 99.0 fL TBH TBH MCH 30.0 26.7 - 34.0 pg TBH TBH MCHC 34.3 29.9 - 35.2 g/dL TBH TBH RDW 12.0 11.0 - 15.0 % TBH TBH PLT 282 150 - 450 10 3/uL TBH TBH MPV 10.4 9.5 - 13.5 fL TBH NEUTROPHILS PERCENT AUTO 55.8 43.0 - 75.0 % TBH LYMPHOCYTES PERCENT AUTO 34.6 20.5 - 60.0 % TBH MONOCYTES PERCENT AUTO 7.2 1.7 - 12.0 % TBH TBH EO % 1.4 0.9 - 7.0 % TBH BASOPHILS PERCENT AUTO 0.8 0.2 - 2.0 % TBH IMMATURE GRANULOCYTES PCT AUTO 0.2 0.0 - 0.5 % TBH NEUTROPHILS ABSOLUTE AUTO 2.7 1.4 - 6.5 10 3/uL TBH LYMPHOCYTES ABSOLUTE AUTO 1.7 1.2 - 3.8 10 3/uL TBH MONOCYTES ABSOLUTE AUTO 0.4 0.3 - 0.8 10 3/uL TBH TBH EO # 0.1 0.0 - 0.7 10 3/uL TBH BASOPHILS ABSOLUTE AUTO 0.0 0.0 - 0.1 10 3/uL TBH IMMATURE GRANULOCYTES ABS AUTO 0.01 0.00 - 0.03 10 3/uL TBH 01/22/2025 12:0 8 PM EDT 01/22/2025 12:15 PM EDT Narrative CLINISYNC - 01/22/2025 12:32 PM EDT Skye Iyer NP CLINISYNC Final Result [facility] * IGP,APTIMA HPV,AGE GDLN (01/21/2025 8:57 AM EDT) AGE GDLN ACOG TESTING Note . [facility] Comment: TESTS RESULT FLAG UNITS REF RANGE LAB Clinician Provided Cytology Information Source.............Cervix;Endocervix No. of containers..01 ThinPrep Vial Age Algo ACOG Kari... 30-65 FLAG LEGEND: L-Low Normal,H-High Normal,LL-Alert Low,HH-Alert High <-Panic Low,>-Panic High,A-Abnormal,AA-Critical Abnormal Performed at: 01 [facility] [address] [place] [address] Christiane Olson MD, IGP, APTIMA HPV, RFX 16/18,45 Note . [facility] Comment: TESTS RESULT FLAG UNITS REF RANGE LAB DIAGNOSIS: 02 NEGATIVE FOR INTRAEPITHELIAL LESION OR MALIGNANCY. CELLULAR CHANGES ASSOCIATED WITH INFLAMMATION ARE PRESENT. Specimen adequacy: 02 Satisfactory for evaluation. Endocervical and/or squamous metaplastic cells (endocervical component) are present. Performed by: Celina Almanza, Supervisory Blasting Worker (ASCP) . 02 Note: Note 02 The Pap smear is a screening test designed to aid in the detection of premalignant and malignant conditions of the uterine cervix. It is not a diagnostic procedure and should not be used as the sole means of detecting cervical cancer. Both false-positive and false-negative reports do occur. Test Methodology: Note 02 This liquid based ThinPrep(R) pap test was screened with the use of an image guided system. HPV Genotype Reflex Note 02 Criteria not met, HPV Genotype not performed. FLAG LEGEND: L-Low Normal,H-High Normal,LL-Alert Low,HH-Alert High <-Panic Low,>-Panic High,A-Abnormal,AA-Critical Abnormal Performed at: [address] [id number] Christiane Olson MD, HPV APTIMA Negative Negative [facility] Comment: This nucleic acid amplification test detects fourteen high- risk HPV types (16,18,31,33,35,39,45,51,52,56,58,59,66,68) without differentiation. Performed at: =[facility] [id number] Lift Operator: Christiane Olson MD, Phone: [phone] Performed at: [address] [id number] Lift Operator: Christiane Olson MD, Phone: [phone] 01/21/2025 8:57 AM EDT 01/21/2025 12:37 PM EDT Narrative CLINISYNC - 01/23/2025 11:09 AM EDT BRUSH-SPATULA CERVIX ENDOCERVIX Skye Iyer APARTMENT LEASING AGENT LAB BLOOD ORDERABLES Final Re sult Performing Organization Address [facility]/ZIP Co de Phone Number CLINISYNC [facility] * Pap Smear (01/21/2025 12:00 AM EDT) Swab Cervical swab / Unknown Mary Saravia [facility] LAB CYTOLOGY ORDERABLES Final Result Performing Organization Address City/[facility]/ZIP Co de Phone Number EXTERNAL LAB from Last 3 Months Insurance [employer]BS MEDICAID [place]
[2025-02-25 05:07] LABS: Vitamin B12 490 pg/mL (232-1245)
== END 2025-02-23 15:22 | disposition home or self-care (01) ==
LOC: LAB 02-24 15:11
PROVIDERS: Visit Provider Internal Medicine Hematology & Oncology
DX: G43.919 Migraine, unspecified, intractable, without status migrainosus (principal); D50.9 Iron deficiency anemia, unspecified; D64.9 Anemia, unspecified; K90.9 Intestinal malabsorption, unspecified
CPT/HCPCS: 36415; 80048; 82306; 82607; 82728; 83540; 83550; 85025

== ENCOUNTER 2025-02-24 07:55 | Outpatient (RCR) | payer MEDICAID, SELFPAY | END 2025-03-05 23:59 | disposition home or self-care (01) | LOC: HEMC 07:55 | PROVIDERS: Visit Provider Internal Medicine Hematology & Oncology | DX: D50.9 Iron deficiency anemia, unspecified (principal) ==

== ENCOUNTER 2025-07-03 15:57 | Outpatient (OUT) | payer MEDICAID, SELFPAY ==
--- OUTSIDE RECORDS SUMMARY | 2024-01-22 08:00 | XMS_ITS ---
Author Organization [facility] [place] Address [address] [place] [address] Care Team Providers Care Warp Knitter Name Role Phone Kal KENYON, Neo Primary Care Provider Unavailab Berta Hernandez Unavailable [phone] REASON FOR VISIT MD Encounters Encounter Location Date Provider Diagnosis [facility] [address] [place] [address] 01/22/2024 Berta Thacker Plan Of Treatment Next Appt Details Provider Name:Berta Thacker , 07/07/2025 11:00:00 AM, [address] [place], [address], Progress Notes * [place] BENITEZDOB: 1 (44 yo F)Acc No.[id number]:01/22/2024 UNLOCKED PROGRESS NOTE Progress Notes Patient: R [place] MOORE :?Berta Thacker M.D.:1980???Age:43 Y ???Sex:FemaleDate:01/22/2024hone:[phone]:[address] [place], [place]-[address]Pcp:Neo Bowden NP Subjective: * 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 * Medical History: Objective: * Vitals: Assessment: Plan: * Treatment: * * Electronic signature of Berta Thacker MD, [id number] on 07/03/2025 at 04:03 PM ESTSign off status: PendingVisit Status:?CANC (Cancelled) * Provider: Mauricio Thacker M.D. Date: 0 01/22/2024 Generated for Printing/Faxing/eTransmitting on:?07/03/2025 04:03 PM EST
--- OUTSIDE RECORDS SUMMARY | 2024-02-12 09:15 | XMS_ITS ---
Author Organization The [facility] [place] Address [address] [place] [address] Care Team Providers Care Horse Show Judge Name Role Phone Kal KENYON, Neo Primary Care Provider Unavailab Berta Hernandez Unavailable [phone] REASON FOR VISIT MD Encounters Encounter Location Date Provider Diagnosis [facility] [address] [place] [address] 02/12/2024 Berta Thacker Plan Of Treatment Next Appt Details Provider Name:Berta Thacker , 07/07/2025 11:00:00 AM, [address] [place], [address], Progress Notes * [place] BENITEZDOB: 1 (44 yo F)Acc No.[id number]:02/12/2024 UNLOCKED PROGRESS NOTE Progress Notes Patient: R [place] MOORE :?Berta Thacker M.D.:1980???Age:43 Y ???Sex:FemaleDate:02/12/2024hone:[phone]:[address] [place], [place]-[address]Pcp:Neo Bowden NP Subjective: * 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 * Medical History: Objective: * Vitals: Assessment: Plan: * Treatment: * * Electronic signature of Berta Thacker MD, [id number] on 07/03/2025 at 04:03 PM ESTSign off status: PendingVisit Status:?VOICEMSG (Voice) * Provider: Mauricio Thacker M.D. Date: 0 02/12/2024 Generated for Printing/Faxing/eTransmitting on:?07/03/2025 04:03 PM EST
--- OUTSIDE RECORDS SUMMARY | 2024-04-23 06:00 | XMS_ITS ---
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 * Medical History: Objective: * Vitals: Assessment: Plan: * Treatment: * * Electronic signature of Garry Alatorre DO on 07/03/2025 at 04:02 PM ESTSign off status: PendingVisit Status:?R/S By O/P (Rescheduled by Office/Provider) * Provider: Usha Alatorre, Date: 0 04/23/2024 Generated for Printing/Faxing/eTransmitting on:?07/03/2025 04:02 PM EST
--- OUTSIDE RECORDS SUMMARY | 2024-05-20 06:00 | XMS_ITS ---
Author Organization [facility] in [place] Address [address] [place] [address] Care Team Providers Care Razor Grinder Name Role Phone Kal KENYON, Neo Primary Care Provider Unavailab Berta Hernandez Unavailable [phone] REASON FOR VISIT MD Encounters Encounter Location Date Provider Diagnosis [facility] On[facility] [address] [place] [address] 05/20/2024 Berta Thacker Plan Of Treatment Next Appt Details Provider Name:Berta Thacker , 07/07/2025 11:00:00 AM, [address] [place], [address], Progress Notes * Mali BENITEZDOB: 1 (44 yo F)Acc No.[id number]:05/20/2024 UNLOCKED PROGRESS NOTE Progress Notes Patient: R Mali MOORE :?Berta Thacker M.D.:1980???Age:43 Y ???Sex:FemaleDate:05/20/2024hone:[phone]:[address] [place], [place]Pcp:Neo Bowden NP Subjective: * 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 * Medical History: Objective: * Vitals: Assessment: Plan: * Treatment: * * Electronic signature of Berta Thacker MD, [id number] on 07/03/2025 at 04:02 PM ESTSign off status: PendingVisit Status:?CANC (Cancelled) * Provider: Mauricio Thacker M.D. Date: Generated for Printing/Faxing/eTransmitting on:?07/03/2025 04:02 PM EST
--- OUTSIDE RECORDS SUMMARY | 2024-06-03 05:30 | XMS_ITS ---
Author Organization [facility] in [place] Address [address] [place] [address] Care Team Providers Care Tungsten Refiner Name Role Phone Kal KENYON, Neo Primary Care Provider Unavailab Berta Hernandez Unavailable [phone] REASON FOR VISIT MD Encounters Encounter Location Date Provider Diagnosis [facility] On[facility] [address] [place] [address] 06/03/2024 Berta Thacker Plan Of Treatment Next Appt Details Provider Name:Berta Thacker , 07/07/2025 11:00:00 AM, [address] [place], [address], Progress Notes * Mali BENITEZDOB: 1 (44 yo F)Acc No.[id number]:06/03/2024 UNLOCKED PROGRESS NOTE Progress Notes Patient: R Mali MOORE :?Berta Thacker M.D.:1980???Age:43 Y ???Sex:FemaleDate:06/03/2024hone:[phone]:[address] [place], [place]Pcp:Neo Bowden NP Subjective: * 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 * Medical History: Objective: * Vitals: Assessment: Plan: * Treatment: * * Electronic signature of Berta Thacker MD, [id number] on 07/03/2025 at 04:02 PM ESTSign off status: PendingVisit Status:?CANC (Cancelled) * Provider: Mauricio Thacker M.D. Date: Generated for Printing/Faxing/eTransmitting on:?07/03/2025 04:02 PM EST
--- OUTSIDE RECORDS SUMMARY | 2024-08-05 06:00 | XMS_ITS ---
Author Organization [facility] in [place] Address [address] [place] [address] Care Team Providers Care Porter Sample Case Name Role Phone Kal KENYON, Neo Primary Care Provider Unavailab Berta Hernandez Unavailable [phone] REASON FOR VISIT MD Encounters Encounter Location Date Provider Diagnosis [facility] Oncology [address] [place] [address] 08/05/2024 Berta Thacker Plan Of Treatment Next Appt Details Provider Name:Berta Thacker , 07/07/2025 11:00:00 AM, [address] [place], [address], Progress Notes * Mali BENITEZDOB: 1 (44 yo F)Acc No.[id number]:08/05/2024 UNLOCKED PROGRESS NOTE Progress Notes Patient: R Mali MOORE :?Berta Thacker M.D.:1980???Age:43 Y ???Sex:FemaleDate:08/05/2024hone:[phone]:[address] [place], [place]Pcp:Neo Bowden NP Subjective: * 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 * Medical History: Objective: * Vitals: Assessment: Plan: * Treatment: * * Electronic signature of Berta Thacker MD, [id number] on 07/03/2025 at 04:02 PM ESTSign off status: PendingVisit Status:?VOICEMSG (Voice) * Provider: Mauricio Thacker M.D. Date: Generated for Printing/Faxing/eTransmitting on:?07/03/2025 04:02 PM EST
--- OUTSIDE RECORDS SUMMARY | 2024-10-07 06:00 | XMS_ITS ---
Author Organization [facility] in [place] Address [address] [place] [address] Care Team Providers Care Title Inspector Name Role Phone Kal KENYON, Neo Primary Care Provider Unavailab Berta Hernandez Unavailable [phone] REASON FOR VISIT MD Encounters Encounter Location Date Provider Diagnosis [facility] Oncology [address] [place] [address] 10/07/2024 Berta Thcaker Plan Of Treatment Next Appt Details Provider Name:Berta Thacker , 07/07/2025 11:00:00 AM, [address] [place], [address], Progress Notes * Mali BENITEZDOB: 1 (44 yo F)Acc No.[id number]:10/07/2024 UNLOCKED PROGRESS NOTE Progress Notes Patient: Kevin Mali MOORE :?Berta Thacker M.D.:1980???Age:44 Y ???Sex:FemaleDate:10/07/2024Phone:[phone]:[address] [place], [place]-[address]Pcp:Neo Bowden NP Subjective: * 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 * Medical History: Objective: * Vitals: Assessment: Plan: * Treatment: * * Electronic signature of Berta Thacker MD, [id number] on 07/03/2025 at 04:03 PM ESTSign off status: PendingVisit Status:?CANC (Cancelled) * Provider: Mauricio Thacker M.D. Date: 0 10/07/2024 Generated for Printing/Faxing/eTransmitting on:?07/03/2025 04:03 PM EST
--- OUTSIDE RECORDS SUMMARY | 2024-10-16 06:30 | XMS_ITS ---
Author Organization [facility] in [place] Address [address] [place] [address] Care Team Providers Care Pancake Professional Name Role Phone Kal KENYON, Neo Primary Care Provider Unavailab Berta Hernandez Unavailable [phone] REASON FOR VISIT MD Encounters Encounter Location Date Provider Diagnosis [facility] [address] [place] [address] 10/16/2024 Berta Thacker Plan Of Treatment Next Appt Details Provider Name:Berta Thacker , 07/07/2025 11:00:00 AM, [address] [place], [address], Progress Notes * Mali BENTIEZDOB: 1 (44 yo F)Acc No.[id number]:10/16/2024 UNLOCKED PROGRESS NOTE Progress Notes Patient: Kevin Mali MOORE :?Berta Thacker M.D.:1980???Age:44 Y ???Sex:FemaleDate:10/16/2024Phone:[phone]:[address] [place], [place]-[address]Pcp:Neo Bowden NP Subjective: * 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 * Medical History: Objective: * Vitals: Assessment: Plan: * Treatment: * * Electronic signature of Berta Thacker MD, [id number] on 07/03/2025 at 04:02 PM ESTSign off status: PendingVisit Status:?[facility] (Voice) * Provider: Mauricio Thacker M.D. Date: 0 10/16/2024 Generated for Printing/Faxing/eTransmitting on:?07/03/2025 04:02 PM EST
--- OUTSIDE RECORDS SUMMARY | 2025-02-24 08:30 | XMS_ITS ---
Author Organization The [facility] [place] Address [address] [place] [address] Care Team Providers Care Appetizer Packer Name Role Phone Kal KENYON, Neo Primary Care Provider Unavailab Berta Hernandez Unavailable [phone] REASON FOR VISIT MD Encounters Encounter Location Date Provider Diagnosis [facility] [address] [place] [address] 02/24/2025 Berta Thacker Plan Of Treatment Next Appt Details Provider Name:Berta Thacker , 07/07/2025 11:00:00 AM, [address] [place], [address], Progress Notes * Mali BENITEZDOB: 1 (44 yo F)Acc No.[id number]:02/24/2025 UNLOCKED PROGRESS NOTE Progress Notes Patient: Kevin Mali MOORE :?Berta Thacker M.D.:1980???Age:44 Y ???Sex:FemaleDate:02/24/2025Phone:[phone]:[address], [place]-[address]Pcp:Neo Bowden NP Subjective: * 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 * Medical History: Objective: * Vitals: Assessment: Plan: * Treatment: * * Electronic signature of Berta Thacker MD, [id number] on 07/03/2025 at 04:03 PM ESTSign off status: PendingVisit Status:?VOICEMSG (Voice) * Provider: Mauricio Thacker M.D. Date: 0 02/24/2025 Generated for Printing/Faxing/eTransmitting on:?07/03/2025 04:03 PM EST
--- OUTSIDE RECORDS SUMMARY | 2025-07-03 16:02 | XMS_ITS | Clinical Summary ---
Author Organization [facility] Address [address] [place] [address] Care Team Providers Care Personnel Adviser Name Role Phone Lesa Tipton MD Primary Care Provider [phone] Allergies Active AllergyReactionsCriticalityNoted DateCommentsCephalexinAnaphylaxisHigh 04/04/2024 Medications MedicationSigDispense QuantityRefillsLast FilledStart DateEnd DateStatus sertraline (Zoloft) 50 mg tablet Take 50 mg by mouth in the morning.Active busPIRone (Buspar) 10 mg tablet Take by mouth three times daily.Active omeprazole (PriLOSEC) [address] capsule Take 20 mg by mouth before breakfast. Do not crush or chew.Active metoprolol succinate XL (Toprol-XL) 25 mg 24 hr tablet Indications:Palpitations,Essential hypertensionTake 1 tablet (25 mg) by mouth in the morning. Do not crush or chew. 30 tablet 11004/04/2024ctive Active Problems ProblemNoted DateDiagnosed MracBxbbxkyjsdmr35/01/2024OE (dyspnea on exertion) 04/06/2024lass 3 severe obesity due to excess calories without serious comorbidity with body mass index (BMI) of 40.0 to 44.9 in adult04/06/2024Sleep apnea04/06/2024Essential gtdybexvvbbf62/01/2024Tobacco abuse04/06/2024bnormal uterine bleeding (AUB)08/23/2023elvic pain in jochyi8808/23/2023re-op evaluation 08/23/2023equest for ilftduwuhllys31/18/2024Well woman exam with routine gynecological exam08/23/2023Menorrhagia with regular cycle08/17/2023 Family History Medical HistoryRelationNameCommentsNo Known ProblemsFatherHeart attackMaternal GrandmotherNo Known ProblemsMotherRelationNameStatusCommentsFatherMaternal GrandmotherMother Social History Tobacco UseTypesPacks/DayYears UsedDateSmoking Tobacco: GmqegnNycytqzpti307 12/04/2003 - 4Alcohol UseStandard Drinks/WeekCommentsNever0 (1 standard drink = 0.6 oz pure alcohol)CommentsUnknownSex and Gender Information ValueDate RecordedSex Assigned at BirthNot on fileLegal ZdmKjeoqz70/28/2024 10:35 AM EDTGender IdentityNot on fileSexual OrientationNot on file Last Filed Vital Signs Vital SignReadingTime TakenCommentsBlood Ubfhfwze654/8904/04/2024 11:31 AM EDT Nburs846004/04/2024 11:31 AM EDTTemperature--Respiratory Rate--Oxygen Saturation 98%04/04/2024 11:31 AM EDTInhaled Oxygen Concentration--Hthsjo022 kg (233 lb) 04/04/2024 11:31 AM QXVBzftza378 cm (5' 3 )04/04/2024 11:31 AM EDTBody Mass Index41.2708 11:31 AM EDT Plan of Treatment Health MaintenanceDue DateLast DoneCommentsDepression Hztpqmghm59/05/1993 Varicella Vaccines (1 of 2 - 13+ 2-dose series)1993Hepatitis B Vaccines (1 of 3 - 19+ 3-dose series)1999Pap Smear2001Adult Uxadghs8009/10/2002HPV Vaccines (1 - 3-dose SCDM series)2007Cervical Cancer Spaztyomi57/05/2011 HPV/Naxdrq5209/10/20106206Qinuodaym70/05/2021OVID-19 Vaccine ( - 2024- season) , 03/01/2021Influenza Vaccine (#1)2025Zoster Vaccines (1 of 2)2030HIB VaccinesAged OutNo longer eligible based on patient's age to complete this topicIPV VaccinesAged OutNo longer eligible based on patient's age to complete this topicMeningococcal B VaccineAged OutNo longer eligible based on patient's age to complete this topicMeningococcal VaccineAged OutNo longer eligible based on patient's age to complete this topicPneumococcal Vaccine: Pediatrics (0 to 5 Years) and At-Risk Patients (6 to 64 Years)Aged Out No longer eligible based on patient's age to complete this topicRotavirus VaccinesAged OutNo longer eligible based on patient's age to complete this topic Insurance Care Teams Team MemberRelationshipSpecialtyStart DateEnd Date Lesa Tipton MD [address] [place] [phone] PCP - GeneralNurse Practitioner02/15/24
--- OUTSIDE RECORDS SUMMARY | 2025-07-03 16:02 | XMS_ITS | Clinical Summary ---
Author Organization [facility] Address [address] [place] [address] Care Team Providers Care Dairy Husbandry Teacher Name Role Phone Unavailable Primary Care Provider Unavailabl e Allergies Active AllergyReactionsCriticalityNoted DateCommentsCephalexinSwellingMedium 07/20/2023 Tongue swelling Medications MedicationSigDispense QuantityRefillsLast FilledStart DateEnd DateStatus ferrous sulfate 325 (65 Fe) MG tablet Take 325 mg by mouth in the morning. Take with meals.11/11/2022ctive omeprazole (PriLOSEC) [address] capsule TAKE 1 CAPSULE BY MOUTH EVERY DAY 30 MINUTES BEFORE MORNING MEAL FOR 90 DAYS 06/12/2023ctive hydrOXYzine pamoate (Vistaril) 25 MG capsule TAKE 1 CAPSULE BY MOUTH EVERY 6 HOURS NEEDED FOR IIYHTMD2706/21/2023ctive metFORMIN XR (Glucophage-XR) 500 MG 24 hr tablet Indications:PCOS (polycystic ovarian syndrome)Take 1 tablet (500 mg) by mouth in the evening. Take with meals Do not crush, chew, or split. 30 tablet 5Active Active Problems ProblemNoted DateDiagnosed DatePre-op /18/2024Well woman exam with routine gynecological exam08/23/2023bnormal uterine bleeding (AUB)08/23/2023 Request for ojxzwixmxtmpz08/18/2024elvic pain in bdndho3408/23/2023Menorrhagia with regular cycle08/17/2023 Family History Medical HistoryRelationNameCommentsDiabetesFatherHypertensionFatherRelationName StatusCommentsFatherAliveMotherAlive Social History Tobacco UseTypesPacks/DayYears UsedDateSmoking Tobacco: Every DayCigarettes Tobacco Cessation:Ready to Q uit: Not Asked; Counseling Given: Not Answered Comments:Thinking about quitting Alcohol UseStandard Drinks/WeekCommentsNever0 (1 standard drink = 0.6 oz pure alcohol)CommentsNoSex and Gender InformationValueDate RecordedSex Assigned at NwcgaJptqmy27/26/2023 9:24 AM ESTLegal NnjKjikfd28/15/2023 11:21 PM EDTGender JqcabnthYbglev43/26/2023 9:24 AM ESTSexual OrientationNot on file Last Filed Vital Signs Vital SignReadingTime TakenCommentsBlood Urlbmjvm891/90002/19/2025 10:47 AM EDT Pulse--Temperature--Respiratory Rate--Oxygen Saturation--Inhaled Oxygen Concentration--Ixobks359 kg (246 lb 12 oz)02/19/2025 10:47 AM NMRHibasy846 cm (5' 3 )07/31/2023 10:21 AM ESTBody Mass Index43.7107/31/2023 10:21 AM EST Plan of Treatment DateTypeDepartmentCare Team (Latest Contact Info)Nyaxmbqkjxr91/23/2026 11:00 AM EDTProcedure Visit [facility] Jackelin OBAMARJIT [address] [facility] [place] [address] Loyda Billings PA [address] [place] [address] Insurance
--- OUTSIDE RECORDS SUMMARY | 2025-07-03 16:02 | XMS_ITS | Clinical Summary ---
[facility] Organization [facility] [place] [address] Care Team Providers Care Calender Wind Up Helper Name Role Phone Unavailable Primary Care Provider Unavailabl e Social History Tobacco UseTypesPacks/DayYears UsedDateSmoking Tobacco: Never Assessed CommentsUnknownSex and Gender InformationValueDate RecordedSex Assigned at Not on fileLegal RqzQjphxf64/30/2016 9:26 AM ESTGender IdentityNot on fileSexual OrientationNot on file Plan of Treatment Health MaintenanceDue DateLast DoneCommentsMMR (1 of 1 - Standard series) 1981Tetanus Diphtheria and Pertussis Vaccines (1 - Tdap)1987 Varicella (1 of 2 - 13+ 2-dose series)1993MenB (1 of 2 - MenB 2-Dose Series Bexsero)1996Hepatitis B (1 of 3 - 19+ 3-dose series)1999HPV (1 - 3-dose SCDM series)2007COVID-19 ( season)2025FLU (#1)04/06/2025HIBAged OutNo longer eligible based on patient's age to complete this topicHepatitis AAged OutNo longer eligible based on patient's age to complete this topicMenACWYAged OutNo longer eligible based on patient's age to complete this topicNirsevimabAged OutNo longer eligible based on patient's age to complete this topicPneumococcalAged OutNo longer eligible based on patient's age to complete this topicPolioAged OutNo longer eligible based on patient's age to complete this topicRotavirusAged OutNo longer eligible based on patient's age to complete this topic
--- OUTSIDE RECORDS SUMMARY | 2025-07-03 16:02 | XMS_ITS | Patient Health Record ---
Author Organization [facility] [place] Address [address] [place] [address] Care Team Providers Care Planetarium Sky Show Technician Name Role Phone Neo Bowden NP Primary Care Provider Unavailab Berta Hernandez Unavailable [phone] Results Component Value Reference Range Notes CBC AUTO DIFF (Not yet revie wed by provider) Interpretation: Performing Lab: Notes/Report: [facility] , White Blood Count 5.9 4.0-11.0 10 3/uL Red Blood Count4.414.20-5.40 10 6/kYOapfoqyjtd38.512.0-16.0 g/aWTfzoyagunh19.3 36.0-48.0 %Mean Corpuscular Qsqsyc93.681.0-99.0 fLMean Corpuscular Hemoglobin 28.326.7-34.0 pgMean Corpuscular HGB Conc33.529.9-35.2 g/dLRed Cell Distribution Width12.311.0-15.0 %Platelet Caiuo468221-053 10 3/uLMean Platelet Fcjtnx40.39.5- 13.5 fLNeutrophils Percent Auto58.343.0-75.0 %Lymphocytes Percent Auto31.620.5- 60.0 %Monocytes Percent Auto6.91.7-12.0 %Eosinophils Percent Auto1.70.9-7.0 % Basophils Percent Auto1.20.2-2.0 %Immature Granulocytes Pct Auto0.30.0-0.5 % Neutrophils Absolute Auto3.41.4-6.5 10 3/uLLymphocytes Absolute Auto1.91.2-3.8 10 3/uLMonocytes Absolute Auto0.40.3-0.8 10 3/uLEosinophils Absolute Auto0.10.0- 0.7 10 3/uLBasophils Absolute Auto0.10.0-0.1 10 3/uLImmature Granulocytes Abs Auto0.020.00-0.03 10 3/uLPerforming Lab:see noteML - [facility] LB IRON AND TIBC (Not yet reviewed by provider) Interpretation: Performing Lab: Notes/Report: [facility] ,Iron37.050.0-170.0 ug/dLTotal Iron Binding Nbatxzoq487.0250.0-450.0 ug/dL Percent Iron Saturation9.5Performing Lab:see note - [facility] LB Vitamin B12 (Not yet reviewed by provider) Interpretation: Performing Lab: Notes/Report: [facility] ,Vitamin [id number] pg/mL Sheet Sewer: Homar Bo PhD, Phone: [phone] [address] [place], [place] [id number] Performed at: - [facility] [place] Performing Lab:see note - [facility] LBVITAMIN D 25 [place] (Not yet reviewed by provider) Interpretation: Performing Lab: Notes/Report: [facility] ,Vitamin D22.2 <20 ng/mL Vit D deficient 30-100 ng/mL Vit D sufficient >100 ng/mL Potential Toxicity 20-<30 ng/mL Vit D insufficient Performing Lab:see note - [facility] LBPROF CHEM 8 (BAS METB) (Not yet reviewed by provider) Interpretation: Performing Lab: Notes/Report: [facility] ,Vkssyn938440-801 mmol/LPotassium4.23.5-5.1 mmol/EYuzvhfml34141-406 mmol/LCarbon Jlsnkco25.121.0-32.0 mmol/LAnion Gap11.0Esuyvuu1093-983 mg/dLBlood Urea Nitrogen 13.07.0-18.0 mg/dLCreatinine0.680.55-1.02 mg/dLEstimated GFR ( Elvi>60 >=60 mL/min/1.73m 2Estimated GFR (Non- Benita>60>=60 mL/min/1.73m 2BUN Creatinine Ratio19.9Vimizfi3.28.5-10.1 mg/dLPerforming Lab:see noteML - [facility] LBFERRITIN (Not yet reviewed by provider) Interpretation: Performing Lab: Notes/Report: [facility] ,Wubgufnn886.08.0-252.0 ng/mLPerforming Lab:see noteML - [facility] LBCBC AUTO DIFF (Not yet reviewed by provider) Interpretation: Performing Lab: Notes/Report: [facility] ,White Blood Count5.44.0-11.0 10 3/uLRed Blood Count4.394.20-5.40 10 6/uL Ajaublfrsk47.912.0-16.0 g/pCEmvnkxwlpo09.536.0-48.0 %Mean Corpuscular Uarqpc72.7 81.0-99.0 fLMean Corpuscular Isuftoluus78.426.7-34.0 pgMean Corpuscular HGB Conc 33.529.9-35.2 g/dLRed Cell Distribution Width13.811.0-15.0 %Platelet Ldylx216 150-450 10 3/uLMean Platelet Ynkpdw26.49.5-13.5 fLNeutrophils Percent Auto58.5 43.0-75.0 %Lymphocytes Percent Auto30.120.5-60.0 %Monocytes Percent Auto7.71.7- 12.0 %Eosinophils Percent Auto2.40.9-7.0 %Basophils Percent Auto1.10.2-2.0 % Immature Granulocytes Pct Auto0.20.0-0.5 %Neutrophils Absolute Auto3.21.4-6.5 10 3/uLLymphocytes Absolute Auto1.61.2-3.8 10 3/uLMonocytes Absolute Auto0.40.3-0.8 10 3/uLEosinophils Absolute Auto0.10.0-0.7 10 3/uLBasophils Absolute Auto0.10.0- 0.1 10 3/uLImmature Granulocytes Abs Auto0.010.00-0.03 10 3/uLPerforming Lab:see noteML - [facility] LBVitamin B12 (Not yet reviewed by provider) Interpretation: Performing Lab: Notes/Report: [facility] ,Vitamin [id number] pg/mL [address] [place], [place] [id number] Performed at: [facility] Sheet Sewer: Homar Bo PhD, Phone: [phone] Performing Lab:see [facility] LBVITAMIN D 25 [place] (Not yet reviewed by provider) Interpretation: Performing Lab: Notes/Report: [facility] ,Vitamin D24.1 <20 ng/mL Vit D deficient 20-<30 ng/mL Vit D insufficient >100 ng/mL Potential Toxicity 30-100 ng/mL Vit D sufficient Performing Lab:see note - [facility] LBFERRITIN (Not yet reviewed by provider) Interpretation: Performing Lab: Notes/Report: [facility] ,Ferritin8.08.0-252.0 ng/mLPerforming Lab:see [facility] LB Vitamin B12 (Not yet reviewed by provider) Interpretation: Performing Lab: Notes/Report: [facility] ,Vitamin P11606931-1212 pg/mL Sheet Sewer: Homar Bo PhD, Phone: [phone] Performed at: [facility] [address], [place] [phone] Performing Lab:see [facility] LBVITAMIN D 25 [place] (Not yet reviewed by provider) Interpretation: Performing Lab: Notes/Report: [facility] ,Vitamin D29.3 20-<30 ng/mL Vit D insufficient >100 ng/mL Potential Toxicity 30-100 ng/mL Vit D sufficient <20 ng/mL Vit D deficient Performing Lab:see [facility] LBPROF CHEM 8 (BAS METB) (Not yet reviewed by provider) Interpretation: Performing Lab: Notes/Report: [facility] ,Lxptxk390226-580 mmol/LPotassium3.93.5-5.1 mmol/RUdpahpmi33855-797 mmol/LCarbon Otigmqs46.621.0-32.0 mmol/LAnion Gap13.3Qccjcaf38266-120 mg/dLBlood Urea Rnbvxuik68.07.0-18.0 mg/dLCreatinine0.520.55-1.02 mg/dLEstimated GFR ( Elvi>60>=60 mL/min/1.73m 2Estimated GFR (Non- Benita>60>=60 mL/min/1.73m 2BUN Creatinine Ratio26.3Odgknhf1.88.5-10.1 mg/dLPerforming Lab:see noteML - [facility] LBLAB TESTING (Not yet reviewed by provider) Interpretation: Performing Lab: Notes/Report: [id number] Ferritin [facility] ,Miscellaneous TestCOMMENT. Performed at: [facility] Reference Range: 15-150 Sheet Sewer: Homar Bo PhD, Phone: [phone] Ferritin 30 ng/mL [address] [place], [place] [id number] Test Ordered: [id number] Ferritin Performing Lab:see note - [facility] LBIRON AND TIBC (Not yet reviewed by provider) Interpretation: Performing Lab: Notes/Report: [facility] ,Iron44.050.0-170.0 ug/dLTotal Iron Binding Wvcthjrk097.0250.0-450.0 ug/dL Percent Iron Wqsskfvsmc29.0Performing Lab:see noteML - [facility] LB CBC AUTO DIFF (Not yet reviewed by provider) Interpretation: Performing Lab: Notes/Report: [facility] ,White Blood Count5.74.0-11.0 10 3/uLRed Blood Count4.204.20-5.40 10 6/uL Atyvgduhbz22.612.0-16.0 g/dXNqyiheayyp78.736.0-48.0 %Mean Corpuscular Eqjhsy42.4 81.0-99.0 fLMean Corpuscular Ccvupkvuns90.026.7-34.0 pgMean Corpuscular HGB Conc 34.329.9-35.2 g/dLRed Cell Distribution Width12.211.0-15.0 %Platelet Iqmfz782 150-450 10 3/uLMean Platelet Mvgskf10.69.5-13.5 fLNeutrophils Percent Auto61.6 43.0-75.0 %Lymphocytes Percent Auto28.620.5-60.0 %Monocytes Percent Auto7.11.7- 12.0 %Eosinophils Percent Auto1.40.9-7.0 %Basophils Percent Auto1.10.2-2.0 % Immature Granulocytes Pct Auto0.20.0-0.5 %Neutrophils Absolute Auto3.51.4-6.5 10 3/uLLymphocytes Absolute Auto1.61.2-3.8 10 3/uLMonocytes Absolute Auto0.40.3-0.8 10 3/uLEosinophils Absolute Auto0.10.0-0.7 10 3/uLBasophils Absolute Auto0.10.0- 0.1 10 3/uLImmature Granulocytes Abs Auto0.010.00-0.03 10 3/uLPerforming Lab:see noteML - [facility] LBIRON AND TIBC (Not yet reviewed by provider) Interpretation: Performing Lab: Notes/Report: [facility] ,Iron90.050.0-170.0 ug/dLTotal Iron Binding Nuzvxwtg332.0250.0-450.0 ug/dL Percent Iron Tbgzplpauo73.7Performing Lab:see noteML - [facility] LB Reason For Referral No Information Encounters Encounter Location Date Provider Diagnosis [facility] Oncology [address] [place] [address] 08/05/2024 [facility] [address] [place] [address]/ [facility] [address] [place] [address] Pending Test Test Name Order Date CBC AUTO DIFF 11/27/2023 CBC AUTO DIFF 02/12/2024 CBC AUTO DIFF 08/04/2024 CBC AUTO DIFF 10/15/2024 CBC AUTO DIFF 02/23/2025 FERRITIN 10/15/2024 FERRITIN 08/04/2024 FERRITIN 02/12/2024 FERRITIN 11/27/2023 IRON AND TIBC 02/12/2024 IRON AND TIBC 11/27/2023 IRON AND TIBC 08/04/2024 IRON AND TIBC 02/23/2025 IRON AND TIBC 10/15/2024 LAB TESTING 02/23/2025 PROF CHEM 8 (BAS METB) 10/15/2024 PROF CHEM 8 (BAS METB) 02/23/2025 VITAMIN D 25 [place] 10/15/2024 VITAMIN D 25 [place] 08/04/2024 VITAMIN D 25 [place] 02/23/2025 Vitamin B12 02/23/2025 Vitamin B12 08/04/2024 Vitamin B12 10/15/2024 Next Appt Details Provider Name:Berta Thacker , 07/07/2025 11:00:00 AM, [address] [place], [address], Insurance Providers Payer Name Payer Address Payer Phone Subscriber Number Group Number Insured Name Patient Relationship to Insured Coverage Start Date Coverage End Date [employer] [place] [employer] [address] [address] [place] [address] [id number] Luciano Geeelf - patient is the insured
--- OUTSIDE RECORDS SUMMARY | 2025-07-03 16:03 | XMS_ITS | Clinical Summary ---
Author Organization [employer] [facility] [employer] Address [id number] [place] [address] Care Team Providers Care Cross Tie Turner Name Role Phone Unavailable Primary Care Provider Unavailabl e Social History Tobacco UseTypesPacks/DayYears UsedDateSmoking Tobacco: Never Assessed CommentsUnknownSex and Gender InformationValueDate RecordedSex Assigned at Not on fileLegal AksIvukhv88/14/2022 9:01 AM ESTGender IdentityNot on fileSexual OrientationNot on file Plan of Treatment Health MaintenanceDue DateLast DoneCommentsDepression Tqwtyopqu42/05/1993Tobacco Whukinfwd14/05/1993Adult BMI Ffqddooyi35/05/1999DTaP,Tdap and Td Vaccines (1 - Tdap)1999Pap Smear2001Influenza Liyxijk9304/06/2025 Medical Devices Not on file Insurance
--- OUTSIDE RECORDS SUMMARY | 2025-07-03 16:03 | XMS_ITS | CCD ---
Author Organization [facility] Care Team Providers [employer] Name Role Phone HEDGES, CHRISTOPHER W Unavailable Unavailable PAVLOCK, MAX L Unavailable Unavailable HEDGES, CHRISTOPHER W Unavailable Unavailable PAVLOCK, MAX L Unavailable Unavailable HEDGES, CHRISTOPHER W Unavailable Unavailable PAVLOCK, MAX L Unavailable Unavailable Emilie Christine Unavailable SHAMMO, MIGUEL Consulting Unavailable SHAMMO, MIGUEL Primary Care Unavailable SHAMMO, MIGUEL Attending Unavailable SHAMMO, MIGEUL Admitting Unavailable SHAMMO, MIGUEL Primary Care Unavailable [...] Pavlock, DO Max L Primary Care Provider Yrn Hernandez Attending Provider [phone] Gerda Hernandezy Admitting Unavailable Pavlock, Max L Primary Care Unavailable Mary, Yrn Attending Unavailable Pavlock, Max L Primary Care Unavailable Mary, Yrn Attending Unavailable Mary, Yrn Admitting Unavailable MAXIMO CARUSO Attending Unavailable Unavailable Primary Care Provider Unavailabl e Unavailable Primary Care Provider Unavailabl e JOSUE IYER Attending Unavailable LOYDA BILLINGS Attending Unavailable Danuta TEJADA, Lesa Primary Care Provider Christiano Rice DO Attending Provider Allergies Allergy ClassificationReported Allergen(s)Allergy TypeDate of OnsetReaction(s) Facility (14 sources)Cephalexin; Translations: [CEPHALEXIN]Drug Ipfnzva49-10-2276Jrqwlxb, [facility] (1 source)CephalexinDrug Jhisduu48-76-2184XkrOhiohealth [facility] (3 sources)Cephalosporins (Antibiotic); Translations: [Cephalosporins]Allergy to vtvicmiuq79-50-6483Gzaaott:tongue swells in the [facility] (1 source)CephalexinDrug Tckkzvk62-29-2931BwkerhrqrMercy Health Lorain Hospital Repository Medications Current Medications MedicationDrug Class(es)DatesSig (Normalized)Sig (Original)cyclobenzaprine hydrochloride 10 mg oral tablet (1 source)Muscle RelaxantStart: 78-38-9219lmhq 1 tablet by mouth every eight hoursCyclobenzaprine HCl 10 MG 1 tablet as needed Orally Three times a day for 10 days May, Activeferrous sulfate 325 mg oral tablet (11 sources)Start: 49-05-0351bdbu 1 tablet by mouth at mealtimeferrous sulfate 325 (65 Fe) MG tablet Take 325 mg by mouth in the morning. Take with meals. 11/11/2022 ActivehydrOXYzine pamoate 25 mg oral capsule (10 sources)AntihistamineStart: 35-54-5671crgd 1 capsule by mouth every six hours as needed for anxietyhydrOXYzine pamoate (Vistaril) 25 MG capsule TAKE 1 CAPSULE BY MOUTH EVERY 6 HOURS NEEDED FOR ANXIETY 06/21/2023 Gvogkl65 hr metFORMIN hydrochloride 500 mg extended release oral tablet (5 sources)BiguanideStart: 01-21-2025 End: 62-04-4118uizu 1 tablet by mouth every twenty-four hours at mealtime metFORMIN XR (Glucophage-XR) 500 MG 24 hr tablet Indications: PCOS (polycystic ovarian syndrome) Take 1 tablet (500 mg) by mouth in the evening. Take with meals Do not crush, chew, or split. 30 tablet 3 01/21/2025 02/20/2025 Active methylPREDNISolone 4 mg oral tablet (1 source)CorticosteroidStart: 28-48-1368bougbvPMZFXRGfydaq 4 MG as directed Orally Once a day for 6 days May, Activeomeprazole 20 mg delayed release oral capsule (11 sources)Proton Pump InhibitorStart: 45-16-9493xzstrhnklg (PriLOSEC) [address] capsule TAKE 1 CAPSULE BY MOUTH EVERY DAY 30 MINUTES BEFORE MORNING MEAL FOR 90 DAYS 06/12/2023 Activesertraline 50 mg oral tablet (1 source)Serotonin Reuptake InhibitorStart: 90-43-4715wddj 1 tablet by mouth once dailySertraline 50 mg tablet Active 50 MG PO Daily December 05, 2023 12:00am Complies with drug therapyterconazole 4 mg/ml vaginal cream (4 sources)Azole AntifungalStart: 01-21-2025 End: 40-64-6028cmmdvzddgbl (Terazol 7) 0.4 % vaginal cream Indications: Yeast detected Insert 1 applicator into the vagina at bedtime for 7 days 45 g 01/21/2025 01/28/2025 Active Completed/Discontinued Medications MedicationDrug Class(es)DatesSig (Normalized)Sig (Original)amoxicillin 875 mg / clavulanate 125 mg oral tablet (1 source)Penicillin-class AntibacterialStart: 12-05-2023 End: 61-71-7268cpco 1 tablet by mouth twice dailyAmoxicillin-Pot Clavulanate 875-125 mg tablet Discontinued 1 TAB PO Twice daily 20 10 0 December 05, 2023 12:00am June 02, 2025 9:44amfluconazole 150 mg oral tablet (1 source)Azole AntifungalStart: 91-33-6931Svvzilrt 150 MG 1 tablet Orally once for 1 days Take 1 tab today p.o., repeat in 3 days Apr, Not-Taking polymyxin b 96911 unt/ml / trimethoprim 1 mg/ml ophthalmic solution (1 source)Dihydrofolate Reductase Inhibitor Antibacterial, Polymyxin-class AntibacterialStart: 40-40-8408kgah 1 drop(s) into the eye(s) four times daily Polymyxin B-Trimethoprim 05767-6.1 UNIT/ML 1 drop into left eye Ophthalmic Four times a day for 7 days Jul, Not-Takingterbinafine (1 source)Allylamine AntifungalStart: 98-33-4431Iqrpffzqdel HCl 1 % 1 application Externally Once a day for 14 days apply to rash Apr, Not-T akingvarenicline 1 mg oral tablet (1 source)Partial Cholinergic Nicotinic AgonistStart: 12-05-2023 End: 86-36-4818vhhg 1 tablet by mouth twice dailyVarenicline Tartrate 1 mg tablet Discontinued 1 MG PO Twice daily December 05, 2023 12:00am June 02, 2025 9:44am Problems Active Problems Problem ClassificationProblemDateDocumented DateEpisodic/Chronic Administrative/social admission (2 sources)Patient encounter status; Translations: [Encounter for pre-employment examination]10-73-8838BtmjnwqkHbqwyz (1 source)Uncomplicated mild persistent asthma; Translations: [Mild persistent asthma, uncomplicated]19-74-9742LybmyhfVsukgbk dysrhythmias (2 sources)Palpitations; Translations: [Palpitations]Onset: 55-93-8077Osxenxkw Deficiency and other anemia (4 sources)Iron deficiency anemia, unspecified; Translations: [IRON DEFICIENCY ANEMIA UNSPECIFIED]Onset: 20-12-6464HsfaobsyOfyofuugvw and other anemia (1 source)Iron deficiency anemia; Translations: [Iron deficiency anemia, unspecified]28-02-2178WgehqvnxYjlaogch mellitus without complication (1 source)Prediabetes; Translations: [Prediabetes]69-43-6986HqftahjnUvqzvzdve hypertension (2 sources)Essential (primary) hypertension; Translations: [Essential (primary) hypertension]Onset: 63-15-0460XygkbzrOyrky valve disorders (1 source)Heart murmur; Translations: [Cardiac murmur, unspecified]12-05-2023 EpisodicMenstrual disorders (11 sources)Excessive and frequent menstruation with irregular cycle; Translations: [Menorrhagia]Onset: 136273-80-5985ZfbicixByno disorders (1 source)Depressive disorder; Translations: [Depression]53-19-9988Ovfsgdf Mycoses (2 sources)Yeast detected; Translations: [Candidiasis, unspecified]01-21-2025 EpisodicOther female genital disorders (10 sources)Abnormal uterine bleeding; Translations: [Abnormal uterine and vaginal bleeding, unspecified]Onset: 804995-47-6083NxlclldOagnc lower respiratory disease (2 sources)Other forms of dyspnea; Translations: [Other forms of dyspnea]Onset: 23-79-9513UdjzhqpfPukfg nervous system disorders (2 sources)Carpal tunnel syndrome of right wrist; Translations: [Carpal tunnel syndrome, right upper limb]06-84-6724WcebwycNlfro nervous system disorders (2 sources)Carpal tunnel syndrome of left wrist; Translations: [Carpal tunnel syndrome, left upper limb]30-23-5986WqoozttRnqve nervous system disorders (1 source)Benign intracranial hypertension; Translations: [Benign intracranial hypertension]51-32-3171NqvkpaiJupps nutritional; endocrine; and metabolic disorders (3 sources)Morbid (severe) obesity due to excess calories; Translations: [MORBID SEVERE OBES D/T EXCESS JD]Onset: 76-70-1975KunxwmzCzjpn nutritional; endocrine; and metabolic disorders (3 sources)Body mass index (BMI) 40.0-44.9, adult; Translations: [BODY MASS INDEX BMI 40.0-44.9 ADULT]Onset: 02-31-6332OwvjwfjIknvc nutritional; endocrine; and metabolic disorders (1 source)Obesity caused by energy imbalance; Translations: [Morbid (severe) obesity due to excess calories]93-68-0046GnqorhzKhccq screening for suspected conditions (not mental disorders or infectious disease) (4 sources)Encounter for screening for cardiovascular disorders; Translations: [Encounter for screening for other suspected endocrine disorder]Onset: 174718-83-9348ElwfqoosPsdfe upper respiratory infections (1 source)Streptococcal sore throat; Translations: [Streptococcal pharyngitis] 81-31-7238XvzzdvooFpvqtxhe codes; unclassified (2 sources)Sleep apnea, unspecified; Translations: [Sleep apnea, unspecified] Onset: 13-90-4401LzmsfkwIntr and subcutaneous tissue infections (1 source)Carbuncle; Translations: [Carbuncle, unspecified]38-28-0538Zhmpdzhx Unclassified (1 source)n64.9 / n64.9()Onset: 34-86-8569Lugyhopwtdrs (3 sources)LOW BACK PAIN, UNSPECIFIED; Translations: [LOW BACK PAIN, UNSPECIFIED]Onset: 06-19-2022 Past or Other Problems Problem ClassificationProblemDateDocumented DateEpisodic/ChronicAbdominal pain (14 sources)Pain in female pelvis; Translations: [Pelvic and perineal pain] Onset: 729357-93-3277DjaxbqtvVtesaztcfhvmb and procreative management (10 sources)Sterilization requested; Translations: [Encounter for sterilization] Onset: 193282-66-9599BbzhmcppGjiaazbtewndl and screening for infectious disease (1 source)Encounter for screening for other viral diseases; Translations: [ENC SCREENING FOR OTH VIRAL DZ]Onset: 22-99-9612SisfjquoLcgfurl examination/evaluation (1 source)Encounter for gynecological examination (general) (routine) without abnormal findings; Translations: [Encounter for gynecological examination (general) (routine) without abnormal findings]Onset: 47-69-0082AgpdpclsXulxk non-traumatic joint disorders (1 source)Pain in right shoulder; Translations: [Acute pain of right shoulder M25.511]Onset: 05-24-2021 Resolved: 06-88-3096YskywskiMtuqe non-traumatic joint disorders (1 source)Pain in left hip; Translations: [PAIN IN LEFT HIP]Onset: 06-19-2022 EpisodicUnclassified (1 source)n64.9; Translations: [n64.9]Onset: 11-95-4013Abjkfmgfyyob (1 source)LOW BACK PAIN, UNSPECIFIED; Translations: [LOW BACK PAIN, UNSPECIFIED] Onset: 06-14-2022 Results Test NameValueInterpretationReference RangeFacilityLaboratory - Chemistry and Chemistry - challengeOrdered By: Christiano Rice on 97-51-3691Bcarvtqiw Ql (U) [facility] HospitalGlucose (U) [Mass/Vol]NegativeMercy Health Lorain HospitalKetones Ql (U)[facility] pH (U)6.5 [pH][facility] Hospitalpecific gravity (U) [Rel density]1.025Mer[facility] Health Lorain HospitalUrobilinogen (U) [Mass/Vol]0.2 mg/dLMercy Health Lorain HospitalLaboratory - Specimen informationOrdered By: Christiano Rice on 44-08-8481Vvwvnyeegk (U)clearMercy Health Lorain HospitalColor (U)yellowMercy Health Lorain HospitalLaboratory - Urinalysis Ordered By: Christiano Rice on 63-26-1241Mamvjcwuq esterase Test strip Ql (U) [facility] HospitalNitrite Ql (U)NegativeMercy Health Lorain HospitalProtein Ql (U)[facility] HospitalNo Panel InformationOrdered By: Christiano Rice on 24-23-0402Voxqj Occult Blood NegativeMercy Health Lorain HospitalUS PELVIC COMPLETE W/ TVon 69-47-6720JK PELVIC COMPLETE W/ TVEXAM: US PELVIC COMPLETE W/ TV HISTORY: Pelvic pain x 6 months, endometriosis, fibroids. COMPARISON: None available. TECHNIQUE: Two-dimensional transabdominal grayscale ultrasound imaging of the pelvis was performed.Transvaginal was performed. FINDINGS: UTERUS 4.7 x 5.0 x 8.0 cm The uterus is retroverted in position and demonstrates a mildly heterogeneous echotexture. There devora 4.6 cm fibroid within the fundus. Multiple [...] II, MD, PHD at 01-Feb-2025 10:02:06 PM [facility] TeleradiologyNormalNot AvailableComment on above:Order Comment: US PELVIS-TRANSVAG IF INDICATED No LMP recorded.IGP,APTIMA HPV,AGE GDLNon 39-10-2334PXC GDLN ACOG TESTINGNote. NOMS HealthcareComment on above:TESTS RESULT FLAG UNITS REF RANGE LAB Clinician Provided Cytology Information Source.............Cervix;Endocervix No. of containers..01 ThinPrep Vial Ange [place] Kari... 30 FLAG LEGEND: L-Low Normal,H-High Normal,LL-Alert Low,HH-Alert High <-Panic Low,>-Panic High,A-Abnormal,AA-Critical Abnormal Performed at: 01 = [facility] [address] Christiane Olson MD, HPV APTIMANegativeNegativeNOMS HealthcareComment on above:This nucleic acid amplification test detects fourteen high- risk HPV types (16,18,31,33,35,39,45,51,52,56,58,59,66,68) without differentiation. Performed at: =[facility] [id number] Glass Cutting Machine Operator: Christiane Olson MD, Phone: [phone] Performed at: [facility] [id number] Glass Cutting Machine Operator: Christiane Olson MD, Phone: [phone] IGP, APTIMA HPV, RFX 16/18,45Note.NOMS HealthcareComment on above:TESTS RESULT FLAG UNITS REF RANGE LAB DIAGNOSIS: 02 NEGATIVE FOR INTRAEPITHELIAL LESION OR MALIGNANCY. CELLULAR CHANGES ASSOCIATED WITH INFLAMMATION ARE PRESENT. Specimen adequacy: 02 Satisfactory for evaluation. Endocervical and/or squamous metaplastic cells (endocervical component) are present. Performed by: Celina Almanza, Supervisory Rubber Printing Machine Operator (ASCP) . 02 Note: Note 02 The [...] <-Panic Low,>-Panic High,A-Abnormal,AA-Critical Abnormal Performed at: [address] [address] Christiane Olson MD, BRUSH-SPATULA CERVIX ENDOCERVIX CLINISYNCNOMS HealthcareALL CBC WITH AUTO DIFFon 19-57-0964TOQBAOCRF ABSOLUTE LFYG9VPVS HealthcareBasophils/100 WBC (Bld)0.8 %0.2 - 2.0 %[facility] Eosinophils/100 WBC (Bld)1.4 %0.9 - 7.0 %NOMS HealthcareErythrocyte distribution width (RBC) [Ratio]12 %11.0 - 15.0 %NOMS HealthcareHematocrit (Bld) [Volume fraction]36.4 %36.0 - 48.0 %NOMS HealthcareHemoglobin (Bld) [Mass/Vol]12.5 g/dL 12.0 - 16.0 g/dLNOMS HealthcareIMMATURE GRANULOCYTES ABS AUTO0.01[facility] Immature granulocytes/100 WBC (Bld)0.2 %0.0 - 0.5 %NOMS HealthcareInterpretation and review of laboratory resultsAbnormalNOMS HealthcareLYMPHOCYTES ABSOLUTE AUTO1.7NOMS HealthcareLymphocytes/100 WBC (Bld)34.6 %20.5 - 60.0 %NOMS HealthcareMCH (RBC) [Entitic mass]30 pg26.7 - 34.0 pgNOResearch Medical CenterHC (RBC) [Mass/Vol]34.3 g/dL29.9 - 35.2 g/dLHeartland Behavioral Health ServicesV (RBC) [Entitic vol]87.3 fL 81.0 - 99.0 fLNOSD HealthcareMONOCYTES ABSOLUTE AUTO0.4N[facility] Healthcare Monocytes/100 WBC (Bld)7.2 %1.7 - 12.0 %NOM HealthcareNEUTROPHILS ABSOLUTE AUTO 2.7NOMS HealthcareNeutrophils/100 WBC (Bld)55.8 %43.0 - 75.0 %[facility] Platelet mean volume (Bld) [Entitic vol]10.4 fL9.5 - 13.5 fLNOSD HealthcareTBH EO #0.1NOMS HealthcareTB [id number] HealthcareTB RBC4.17LowNOMS HealthcareTBH WBC4.9NOMS HealthcareCLINISYNCNOMS HealthcareOffice Visiton 90-29-4919Wbblgp-up [id number] Alon Benitez 1980 F Date Provider Department Center 04/04/2024 [id number]-JMZLGUMAXIMO CARUSO CARD [facility] Family History Problem Relation Age of Onset No Known Problems Mother No Known Problems Father Heart attack Maternal Grandmother Family Status - Relation Status Age at Mother Father Maternal Grandmother Level of Service:19802 CO OFFICE/OUTPATIENT NEW MODERATE MDM 45 MINUTES Reason for Visit and Comments: Palpitations [[id number]] New Patient [632] - Pt is here because of palpitations.[facility] - AkronLon 14-70-1531XSdamiyai: [id number] Received: 09/21/23 Status: CLINTON Req Num: [id number] Spec Type: Surgical Subm Dr: Yrn Hernandez Tissues: A Fallopian Tube - Sterilization (BILT FALL TUBES) Procedures: HE/4, Gross/Micro L2 Age/ Patient Sex Location Account Attending Physician Alon Benitez 43/F LABELL [id number] Yrn Hernandez SPEC NUM: [id number] RECD: 09/21/23 STATUS: SOUT REQ NUM: [id number] PETE: 09/21/23-[address]: Yrn Hernandez ENTERED: 09/21/23-[address] [facility] [address]: [place],[facility] SPEC TYPE: Surgical DEPT: OLVIN IZQUIERDO ENTERED BY: [id number] RECV BY: [id number] ORDERED: HE/, Gross/Micro L2 ORDERED: , Gross/Micro L2 Pathological Diagnosis Bilateral fallopian tubes, [...] bilaterally. The fimbria are soft and unremarkable. Investment Accountant sections are submitted in 4 cassettes as follows: A1-A2 - [place] segment with fimbria entirely submitted A3-A4 - Longer segment with fimbria entirely submitted CPT Codes 03098 Specimen: [id number] Received: 09/21/23 Status: CLITNON [place] Num: [id number] Spec Type: Surgical Subm Dr: Yrn Hernandez Tissues: A Fallopian Tube - Sterilization (BILT FALL TUBES) Procedures: , Gross/Micro L2 Patient: Alon Benitez Smita [id number] (Continued) Signed (signature on file) Evelin Schulz MD 09/26/[address] [place], [place] [address]ALL CBC WITH AUTO DIFFon 86-50-0787ZEEZCEAZX ABSOLUTE AUTO0.1NOMS HealthcareBasophils/100 WBC (Bld)1.1 % 0.2 - 2.0 %NOMS HealthcareEosinophils/100 WBC (Bld)2.1 %0.9 - 7.0 %NOMS HealthcareErythrocyte distribution width (RBC) [Ratio]21.9 %High11.0 - 15.0 % NOMS HealthcareHematocrit (Bld) [Volume fraction]37.0 %36.0 - 48.0 %NOMS HealthcareHemoglobin (Bld) [Mass/Vol]11.3 g/dLLow12.0 - 16.0 g/dLNOSD Healthcare IMMATURE GRANULOCYTES ABS AUTO0.01NOMS HealthcareImmature granulocytes/100 WBC (Bld)0.2 %0.0 - 0.5 %NOMS HealthcareInterpretation and review of laboratory resultsAbnormalNOSD HealthcareLYMPHOCYTES ABSOLUTE AUTO2.3[facility] Lymphocytes/100 WBC (Bld)35.8 %20.5 - 60.0 %NOMS HealthcareMCH (RBC) [Entitic mass]24.3 pgLow26.7 - 34.0 pgNOMS HealthcareMCHC (RBC) [Mass/Vol]30.5 g/dL29.9 - 35.2 g/dLNOFitzgibbon HospitalMCV (RBC) [Entitic vol]79.6 fLLow81.0 - 99.0 fLHIGHLAND RIDGE HOSPITAL HealthcareMONOCYTES ABSOLUTE AUTO0.5NOSD HealthcareMonocytes/100 WBC (Bld)8.1 % 1.7 - 12.0 %NOMS HealthcareNEUTROPHILS ABSOLUTE AUTO3.3[facility] Neutrophils/100 WBC (Bld)52.7 %43.0 - 75.0 %NOMS HealthcarePlatelet mean volume (Bld) [Entitic vol]11.2 fL9.5 - 13.5 fLNOSD HealthcareTBH EO #0.1N[facility] Healthcare TBH [id number] HealthcareTBH RBC4.65NOMS HealthcareTBH WBC6.3N[facility] Healthcare CLINISYNCNOSD HealthcareCCF APTTon 92-15-7702zUBL Coag (Bld) [Time]31.6 sNOMS HealthcareMM TOMOSYNTHESIS SCREENING BIon 54-74-3009Wav[place] [address] Mammography Report Signed Patient: ALON BENITEZ MR#: [id number] : 1980 Acct:[id number] Age/Sex: 42 / F ADM Date: 09/05/23 Loc: MAMMO Attending Dr: Yrn Hernandez D.O. Ordering Physician: Yrn Hernandez D.O. Results: Date of Service: 09/05/23 Follow Up: Procedure(s): MM tomosynthesis screening BI Accession Number(s): [id number] cc: Yrn Hernandez D.O.; MIGUEL JEAN M.D. Patient Name: ALON BENITEZ MR#: [id number] : 1980 Exam Date: 09/05/2023 Ordering Doctor: DR Yrn Hernandez . RADIOLOGY REPORT PROCEDURE: MM TOMOSYNTHESIS SCREENING BI COMPARISON: MG MAMM PAULA DIAG W CAD, 09/16/2019. INDICATIONS: screening Calculator Name NCI Breast Cancer Risk Assessment Tool 5 Year Breast Cancer Risk Not Reported. Lifetime Breast Cancer Risk Not Reported. Personal Breast Cancer No Personal Ovarian Cancer No Treatments None Family Cancers None LOCATION: [facility] BREAST COMPOSITION: Scattered areas fibroglandular density. FINDINGS: DIAGNOSTIC CATEGORY 2--BENIGN FINDING. NO CHANGE FROM COMPARISON. Scattered benign-appearing calcifications are present. Scattered benign-appearing lymph nodes are present. RIGHT BREAST: No significant suspicious finding. Stable focal asymmetry upper outer quadrant, mid breast LEFT BREAST: No significant suspicious finding. Square marker indicates a dermal cyst, no mammographic abnormality RECOMMENDATIONS: ROUTINE MAMMOGRAM AND CLINICAL EVALUATION IN 12 MONTHS. PLEASE NOTE: A NORMAL MAMMOGRAM DOES NOT EXCLUDE THE POSSIBILITY OF BREAST CANCER. A CLINICALLY SUSPICIOUS PALPABLE LUMP SHOULD BE BIOPSIED. Dictated by: Steve Whelan MD on 09/05/2023 at 12:47 Approved by: Steve Whelan MD on 09/05/2023 at 12:49 Dictated By: Steve Whelan M.D. Signed By: 09/05/23 1250 DD/ 1249 TD/TT: Ship Engines Operating Engineer:TBHRadiology, Radiologist, - 09/05/2023 [place] [address] Mammography Report Signed Patient: ALON BENITEZ MR#: [id number] : 1980 Acct:[id number] Age/Sex: 42 / F ADM Date: 09/05/23 Loc: MAMMO Attending Dr: Yrn Hernandez D.O. Ordering Physician: Yrn Hernandez D.O. Results: Date of Service: 09/05/23 Follow Up: Procedure(s): MM tomosynthesis screening BI Accession Number(s): [id number] cc: Yrn Hernandez D.O.; MIGUEL JEAN M.D. Patient Name: ALON BENITEZ MR#: [id number] : 1980 Exam Date: 09/05/2023 Ordering Doctor: DR Yrn Hernandez . RADIOLOGY REPORT PROCEDURE: MM TOMOSYNTHESIS SCREENING BI COMPARISON: MG MAMM PAULA DIAG W CAD, 09/16/2019. INDICATIONS: screening Calculator Name NCI Breast Cancer Risk Assessment Tool 5 Year Breast Cancer Risk Not Reported. Lifetime Breast Cancer Risk Not Reported. Personal Breast Cancer No Personal Ovarian Cancer No Treatments None Family Cancers None LOCATION: [facility] BREAST COMPOSITION: Scattered areas fibroglandular density. FINDINGS: DIAGNOSTIC CATEGORY 2--BENIGN FINDING. NO CHANGE FROM COMPARISON. Scattered benign-appearing calcifications are present. Scattered benign-appearing lymph nodes are present. RIGHT BREAST: No significant suspicious finding. Stable focal asymmetry upper outer quadrant, mid breast LEFT BREAST: No significant suspicious finding. Square marker indicates a dermal cyst, no mammographic abnormality RECOMMENDATIONS: ROUTINE MAMMOGRAM AND CLINICAL EVALUATION IN 12 MONTHS. PLEASE NOTE: A NORMAL MAMMOGRAM DOES NOT EXCLUDE THE POSSIBILITY OF BREAST CANCER. A CLINICALLY SUSPICIOUS PALPABLE LUMP SHOULD BE BIOPSIED. Dictated by: Steve Whelan MD on 09/05/2023 at 12:47 Approved by: Steve Whelan MD on 09/05/2023 at 12:49 Dictated By: Steve Whelan M.D. Signed By: 09/05/23 1250 DD/ 1249 TD/TT: Ship Engines Operating Engineer: [facility] HospitalRadiology Study observation (narrative)[facility] TOMOSYNTHESIS SCREENING BIOrdered By: Radiologist Radiology on 19-80-6934LJZKNorth [facility] Hospital Work Phone: No Panel Informationon 11-51-7326ZPBFFFZKFIHOD HealthcareSRMCOH PROTHROMBIN TIME INR W/O COUMon 63-36-4866CT Coag (PPP) [Time] 10.0 sNOMS [facility] INR0.94[facility] HospitalComment on above:DESIRED INR: 2.0-3.0 CONDITIONS NOT LISTED BELOW 2.5-3.5 FOR PROSTHETIC HEART VALVE REPLACEMENT 2.5-3.5 RECURRENT THROMBOSIS US PELVIS W/ TRANSVAGINALon 64-16-8321IolMount [place] [address] Ultrasound Report Signed Patient: ALON BENITEZ MR#: [id number] : 1980 Acct:[id number] Age/Sex: 42 / F ADM Date: 09/04/23 Loc: NOMS Attending Dr: Yrn Hernandez D.O. Ordering Physician: Yrn Hernandez D.O. Date of Service: 09/04/23 Procedure(s): US pelvis w/ transvaginal Accession Number(s): [id number] cc: Yrn Hernandez D.O.; MIGUEL JEAN M.D. [facility] [place] [address] Patient Name: ALON BENITEZ MRN: [facility]:[id number] date: 1980 Sex: F Assigned Patient Location: [facility] Current Patient Location: [facility] Accession/Order Number: [id number] Exam Date: 09/04/2023 11:08 Report Date: 09/04/2023 [...] the left ovary. Electronically authenticated by: MANUEL CORONEL Date: 09/04/2023 15:03 Dictated By: Manuel Coronel M.D. Signed By: 09/04/23 1505 DD/ 1503 TD/TT: Ship Engines Operating Engineer:MARCELINOadiology, Radiologist, - 09/04/2023 [place] [address] Ultrasound Report Signed Patient: ALON BENITEZ MR#: [id number] : 1980 Acct:[id number] Age/Sex: 42 / F ADM Date: 09/04/23 Loc: NOMS Attending Dr: Yrn Hernandez D.O. Ordering Physician: Yrn Hernandez D.O. Date of Service: 09/04/23 Procedure(s): US pelvis w/ transvaginal Accession Number(s): [id number] cc: Yrn Hernandez D.O.; MIGUEL JEAN M.D. [place] [id number] Patient Name: ALON BENITEZ MRN: [facility]:[id number] date: 1980 Sex: F Assigned Patient Location: [facility] Current Patient Location: [facility] Accession/Order Number: [id number] Exam Date: 09/04/2023 11:08 Report Date: 09/04/2023 [...] the left ovary. Electronically authenticated by: MANUEL CORONEL Date: 09/04/2023 15:03 Dictated By: Manuel Coronel M.D. Signed By: 09/04/23 1505 DD/ 1503 TD/TT: Ship Engines Operating Engineer: [facility] HealthcareRadiology Study observation (narrative)[facility] HealthcareUS PELVIS W/ TRANSVAGINALOrdered By: Radiologist Radiology on 02-31-6533UBTR [employer] Work Phone: [place] [id number]: [id number] Received: 08/22/231527 Status: [place] Champ[place] Num: [id number] Spec Type: Surgical Subm Dr: Yrn Hernandez Tissues: A Endometrium - Biopsy (EMBX) Procedures: HE/2, Gross/Micro L4 Age/ Patient Sex Location Account Attending Physician Alon Benitez 42/F LABELL [id number] Yrn Hernandez SPEC NUM: [id number] RECD: 08/22/23 STATUS: [place] NUM: [id number] PETE: 08/21/23- SUBM DR: Yrn Hernandez ENTERED: 08/22/23 [facility] DR: Shelby,Lab SPEC TYPE: Surgical [...] in one cassette labeled A1. CPT Codes 00338 Specimen: [id number] Received: 08/22/23 Status: [place] Num: [id number] Spec Type: Surgical Subm Dr: Yrn Hernandez Tissues: A Endometrium - Biopsy (EMBX) Procedures: Jesse BABIN/Remy L4 Patient: Alon Benitez [id number] (Continued) Signed (signature on file) Jacob Alegria MD 08/24/23 1000WashingtonMercy Health Lorain HospitalFERRITINon 10-36-7046Heqwgclu [Mass/Vol]3.0 ng/mLCritically low6.2-137.0The [facility]als [facility] SystemComment on above: Performed By: #### FETIBC, FERR #### [facility] [address] [place] [address] Dr. Reji Canchola AND TIBCon 10-16-2022% SATURATION2.9 %NormalThe University Hospitals Health SystemComment on above:Performed By: #### FETIBC, FERR #### [facility] [address] [place] [address] Dr. Reji Canchola [Mass/Vol]13.0 ug/dLCritically low50.0-170.0The [facility]als [facility] SystemComment on above:Performed By: #### FETIBC, FERR #### [facility] [address] [place] [address] Dr. Reji Negron AOSCSL127.0 ug/gIRumcuf777.0-450.0The [facility] Comment on above:Performed By: #### FETIBC, FERR #### [facility] [address] [place] [address] Dr. Reji Hawkins C AB CASCADE TO QUANT PCR GENOon 98-65-0389WGD AB<0.1 Normal0.0-0.9The [facility]als Health SystemComment on above:Performed By: #### HEPCASC #### [facility] [address] [place] [address] Dr. Reji AlegriaInterpretation:CommentNormalThe [facility] Hospitals Health SystemComment on above:Result Comment: Negative Not infected with HCV, unless recent infection is suspected or other evidence exists to indicate HCV infection.Performed By: #### HEPCASC #### [facility] [address] [place] [address] Dr. Reji Gallardo AUTO DIFFon 10-07-4076XMCK #0.1 103/ulNormal0.0-0.1The [facility]als Health SystemComment on above:Performed By: #### CBC #### [facility] [address] [place] [address] Dr. Reji AlegriaBasophils/100 WBC (Bld)1.1 %Normal0.2-2.0The [facility] Comment on above:Performed By: #### CBC #### [facility] [address] [place] [address] Dr. Reji Mancilla #0.1 103/ulNormal0.0-0.7The [facility]als Health SystemComment on above: Performed By: #### CBC #### [facility] [address] [place] [address] Dr. Reji Hewittosinophils/100 WBC (Bld)1.6 %Normal0.9-7.0The [facility] Comment on above:Performed By: #### CBC #### [facility] [address] [place] [address] Dr. Reji Hewittrythrocyte distribution width (RBC) [Ratio]15.0 %Edfweg60.0-15.0 The [facility]als Health SystemComment on above:Performed By: #### CBC #### [facility] [address] [place] [address] Dr. Reji AlegriaHematocrit (Bld) [Volume fraction]30.9 %Critically low36.0-48.0 The [facility]als Health SystemComment on above:Performed By: #### CBC #### [facility] [address] [place] [address] Dr. Reji AlegriaHemoglobin (Bld) [Mass/Vol]10.0 g/dLCritically low12.0-16.0The [facility] SystemComment on above:Performed By: #### CBC #### [facility] [address] [place] [address] Dr. Reji Meehan #0.02 10e3/ulNormal0.00-0.03The [facility]als Health SystemComment on above:Performed By: #### CBC #### [facility] [address] [place] [address] Dr. Reji Meehan %0.3 %Normal0.0-0.5The [facility]als Health SystemComment on above: Performed By: #### CBC #### [facility] [address] [place] [address] Dr. Reji Wilson #2.2 103/ulNormal1.2-3.8The [facility]als Health SystemComment on above:Performed By: #### CBC #### [facility] [address] [place] [address] Dr. Reji Kammphocytes/100 WBC (Bld)34.3 %Tbglsc71.5-60.0The [facility]als Health SystemComment on above:Performed By: #### CBC #### [facility] [address] [place] [address] Dr. Reji Candelaria DIFF REQNONormalThe [facility] Hospitals Health SystemComment on above: Performed By: #### CBC #### [facility] [address] [place] [address] Dr. Reji Vazquez (RBC) [Entitic mass]22.5 pgCritically low26.7-34.0The [facility]als Health SystemComment on above:Performed By: #### CBC #### [facility] [address] [place] [address] Dr. Reji Tong (RBC) [Mass/Vol]32.4 g/qDBhdanx38.9-35.2The [facility]als Health SystemComment on above:Performed By: #### CBC #### [facility] [address] [place] [address] Dr. Reji Tong (RBC) [Entitic vol]69.6 fLCritically low81.0-99.0The [facility]als Health SystemComment on above:Performed By: #### CBC #### [facility] [address] [place] [address] Dr. Reji Howe #0.4 103/ulNormal0.3-0.8The [facility] Health SystemComment on above:Performed By: #### CBC #### [facility] [address] [place] [address] Dr. Reji Turciosocytes/100 WBC (Bld)6.2 %Normal1.7-12.0The [facility] Comment on above:Performed By: #### CBC #### [facility] [address] [place], [place] [id number] Dr. Reji Bonds #3.6 103/ulNormal1.4-6.5The [facility] on above:Performed By: #### CBC #### [facility] [address] [place] [address] Dr. Reji Shethutrophils/100 WBC (Bld)56.5 %Vdcmkx21.0-75.0The [facility] SystemCombeaumont hospital on above:Performed By: #### CBC #### [facility] [address] [place] [address] Dr. Reji AlegriaPlatelet mean volume (Bld) [Entitic vol]9.8 fLNormal9.5-13.5The [facility] SystemCombeaumont hospital on above:Performed By: #### CBC #### [facility] [address] [place] [address] Dr. Reji AlegriaPLT371 103/hxUhebkf100-023Kzm [facility] SystemCombeaumont hospital on above: Performed By: #### CBC #### [facility] [address] [place] [address] Dr. Reji AlegriaRBC4.44 106/ulNormal4.20-5.40The [facility] SystemCombeaumont hospital on above:Performed By: #### CBC #### [facility] [address] [place] [address] Dr. Reji AlegriaWBC6.3 103/ulNormal4.0-11.0The [facility] SystemCombeaumont hospital on above: Performed By: #### CBC #### [facility] [address] [place] [address] Dr. Reji AlegriaGLYCOHEMOGLOBIN A1Con 33-31-7086OJT RECOMMENDATIONSEE BELOWNormal [facility] CenterCombeaumont hospital on above:Result Comment: ADA RECOMMENDED LIMIT 4.0 - 6.0 ADA THERAPEUTIC TARGET < 7.0 ACTION SUGGESTED > 7.0Performed By: #### A1C #### [facility] [address] [place] [address] Dr. Reji AlegriaGlucose [Mass/Vol]117 mg/dLNormalThe [facility]als Health SystemComment on above:Performed By: #### A1C #### [facility] [address] [address] [address] Reji AlegriaHbA1c (Bld) [Mass fraction]5.7 %Normal4.5-6.2The [facility]als Health SystemComment on above:Performed By: #### A1C #### [facility] [address] [place] [address] Dr. Reji HermanID PROFILEon 13-33-1685BTTY-HDL RATIO NORMSEE BELOWSuburban Community Hospital & Brentwood HospitalComment on above:Result Comment: 3.3 - 4.4 LOW RISK 4.4 - 7.1 AVERAGE RISK 7.1 - 11.0 MODERATE RISK >11.0 HIGH RISKPerformed By: #### CMP, LIPID, TSH #### [facility] [address] [place] [address] Dr. Reji AlegriaCholesterol [Mass/Vol]146 mg/dLNormal<=200The [facility] Comment on above:Performed By: #### CMP, LIPID, TSH #### [facility] [address] [place] [address] Dr. Reji AlegriaCholesterol in HDL [Mass/Vol]48 mg/zYYejujj56-67Gde [facility] SystemComment on above:Performed By: #### CMP, LIPID, TSH #### [facility] [address] [place] [address] Dr. Reji AlegriaCholesterol in LDL [Mass/Vol]77.2 mg/dLSuburban Community Hospital & Brentwood HospitalComment on above:Performed By: #### CMP, LIPID, TSH #### [facility] [address] [place] [address] Dr. Reji Coronaesterhilary.total/Cholesterol in HDL [Mass ratio]3.0 {ratio} NormalThe [facility] Hospitals Health SystemComment on above:Performed By: #### CMP, LIPID, TSH #### [facility] [address] [place] [address] Dr. Reji AlegriaHDL NORMAL> or = 60 mg/dl - LOW CARDIOVASCULAR RISK <40 mg/dl - HIGH CARDIOVASCULAR RISKNormalThe [facility] HospitalComment on above:Performed By: #### CMP, LIPID, TSH #### [facility] [address] [address] [address] Reji AlegriaLDL CALC NORMALSEE BELOWSuburban Community Hospital & Brentwood HospitalComment on above:Result Comment: <100 mg/dl OPTIMAL 100 - 129 mg/dl NEAR OR ABOVE OPTIMAL 130 - 159 mg/dl BORDERLINE HIGH 160 - 189 mg/dl HIGH >190 mg/dl VERY HIGH Performed By: #### CMP, LIPID, TSH #### [facility] [address] [address] [address] Reji AlegriaTriglyceride [Mass/Vol]104 mg/dLNormal<=150The [facility] Comment on above:Performed By: #### CMP, LIPID, TSH #### [facility] [address] [place] [address] Dr. Reji AlegriaVLDL CALC20.8 mg/dLNoRegency Hospital Cleveland EastComment on above: Performed By: #### CMP, LIPID, TSH #### [facility] [address] [place] [address] Dr. Reji AlegriaPROF 14(COMP METB)on 24-21-3541Phivlps [Mass/Vol]3.8 g/dLNormal 3.4-5.0The [facility] Clinicment on above:Performed By: #### CMP, LIPID, TSH #### [facility] [address] [place] [address] Dr. Rjei AlegriaAlbumin/Globulin [Mass ratio]1.0 {ratio}NormalThe [facility] Health SystemCombeaumont hospital on above:Performed By: #### CMP, LIPID, TSH #### [facility] [address] [place] [address] Dr. Reji ElizabethP [Catalytic activity/Vol]68 U/JBptvqr16-966Rkd [facility] on above:Performed By: #### CMP, LIPID, TSH #### [facility] [address] [place] [address] Dr. Reji ElizabethT [Catalytic activity/Vol]21 U/VSdbqgs95-54Nwk [facility] Clinicment on above:Performed By: #### CMP, LIPID, TSH #### [facility] [address] [address] [address] Reji Flemingon gap [Moles/Vol]12.3 mmol/LNormalOhiohealth Grant Medical Center Comment on above:Performed By: #### CMP, LIPID, TSH #### [facility] [address] [address] [address] Reji AlegriaAST [Catalytic activity/Vol]16 U/KBjtbzb99-57Pbl [facility] SystemComment on above:Performed By: #### CMP, LIPID, TSH #### [facility] [address] [address] [address] Reji AlegriaBilirubin [Mass/Vol]0.2 mg/dLNormal0.2-1.0[facility] Comment on above:Performed By: #### CMP, LIPID, TSH #### [facility] [address] [address] [address] Reji AlegriaCalcium [Mass/Vol]9.1 mg/dLNormal8.5-10.1[facility] Comment on above:Performed By: #### CMP, LIPID, TSH #### [facility] [address] [address] [address] Reji AlegriaChloride [Moles/Vol]102 mmol/OEwxufr28-644Jwd [facility] Comment on above:Performed By: #### CMP, LIPID, TSH #### [facility] [address] [address] [address] Reji AlegriaCO2 [Moles/Vol]27.9 mmol/XVuyqer01.0-32.0The [facility] Comment on above:Performed By: #### CMP, LIPID, TSH #### [facility] [address] [address] [address] Reji AlegriaCreatinine [Mass/Vol]0.52 mg/dLCritically low0.55-1.02The [facility] SystemComment on above:Performed By: #### CMP, LIPID, TSH #### [facility] [address] [address] [address] Mendoza ChangEGFR-AF CITIZEN [place]>60Normal>=60The [facility]als Health SystemComment on above:Performed By: #### CMP, LIPID, TSH #### [facility] [address] [place] [address] Dr. Reji Field-NON AF CITIZEN [place]>60Normal>=60The [facility] Health SystemComment on above:Performed By: #### CMP, LIPID, TSH #### [facility] [address] [place] [address] Dr. Reji AlegriaGlobulin (S) [Mass/Vol]3.7 g/dLNormalThe [facility] Health SystemComment on above:Performed By: #### CMP, LIPID, TSH #### [facility] [address] [place] [address] Dr. Reji AlegriaGlucose [Mass/Vol]90 mg/jVEdbmsa90-337SdlOhiohealth Grant Medical Center Comment on above:Performed By: #### CMP, LIPID, TSH #### [facility] [address] [place] [address] Dr. Reji AlegriaPotassium [Moles/Vol]4.2 mmol/LNormal3.5-5.1[facility] Comment on above:Performed By: #### CMP, LIPID, TSH #### [facility] [address] [place] [address] Dr. Reji AlegriaProtein [Mass/Vol]7.5 g/dLNormal6.4-8.2[facility] Comment on above:Performed By: #### CMP, LIPID, TSH #### [facility] [address] [place] [address] Dr. Reji AlegriaSodium [Moles/Vol]138 mmol/CSternj328-033OltOhiohealth Grant Medical Center Comment on above:Performed By: #### CMP, LIPID, TSH #### [facility] [address] [place] [address] Dr. Reji AlegriaUrea nitrogen [Mass/Vol]10.0 mg/dLNormal7.0-18.0The [facility] Health SystemComment on above:Performed By: #### CMP, LIPID, TSH #### [facility] [address] [place] [address] Dr. Reji AlegriaUrea nitrogen/Creatinine [Mass ratio]19.2 mg/mgNoRegency Hospital Cleveland EastComment on above:Performed By: #### CMP, LIPID, TSH #### [facility] [address] [address] [address] Reji Mejia 30-84-7709EWU5.268 uIU/mLNormal0.358-3.740The [facility]als Health SystemComment on above:Performed By: #### CMP, LIPID, TSH #### [facility] [address] [id number] Reji AlegriaXR LSPINE MIN 4 VIEWSon 71-67-3360ET LSPINE MIN 4 VIEWS EXAMINATION: XR LSPINE [...] Electronically authenticated by: ABBY LEWIS Date: 2022-06-14 15:56[facility] & Brentwood HospitalXR shoulder RT min 2V*on 21-97-1926IV shoulder RT min 2V* [facility] [employer] Other xr shoulder RT min 2V*[facility] [employer] Other xr shoulder RT min 2V*[address] [place] [address] [employer] Other xr shoulder RT min 2V*[place] [address]Lzioy [employer] Other xr shoulder RT min 2V*[facility] [employer] Other xr shoulder RT min 2V*[facility] [employer] Other xr shoulder RT min 2V*Patient: Alon Benitez MR#: [id number] [employer] Other XR shoulder RT min 2V*[facility] [employer] Other xr shoulder RT min 2V*: 1980 Acct:[id number] [employer] Other XR shoulder RT min 2V*Age/Sex: 40 / F ADM Date: 05/24/21[place] [employer] Other XR shoulder RT min 2V*Loc: XDUCLY Room: Type: [facility] [employer] Other XR shoulder RT min 2V*Attending Dr: Emilie Christine [facility] Other XR shoulder RT min 2V*Ordering Provider: EMILIE CHRISTINE [facility] CENTERIdibon Other XR shoulder RT min 2V*Date of Service: 05/24/21[place] [employer] Other XR shoulder RT min 2V* XR/XR shoulder RT min 2V*: Acute pain of right shoulderMount Pleasant [employer] Other XR shoulder RT min 2V*Copies to: EMILIE CHRISTINE G[employer] SUPERVISOR-[employer] Other xr shoulder RT min 2V*CLINICAL HISTORY: Patient woke up with right shoulder pain 2 days ago, no known injury. [facility] Other XR shoulder RT min 2V*upper portion of the shoulder. Limited range of motion.[employer] Other XR shoulder RT min 2V*[RIGHT] SHOULDER:[employer] Other xr shoulder RT min 2V*COMPARISON: [facility] [employer] Other xr shoulder RT min 2V*FINDINGS: [AP, Grashey, transscapular] views of the right shoulder were obtained. There is [employer] Other XR shoulder RT min 2V*evidence of fracture, dislocation or bony destruction. Moderate soft tissue calcification is noted [employer] Other XR shoulder RT min 2V*adjacent to the greater tuberosity of the humerus from calcific bursitis or tendinitis. 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.[employer] Other XR shoulder RT min 2V*Impression dictated by: Mamadou Cobb M.D.05/24/2021 11:11 [facility] [employer] Other XR shoulder RT min 2V*Dictation Location: [place] [address] [employer] Other XR shoulder RT min 2V*Transcribed By: [facility] 05/24/21 [facility] CenterFl[facility] Other xr shoulder RT min 2V*Dictated By: Mamadou Cobb MD 05/24/21 110[employer] Other XR shoulder RT min 2V*Signed By:[employer] Other xr shoulder RT min 2V*05/24/21 [facility] CenterFlip[facility] Other Surgical Pathologyon [id number] Pathology (NOTE)[id number] LABORATORIESCONSULTING PATHOLOGISTS CORPORATIONANATOMIC [id number] [place] [phone] Fax: SURGICAL PATHOLOGY CONSULTATIONPatient Name: Nata BENITEZ Rec: [id number] Number: [id number]: 06/01/2017Received: 06/04/2017Reported: 06/05/2017 12:38-- Diagnosis --SKIN, RIGHT BREAST, SHAVE BIOPSY: - SLIGHT EPIDERMAL ACANTHOSIS, COMPATIBLE WITH AN EARLYFLAT SEBORRHEIC KERATOSIS, IF THIS FITS THE CLINICAL PICTURE.Everett Lawson M.D.Electronically Signed Out06/05/2017Clinical InformationPre-op Diagnosis: BREAST LESION Operative Findings: R BREAST (PER CONTAINER)Operation Performed: BIOPSY OF SKIN LESION Sourceof Specimen1: SKIN LESION RIGHT BREAST (PER CONTAINER)Gross Description ALON BENITEZ, SKIN LESION RBREAST 0.3 x 0.2 x 0.1 cm [place] shave. Inked intact 1cs. tmMicroscopic DescriptionSkin to the superficial dermis shows orthokeratotic stratum corneumand slight epidermal acanthosis. The superficial dermis includedcontains a sparse perivascular lymphocytic infiltrate with someslightly increased dermal fibrosis. There is no evidence of cyst wallor neoplasm in these sections.NormalMercy Polacca HospitalUS NON OB TRANSVAGINALon 48-92-6796WW NON OB TRANSVAGINALREPORT: Ultrasound pelvisTECHNIQUE: High- resolution sonographic evaluation of the female pelvis performed [...] seen. The right ovary contains a dominant follicle.No adnexal mass lesions or free pelvic fluid.1. Probable small uterine fibroid2. Left ovary is not definitively seenFinal report electronically signed by Barbara Ledezma on 05/21/2017 12:17 PMInterpretedby:EMANUEL Jonesigned by:Barbara Ledezma MD05/21/17Final resultNoCleveland Clinic Mercy HospitalCytologyon [id number] (NOTE)[id number] LABORATORIESCONSULTING PATHOLOGISTS CORPORATIONANATOMIC WXLUYPBAA[address] [place], [place] [phone] Fax: GYNECOLOGIC CYTOLOGY REPORTPatient Name: DEBRA BENITEZ#: [id number] #[id number]:1: Cervical material, (ThinPrep vial, Imaging- assisted review)Clinical AdkqntrG45.419 Routine powerplant operator exam without abnormal findingsHigh Risk HPV DNA testing is requested if the diagnosis is ASC-USLMP: 05/03/17INTERPRETATIONCervical material, (ThinPrep vial, Imaging-assisted review):Specimen Adequacy: Satisfactory for evaluation. -Endocervical/santiago sformation zone component is absent.Descriptive Diagnosis: Negative for intraepithelial lesion or malignancy. [place] [facility] Technician: ELÍAS Cahvez(ASCP)Electronically Signed Outmk/05/17/2017NoCleveland Clinic Mercy Hospital Vital Signs Date TimeVital SignValuePerforming CbxejpkwtVcoxeoaf38-70-8987 09:40-0400Body .02 cmFasarah Tipton APRN Work Phone: [phone]-[facility]10-28-2025 09:40-0400 Body mass index (BMI) [Ratio]44.9 kg/k3KmowvLesa Tipton APRN Work Phone: [phone] [place], [place] [address]010-28-2025 09:40-0400 Body ngwgiuhgszk46.5 [degF]Lesa Tipton APRN Work Phone: [phone] [place], [place] 3411010-28-2025 09:40-0400 Body .21 kgLesa Tipton AUTO PARTS HANDLER Work Phone: [phone] [place], [place] 3411010-28-2025 09:40-0400 Diastolic blood tjxczgip08 mm[Hg]Lesa Tipton [employer]S HANDLER Work Phone: [facility]10-28-2025 09:40-0400 Heart rate79 /minLesa Tipton AUTO PARTS HANDLER Work Phone: [facility]10-28-2025 09:40-0400 SaO2% (BldA) [Mass fraction]98 %Lesa Tipton AUT[employer]S HANDLER Work Phone: [facility]10-28-2025 09:40-0400 Systolic blood owhdnvyh882 mm[Hg]Lesa Tipton AUT[employer]S HANDLER Work Phone: [facility]07-17-2025 10:47-0400 Body mass index (BMI) [Ratio]43.71 kg/m2Loyda Billings PA Work Phone: [facility] HospitalRklalnknuy68-67-3360 10:47-0400Body fvjeon961.92 kgLoyda Billings PA Work Phone: [phone]-[facility] HospitalNorth [facility] HospitalZgsmhljurg30-90-9402 10:47-0400Diastolic blood myykvlub56 mm[Hg]Loyda Billings PA Work Phone: [facility] HospitalQgbokyrrbd00-40-9476 10:47-0400Systolic blood nzizgcyp156 mm[Hg]Loyda Billings PA Work Phone: [phone]-[facility] HospitalCwscgsenul22-52-1309 09:09-0400Body mass index (BMI) [Ratio]43.84 kg/m6YghnzcbjJosue Iyer WAREHOUSE ORDER SELECTOR Work Phone: [facility] HospitalVpduricglu14-14-8172 09:09-0400Body vhwpyx326.27 kgJosue Iyer WAREHOUSE ORDER SELECTOR Work Phone: [facility] HospitalUsiknhivfi04-07-5911 09:09-0400Diastolic blood plkxenzc96 mm[Hg]Josue Iyer WAREHOUSE ORDER SELECTOR Work Phone: [phone]-[facility] [place] [facility] HospitalAtlprzwywj68-12-9932 09:09-0400Systolic blood deifsjoc866 mm[Hg]Josue Iyer WAREHOUSE ORDER SELECTOR Work Phone: [phone]-[facility] HospitalBqvxgrmjeg10-32-9720 11:05-0400Body jqtsed680.56 cmSlay Christine Other noPat[employer] Other 10-19-2021 11:05-0400Body mass index (BMI) [Ratio] 37.38 kg/u4AagzaxhdfEmilie Christine Other noPat[employer]arma Other 10-19-2021 11:05-0400Body jqtkzpwuuaj78.8 [degF] Emilie Christine Other [employer] Other 10-19-2021 11:05-0400Body cshepu60.79 kgStruben Christine Other [employer] Other 10-19-2021 11:05-0400Diastolic blood xtmfutgj72 mm[Hg] Emilie Christine Other [employer] Other 10-19-2021 11:05-0400Respiratory rate18 /minSlay Christine Other [employer] Other 10-19-2021 11:05-4456AwY3% (BldA) [Mass fraction]100 % Emilie Penningtonault Other [employer] Other 10-19-2021 11:05-0400Systolic blood qbgjnqla808 mm[Hg] Emilie Penningtonault Other [employer] Other Encounters Encounter DateEncounter TypeCare ProviderFacilityStart: 06-02-2025 End: 11-95-5299vyxczhrkiqZpmtk Danuta [employer] Work Phone: -fpg [facility]: 06-[facility]2025 End: 07-34-5669Rmnkzof encounter procedureBenjamin Dwayne DO-FPG [facility] Work Phone: Start: 02-19-2025 End: 92-66-1748Vwazbx flowsheetLoyda PUENTES Work Phone: [facility]oms BCP OBStart: 02-19-2025 End: 65-55-8762Vvvsgq flowsheetLoyda Billings PA Work Phone: [facility] BCP OBStart: 02-19-2025 End: 67-80-2472Qzrnpd outpatient visit 15 minutesAmy Manuelito PUENTES Work Phone: noms [facility] OBComment on above:Pelvic pain in female (Primary Dx)Start: 02-19-2025 End: 29-53-1459qdocdvlotgRCF RAMEYNot AvailableStart: 01-28-2025 End: 37-88-7312rivqlnailpMHYYTSVB EBERLYNot AvailableStart: 01-22-2025 End: 50-21-7492Tvenetoah Result EncounterKristina Shireen WAREHOUSE ORDER SELECTOR Work Phone: noms External Department UnsolicitedStart: 01-22-2025 End: 53-66-6844Rfpmpjvdi Result EncounterKristina Shireen WAREHOUSE ORDER SELECTOR Work Phone: noms External Department UnsolicitedStart: 01-21-2025 End: 16-14-1604Mezvgh flowsheetKristina Shireen WAREHOUSE ORDER SELECTOR Work Phone: noms BCP OBStart: 01-21-2025 End: 43-27-9727Phwkrx flowsheetKristina Shireen WAREHOUSE ORDER SELECTOR Work Phone: noms BCP OBStart: 01-21-2025 End: 82-37-0133Sysxzvxdn Result EncounterKristina Shireen WAREHOUSE ORDER SELECTOR Work Phone: noms External Department UnsolicitedStart: 01-21-2025 End: 39-45-7995Vtiyedv encounter procedureKristina Shireen WAREHOUSE ORDER SELECTOR Work Phone: noms HealthcareStart: 01-21-2025 End: 21-06-9329Madgoayc preventive med est patient 40-64yrsKrisseth Drewly WAREHOUSE ORDER SELECTOR Work Phone: noms BCP OBComment on above:Pelvic pain in female (Primary Dx); Well woman exam with routine gynecological exam; Encounter for screening mammogram for malignant neoplasm of breast; Yeast detectedStart: 01-21-2025 End: 54-52-8219dkhwzyvuxpLRKINHRE EBERLYNot AvailableStart: 04-04-2024 End: 30-34-2940feidaqbkqfFVRJOHolzer Hospitaltart: 81-01-5761Jczqzghmt encounterJessica Peacock RNProMedica Physicians Gynecology OncologyStart: 09-21-2023 End: 16-94-1012qceopoyhgoIkitk FazioFacility:[facility] Start: 09-21-2023 End: 76-42-2918caoakffhreOW Romulo Whaley Work Phone: [facility] Work Phone: Start: 09-21-2023 End: 71-48-7664Guiglpww ReferredDO Romulo Whaley Work Phone: [facility]-LAB Path Spec [facility] HospStart: 09-05-2023 End: 79-33-6573Cabrmfrnt Result EncounterCorey Mary DO Work Phone: noms External Department UnsolicitedStart: 09-05-2023 End: 29-64-8073Clkccbduf Result EncounterCorey Mary DO Work Phone: noms External Department UnsolicitedStart: 09-04-2023 End: 40-95-8742Mhdfghbeg Result EncounterCorey Mary DO Work Phone: noms External Department UnsolicitedStart: 09-04-2023 End: 97-58-6750Mqmtkolyf Result EncounterCorey Mary DO Work Phone: noms External Department UnsolicitedStart: 08-23-2023 Patient encounter procedureJosue Iyer WAREHOUSE ORDER SELECTOR Work Phone: noms HealthcareStart: 31-55-6964Ekborgqshshvj examination Adelfo Iyer WAREHOUSE ORDER SELECTOR Work Phone: [facility] HealthcareStart: 08-21-2023 End: 97-34-8782kucoswjnukNcj L PavlockFacility:[facility] Start: 08-21-2023 End: 33-88-5018feaplisdvkBH Max L Pavlock Work Phone: [facility] Work Phone: Start: 08-21-2023 End: 16-38-4485Fpacmlpy ReferredDO Max Pavlock Work Phone: [facility]-LAB Path Spec [facility] HospStart: 67-66-6894srlimxtjbkDVJOI SHAMMOFacility:V0Pjmdl: 10-16-2022 End: 25-13-3210clskzaldyaLVIQS SHAMMOFacility:D8Inlpa: 17-13-5840Qkkbwrqlh for general adult medical examination without abnormal findingsLUCAS SHAMMOThe [facility] HospitalStart: 08-28-2022 End: 79-56-0275trcivvwvfkZOMND SHAMMOFacility:D5Pjcoz: 08-28-2022 End: 08-28-2458Xbafuvmze for general adult medical examination without abnormal findingsLUCAS SHAMMOFacility:F7Rtdzp: 27-81-6189cspykbnearSHMHY SHAMMO Facility:G9Ayyhu: 06-14-2022 End: 80-40-9691neovlmggagCAKGL SHAMMOFacility:Q5Pblun: 91-33-0111Qbujgq outpatient visit 15 [facility] Centersari ChristineREUNION RE[facility] Care ClydeStart: 06-01-2017 End: 47-02-3279PstrkqapgnNSTDTW W HEDGEclark Polacca HospitalStart: 05-21-2017 End: 23-84-3479ZxqyrspmofPWZBOH W HEDGEclark Polacca HospitalStart: 05-11-2017 End: 63-90-8439QfpopomqcbNGYYWH W [facility] Procedures DateProcedureProcedure DetailPerforming ClinicianStart: 14-05-7654KRQ CBC WITH AUTO DIFFKristina Shireen WAREHOUSE ORDER SELECTOR Work Phone: Start: 39-16-4418HSI,APTIMA HPV,AGE GDLNKristina Shireen WAREHOUSE ORDER SELECTOR Work Phone: Start: 51-04-2625DV TOMOSYNTHESIS SCREENING BICorey Mary DO Work Phone: Start: 78-20-3697ZHN CBC WITH AUTO DIFFCorey Mary DO Work Phone: Start: 43-60-1576APL APTTCorey Mary DO Work Phone: Start: 92-71-5004IFQMUA PROTHROMBIN TIME INR W/O COUM Yrn Mary DO Work Phone: Start: 00-18-7465FU PELVIS W/ TRANSVAGINALCorey Mary DO Work Phone: Start: 93-81-0909Bs transvaginalCHRISTOPHER SCOTTtart: 59-06-7874Gpvfcnwkarfyj procedure, preparation of smear, genital sourceWEMILLIE ARAGON Plan of Treatment DateCare ActivityDetailAuthorStart: 01-26-2026 End: 78-89-4813Vqllyll encounter procedureNOMS BCP OBStart: 02-19-2025 End: 85-30-3779Sdzhdno encounter mhprludsp82/17/2025 10:30 AM EDT Office Visit [facility] OB [address] [place] [phone] Loyda Billings PA [address] [address] ArrivedNOMS BCP OBComment on above:ArrivedStart: 02-18-2025 End: 02-82-2746Klzrvmo encounter ntnqkuvdc67/16/2025 9:30 AM EDT Office Visit [facility] OB [address] [place] [phone] Josue Iyer, WAREHOUSE ORDER SELECTOR [address] [place] [phone] [facility] OBStart: 01-28-2025 End: 07-92-3120Zprpzvwnseud / ancillary services sjqmleecvr50/25/2025 11:30 AM EDT Ancillary Procedure [facility] OB [address] [place], [place] [phone] [facility]IS[facility] OBStart: 01-21-2025 End: 71-49-2775AC Breast - bilateral ScreeningBilateral screening mammogram Imaging Routine Encounter for screening mammogram for malignant neoplasm of breast Expected: 01/21/2025 (Approximate), Expires: 03/23/2026[facility] Work Phone: comment on above:Expected: 01/21/2025 (Approximate), Expires: 03/23/2026Start: 01-21-2025 End: 42-72-0362OD PelvisUS Pelvis w/ TV Imaging Routine Pelvic pain in female Expected: 01/21/2025, Expires: 07/23/2025[facility] Work Phone: comment on above:Expected: 01/21/2025, Expires: 07/23/2025Start: 01-21-2025 End: 88-09-8574Zhpekjr encounter spmoihvgf87/18/2025 9:00 AM EDT Office Visit [facility] [address] [place] [address] Josue Iyer, WAREHOUSE ORDER SELECTOR [address] [place] [address] ArrivedST. [facility] OBComment on above: ArrivedStart: 06-58-3627Nmqamhlyl vaccinationInfluenza VaccineProWayne Healthcare Main Campus SystemStart: 05-82-3956Xuhvyqunz for malignant neoplasm of cervixPap Smear ProMWoodwinds Health Campus SystemStart: 46-82-5794VTwA,Tdap and Td Vaccines (1 - Tdap) DTaP,Tdap and Td Vaccines (1 - Tdap)[facility] SystemStart: 1998 Adult BMI ScreeningAdult BMI ScreeningProWayne Healthcare Main Campus SystemStart: 1992 Depression ScreeningDepression ScreeningFirstHealthtart: 1992 Tobacco ScreeningTobacco ScreeningProHocking Valley Community HospitalTHIN PREP TIS PAP AND HR HPV DNATHIN PREP TIS PAP AND HR HPV DNA Pathology and Cytology Routine Well woman exam with routine gynecological exam Ordered: 01/21/2025[facility] Comment on above:Ordered: 01/21/2025 Immunizations Immunization DateImmunizationNotesDelaware Hospital For The Chronically Ill OjdaothiZmnonhmp77-32-6403Oxjulps -40 mg Emilie Christine Other [facility] Other Payers DatePayer CategoryPayerPolicy [id number] 2023Medicaid [place] [employer] [place] [id number] [id number] [id number] 2..1.324485.3.57[id number] 2..1.711062.3.57[id number] 2..1.076788.3.579.[id number] 2..1.063779.3.579.[id number] 2..1.386341.3.57[id number] 2..840.1.308347.3.57[id number] 2.16.840.1.764366.3.579.[id number] 2.16.840.1.780317.3.579.2.506049-44-1136Jlur-[id number] IedlhcsBduuvcpen31225005-45wx-7047-[id number] 2.16.840.1.1[id number] 2.16.840.1.924286.3.579.2.531 [id number] Social History DateTypeDetailFacilityUnknown if ever smokedMount Pleasant [employer] Other Start: 10-23-2023 End: 60-38-9538Vkl Assigned At [facility] [employer] Other Start: 06-16-7342Psy Assigned At [facility] Hospitaltart: 08-03-2018 End: 43-81-4668Semaiop smoking status NHISNever smoked tobacco (finding) [facility] HospitalTobacco smoking status NHISTobacco smoking consumption unknownProWayne Healthcare Main Campus SystemStart: 81-07-0238Vjw Assigned At Not on fileProWayne Healthcare Main Campus SystemStart: 50-26-6817Ofulwtw smoking status NHIS Smokes tobacco dailyNOMS HealthcareHistory of tobacco useCigarette SmokerNOMS HealthcareStart: 08-23-2023 End: 40-28-1287Gkvcylaxm beverage intakeLifetime non-drinker (finding)[facility] HealthcareStart: 10-23-2023 End: 50-86-3787Zzdwhju of Social functionNOMS HealthcareStart: 77-74-7186Wowcwyx CommentThinking about quittingNOMS HealthcareStart: 24-71-1950Ieekhr identity Identifies as female gender (finding)[facility] HealthcareSexFemale (finding)[facility] Hospitaltart: 08-26-5[address]GfoVjgxdkKRLTRoper [facility] Clinical Notes 05-24-2021 to 02-19-2025 Note Date & FyseWtwuHyhahnpl23-50-2324 History of Present illness Narrative* DHAVAL Sarah - 02/19/2025 10:30 AM EDT Reason for Appointment: Patient ID: Alon Benitez is a 44 y.o. female who presents [...] Vitals: Estimated body mass index is 43.71 kg/m as calculated from the following: Height [...] She will need to be referred to Nguyen due to complexity of hyst. Documented by DHAVAL Sarah on behalf of: DHAVAL Sarah documented in this encounterNorth Kansas City HospitalDxwycqokut69-91-3196 History of Present illness Narrative* DHAVAL Sarah - 01/21/2025 9:00 AM EDT Reason for Appointment: Patient ID: Alon Benitez is a 44 y.o. female who presents [...] nursing note reviewed. Exam conducted with a dye colorist formulator present. Vitals: Estimated body mass index is [...] Sarah on behalf of: Josue Iyer NP documented in this encounterNorth Kansas City HospitalXfcsckiunj28-72-9478 NoteReview of Systems Cardiovascular: Positive for palpitations. Respiratory: Positive for shortness of breath. Neurological: Positive for dizziness and light-headedness.[facility]08-30-2024 [facility] Reason for cardiology consult: Palpitations Chief Complaint: Palpitations HPI: Alon Benitez is a 43 y.o. female without prior [...] no past medical history of Diabetes mellitus ([facility]), Hyperlipidemia, or Hypertension. Surgical History She [...] 9.4 Total bilirubin 0.7, (more content not included)...[facility]03-20-2024 Miscellaneous Notes* Telephone Encounter - Trisha Peacock, HALEY - 10/24/2023 2:07 PM EDT SHADY left instructing pt to c/b for WAREHOUSE ORDER SELECTOR visit. documented in this encounterMayo Memorial HospitalBalluun03-20-2024 Telephone encounter Note* Telephone Encounter - Trisha Peacock RN - 10/24/2023 2:07 PM EDT VM left instructing pt to c/b for WAREHOUSE ORDER SELECTOR visit. [facility]11-09-2022 NotePROCEDURE: XR HIP LT 2 3V WO PELVIS [...] Electronically authenticated by: ABBY LEWIS Date: 2022-06-14 15:52[facility]10-19-2021 Evaluation note* Encounter Date Diagnosis Assessment Notes Treatment Notes Treatment Clinical Notes May, Acute pain of right shoulder (IC D-10 - M25.511) Use RICE therapy as discussed: Rest, Ice Compression, Elevate. Apply ice to affected area 3-4 timesdaily (Do not place ice source directly on skin, must cover with towel-like material). Take medication as directed. Rest and elevate sore extremity as much as possible. Do not take OTC medication pain relievers if prescription of medication given in office today. Contact office of ortho is needed due to extent of arthritis and tendontitis seen on xray as discussed. [employer] Other Evaluation noteNo assessment information available [facility] Work Phone: Evaluation note* Diagnosis Pelvic pain in female- Primary Unspecified symptom associated with female genital organs Well woman exam with routine gynecological exam Routine gynecological examination Encounter for screening mammogram for malignant neoplasm of breast Yeast detected documented in this encounter [facility] HealthcareEvaluation note* Diagnosis Pelvic pain in female- Primary Unspecified symptom associated with female genital organs documented in this encounter [facility] HealthcareEvaluation note* Diagnosis Onset Date Resolution Status Admit Date Pre-employment examination acuteOct2024 9:31am [facility] Work Phone: History general Narrative - Reported* Type Description Date Medical History Hypertension Medical HistoryDepressionMedical HistoryIntercranial HTNSurgical HistoryC section x 2Hospitalization Historysee above surg hx [employer] Other InstructionsNot on filedocumented in this encounter [facility] Centered[facility] SystemReason for referral (narrative)No reason for referral information availableMercy Hospital Work Phone: Summary Purpose Family History Relationship Condition Age at Onset Recorded Date/T nel father Diabetes mellitus Unknown HypertensionUnknown Advance Directives Advance Directive Response Recorded Date/ Time Advance Directives No February 18 3:24pm Advance Directive Response Recorded Date/ Time Advance Directives No February 18 4:24pm Chief Complaint and Reason for Visit Chief Complaint Admit Date 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 June 02, 2025 9 :31am Reason for Visit Admit Date Pre-employment examination June 02, 2025 9:31am Additional Source Comments INFORMATION SOURCE (unrecogn ized section and content) DATE CREATED AUTHOR 01/29/2018 [facility] DATE CREATED AUTHOR AUTHOR'S ORGANIZ ATION 12/07/2022 [facility] DATE CREATED AUTHOR AUTHOR'S ORGANIZ ATION 10/04/2023 [facility] DATE CREATED AUTHOR AUTHOR'S ORGANIZ ATION 04/06/2024 [facility] DATE CREATED AUTHOR AUTHOR'S ORGANIZ ATION 02/23/2025 [facility] EPIC REASON FOR VISIT (unrecogniz ed section and content) ReasonCommentsWell Women VisitReasonCommentsF/U Labs and U/S Care Teams (unrecognized sec tion and content) Team Status: Active Member Role Status Dates Romulo Whaley DO Primary Care Provider Active Team Status: Inactive Member Role Status Dates Romulo Whaley DO Primary Care Provider Active Start: August 21, 2023 End: August 21orey FazioAttending ProviderActiveStart: August 21, 2023 End: August 21, 2023 Team Status: Inactive Member Role Status Dates Romulo Whaley DO Primary Care Provider Active Start: September 21, 2023 End: September 21radha Boss ProviderActiveStart: September 21, 2023 End: September 21, 2023 Team Status: Active Member Role/Relationship Status Dates Lesa Tipton APRN Primary Care Provider Active Team Status: Inactive Member Role/Relationship Status Dates Lesa Tipton APRN Primary Care Provider Active Start: June 02, 2025 End: June 02kamleshsher Rice DONoelsirena ProviderActiveStart: June 02, 2025 End: June 02, 2025 Goals (unrecognized section and content) Goals may [...] BE BASED ON THE PRIMARY CLINICAL RECORDS. [facility] [employer] [facility]. provides no warranty or guarantee of the accuracy or completeness of information in this document.
[2025-07-03 16:28] LABS: Hematocrit 37.7 % (36.0-48.0); Hemoglobin 12.6 g/dL (12.0-16.0); Immature Granulocytes Abs Auto 0.01 10^3/uL (0.00-0.03); Immature Granulocytes Pct Auto 0.2 % (0.0-0.5); Lymphocytes Absolute Auto 1.8 10^3/uL (1.2-3.8); Mean Corpuscular HGB Conc 33.4 g/dL (29.9-35.2); Mean Corpuscular Hemoglobin 29.0 pg (26.7-34.0); Mean Corpuscular Volume 86.7 fL (81.0-99.0); Platelet Count 275 10^3/uL (150-450); Red Blood Count 4.35 10^6/uL (4.20-5.40); White Blood Count 5.8 10^3/uL (4.0-11.0)
[2025-07-03 16:44] LABS: Anion Gap 11.4; Blood Urea Nitrogen 23.0 mg/dL (7.0-18.0); Calcium 9.0 mg/dL (8.5-10.1); Carbon Dioxide 27.4 mmol/L (21.0-32.0); Chloride 102 mmol/L (98-107); Estimated GFR (African America >60 (>=60 mL/min/1.73m^2); Estimated GFR (Non-African Ame >60 (>=60 mL/min/1.73m^2); Glucose 94 mg/dL (74-106); Potassium 3.8 mmol/L (3.5-5.1); Sodium 137 mmol/L (136-145)
[2025-07-03 17:23] LABS: Iron 46.0 ug/dL (50.0-170.0); Percent Iron Saturation 13.2 %; Total Iron Binding Capacity 349.0 ug/dL (250.0-450.0)
[2025-07-03 17:46] LABS: Ferritin 22.0 ng/mL (8.0-252.0)
[2025-07-05 06:44] LABS: Vitamin B12 527 pg/mL (232-1245)
== END 2025-07-03 15:58 | disposition home or self-care (01) ==
PROVIDERS: Visit Provider Internal Medicine Hematology & Oncology
DX: G43.919 Migraine, unspecified, intractable, without status migrainosus (principal); D50.9 Iron deficiency anemia, unspecified; D64.9 Anemia, unspecified; K90.9 Intestinal malabsorption, unspecified
CPT/HCPCS: 36415; 80048; 82306; 82607; 82728; 83540; 83550; 85025

== ENCOUNTER 2025-08-03 13:03 | Outpatient (RCR) | payer MEDICAID, SELFPAY ==
[2025-07-27 13:09] VITALS: BP 135/91; PULSE 86; TEMP 36.2; O2SAT 97
[2025-08-03 13:10] VITALS: BP 142/85; PULSE 81; TEMP 36.4; O2SAT 98
== END 2025-08-05 23:59 | disposition home or self-care (01) ==
LOC: HEMC 13:03
PROVIDERS: Visit Provider Internal Medicine Hematology & Oncology
DX: D50.9 Iron deficiency anemia, unspecified (principal); D64.9 Anemia, unspecified; G43.919 Migraine, unspecified, intractable, without status migrainosus; K90.9 Intestinal malabsorption, unspecified
CPT/HCPCS: 96365; Q0138